=== PATIENT | male | born 1945 | race Caucasian/White ===

== ENCOUNTER → 2018-03-28 14:40 | Outpatient (CLI) | payer OTHER, SELFPAY ==
--- NOTE | 2018-03-28 14:44 | CT_ITS ---
STUDY: CT ABDOMEN AND PELVIS WITHOUT CONTRAST REASON FOR EXAM: Male, 72 years old. Hematuria x1 month RADIATION DOSAGE (If Supplied By Facility): CTDIvol = ( 14.10 ) mGy, DLP = ( 1630.67 ) mGycm TECHNIQUE: Transaxial images were obtained from the dome of the diaphragm to the symphysis pubis without oral contrast, and without intravenous contrast. Sagittal and coronal images were reconstructed. Individualized dose optimization techniques were used for this CT. COMPARISON: None. FINDINGS: The visualized lung bases are unremarkable. The visualized portions of the heart are within normal limits. Normal liver. Normal gallbladder and extrahepatic biliary system. Normal spleen. Normal pancreas. Normal bilateral adrenal glands. Normal right kidney. Normal left kidney. Normal visualized stomach. Normal small intestine. Normal colon. There is non-visualization of the appendix. There is diffuse atherosclerotic calcification of the abdominal aorta, without a demonstrated aneurysm. Normal inferior vena cava. Normal retroperitoneum. There is significant enlargement of the prostate gland with impingement upon the inferior bladder wall. This is likely responsible for the diffuse bladder wall thickening but without IV contrast but cannot exclude an underlying bladder lesion. Normal abdominal wall. There are diffuse degenerative changes of the visualized lumbar spine. CT/CT Abd/Pelvis W/WO Contrast IMPRESSION: Diffuse enlargement of the prostate gland measures at least 5.8 x 5.9 x 5.5 cm. It abuts the inferior bladder and is likely impinging upon the inferior bladder wall and causing diffuse bladder wall thickening. I suspect that this is responsible for what appears to be a filling defect within the inferior bladder wall but without IV contrast I cannot exclude an underlying bladder lesion. Urologic consultation recommended. No obstructive uropathy. No CT evidence of an acute inflammatory process No free intraperitoneal fluid, air, or suspicious adenopathy Electronically Signed: Marco Perry MD at 15:33 EDT , Service support ,
[2018-03-28 15:01] LABS: CREATININE FINGERSTICK 1.3 mg/dL (0.70-1.30)
== END ==
PROVIDERS: Family Provider Internal Medicine; PCP Internal Medicine; Visit Provider Urology
DX: R31.9 Hematuria, unspecified (principal)
CPT/HCPCS: 74178; Q9967

== ENCOUNTER 2018-05-23 15:02 | Observation (INO) | payer OTHER, SELFPAY ==
[2018-05-09 14:16] VITALS: BP 178/91; PULSE 69; RESP 16; TEMP 36.3; O2SAT 97; BMI 24.0
--- NOTE | 2018-05-09 14:24 | SDCEKG_ITS ---
Test Reason : Blood Pressure : / mmHG Vent. Rate : 064 BPM Atrial Rate : 064 BPM P-R Int : 186 ms QRS Dur : 102 ms QT Int : 416 ms P-R-T Axes : 013 008 037 degrees QTc Int : 429 ms Normal sinus rhythm Inferior infarct , age undetermined Abnormal ECG Confirmed by STEFANO ARIAS, SHERLYN ([id number]), videotape editor NOLAN PENALOZA ([id number]) on 05/17/2018 1:11:20 PM Referred By: CAITLIN Confirmed By:SHERLYN AGARWAL MD
[2018-05-09 15:01] LABS: Hematocrit 41.8 % (40-54); Hemoglobin 14.3 g/dl (13.0-16.5); Mean Corp Hgb Conc 34.2 g/gl (32-36); Mean Corpuscular Hgb 29.8 pg (27.0-32.0); Mean Corpuscular Volume 87.1 fL (80-94); Mean Platelet Vol. 10.4 fl (6.2-12.0); Platelet Count 229 K/mm3 (150-450); RBC Distribution Width CV 14.7 % (11.6-14.6); RBC Distribution Width SD 47.1 fl (35.1-43.9); White Blood Count 7.1 K/mm3 (4.4-11.0)
[2018-05-09 15:09] LABS: Scan Indicated on CBC? Y/N NO
[2018-05-09 15:31] LABS: Anion Gap 10 (5-15); BUN 20 mg/dL (7-18); BUN/Creat Ratio 16.3 RATIO (10-20); Calcium,Total 8.8 mg/dL (8.5-10.1); Chloride 108 mmol/L (98-107); Creatinine, Serum 1.23 mg/dL (0.70-1.30); EST Glomerular Filtration Rate 62 mL/min (>60); Est Glom Filt Rate - Afr Amer 75 mL/min (>60); Estimated Creatinine Clearance 62.25 ml/min; Glucose 98 mg/dL (74-106); Potassium 3.8 mmol/L (3.5-5.1); Sodium Level 141 mmol/L (136-145)
[2018-05-22] VITALS (10 sets, daily range): BP systolic 153–187; BP diastolic 79–100; PULSE 70–100; RESP 16–17; TEMP 36.1–37.6; O2SAT 95–100; BMI 24.0
[2018-05-22] MEDS: Cefazolin 2 GM in 0.9% Normal Saline 100 ML IV (13:20)
[2018-05-22] MEDS: Bupivacaine Mpf 0.5% 30 ML VIAL (15:30)
--- NOTE | 2018-05-22 15:53 | OP.PCM_ITS ---
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 The abdomen was shaved prepped and draped in usual sterile fashion made a small incision above the supra umbilicus which was introduced the Veress needle into the peritoneal cavity and if inflated the peritoneal cavity CO2 gas I then placed my camera trocar right arm trocar left arm trocar fourth arm trocar suction trocar and air seal port we then docked the robot I released some attachments of the bowel to a prior hernia repair the patient's left upper quadrant in the left inguinal area, I then filled the bladder with 3 syringe holes of water unit using a Shea syringe made a midline incision in the bladder use the fourth arm to retract bladder inferiorly and then after clamshell in the bladder open then I used a Donell needle to pull the wings the bladder laterally I then identified the very large adenomatous tissue from the prostate protruding the bladder circumferentially dissected between the bladder muscle and the prostate until I had dissected all the way around then using blunt and sharp dissection dissected the adenoma off the anterior into the prostate performing dissection along the adenoma all the way along the inferior capsular margin all the way to the sphincter complex and the urethra once the adenoma was removed on both the left and right side and this is placed in Endo Catch bag some extra tissue that was removed I then used this is suture a V lock stitch of the double-armed suture to then reapproximate the mucosa to the urethra suspending the urethra and attaching the mucosa down to the urethra we then put a catheter 20 [place] catheter into the bladder and then we closed the midline incision in the bladder with 2-0 Vicryl 3-0 Vicryl and then we extracted the prostate adenoma to the umbilicus we closed the umbilicus with a with stitches and closed the balloon trocar site with stitches once all the sutures were closed all the counts were complete we flushed the bladder urine was nice and clear patient is patient was extubated taken back to PACU in good condition. Type of Anesthesia:: General Drains: 20 fr nolan - Admit VTE Documentation VTE Present on Admission: No VTE Mechan Device Prophylaxis: SCD's
[2018-05-22] MEDS: 0.9% Normal Saline 1,000 ML 75 ML IV (18:05)
[2018-05-22] MEDS: Lisinopril 40 MG Tablet PO (20:03)
[2018-05-22] MEDS: Ciprofloxacin 500 MG Tablet PO (20:03)
[2018-05-22] MEDS: Docusate Sodium 100 MG Capsule PO (20:03)
--- NOTE | 2018-05-23 | PROST_PTH ---
PATIENT: LAURA HONG LOC: [facility] U#:[id number] AGE/SX: 72/M ROOM: [facility]324 RE05/23/[address]: Dr. Parth Shaw MD : [id number] BED: 1 DIS: 05/24/2018 SPEC #: [id number] RECD: 05/23/18 12:23 STATUS: CHRISTIAN HAZEL #: [id number] BELINDA: 05/23/18 00:[address]: Parth Shwa DEPT: SURGICAL PATHOLOGY RECD BY: David Moses ENTERED: 05/23/18 12:23 SP TYPE: PROSTATE OTHR DR: Dr. Sharon Romero MD Tissues: Prostate, NOS Procedures: Surgery Specimen Level V HEADER OPERATION: Laparoscopic robotic simple prostatectomy PRE-OP DIAGNOSIS: BPH with obstruction TISSUE SUBMITTED: Prostate tissue MICROSCOPIC DIAGNOSIS Prostate, simple prostatectomy: Benign nodule hyperplasia, glandular and stromal types. Chronic inflammation. No evidence of malignancy. AM:charan 05/24/18 MICROSCOPIC DESCRIPTION Slides are reviewed. GROSS DESCRIPTION Received in fixative is one container labeled with the patient's name and designated prostate tissue. The specimen consists of a simple prostatectomy specimen consisting of prostate and also detached pieces of prostatic tissue weighing in aggregate 57 gm. The prostate appears disrupted and morcellated. The prostate measures 7 cm transversely, 5 cm from apical to basal portion and 4 cm anterior-posteriorly. Detached pieces of prostate measure in aggregate 6 x 5 x 2 cm. Sections reveal multinodular cut surfaces. No obvious mass lesion is identified. Composing Room Machinist sections are submitted in ten cassettes as follows: 1 & 2 ? detached pieces of tissue, 3-6 ? right lobe, 7-10 ? left lobe. / SJ:charan 05/23/18 TC:3 CPT: 03416
[2018-05-23] MEDS: oxyCODONE 5 MG Tablet PO ×4 (06:21→23:07)
[2018-05-23] MEDS: 0.9% Normal Saline 1,000 ML 75 ML IV ×2 (06:21→18:31)
[2018-05-23] MEDS: Multivitamins,Therapeutic Tablet 1 TABLET PO (07:39)
[2018-05-23 07:40] VITALS: BP 167/101; PULSE 102; RESP 18; TEMP 37.7; O2SAT 98
[2018-05-23] MEDS: Docusate Sodium 100 MG Capsule PO ×2 (09:48→21:36)
[2018-05-23] MEDS: Ciprofloxacin 500 MG Tablet PO ×2 (09:48→21:36)
[2018-05-23] MEDS: Lisinopril 40 MG Tablet PO (09:48)
[2018-05-23] MEDS: Pantoprazole Sodium 20 MG Tablet PO (09:48)
[2018-05-23 16:05] VITALS: BP 179/104; PULSE 84; RESP 18; TEMP 37.2; O2SAT 98
[2018-05-23] MEDS: Ibuprofen 600 MG Tablet PO (18:32)
[2018-05-23 21:35] VITALS: BP 149/86; PULSE 69; RESP 16; TEMP 36.8; O2SAT 97
[2018-05-23] MEDS: 0.9% NaCl Peripheral Flush Adult/Peds IV (21:41)
[2018-05-24 04:00] VITALS: BP 182/92; PULSE 63; RESP 18; TEMP 36.7; O2SAT 94
[2018-05-24] MEDS: 0.9% Normal Saline 1,000 ML 75 ML IV (06:54)
[2018-05-24] MEDS: oxyCODONE 5 MG Tablet PO (06:56)
--- NOTE | 2018-05-24 07:17 | DCINST_ITS ---
Discharge Diet: Light diet - advance as tolerated Discharge Activity: May Shower Call your doctor if your incision/area has: Continuous Slow Oozing, Sudden Increased Bleeding, Increased Pain/ Swelling, Increased Redness, Foul Smelling Discharge, Swelling at the incision site Suture Line Care: Avoid Pulling/Pushing, Avoid Pinching/Bending Catheter: Sebastian to leg bag, Sebastian to large bag Drain: [place] Allergies/Adverse Reactions: Allergies No Known Allergies Allergy (Verified 05/09/18 13:57) Medications to take at Discharge Aspirin [Aspirin EC] 81 mg PO DAILY 05/09/18 Doxazosin Mesylate [Cardura Xl] 4 mg PO QHS 05/09/18 Finasteride [Proscar] 5 mg PO QHS 05/09/18 Lisinopril [Zestril] 40 mg PO DAILY 05/09/18 Multivitamin [Multiple Vitamins] 1 each PO DAILY 05/09/18 Omeprazole [Prilosec] 20 mg PO DAILY 05/09/18 Ciprofloxacin [Cipro] 500 mg PO BID #20 tab 05/22/18 Docusate Sodium [Colace] 100 mg PO BID #20 cap 05/22/18 Hydrocodone/Acetaminophen [[place] 5-325 Tablet] 1 ea PO Q4H PRN PRN 5 Days #14 tab 05/22/18 The following prescriptions were given: Hydrocodone/Acetaminophen [[place] 5-325 Tablet] 1 ea PO Q4H PRN PRN 5 Days #14 tab PRN Reason: Pain Ciprofloxacin [Cipro] 500 mg PO BID #20 tab Docusate Sodium [Colace] 100 mg PO BID #20 cap Primary Care Physician: Sharon Romero MD [Primary Care Provider] - Test Results: Test results from this visit will be discussed in further detail at your follow- up appointment, if applicable. Please Follow Up With: Parth Shaw MD When: please call to make an appointment- next
--- NOTE | 2018-05-24 07:17 | PCM.DC.SUM ---
Discharge Date and Diagnosis Date of Admission: 05/22/18 Date of Discharge: 05/24/18 Hospital Course and Treatment Operations: - - Robotic simple prostatectomy Procedures: None Summary of Care Provided: The patient is a 72 year old male who underwent a robotic prostatectomy did well after surgery wanted to stay 1 more night in the hospital was finally discharged on postoperative day #2 in good condition passing gas belly was nice and soft Sebastian in place urine is nice and clear light alex color no clots. Patient will go home with a catheter and is instructed to follow-up next week for catheter removal he will keep pushing fluids and was given a prescription for stool softeners antibiotics and pain medicine. Discharge Diet: Light diet - advance as tolerated Discharge Activity: May Shower Call your doctor if your incision/area has: Continuous Slow Oozing, Sudden Increased Bleeding, Increased Pain/ Swelling, Increased Redness, Foul Smelling Discharge, Swelling at the incision site Suture Line Care: Avoid Pulling/Pushing, Avoid Pinching/Bending Catheter: Sebastian to leg bag, Sebastian to large bag Drain: [place] Home Medications: Medications to take at Discharge Aspirin [Aspirin EC] 81 mg PO DAILY 05/09/18 Doxazosin Mesylate [Cardura Xl] 4 mg PO QHS 05/09/18 Finasteride [Proscar] 5 mg PO QHS 05/09/18 Lisinopril [Zestril] 40 mg PO DAILY 05/09/18 Multivitamin [Multiple Vitamins] 1 each PO DAILY 05/09/18 Omeprazole [Prilosec] 20 mg PO DAILY 05/09/18 Ciprofloxacin [Cipro] 500 mg PO BID #20 tab 05/22/18 Docusate Sodium [Colace] 100 mg PO BID #20 cap 05/22/18 Hydrocodone/Acetaminophen [[place] 5-325 Tablet] 1 ea PO Q4H PRN PRN 5 Days #14 tab 05/22/18 Following Prescrptions Were Given to Patient: Hydrocodone/Acetaminophen [[place] 5-325 Tablet] 1 ea PO Q4H PRN PRN 5 Days #14 tab PRN Reason: Pain Ciprofloxacin [Cipro] 500 mg PO BID #20 tab Docusate Sodium [Colace] 100 mg PO BID #20 cap Primary Care Physician: Sharon Romero MD [Primary Care Provider] - Please Follow Up With: Parth Shaw MD When: please call to make an appointment- next Medical Necessity - Tobacco Use Smoking Status: Former smoker Meaningful Use Info Meaningful Use Diagnoses (Choose all that apply): None applicable
--- NOTE | 2018-05-24 07:21 | DS.PCM_ITS ---
Discharge Date and Diagnosis Date of Admission: 05/22/18 Date of Discharge: 05/24/18 Hospital Course and Treatment Operations: - - Robotic simple prostatectomy Procedures: None Summary of Care Provided: The patient is a 72 year old male who underwent a robotic prostatectomy did well after surgery wanted to stay 1 more night in the hospital was finally discharged on postoperative day #2 in good condition passing gas belly was nice and soft Sebastian in place urine is nice and clear light alex color no clots. Patient will go home with a catheter and is instructed to follow-up next week for catheter removal he will keep pushing fluids and was given a prescription for stool softeners antibiotics and pain medicine. Discharge Diet: Light diet - advance as tolerated Discharge Activity: May Shower Call your doctor if your incision/area has: Continuous Slow Oozing, Sudden Increased Bleeding, Increased Pain/ Swelling, Increased Redness, Foul Smelling Discharge, Swelling at the incision site Suture Line Care: Avoid Pulling/Pushing, Avoid Pinching/Bending Catheter: Sebastian to leg bag, Sebastian to large bag Drain: [place] Home Medications: Medications to take at Discharge Aspirin [Aspirin EC] 81 mg PO DAILY 05/09/18 Doxazosin Mesylate [Cardura Xl] 4 mg PO QHS 05/09/18 Finasteride [Proscar] 5 mg PO QHS 05/09/18 Lisinopril [Zestril] 40 mg PO DAILY 05/09/18 Multivitamin [Multiple Vitamins] 1 each PO DAILY 05/09/18 Omeprazole [Prilosec] 20 mg PO DAILY 05/09/18 Ciprofloxacin [Cipro] 500 mg PO BID #20 tab 05/22/18 Docusate Sodium [Colace] 100 mg PO BID #20 cap 05/22/18 Hydrocodone/Acetaminophen [[place] 5-325 Tablet] 1 ea PO Q4H PRN PRN 5 Days #14 tab 05/22/18 Following Prescrptions Were Given to Patient: Hydrocodone/Acetaminophen [[place] 5-325 Tablet] 1 ea PO Q4H PRN PRN 5 Days #14 tab PRN Reason: Pain Ciprofloxacin [Cipro] 500 mg PO BID #20 tab Docusate Sodium [Colace] 100 mg PO BID #20 cap Primary Care Physician: Sharon Romero MD [Primary Care Provider] - Please Follow Up With: aPrth Shaw MD When: please call to make an appointment- next Medical Necessity - Tobacco Use Smoking Status: Former smoker Meaningful Use Info Meaningful Use Diagnoses (Choose all that apply): None applicable
[2018-05-24 08:51] VITALS: BP 185/92; PULSE 87; RESP 16; TEMP 37.3; O2SAT 97
[2018-05-24] MEDS: Multivitamins,Therapeutic Tablet 1 TABLET PO (10:26)
[2018-05-24] MEDS: Docusate Sodium 100 MG Capsule PO (10:26)
[2018-05-24] MEDS: Pantoprazole Sodium 20 MG Tablet PO (10:26)
[2018-05-24] MEDS: Ciprofloxacin 500 MG Tablet PO (10:26)
[2018-05-24] MEDS: Lisinopril 40 MG Tablet PO (10:30)
[2018-05-24 12:19] VITALS: BP 187/96; PULSE 86; RESP 16; TEMP 37.1; O2SAT 98
== END 2018-05-24 12:45 | disposition home or self-care (01) ==
LOC: SDC 15:11 → MS3 05-24 06:25
PROVIDERS: Admitting Provider Urology; Family Provider Internal Medicine; PCP Internal Medicine; Visit Provider Urology
PROC: 0VT04ZZ Resection of Prostate, Percutaneous Endoscopic Approach (ICD-10-PCS; CPT 55867; principal; 2018-05-22 12:35)
DX: N40.1 Benign prostatic hyperplasia with lower urinary tract symptoms (principal); N13.8 Other obstructive and reflux uropathy; D29.1 Benign neoplasm of prostate; Z87.891 Personal history of nicotine dependence; Z79.899 Other long term (current) drug therapy; Z79.82 Long term (current) use of aspirin; I10 Essential (primary) hypertension; L40.9 Psoriasis, unspecified; K21.9 Gastro-esophageal reflux disease without esophagitis; R94.31 Abnormal electrocardiogram [ECG] [EKG]
CPT/HCPCS: 00860; 51990; 55866; S2900; 80048; 85027; 86850; 86900; 86920; 86922; 88307; 88309; 93005; 96360; 96361; 99218; J7030; J7120; A4216; G0378; G0379; J2405

== ENCOUNTER → 2020-03-02 14:39 | Outpatient (CLI) | payer MEDICARE, OTHER, SELFPAY ==
[2020-03-02 16:05] LABS: PSA,Total- Diagnostic 0.85 ng/mL (0.0-4.0)
== END ==
PROVIDERS: PCP Internal Medicine; Referring Provider Urology; Visit Provider Urology
DX: R97.20 Elevated prostate specific antigen [PSA] (principal)
CPT/HCPCS: 36415; 84153

== ENCOUNTER → 2020-04-01 17:39 | Outpatient (CLI) | payer MEDICARE, OTHER, SELFPAY | PROVIDERS: PCP Internal Medicine; Referring Provider Internal Medicine; Visit Provider Urology | DX: Z11.59 Encounter for screening for other viral diseases (principal) | CPT/HCPCS: 87635; 94799; U0003 ==

== ENCOUNTER → 2020-04-05 14:28 | Outpatient (CLI) | payer MEDICARE, OTHER, SELFPAY ==
[2018-05-22 11:10] VITALS: BMI 24.0
--- NOTE | 2020-04-05 14:40 | EKG12_ITS ---
Test Reason : Blood Pressure : / mmHG Vent. Rate : 069 BPM Atrial Rate : 069 BPM P-R Int : 176 ms QRS Dur : 104 ms QT Int : 394 ms P-R-T Axes : 017 018 042 degrees QTc Int : 422 ms Normal sinus rhythm with sinus arrhythmia Normal ECG Confirmed by STEFANO ARIAS, SHERLYN ([id number]), online editor GIULIANA HEALY ([id number]) on 04/06/2020 8:44:51 AM Referred By: Parth Shaw Confirmed By:SHERLYN AGARWAL MD
[2020-04-05 15:45] LABS: Hematocrit 43.8 % (40-54); Hemoglobin 14.9 g/dL (13.0-16.5); Mean Corpuscular Hgb 29.8 pg (27.0-32.0); Mean Corpuscular Volume 87.6 fL (80-94); Mean Platelet Vol. 10.4 fl (6.2-12.0); Platelet Count 255 K/mm3 (150-450); RBC Distribution Width CV 14.6 % (11.6-14.6); RBC Distribution Width SD 46.9 fl (35.1-43.9); White Blood Count 7.9 K/mm3 (4.4-11.0)
[2020-04-05 16:06] LABS: Anion Gap 7 (5-15); BUN 22 mg/dL (7-18); BUN/Creat Ratio 16.5 RATIO (10-20); Calcium,Total 8.9 mg/dL (8.5-10.1); Chloride 109 mmol/L (98-107); Creatinine, Serum 1.33 mg/dL (0.70-1.30); EST Glomerular Filtration Rate 56 mL/min (>60); Est Glom Filt Rate - Afr Amer 68 mL/min (>60); Glucose 123 mg/dL (74-106); Potassium 3.7 mmol/L (3.5-5.1); Sodium Level 140 mmol/L (136-145)
== END ==
PROVIDERS: PCP Internal Medicine; Referring Provider Urology; Visit Provider Urology
DX: I10 Essential (primary) hypertension (principal)
CPT/HCPCS: 36415; 80048; 85027; 93005

== ENCOUNTER 2022-05-03 10:26 | Inpatient (IN) | payer MEDICARE, OTHER, SELFPAY ==
[2022-05-03] VITALS (24 sets, daily range): BP systolic 170–222; BP diastolic 63–163; PULSE 64–151; RESP 16–27; TEMP 36.6–36.9; O2SAT 96–99; BMI 23.3; BMI 22.7
--- NOTE | 2022-05-03 10:37 | EKG12_ITS ---
Test Reason : AFIB Blood Pressure : / mmHG Vent. Rate : 151 BPM Atrial Rate : 141 BPM P-R Int : 000 ms QRS Dur : 104 ms QT Int : 298 ms P-R-T Axes : 000 011 015 degrees QTc Int : 472 ms Atrial fibrillation with premature ventricular or aberrantly conducted complexes Abnormal ECG Confirmed by HERMELINDA ARIAS, RAVIN ([id number]), food expeditor GIULIANA HEALY ([id number]) on 05/05/2022 2:01:52 PM Referred By: VALERIY Confirmed By:SWATI SHEN MD
--- NOTE | 2022-05-03 10:37 | CT_ITS ---
We are attempting to reach an attending provider to discuss findings. An addendum with communication details will be sent when the communication is complete. STUDY: CT BRAIN WITHOUT CONTRAST REASON FOR EXAM: Male, 76 years old. Neuro deficit, acute, stroke suspected RADIATION DOSAGE (If Supplied By Facility): CTDIvol = ( 44.99 ) mGy, DLP = ( 796.11 ) mGycm TECHNIQUE: Transaxial CT imaging of the brain was performed without administration of intravenous contrast material. Individualized dose optimization techniques were used for this CT. COMPARISON: No relevant priors. FINDINGS: Normal soft tissue structures. Normal calvarium. There is mild cortical and central atrophy. There is no evidence of focal attenuation abnormality. There is mild cerebellar atrophy. There is no intracranial hemorrhage. There are no findings of an acute ischemic infarction. Normal visualized paranasal sinuses. CT/STROKE Brain/Head without Cont IMPRESSION: No evidence of acute ischemic infarction. Mild cortical and central atrophy. Verbal results provided Dr. Iniguez. Electronically Signed: Luis Manuel Singleton MD, MARIANA at 11:41 EDT ,
--- NOTE | 2022-05-03 10:38 | CT_ITS ---
STUDY: CTA HEAD AND NECK WITH CONTRAST REASON FOR EXAM: Male, 76 years old. confusion RADIATION DOSAGE (If Supplied By Facility): CTDIvol = ( 23.11 ) mGy, DLP = ( 739.03 ) mGycm TECHNIQUE: CT angiography was performed with a multi-detector CT scanner. Data acquisition was obtained from the skull base through the vertex following intravenous administration of IV 100mL Isovue-370. MIP images were reconstructed from the axial data set. Post-processing of the angiographic images was performed, with multiplanar reformation and 3D reconstruction. Individualized dose optimization techniques were used for this CT. COMPARISON: No relevant priors. FINDINGS: Normal bilateral petrous carotid arteries. Bilaterally the distal cavernous carotid arteries at the right and left genu demonstrating moderate stenosis in the range of 40-59%. Normal right A1 segments of the anterior cerebral artery. Normal left A1 segments of the anterior cerebral artery. Normal intact anterior communicating artery (ACOM). Normal bilateral A2 segments of the anterior cerebral arteries. Normal right M1 and M2 segments of the middle cerebral arteries, with a normal M1 bifurcation. Normal left M1 and M2 segments of the middle cerebral arteries, with a normal M1 bifurcation. Normal right posterior communicating artery (PCOM). Normal left posterior communicating artery (PCOM) which appears dominant.. Normal bilateral vertebral arteries. Normal basilar artery with a normal basilar bifurcation. The visualized bilateral superior cerebellar (SCA) arteries are normal. Normal bilateral P1, P2 and visualized P3 segments of the posterior cerebral arteries. There is no demonstrated aneurysm of the [place]. There is no demonstrated abnormality of the visualized brain. AORTIC ARCH: Normal visualized aortic arch. Normal origins of the brachiocephalic, left common carotid, and left subclavian arteries. RIGHT CAROTID ARTERIES: Normal right common carotid artery (CCA). Normal right common carotid bulb. (139%) stenosis at the origin of the right internal carotid artery. Normal visualized cervical portion of the right internal carotid artery. Normal origin of the right external carotid artery (ECA). LEFT CAROTID ARTERIES: Normal left common carotid artery (CCA). Normal left common carotid bulb. Mild stenosis at the origin of the left internal carotid artery in the range of 1-39%. Normal visualized cervical portion of the left internal carotid artery. Normal origin of the left external carotid artery (ECA). VERTEBRAL ARTERIES: Vertebral arteries are normal bilaterally with the distal left vertebral being dominant. CT/CTA Head AND Neck W/ Contrast IMPRESSION: Mild (1-39%) stenosis of the origin of the right and left internal carotid arteries. 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 Normal variant prominent distal left vertebral artery. Findings discussed with Dr. Iniguez. Electronically Signed: Luis Manuel Singleton MD, MARIANA at 11:58 EDT ,
--- NOTE | 2022-05-03 10:40 | EDS_ITS ---
HPI History of Present Illness Chief Complaint: Confusion Detail of Chief Complaint: Decreased mental status Informant: patient and friend Onset/Context/Timing Onset: Today and Hours Current Severity: Mild Maximum Severity: Mild Associated Symptoms Associated Symptoms: Negative for Headache, Nausea, Vomiting or Chest Pain Narrative Narrative: 76-year-old male history of hypertension. Brought in today by coworkers because he was acting abnormally at work. Primarily confused. He did not know the day, month or year. He said normally he is very bright. Typically very alert. He denies any recent illness. He denies any fall or head trauma. He denies any recent illness. 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), lumbosacral Diaphragmatic hernia without mention of obstruction or gangrene Elevated prostate specific antigen (PSA) Erectile dysfunction Esophageal reflux Essential (primary) hypertension Hypertension Inverse psoriasis Unilateral inguinal hernia without obstruction or gangrene Home Medications aspirin 81 mg tablet,delayed release 81 mg PO DAILY heart health 05/09/18 [History Last Taken 05/07/18] doxazosin 4 mg tablet,extended release 24 hr (Cardura XL) 4 mg PO QHS prostate 05/09/18 [History Last Taken Unknown] finasteride 5 mg tablet 5 mg PO QHS prostate 05/09/18 [History Last Taken Unknown] lisinopril 40 mg tablet (Zestril) 40 mg PO DAILY bp 05/09/18 [History Last Taken 05/22/18 08:00] multivitamin (Multiple Vitamins tablet) 1 ea PO DAILY supplement 05/09/18 [History Last Taken 05/07/18] omeprazole 20 mg capsule,delayed release 20 mg PO DAILY gerd 05/09/18 [History Last Taken 05/22/18 08:00] ciprofloxacin HCl 500 mg tablet 500 mg PO BID #20 tabs 05/22/18 [Rx Last Taken Unknown] docusate sodium 100 mg capsule 100 mg PO BID #20 caps 05/22/18 [Rx Last Taken Unknown] hydrocodone-acetaminophen 5-325mg 5mg-325mg 1 ea PO Q4H PRN PRN Pain 5 days #14 tabs 05/22/18 [Rx Last Taken Unknown] Allergy/AdvReac Type Severity Reaction Status Date / Time amlodipine AdvReac Intermediate Rash Verified 05/03/22 11:18 chlorthalidone AdvReac Intermediate Diarrhea Verified 05/03/22 11:18 hydrochlorothiazide AdvReac Unknown intolerance Verified 05/03/22 11:18 Social History (Updated 05/03/22 @ 11:20 by Krista Knapp) Smoking Status: Former smoker alcohol intake: current ROS ROS ED ROS Narrative Denies recent illness. Review of Systems ROS Unobtainable: Denies due to encephalopathy Constitutional Constitutional ED: Denies chills or fever(s) Eyes Eyes: Denies blurry vision ENT ENT ED: Denies ear pain Cardiovascular Cardiovascular: Denies chest pain Respiratory/Chest Respiratory/Chest: Denies cough Gastrointestinal Gastrointestinal: Denies abdominal pain Genitourinary Genitourinary ED: Denies dysuria Musculoskeletal Musculoskeletal: Denies arthralgias Integumentary Denies abscess Neurologic Neurologic: Denies headache(s) Psychiatric Psychiatric: Denies anxiety Endocrine Endocrinology: Denies polydipsia Hematologic/Lymphatic Hematologic/Lymphatic: Denies easy bleeding Allergic/Immunologic Allergic/Immunologic ED: Denies mouth swelling EXAM Physical Exam Narrative Exam Narrative: 76-year-old male heart rates 151 appears to be A. fib on the monitor. His initial blood pressure was 197/163. He is awake alert. He is confused. There is a friend at bedside. H EENT exam unremarkable. Pupils round reactive light. No facial droop. Normal speech. No signs of trauma. Nontender. Neck nontender no lymphadenopathy. Lungs clear to auscultation. Heart tachycardic appears to be A. fib with RVR in the moderate about 150. Chest were nontender. Abdomen soft nontender. Moving all 4 extremities. Nontender no edema. No deformity. 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 Dorsi plantarflexion intact. Neurologically is awake. He answers questions and follows commands. He has normal speech. No facial droop. He is confused he could not name the day, month, year or president night states. When I gave him a choice between 3 months he did state it was April. He is speaking normally. There is no slurring of his speech. There is no receptive or expressive aphasia. NIH score is 1, for confusion. Const Vital Signs: 05/03/22 10:27 05/03/22 10:31 05/03/22 10:45 Temperature 98.1 F 98.1 F 98.1 F Temperature Source Temporal Temporal Temporal Pulse Rate 151 H 140 H 139 H Respiratory Rate 19 H 20 H 18 Blood Pressure 197/63 H 197/163 H 213/135 H Blood Pressure Mean 107 174 161 Pulse Ox 98 98 98 Oxygen Delivery Method Room Air Room Air Room Air 05/03/22 10:46 05/03/22 11:07 05/03/22 11:27 Temperature Temperature Source Pulse Rate 95 99 Respiratory Rate 20 H 22 H Blood Pressure 222/122 H 191/110 H Blood Pressure Mean 155 137 Pulse Ox 99 99 97 Oxygen Delivery Method Room Air Room Air Room Air 05/03/22 11:37 05/03/22 12:06 Temperature 98.4 F Temperature Source Oral Pulse Rate 92 77 Respiratory Rate 16 18 Blood Pressure 206/102 H 200/123 H Blood Pressure Mean 136 148 Pulse Ox 98 97 Oxygen Delivery Method Room Air Room Air Positive well nourished and well developed; Negative for obese, cachectic, contractures or unkempt General Appearance ED: well developed; Negative for unkempt, cachectic, contractures or NAD Nutritional Appearance: Negative for cachectic or obese HEENT Reports moist mucous membranes atraumatic; Negative for trauma Nose: Negative for other Eyes PERRL and EOMs intact bilaterally General Eye ED: Negative for pale conjunctiva or scleral icterus Neck no lymphadenopathy, supple and no JVD General: Negative for tenderness Thyroid: Negative for other Chest Wall inspection of chest normal and palpation of chest normal Chest: Negative for other Resp normal respiratory effort and clear to auscultation bilaterally Effort and Inspection: Negative for retractions Auscultation: Negative for rales, rhonchi or wheezes Cardio no murmurs Cardio Narrative: A. fib RVR rate about 150. Rate: Negative for regular rate Rhythm: abnormal rhythm; Negative for regular rhythm GI normal to inspection, nondistended, normoactive bowel sounds, soft to palpation, non-tender, non-distended and no masses Inspection: Negative for abdominal distention Auscultation: normoactive bowel sounds Palpation: Negative for tender Back/Spine no CVA tenderness General Back: Negative for CVA tenderness Cervical Spine: Negative for cervical spine tenderness Thoracic Spine / Upper Back: Negative for thoracic spinal tenderness Lumbar Spine / Lower Back: Negative for lumbar spinal tenderness Extremity normal to inspection General Extremety ED: Negative for deformity, edema or tenderness General Extremity: Negative for deformity or edema Neuro oriented x3, CN's II-XII intact bilaterally and no sensory deficits noted [place] Coma Scale: document GCS findings Spontaneous Obeys Commands Confused 14 Sensorium / Orientation: alert, oriented to person, oriented to place, orientation impaired and confused; Negative for oriented to time, lethargic or stuporous Speech: speech normal Motor Exam: strength 5/5 throughout Psych mental status grossly normal Appearance: Negative for unkempt Attitude: No agitated Mood & Affect: Negative for depressed, anxious or tearful Skin no wounds General Skin Exam: Negative for jaundice Lesions: no lesions Rashes: no rashes Trauma: Negative for abrasion NIHSS NIHSS Initial: 1a Level of Consciousness: 0 1b LOC Questions (Score 2 if aphasic/stupor): 1 1c LOC Commands (Only score 1st attempt): 0 2 Best Gaze (If aphasic, use reflexive mvmts.): 0 3 Visual: 0 4 Facial Palsy: 0 5 Motor Arm Right (UN = amputation/fusion): 0 5 Motor Arm Left: 0 6 Motor Leg Right: 0 6 Motor Leg Left: 0 7 Limb ataxia (Only + if out of proportion): 0 8 Sensory (Aphasia/stupor=0 or 1, coma=2): 0 9 Best Language: 0 10 Dysarthria (mute, coma=2, intubated=UN): 0 11 Extinction and Inattention (only scored if +): 0 Total Score: 1 MDM MDM MDM Narrative Medical decision making narrative: 76-year-old male with history of hypertension which what appears to be new onset A. fib RVR. He is also hypertensive. He is definitely confused to specific day, month, year and president. He will be put through a stroke protocol. There is really no last known well time it was probably yesterday. Because he came to work was acting abnormally at work. He is got no motor or sensory loss. He is awake and alert is just confused. He will be started on IV Cardizem for his A. fib RVR. Repeat exam patient is doing well at 12:10 PM. He is awake and alert. We went over his test results. I spoke to the hospitalist will be admitted. The Cardizem did not control his heart rate is now in the 90s he remains in A. fib. He is no longer in rapid ventricular rate. He was initially given also a dose of labetalol and now a second dose to try to improve his blood pressure which is still elevated. Lab Data Attestation: I reviewed the patient's lab results. Lab results narrative: CBC unremarkable white count of 6. H&H is 16 and 50. Platelets 238. PT, INR and PTT normal. Electrolytes unremarkable. Gap of 8. Creatinine 1.31. EtOH negative. Urinalysis negative. Labs: Laboratory Results - last 24 hr 05/03/22 05/03/22 05/03/22 10:16 10:30 10:30 WBC 6.5 RBC 5.62 Hgb 16.3 Hct 50.1 MCV 89.1 MCH 29.0 MCHC 32.5 RDW Std Deviation 47.2 H RDW Coeff of Henok 14.5 Plt Count 238 MPV 10.6 Immature Gran % (Auto) 0.200 Neut % (Auto) 70.2 H Lymph % (Auto) 20.3 [place] % (Auto) 6.8 Eos % (Auto) 1.4 Baso % (Auto) 1.1 H Absolute Neuts (auto) 4.5 Absolute Lymphs (auto) 1.31 Nucleated RBC % 0 PT 13.1 INR 1.0 APTT 27.3 Sodium Potassium Chloride Carbon Dioxide Anion Gap BUN Creatinine Estim Creat Clear Calc Est GFR (MDRD) Af Amer Est GFR (MDRD) Non-Af BUN/Creatinine Ratio Glucose Calcium Troponin I High Sens TSH Urine Color Urine Clarity Urine pH Ur Specific Anza Urine Protein Urine Glucose (UA) Urine Ketones Urine Occult Blood Urine Nitrite Urine Bilirubin Urine Urobilinogen Ur Leukocyte Esterase Urine RBC Urine WBC Ur Squamous Epith Cells Urine Bacteria Urine Mucus Ethyl Alcohol < 3.0 05/03/22 05/03/22 05/03/22 10:30 10:30 11:20 WBC RBC Hgb Hct MCV MCH MCHC RDW Std Deviation RDW Coeff of Henok Plt Count MPV Immature Gran % (Auto) Neut % (Auto) Lymph % (Auto) [place] % (Auto) Eos % (Auto) Baso % (Auto) Absolute Neuts (auto) Absolute Lymphs (auto) Nucleated RBC % PT INR APTT Sodium 139 Potassium 3.6 Chloride 106 Carbon Dioxide 25.0 Anion Gap 8 BUN 19 H Creatinine 1.31 H Estim Creat Clear Calc 55.06 Est GFR (MDRD) Af Amer 69 Est GFR (MDRD) Non-Af 57 L BUN/Creatinine Ratio 14.5 Glucose 110 H Calcium 9.7 Troponin I High Sens 10 TSH 3.96 H Cancelled Urine Color Straw Urine Clarity Clear Urine pH 7.0 Ur Specific [place] 1.005 Urine Protein Negative Urine Glucose (UA) Normal Urine Ketones Negative Urine Occult Blood Negative Urine Nitrite Negative Urine Bilirubin Negative Urine Urobilinogen Normal Ur Leukocyte Esterase 25 H Urine RBC 0 SEEN Urine WBC 0-5 SEEN Ur Squamous Epith Cells 0 SEEN Urine Bacteria 0 SEEN Urine Mucus 0 SEEN Ethyl Alcohol Radiography Diagnostic Testing: Clinical Impression(s) from Imaging Studies Brain CT 05/03/22 10:37 IMPRESSION: No evidence of acute ischemic infarction. Mild cortical and central atrophy. Verbal results provided Dr. Iniguez. Electronically Signed: Luis Manuel Singleton MD, JD at 11:41 EDT , Head/Neck CTA 05/03/22 10:38 IMPRESSION: Mild (1-39%) stenosis of the origin of the right and left internal carotid arteries. 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 Normal variant prominent distal left vertebral artery. Findings discussed with Dr. Iniguez. Electronically Signed: Luis Manuel Singleton MD, JD at 11:58 EDT , Chest X-Ray 05/03/22 11:10 IMPRESSION: 1. Mild left lower lobe fibrosis or atelectasis. 2. Borderline cardiomegaly. Electronically Signed: Luis Manuel Singleton MD, JD at 11:47 EDT , Rhythm Strip Rhythm Strip: A-fib Rate: 151 Ectopy: PVC(s) EKG Initial EKG: Attestation: I personally reviewed and interpreted this EKG as follows: Interpretation: No Acute Injury Pattern and Atrial Fibrillation Comments: Atrial fibrillation with rapid ventricular rate of 151. He does have occasional PVCs. No acute signs of [place] or ischemia. Critical Care Time Critical Care Time: Yes Critical care time (excluding procedures): 30-74 minutes, Including time spent:, Discussing w/Patient &/or Family/Equipment Service Associate, Discussing w/Consultants, Arranging Admission or Transfer, Performing Direct Patient Care at Bedside and - (34 minutes) Discharge Plan Dx/Rx/DC Orders Clinical Impression: Atrial fibrillation with rapid ventricular response, Acute confusion, Chronic hypertension Disposition Disposition: Acute Care Hospital [facility]
--- NOTE | 2022-05-03 10:44 | ED.RN ---
Addendum entered by Kasandra Hernandez 05/03/22 11:52: PER OFFICE STAFF PT WAS ACTING CONFUSED THIS AM. THEY ALERTED HIS FRIEND/ POTATO PEELER WHOM BROUGHT HIM TO THE ED. LNW 05/02/2022 1430. Original Note: PER PT FRIEND THAT BROUGHT HIM TO THE ED, HE LAST SAW THE PATIENT NORMAL YESTERDAY AT 1430. HE REPORTS HE SAW HIM IN PASSING THIS AM, AND EVERYTHING SEEMED FINE. FRIEND WAS ALERTED BY OTHER COWORKERS THAT HE WAS NOT ACTING RIGHT AND BROUGHT HIM TO THE EMERGENCY DEPARTMENT. PT REPORTS HIS LIVES ALONE, DENIES WANTING TO NOTIFY FAMILY. DR. DE LEON AT BEDSIDE TO EVALUATE PT. REPORTS NO STROKE TEAM.
[2022-05-03] MEDS: dilTIAZem 25 MG/5 ML Vial IV BOLUS (10:48)
[2022-05-03 10:51] LABS: Absolute Lymphocyte Count 1.31 X10^3/uL (0.83-4.51); Absolute Neutrophil Count 4.5 X10^3/uL (2.0-7.7); Basophil# 0.07 X10^3/uL; Basophil% 1.1 % (0-1); Eosinophil# 0.09 X10^3/uL; Eosinophils% 1.4 % (0-5); Hematocrit 50.1 % (40-54); Hemoglobin 16.3 g/dL (13.0-16.5); Lymphocyte # 1.31 X10^3/ul (0.83-4.51); Lymphocyte % 20.3 % (19-41); Mean Corp Hgb Conc 32.5 g/dL (32-36); Mean Corpuscular Volume 89.1 fL (80-94); Mean Platelet Vol. 10.6 fl (6.2-12.0); Monocyte# 0.44 X10^3/uL; Monocyte% 6.8 % (0-10); NRBC Flagged by Analyzer 0 % (0-5); Neutrophil # 4.53 X10^3/uL (2.7-7.7); Neutrophil % 70.2 % (47-70); Platelet Count 238 K/mm3 (150-450); RBC Distribution Width CV 14.5 % (11.6-14.6); RBC Distribution Width SD 47.2 fl (35.1-43.9); Red Blood Count 5.62 M/mm3 (4.6-6.2); White Blood Count 6.5 K/mm3 (4.4-11.0)
[2022-05-03 11:00] LABS: Prothrombin Time (Protime)PT. 13.1 SECONDS (11.7-14.9)
[2022-05-03 11:01] LABS: Partial Thromboplast Time 27.3 Seconds (24.1-36.2)
--- NOTE | 2022-05-03 11:10 | RAD_ITS ---
STUDY: X-RAY CHEST REASON FOR EXAM: Male, 76 years old. Neuro deficit, acute, stroke suspected TECHNIQUE: AP or PA COMPARISON: Unavailable. Specifically prior chest x-ray dated 06/16/2010 is unavailable. FINDINGS: Mild left lower lobe fibrosis or less likely atelectasis. Borderline cardiomegaly. Normal mediastinum and wicho. Normal visualized pulmonary arteries. Normal visualized aortic arch and descending thoracic aorta. Normal visualized thoracic spine. Normal visualized ribs, clavicles, and shoulders. There is no demonstrated abnormality of the visualized soft tissue structures of the upper abdomen. RAD/Chest 1 View IMPRESSION: 1. Mild left lower lobe fibrosis or atelectasis. 2. Borderline cardiomegaly. Electronically Signed: Luis Manuel Singleton MD, MARIANA at 11:47 EDT ,
[2022-05-03 11:12] LABS: Anion Gap 8 (5-15); BUN 19 mg/dL (7-18); BUN/Creat Ratio 14.5 RATIO (10-20); Calcium,Total 9.7 mg/dL (8.5-10.1); Chloride 106 mmol/L (98-107); Creatinine, Serum 1.31 mg/dL (0.70-1.30); EST Glomerular Filtration Rate 57 mL/min (>60); Est Glom Filt Rate - Afr Amer 69 mL/min (>60); Estimated Creatinine Clearance 55.06 ml/min; Glucose 110 mg/dL (74-106); Potassium 3.6 mmol/L (3.5-5.1); Sodium Level 139 mmol/L (136-145); Thyroid Stim Hormone (TSH) 3.96 uIU/mL (0.358-3.74); Troponin-I HS 10 pg/mL (3.0-78.0)
[2022-05-03 11:26] LABS: Alcohol, Blood (Medical)-Serum < 3.0 mg/dL
[2022-05-03 11:26] LABS: Bacteria 0 SEEN /hpf (None Seen); Mucous, Urine 0 SEEN /hpf (<or=2+); Red Blood Cells-Urine 0 SEEN /hpf (0-5); Squamous Epithelial Cells - UA 0 SEEN /hpf (0-5)
[2022-05-03 11:31] LABS: Color, Urine Straw (Yellow); Glucose, Dipstick Normal (Normal); Ketone-Dipstick Negative (Negative); Leukocyte Esterase-Dipstick 25 /ul (Negative); Nitrite-Dipstick Negative (Negative); Occult Blood-Urine Negative /ul (Negative); Protein-Dipstick Negative (Negative); Specific Gravity, Urine 1.005 (1.002-1.030); Urine Bilirubin Dipstick Negative (Negative); Urine Clarity Clear (Clear); Urine Urobilinogen Normal (Normal)
--- NOTE | 2022-05-03 11:35 | EKG12_ITS ---
Test Reason : REPEAT Blood Pressure : / mmHG Vent. Rate : 095 BPM Atrial Rate : 192 BPM P-R Int : 000 ms QRS Dur : 102 ms QT Int : 366 ms P-R-T Axes : 000 000 015 degrees QTc Int : 459 ms Atrial fibrillation Abnormal ECG Confirmed by HERMELINDA ARIAS, RAVIN ([id number]), mapping editor GIULIANA HEALY ([id number]) on 05/05/2022 2:02:03 PM Referred By: VALERIY Confirmed By:SWATI SHEN MD
[2022-05-03 11:38] LABS: White Blood Cells 0-5 SEEN /hpf (0-5)
[2022-05-03] MEDS: Labetalol (Prefilled) 20 MG/4 ML 10 MG IV ×2 (11:41→12:15)
--- NOTE | 2022-05-03 12:11 | PCM.HP.STD ---
HPI - General General Date of Admission: 05/03/22 Date of Service: 05/03/22 Chief Complaint: Acute onset of confusion - 1 day HPI Narrative LAURA HONG, is a 76 M who presents with acute onset of confusion. Patient underlying history of hypertension. He works as a research program manager in [employer] He was reportedly found confused this morning. He lives alone. No acute prior events noted. Patient is a poor historian. Patient's initial vitals show blood pressure 197/63, heart rate 151, respiratory 19, temperature 98.1 F, oxygen saturation 90% on room air. EKG showed A. fib with RVR. His admitting blood work was unremarkable. He has CKD stage III with creatinine above his baseline of 1.31. Patient received a dose of Cardizem, to slow down his heart rate. He is received multiple doses of labetalol for elevated blood pressure. CT of the brain showed no evidence of acute ischemic infarct, mild cortical and central atrophy seen. CTA of the head and neck trivial disease in the right and left carotid arteries. Chest x-ray showed mild left lower lobe atelectasis. 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), lumbosacral Diaphragmatic hernia without mention of obstruction or gangrene Elevated prostate specific antigen (PSA) Erectile dysfunction Esophageal reflux Essential (primary) hypertension Hypertension Inverse psoriasis Unilateral inguinal hernia without obstruction or gangrene Home Medications aspirin 81 mg tablet,delayed release 81 mg PO DAILY heart health 05/09/18 [History Last Taken 05/07/18] doxazosin 4 mg tablet,extended release 24 hr (Cardura XL) 4 mg PO QHS prostate 05/09/18 [History Last Taken Unknown] finasteride 5 mg tablet 5 mg PO QHS prostate 05/09/18 [History Last Taken Unknown] lisinopril 40 mg tablet (Zestril) 40 mg PO DAILY bp 05/09/18 [History Last Taken 05/22/18 08:00] multivitamin (Multiple Vitamins tablet) 1 ea PO DAILY supplement 05/09/18 [History Last Taken 05/07/18] omeprazole 20 mg capsule,delayed release 20 mg PO DAILY gerd 05/09/18 [History Last Taken 05/22/18 08:00] docusate sodium 100 mg capsule 100 mg PO BID #20 caps 05/22/18 [Rx Last Taken Unknown] hydrocodone-acetaminophen 5-325mg 5mg-325mg 1 ea PO Q4H PRN PRN Pain 5 days #14 tabs 05/22/18 [Rx Last Taken Unknown] carvedilol 6.25 mg tablet 6.25 mg PO BID 05/03/22 [History Last Taken Unknown] clobetasol 0.05 % scalp solution 1 applic topical DAILY 05/03/22 [History Last Taken Unknown] Allergy/AdvReac Type Severity Reaction Status Date / Time amlodipine AdvReac Intermediate Rash Verified 05/03/22 11:18 chlorthalidone AdvReac Intermediate Diarrhea Verified 05/03/22 11:18 hydrochlorothiazide AdvReac Unknown intolerance Verified 05/03/22 11:18 Family History unable to obtain unable to obtain Surgical History unable to obtain unable to obtain Social History (Updated 05/03/22 @ 14:[address] Maddison Gambino MD) household members: none financial difficulty paying for basics: very hard service: Yes current occupational exposures/hazards: Yes pets and animals: Yes leisure activities: sports history of recent travel: Yes Smoking Status: Former smoker alcohol intake: current ROS Review of Systems ROS Unobtainable: due to encephalopathy Vital Signs Vital Signs Vital Signs: 05/03/22 10:27 05/03/22 10:31 05/03/22 10:45 Temperature 98.1 F 98.1 F 98.1 F Temperature Source Temporal Temporal Temporal Pulse Rate 151 H 140 H 139 H Respiratory Rate 19 H 20 H 18 Blood Pressure 197/63 H 197/163 H 213/135 H Blood Pressure Mean 107 174 161 Pulse Ox 98 98 98 Oxygen Delivery Method Room Air Room Air Room Air 05/03/22 10:46 05/03/22 11:07 05/03/22 11:27 Temperature Temperature Source Pulse Rate 95 99 Respiratory Rate 20 H 22 H Blood Pressure 222/122 H 191/110 H Blood Pressure Mean 155 137 Pulse Ox 99 99 97 Oxygen Delivery Method Room Air Room Air Room Air 05/03/22 11:37 05/03/22 12:06 Temperature 98.4 F Temperature Source Oral Pulse Rate 92 77 Respiratory Rate 16 18 Blood Pressure 206/102 H 200/123 H Blood Pressure Mean 136 148 Pulse Ox 98 97 Oxygen Delivery Method Room Air Room Air Weight Weight: 80.1 kg Body Mass Index (BMI) 23.3 Physical Exam Narrative Physical exam: General: Alert, Oriented to person, place but not to time, cooperative, in apparent distress HEENT: Atraumatic Oral: Moist Mucosa Neck: Supple Lungs: Clear to auscultation Cardiovascular: HS I+II, regular, no murmurs Abdomen: Bowel Sounds Present, Soft, Non Tender Extremities: No edema Skin: No rashes, No breakdown Neurological: Grossly intact Psych/Mental Status: Appropriate Results Lab / Micro Data Result Diagrams: 05/03/22 10:30 05/03/22 10:30 Labs: Laboratory Results - last 24 hr 05/03/22 10:16: Ethyl Alcohol < 3.0 05/03/22 10:30: WBC 6.5, RBC 5.62, Hgb 16.3, Hct 50.1, MCV 89.1, MCH 29.0, MCHC 32.5, RDW Std Deviation 47.2 H, RDW Coeff of Henok 14.5, Plt Count 238, MPV 10.6, Immature Gran % (Auto) 0.200, Neut % (Auto) 70.2 H, Lymph % (Auto) 20.3, [place] % (Auto) 6.8, Eos % (Auto) 1.4, Baso % (Auto) 1.1 H, Absolute Neuts (auto) 4.5, Absolute Lymphs (auto) 1.31, Nucleated RBC % 0 05/03/22 10:30: PT 13.1, INR 1.0, APTT 27.3 05/03/22 10:30: Sodium 139, Potassium 3.6, Chloride 106, Carbon Dioxide 25.0, Anion Gap 8, BUN 19 H, Creatinine 1.31 H, Estim Creat Clear Calc 55.06, Est GFR (MDRD) Af Amer 69, Est GFR (MDRD) Non-Af 57 L, BUN/Creatinine Ratio 14.5, Glucose 110 H, Calcium 9.7, Troponin I High Sens 10, TSH 3.96 H 05/03/22 10:30: TSH Cancelled 05/03/22 11:20: Urine Color Straw, Urine Clarity Clear, Urine pH 7.0, Ur Specific [place] 1.005, Urine Protein Negative, Urine Glucose (UA) Normal, Urine Ketones Negative, Urine Occult Blood Negative, Urine Nitrite Negative, Urine Bilirubin Negative, Urine Urobilinogen Normal, Ur Leukocyte Esterase 25 H, Urine RBC 0 SEEN, Urine WBC 0-5 SEEN, Ur Squamous Epith Cells 0 SEEN, Urine Bacteria 0 SEEN, Urine Mucus 0 SEEN Rhythm Strip Rhythm Strip: A-fib Rate: 151 Ectopy: PVC(s) Radiology Impression Brain CT 05/03/22 10:37 IMPRESSION: No evidence of acute ischemic infarction. Mild cortical and central atrophy. Verbal results provided Dr. Iniguez. Electronically Signed: Luis Manuel Singleton MD, JD at 11:41 EDT , Head/Neck CTA 05/03/22 10:38 IMPRESSION: Mild (1-39%) stenosis of the origin of the right and left internal carotid arteries. 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 Normal variant prominent distal left vertebral artery. Findings discussed with Dr. Iniguez. Electronically Signed: Luis Manuel Singleton MD, JD at 11:58 EDT , Chest X-Ray 05/03/22 11:10 IMPRESSION: 1. Mild left lower lobe fibrosis or atelectasis. 2. Borderline cardiomegaly. Electronically Signed: Luis Manuel Singleton MD, JD at 11:47 EDT , Assessment & Plan Assessment/Plan (1) Atrial fibrillation with rapid ventricular response: (2) Acute confusion: PLAN: Plan 1. Acute encephalopathy, patient also include acute stroke versus hypertensive encephalopathy Will admit to PCU for acute stroke work-up Initial CT of the brain as well as CTA of the head and neck have been unremarkable MRI brain, 2D echo, telemetry, lipid profile, HbA1c PT/OT/ST to evaluate and treat 2. Hypertensive emergency in the context of acute encephalopathy Patient with past medical history of hypertension Rule out stroke first before aggressive blood pressure control 3. Atrial fibrillation with RVR, newly diagnosed Continue on metoprolol for now 4. BPH, continue finasteride and doxazosin 5. GERD, continue PPI 6. CKD stage III, creatinine appears to be stable 7. DVT prophylaxis? Lovenox SC Charges/Coding Visit Charges Inpatient E&M: 06439 Init Hosp L3
[2022-05-03 12:45] LABS: Amphetamine Urine VISTA NEGATIVE (<1000 ng/mL); Barbiturate Urine VISTA NEGATIVE (< 200 ng/mL); Benzodiazepine Urine VISTA NEGATIVE (< 200 ng/mL); Cocaine Urine VISTA NEGATIVE (< 300 ng/mL); Ecstacy Urine VISTA NEGATIVE (< 500 ng/mL); Methadone Urine VISTA NEGATIVE (< 300 ng/mL); PCP Urine VISTA NEGATIVE (< 25 ng/mL); THC Urine VISTA NEGATIVE (< 50 ng/mL); Vista UDS pH Range 6
--- NOTE | 2022-05-03 13:14 | MRI_ITS ---
STUDY: MRI BRAIN WITHOUT CONTRAST REASON FOR EXAM: Male, 76 years old. NEURO DEFICIT, confusion TECHNIQUE: Standardized multiplanar fat and water weighted pulse sequences were obtained. COMPARISON: None CT head 05/03/2022.. FINDINGS: There is mild cortical and central atrophy. There is mild chronic microvascular ischemic change in the periventricular white matter. There is no evidence of acute or chronic intracranial hemorrhage. Cerebellum normal. Fusion/echoplanar imaging demonstrates no evidence of acute ischemia nor of acute infarct. Normal bilateral basal ganglia. Normal thalami. There is no extra-axial fluid accumulation. Normal flow voids within the major intracranial circulation suggesting patency by spin echo criteria. Normal sella turcica, pituitary gland, infundibular stalk, optic chiasm and hypothalamus. Normal tectal plate and pineal gland. Normal midbrain, tyler and medulla. Normal cerebellum. Normal basal cisterns. Normal bilateral temporal bones. Normal bilateral internal auditory canals. No demonstrated orbital abnormality, within the constraints of a routine brain study. There is moderate circumferential mucosal thickening in the right maxillary sinus. There is mild bilateral ethmoidal mucosal thickening. Normal calvarium and skull base. Normal visualized soft tissue structures. Normal visualized upper cervical spine. Findings are in accord with CT of the brain performed earlier the same day. MRI/Brain without Contrast IMPRESSION: Mild cortical and central atrophy. Moderate right maxillary sinus mucosal thickening. Mild bilateral ethmoidal mucosal thickening. Electronically Signed: Luis Manuel Singleton MD, MARIANA at 15:16 EDT ,
--- NOTE | 2022-05-03 13:14 | ECHOD_ITS ---
Reason For Study: TIA/CVA Procedure This was a 2D Doppler, Color Flow transthoracic echocardiogram. Exam performed portable in patient room. Left Ventricle Normal LV size. The estimated ejection fraction is 65 %. No evidence for diastolic dysfunction. No regional wall motion abnormalities noted. Right Ventricle Normal RV size. Normal systolic function. Atria Normal left atrium. Normal right atrium. No doppler evidence for ASD. Mitral Valve There is no mitral valve stenosis. Trivial mitral valve insufficiency. Tricuspid Valve There is no tricuspid stenosis. Unable to estimate RV systolic pressure due to inadequate jet, pulmonary artery pressure probably normal. Aortic Valve Trisinus/trileaflet aortic valve. Aortic sclerosis, no stenosis. There is no aortic stenosis. No aortic valve insufficiency. Pulmonic Valve There is no pulmonic valvular stenosis. Trivial pulmonic valve insufficiency. Great Vessels Normal aortic root. Pericardium/Pleural No pericardial effusion. Medication Performed a rapid injection of agitated mix of 9 cc saline and 1cc air to assess for atrial septal defect. MMode/2D Measurements & Calculations LVIDd: 3.8 cm IVSd: 1.8 cm Ao root diam: 3.7 cm LVIDs: 2.9 cm LVPWd: 1.5 cm RVDd: 3.4 cm FS: 25.6 % LAV(MOD-sp4): 57.9 ml LVAd ap4: 24.8 cm2 SV(MOD-sp4): 35.9 ml LVLd ap4: 8.2 cm EDV(MOD-sp4): 63.3 ml EDV(sp4-el): 63.8 ml LVAs ap4: 14.2 cm2 LVLs ap4: 6.9 cm ESV(MOD-sp4): 27.4 ml ESV(sp4-el): 24.8 ml EF(MOD-sp4): 56.7 % EF(sp4-el): 61.1 % SV(sp4-el): 39.0 ml LA A4 area: 18.9 cm2 LA dimension(2D): 4.4 cm RA A4 area: 19.7 cm2 Doppler Measurements & Calculations MV E max miguel angel: 92.8 cm/sec Ao V2 max: 96.3 cm/sec LV V1 max: 93.4 cm/sec Ao max P.8 mmHg LV V1 max P.5 mmHg Ao V2 mean: 63.6 cm/sec LV V1 mean P.9 mmHg Ao mean P.9 mmHg LV V1 mean: 65.0 cm/sec Ao V2 VTI: 17.2 cm LV V1 VTI: 17.2 cm PA V2 max: 78.0 cm/sec ECHO/Echo Complete Interpretation Summary The estimated ejection fraction is 65 %. No evidence for diastolic dysfunction. Trivial mitral valve insufficiency. Ordering Physician: Maddison Gambino Referring Physician: Sharon Romero M.D. Performed By: Maine Shepherd RCS
[2022-05-03] MEDS: Metoprolol Tartrate 50 MG Tablet PO (14:06)
[2022-05-03 15:24] LABS: Hemoglobin A1c 5.4 % (3.8-5.6)
[2022-05-03] MEDS: 0.9% Saline Lock 10 ML Syringe IV (17:15)
[2022-05-03] MEDS: Lisinopril 40 MG Tablet PO (17:15)
[2022-05-03] MEDS: hydrALAZINE 20 MG/ML Vial 10 MG IV ×2 (17:15→22:27)
[2022-05-03 18:47] LABS: Free T3 2.9 pg/mL (2.18-3.98); T4 Free Direct 1.04 ng/dL (0.76-1.46)
[2022-05-03] MEDS: Famotidine 20 MG Tablet PO (21:24)
[2022-05-03] MEDS: Atorvastatin Calcium 40 MG Tablet PO (21:25)
[2022-05-03] MEDS: Doxazosin 4 MG Tablet PO (21:34)
[2022-05-04] VITALS (11 sets, daily range): BP systolic 120–140; BP diastolic 76–98; PULSE 66–97; RESP 16–18; TEMP 36.6–37.1; O2SAT 96–98; BMI 22.7
[2022-05-04 06:53] LABS: Cholesterol 202 mg/dL (200); High Density Lipoprotein 77 mg/dL; Triglycerides 55 mg/dL; Very Low Density Lipoprotein 11 mg/dL (5-40)
[2022-05-04 07:46] LABS: Absolute Neutrophil Count 6.5 X10^3/uL (2.0-7.7); Basophil# 0.08 X10^3/uL; Eosinophil# 0.03 X10^3/uL; Eosinophils% 0.4 % (0-5); Hematocrit 45.7 % (40-54); Hemoglobin 15.5 g/dL (13.0-16.5); Lymphocyte % 14.4 % (19-41); Mean Corp Hgb Conc 33.9 g/dL (32-36); Mean Corpuscular Hgb 29.8 pg (27.0-32.0); Mean Corpuscular Volume 87.9 fL (80-94); Mean Platelet Vol. 10.3 fl (6.2-12.0); Monocyte# 0.53 X10^3/uL; Monocyte% 6.4 % (0-10); NRBC Flagged by Analyzer 0 % (0-5); Neutrophil # 6.45 X10^3/uL (2.7-7.7); Neutrophil % 77.6 % (47-70); Platelet Count 229 K/mm3 (150-450); RBC Distribution Width CV 14.4 % (11.6-14.6); RBC Distribution Width SD 46.7 fl (35.1-43.9); White Blood Count 8.3 K/mm3 (4.4-11.0)
[2022-05-04 07:51] LABS: ALB/GLOB Ratio 1.1 RATIO (0.9-2.4); AST(SGOT) 14 U/L (15-37); Alanine Aminotransfer ALT/SGPT 22 U/L (16-61); Albumin, Serum 3.5 g/dL (3.2-5.0); Alkaline Phosphatase 77 U/L (45-117); Anion Gap 11 (5-15); BUN 21 mg/dL (7-18); BUN/Creat Ratio 19.6 RATIO (10-20); Calcium,Total 9.2 mg/dL (8.5-10.1); Chloride 107 mmol/L (98-107); Creatinine, Serum 1.07 mg/dL (0.70-1.30); EST Glomerular Filtration Rate 72 mL/min (>60); Est Glom Filt Rate - Afr Amer 87 mL/min (>60); Estimated Creatinine Clearance 65.98 ml/min; Globulin 3.1 g/dL (2.2-4.2); Glucose 107 mg/dL (74-106); Potassium 3.3 mmol/L (3.5-5.1); Protein, Total 6.6 g/dL (6.4-8.2); Sodium Level 139 mmol/L (136-145)
[2022-05-04] MEDS: Lisinopril 40 MG Tablet PO (09:21)
[2022-05-04] MEDS: Aspirin 81 MG TAB.CHEW PO (09:21)
[2022-05-04] MEDS: Metoprolol Tartrate 50 MG Tablet PO (09:21)
[2022-05-04] MEDS: Pantoprazole Sodium 20 MG Tablet PO (09:21)
[2022-05-04] MEDS: Enoxaparin 40 MG/0.4 ML Syringe SC (09:21)
[2022-05-04] MEDS: Famotidine 20 MG Tablet PO (09:21)
--- NOTE | 2022-05-04 10:20 | CASEMGMT ---
SHANNAN CALLAHAN CHIEF TECHNICIAN CM to room to meet with patient for initial transition planning/care coordination assessment. SHANNAN CALLAHAN introduced self and role at [facility]. Pt voices understanding and consents to assessment at this time. Pt resting in bed in no distress at this time. Friend, Jennifer, @ bedside. Pt agreeable to her being present during assessment. Pt is A/O at this time and answers all questions appropriately. Care providers, pharmacy, and demographics verified/updated at this time. PCP: Dr Romero Specialists:FARAZ--has 1st appt scheduled next Sun Preferred Pharmacy: [facility] Retail Insurance: MCR, MMO Prescription Benefit: Yes Living Will/HPOA: States does not have LW or HCPOA . Interested in more information but states does not want to talk with SW at this time to complete paperwork. Pt aware Social Service rac card with number to call if chooses in the future to utilize [facility] social work for advanced directive completion is in the [facility] binder. Pt voices understanding. LNOK: Pt has 3 children but states is not involved with any of them and would not want them making medical decisions for him. Pt made aware, without HPOA designating someone else to be his HPOA, since his children are his LNOK, they would legally be his medical decision makers in the event he was unable to make his own decisions. He voices understanding and states plans to complete HPOA at a later time. Pt states he also has one sibling. He states would like his friend (who is at bedside), Jennifer, to be listed as person to notify for now. SHANNAN CALLAHAN entered info into [employer]). Living Arrangements: Lives alone in 2-story home w/5-10 steps to enter. Denies difficulty w/stairs. Independent w/ADL's and IADL's. Transportation: Pt states drives self and states no transportation concerns at this time. DME: Denies using any DME and denies needs. HHC/SNF: No history of either and no needs identified. Pt wishes to return home and states has no concerns with going home at time of discharge. CM to follow for any discharge planning/needs. Pt and friend voice no concerns/needs at this time. Advised them to ask for CM if any questions/concerns/needs arise. They voice understanding. PLAN: Home w/discharge plans in place. Colton SIERRA RN, CM
[2022-05-04 10:21] LABS: Bedside Glucose 110 mg/dL (74-106)
[2022-05-04 11:13] LABS: Magnesium 2.2 mg/dL (1.6-2.6)
[2022-05-04] MEDS: Potassium Chloride Oral Tablet 20 MEQ 60 MEQ PO (11:28)
--- NOTE | 2022-05-04 11:37 | TELEMED_ITS ---
[facility] Telemed has confirmed receipt of a request for visit. This document confirms receipt of the order initiating the consult. To find the results of the consultation, please view the patient's reports for the scanned Telemed Consult.
[2022-05-04] MEDS: APIXABAN 5 MG TABLET PO (12:21)
--- NOTE | 2022-05-04 13:05 | CASEMGMT ---
Addendum entered by Ria Stinson 05/04/22 14:29: Pt to be sent home on Eliquis at discharge and med e-scribed to [facility] previously. Call to [facility] and per tech, pt's co-pay is $533. Pt updated on all and provided with Eliquis 30 day free trial card w/ instructions. Pt states has f/u with towing pilot and is aware to discuss cost of Eliquis with them if it's still high next month. Pt voices no further questions/concerns/needs. Jeronimo CAMPBELL CM Original Note: Per therapy, pt needs no further therapy at discharge and pt states no concerns with going home at discharge. Pt is awaiting neuro c/s for d/c. Jeronimo CAMPBELL CM
--- NOTE | 2022-05-04 13:14 | DS.PCM_ITS ---
Providers Date of Admission: 05/03/22 Date of Discharge: 05/04/22 Primary Care Physician: Dr. Sharon Romero MD Reason For Visit: ENCEPHALOPATHY Diagnosis Discharge Diagnosis (1) Atrial fibrillation with rapid ventricular response: Status: Acute Code(s): I48.91 - Unspecified atrial fibrillation (2) Acute confusion: Status: Acute Code(s): R41.0 - Disorientation, unspecified Plan 1. Acute encephalopathy vs transient global amnesia 2. Hypertensive emergency in the context of acute encephalopathy 3. Atrial fibrillation with RVR 4. Hyperlipidemia 5. BPH 6. GERD 7. CKD stage III Medications at Discharge Home Medications aspirin 81 mg tablet,delayed release 81 mg PO DAILY heart health 05/09/18 doxazosin 4 mg tablet,extended release 24 hr (Cardura XL) 4 mg PO QHS prostate 05/09/18 lisinopril 40 mg tablet (Zestril) 40 mg PO DAILY bp 05/09/18 omeprazole 20 mg capsule,delayed release 20 mg PO DAILY gerd 05/09/18 clobetasol 0.05 % scalp solution 1 applic topical DAILY 05/03/22 apixaban 5 mg tablet (Eliquis) 5 mg PO BID 30 days #60 tabs 05/04/22 atorvastatin 40 mg tablet 40 mg PO QHS 30 days #30 tabs 05/04/22 metoprolol tartrate 50 mg tablet 50 mg PO BID 30 days #60 tabs 05/04/22 Hospital Course Operations None Procedures 2-D Echocardiogram Summary of Care Provided Minutes Spent on Discharge: 45 Hospital Course: 76-year-old male with past medical history of hypertension, BPH, recently diagnosed with atrial fibrillation by his primary care doctor, not on any beta- manuela or anticoagulation because patient complains of feeling unwell on Coreg. Patient was is in his usual state of health until the morning of the admission when he was brought in very confused. Patient was ported as asked in the same questions over and over again and repeating things. He is usually alert oriented x3. He lives alone. He works as a credit office manager plant. His blood pressure on admission was elevated. He was as high as 213/135. He was also found to be in A. fib with RVR. He received a dose of Cardizem. His heart rate remained controlled. He was continued on metoprolol [address] of the head was unremarkable for acute bleed. CTA of the head and neck did not show LVO. Patient was admitted to the progressive care unit, MRI of the brain was negative for acute stroke. Showed minimal chronic small vessel changes. 2D echo showed EF of 65%, no diastolic dysfunction. After an acute stroke was ruled out, patient's blood pressure was aggressively managed. By the next morning, patient was back to normal. Patient denied any memory of the previous day. He stated that he remembers going to work and starting his day. He cannot remember events after 09:30am Teleneurology was consulted. They felt patient had hypertensive encephalopathy versus transient global amnesia. He was started on Eliquis, continued on his previous aspirin. His total cholesterol was elevated. He was started on statins. He has an outpatient appointment with cardiology the next week. He will follow-up with his primary care doctor also. Physical Exam Narrative Physical exam: General: Alert, Oriented to person, place but not to time, cooperative, in apparent distress HEENT: Atraumatic Oral: Moist Mucosa Neck: Supple Lungs: Clear to auscultation Cardiovascular: HS I+II, regular, no murmurs Abdomen: Bowel Sounds Present, Soft, Non Tender Extremities: No edema Skin: No rashes, No breakdown Neurological: Grossly intact Psych/Mental Status: Appropriate Weight / BMI Weight Weight: 78.199 kg Body Mass Index (BMI) 22.7 ABG / Lab / Microbiology Data Result Diagrams: 05/04/22 05:42 05/04/22 05:42 Laboratory: Laboratory Results - last 24 hr 05/03/22 10:16: Free T4 1.04, Free T3 pg/dL 2.9 05/03/22 10:27: POC Glucose 110 H 05/03/22 10:30: Hemoglobin A1c 5.4 05/04/22 05:42: Triglycerides 55, Cholesterol 202 H, LDL Cholesterol 114, VLDL Cholesterol 11, HDL Cholesterol 77 05/04/22 05:42: WBC 8.3, RBC 5.20, Hgb 15.5, Hct 45.7, MCV 87.9, MCH 29.8, MCHC 33.9, RDW Std Deviation 46.7 H, RDW Coeff of Henok 14.4, Plt Count 229, MPV 10.3, Immature Gran % (Auto) 0.200, Neut % (Auto) 77.6 H, Lymph % (Auto) 14.4 L, [place] % (Auto) 6.4, Eos % (Auto) 0.4, Baso % (Auto) 1.0, Absolute Neuts (auto) 6.5, Absolute Lymphs (auto) 1.20, Nucleated RBC % 0 05/04/22 05:42: Sodium 139, Potassium 3.3 L, Chloride 107, Carbon Dioxide 21.0, Anion Gap 11, BUN 21 H, Creatinine 1.07, Estim Creat Clear Calc 65.98, Est GFR (MDRD) Af Amer 87, Est GFR (MDRD) Non-Af 72, BUN/Creatinine Ratio 19.6, Glucose 107 H, Calcium 9.2, Total Bilirubin 0.50, AST 14 L, ALT 22, Alkaline Phosphatase 77, Total Protein 6.6, Albumin 3.5, Globulin 3.1, Albumin/Globulin Ratio 1.1 05/04/22 05:42: Magnesium 2.2 Radiography Diagnostic Testing: Radiology Impression Brain CT 05/03/22 10:37 IMPRESSION: No evidence of acute ischemic infarction. Mild cortical and central atrophy. Verbal results provided Dr. Iniguez. Electronically Signed: Luis Manuel Singleton MD, JD at 11:41 EDT , ADDENDUM: 05/03/22 1546 IMPRESSION: No evidence of acute ischemic infarction. Mild cortical and central atrophy. Verbal results provided Dr. Iniguez. N.B. : The above Results were Read Back by Luis Manuel Singleton MD, JD to Brett Iniguez MD, and understanding confirmed on 05/03/2022 15:39:24 (ET). Electronically Signed: Luis Manuel Singleton MD, JD at 11:41 EDT , Brain MRI 05/03/22 13:14 IMPRESSION: Mild cortical and central atrophy. Moderate right maxillary sinus mucosal thickening. Mild bilateral ethmoidal mucosal thickening. Electronically Signed: Luis Manuel Singleton MD, JD at 15:16 EDT Reading Location ID and State: [facility] / [place] Tel , Service support , D/C Instructions Discharge Diet: Low fat / Low cholesterol and 2000 mg Sodium Diet Meaningful Use Info Meaningful Use Diagnoses (Choose all that apply): None applicable Discharge Plan Admission Admit Date/Time: 05/03/22 12:03 Primary Reason for Your Visit: Acute encephalopathy Attending Provider: Maddison Gambino Primary Care Provider: Sharon Romero Instructions Additional Instructions / Restrictions: Follow-up with cardiology as scheduled Take note of changes to your medications Follow-up with your primary care doctor within 1 week Keep a log of your blood pressure readings and show to your doctor at the follow-up Discharge Orders/Prescriptions Prescriptions: New Eliquis 5 mg Tablet 5 mg PO BID 30 Days Qty: 60 0RF atorvastatin 40 mg Tablet 40 mg PO QHS 30 Days Qty: 30 0RF metoprolol tartrate 50 mg tablet 50 mg PO BID 30 Days Qty: 60 0RF Continued aspirin 81 MG tablet,delayed release (DR/EC) 81 mg PO DAILY omeprazole 20 MG capsule 20 mg PO DAILY lisinopril [Zestril] 40 MG tablet 40 mg PO DAILY Cardura XL 4 MG tablet extended release 24hr 4 mg PO QHS clobetasol 0.05 % Solution 1 applic TOPICAL DAILY Discontinued carvedilol 6.25 mg tablet 6.25 mg PO BID Label Comments: take 1 tablet by mouth twice a day Referrals / Follow Up: Sharon Romero MD [Primary Care Provider] - Within 1 Week Disposition Disposition (needs filled in before D/C Order can be placed): Home, Self Care Charges/Coding Visit Charges Inpatient E&M: 23944 Disch Hosp
--- NOTE | 2022-05-04 14:12 | CASEMGMT ---
SW did not complete a PHQ 9 with patient as he did not have a Stroke or TIA. Jada Blanchard STRAW BALER LORNA
== END 2022-05-04 16:06 | disposition home or self-care (01) | DRG 78 ==
LOC: ED 12:28 → PCU 12:42
PROVIDERS: Admitting Provider Internal Medicine; Emergency Provider Emergency Medicine; PCP Internal Medicine; Visit Provider Internal Medicine
DX: I67.4 Hypertensive encephalopathy (principal); I16.1 Hypertensive emergency; G45.4 Transient global amnesia; I48.91 Unspecified atrial fibrillation; I12.9 Hypertensive chronic kidney disease with stage 1 through stage 4 chronic kidney disease, or unspecified chronic kidney disease; K21.9 Gastro-esophageal reflux disease without esophagitis; N18.32 Chronic kidney disease, stage 3b; M51.37 Other intervertebral disc degeneration, lumbosacral region; L40.9 Psoriasis, unspecified; N40.0 Benign prostatic hyperplasia without lower urinary tract symptoms; Z79.899 Other long term (current) drug therapy; Z79.82 Long term (current) use of aspirin; Z87.891 Personal history of nicotine dependence; I49.3 Ventricular premature depolarization
CPT/HCPCS: 36415; 70450; 70496; 70498; 70551; 71045; 80048; 80053; 80061; 80307; 81001; 82077; 82962; 83036; 83735; 84439; 84443; 84481; 84484; 85025; 85610; 85730; 92523; 92526; 93005; 93306; 94762; 97162; 97166; 99285; Q9967; A4216

== ENCOUNTER 2022-05-29 10:45 | Day surgery (SDC) | payer MEDICARE, OTHER, SELFPAY ==
[2022-05-26 07:54] VITALS: BMI 22.9
[2022-05-29 11:15] LABS: Anion Gap 6 (5-15); BUN 22 mg/dL (7-18); BUN/Creat Ratio 17.5 RATIO (10-20); Calcium,Total 8.9 mg/dL (8.5-10.1); Chloride 109 mmol/L (98-107); Creatinine, Serum 1.26 mg/dL (0.70-1.30); EST Glomerular Filtration Rate 59 mL/min (>60); Est Glom Filt Rate - Afr Amer 72 mL/min (>60); Estimated Creatinine Clearance 56.55 ml/min; Glucose 97 mg/dL (74-106); Potassium 4.2 mmol/L (3.5-5.1); Sodium Level 141 mmol/L (136-145)
--- NOTE | 2022-05-29 12:40 | PCM.OP.BLANK ---
Problems Associated Problem List Diagnoses (1) Atrial fibrillation: Operative Report Date of Procedure: 05/29/22 DC cardioversion. 76-year-old male with a history of persistent atrial fibrillation. The patient was brought to the cardiac catheterization lab in the postabsorptive nonsedated state. The patient was seen by Dr. Bello of the critical care division. Informed consent was obtained. Anterior-posterior pads were applied. Patient was administered 60 mg of intravenous propofol. 200 J of synchronized DC cardioversion energy were applied with prompt reversal to sinus rhythm. Patient tolerated the procedure well. Conclusion: Successful DC cardioversion from atrial fibrillation to sinus rhythm. Continue as per office protocol.
--- NOTE | 2022-05-29 14:08 | PRO.PCM_ITS ---
Procedure Report Date of Procedure: 05/29/22 CONSCIOUS SEDATION REPORT BRIEF HISTORY OF PRESENT ILLNESS: The patient is a 76-year-old male who presented to [facility] [place] for an elective outpatient cardioversion due to underlying atrial fibrillation. The patient reports no PO intake since midnight, but is currently therapeutic on anticoagulation. The patient does not have a history of EDUARDO, asthma or COPD. The patient denies any recent constitutional symptoms such as fevers, chills, nausea or vomiting. The patient denies previous applicable anesthetic complications. Patient's last known ejection fraction was 60%. Patient did take anticoagulation on the day of the procedure. PHYSICAL EXAMINATION: VITAL SIGNS: Reviewed and were acceptable. GENERAL: The patient is a male, in no apparent distress, speaking in full sentences. HEENT: Normocephalic, atraumatic. Mucous membranes are moist and pink. Good mouth opening noted. Trachea is midline. Good neck mobility. MP II CHEST: S1, S2 irregularly irregular. No murmurs, rubs or gallops were noted. LUNGS: Clear to auscultation bilaterally without appreciable wheezes, rales or rhonchi. ABDOMEN: Soft, nontender, nondistended. Positive bowel sounds. EXTREMITIES: There is no clubbing, cyanosis or edema. ASA Class: II DESCRIPTION OF PROCEDURE: After confirmation of informed consent, the patient's anesthesia plan was reviewed in detail. Propofol was chosen. Risks and benefits were reviewed and the patient agreed to proceed. At 12:32 PM, the patient was given 40 mg of propofol. The patient required a total of 60 mg of propofol throughout the procedure to achieve appropriate sedation. The patient achieved an appropriate level of sedation and received 1 attempt synchronized cardioversion, at [address] Mcclain at the bedside. This was successful in achieving normal sinus rhythm. The patient was monitored until 12:47 PM, at which time the patient reached their baseline mental status and function. The patient tolerated the procedure well. COMPLICATIONS: None ESTIMATED BLOOD LOSS: None RECOMMENDATIONS: Okay to recover in usual fashion. Procedures Pulmonary 9xxxx: [id number] Con Sedation
== END 2022-05-29 13:35 | disposition home or self-care (01) ==
PROVIDERS: Internal Medicine Cardiovascular Disease; PCP Internal Medicine; Referring Provider Internal Medicine Cardiovascular Disease; Visit Provider Internal Medicine Cardiovascular Disease
DX: I48.91 Unspecified atrial fibrillation (principal); N18.30 Chronic kidney disease, stage 3 unspecified; I12.9 Hypertensive chronic kidney disease with stage 1 through stage 4 chronic kidney disease, or unspecified chronic kidney disease; M51.37 Other intervertebral disc degeneration, lumbosacral region; K21.9 Gastro-esophageal reflux disease without esophagitis; E78.5 Hyperlipidemia, unspecified; L40.9 Psoriasis, unspecified; Z79.01 Long term (current) use of anticoagulants; Z79.899 Other long term (current) drug therapy; Z87.891 Personal history of nicotine dependence
CPT/HCPCS: 36415; 80048; 92960; 93005; J7040

== ENCOUNTER 2022-06-01 06:13 | Emergency (ER) | payer MEDICARE, OTHER, SELFPAY ==
[2022-06-01 06:14] VITALS: BP 220/121; PULSE 62; RESP 16; TEMP 35.8; O2SAT 97; BMI 23.6
--- NOTE | 2022-06-01 06:23 | EDS_ITS ---
HPI History of Present Illness Chief Complaint: Nosebleed Informant: patient Onset/Context/Timing Onset: Hours (1-1.5) Context: Sudden Onset (w/ blowing his nose this AM) Timing: Continuous Quality: oozing Location: right naris Current Severity: Gone Maximum Severity: Severe Worsened by: nothing Relieved by: holding pressure Associated Symptoms Associated Symptoms: none Narrative Narrative: Spontaneous right-sided nosebleed that started with blowing his nose. Not swallowing any significant blood, all coming out the front. No injury. Recently started on Eliquis because of atrial fibrillation, subsequently had an ablation. Still on the Eliquis. Denies any lightheadedness, chest discomfort, nausea or vomiting, or other acute symptoms. Has had minor nosebleeds in the past, typically when the weather gets cool, but being on Eliquis is new. 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), lumbosacral Diaphragmatic hernia without mention of obstruction or gangrene Elevated prostate specific antigen (PSA) Erectile dysfunction Esophageal reflux Essential (primary) hypertension Hyperlipidemia Hypertension Inverse psoriasis Home Medications doxazosin 4 mg tablet,extended release 24 hr (Cardura XL) 4 mg PO QHS prostate 05/09/18 [History Last Taken Unknown] lisinopril 40 mg tablet (Zestril) 40 mg PO DAILY bp 05/09/18 [History Last Taken 05/22/18 08:00] omeprazole 20 mg capsule,delayed release 20 mg PO DAILY gerd 05/09/18 [History Last Taken 05/22/18 08:00] clobetasol 0.05 % scalp solution 1 applic topical DAILY 05/03/22 [History Last Taken Unknown] metoprolol tartrate 100 mg tablet 100 mg PO BID 3 months #180 tabs 05/10/22 [Rx Last Taken Unknown] potassium chloride 10 mEq capsule,extended release 10 meq PO DAILY #30 caps 05/26/22 [Rx Last Taken Unknown] apixaban 5 mg tablet (Eliquis) 5 mg PO BID 30 days #60 tabs 05/31/22 [Rx Last Taken Unknown] atorvastatin 40 mg tablet 40 mg PO QHS 30 days #30 tabs 05/31/22 [Rx Last Taken Unknown] Allergy/AdvReac Type Severity Reaction Status Date / Time amlodipine AdvReac Intermediate Rash Verified 06/01/22 06:18 chlorthalidone AdvReac Intermediate Diarrhea Verified 06/01/22 06:18 hydrochlorothiazide AdvReac Unknown intolerance Verified 06/01/22 06:18 Surgical History Benign localized prostatic hyperplasia with lower urinary tract symptoms (LUTS) History of cardioversion (05/29/22) Unilateral inguinal hernia without obstruction or gangrene Social History household members: none current occupational exposures/hazards: Yes pets and animals: Yes leisure activities: sports history of recent travel: Yes Smoking Status: Former smoker how long ago did patient quit smokin years ago alcohol intake: current alcohol intake frequency: 0-2 drinks per day Alcohol type: beer substance use type: does not use caffeine: Yes Type: coffee Number of servings: 2 and tea Number of servings: 3 ROS ROS ED Constitutional Constitutional ED: Denies chills or fever(s) Eyes Eyes: Denies change in vision or diplopia ENT ENT ED: Reports epistaxis; Denies bleeding gums, facial pain or sore throat Cardiovascular Cardiovascular: Denies chest pain or palpitations Respiratory/Chest Respiratory/Chest: Denies cough or dyspnea Gastrointestinal Gastrointestinal: Denies abdominal pain, nausea or vomiting Integumentary Denies abscess or rash Neurologic Neurologic: Denies headache(s), paresthesias or weakness Hematologic/Lymphatic Hematologic/Lymphatic: Reports easy bleeding and easy bruising Allergic/Immunologic Allergic/Immunologic ED: Denies mouth swelling or tongue swelling EXAM Physical Exam Const Vital Signs: 06/01/22 06:14 06/01/22 07:19 Temperature 96.4 F L Temperature Source Temporal Pulse Rate 62 Respiratory Rate 16 Blood Pressure 220/121 H 219/111 H Blood Pressure Mean 154 147 Pulse Ox 97 Positive well nourished and well developed General Appearance ED: well developed and NAD HEENT Reports moist mucous membranes HEENT Narrative: Nose clamp on nose with no active bleeding. Upon removal, there is a large clot present in the right naris no active bleeding, patient gagging on the clot in the back of his throat. Posterior oropharynx without any evidence of active bleeding. Left naris is clear. Eyes PERRL and EOMs intact bilaterally Neck no lymphadenopathy and supple Chest Wall inspection of chest normal and palpation of chest normal Resp normal respiratory effort and clear to auscultation bilaterally Neuro oriented x3, CN's II-XII intact bilaterally and no sensory deficits noted Sensorium / Orientation: alert Motor Exam: strength 5/5 throughout Psych mental status grossly normal Skin no rashes or lesions noted and no wounds MDM MDM MDM Narrative Medical decision making narrative: Patient's blood pressure is very high, 220/121. Therefore an IV was placed, he was given hydralazine in addition to oral clonidine, while I also performed epistaxis care. After observation his blood pressure did come down a little into the 190 range. He feels fine. I think he is okay to go home take his blood pressure medication as prescribed and follow-up with his doctor regarding this, he is comfortable with that plan. Procedures Other Procedures Procedure(s): Epistaxis care: Patient was able to blow his nose and evacuate the right nostril of all blood and clots, which caused mild dripping of active bleeding. After this, I immediately instilled [address] Alegria mixture via aerosolizer and syringe, as well as a cotton ball nasal pledget with same mixture applied. After 15 minutes, I reevaluated his nose. No active bleeding. Very small area at the medial septum/Kesselbach plexus likely responsible for the bleeding without active, this was cauterized with silver nitrate. After another period of observation there was no further bleeding. Discharge Plan Triage Chief Complaint: Nosebleed ED Provider: Wilfrido Aguiar Dx/Rx/DC Orders Clinical Impression: Acute anterior epistaxis, Accelerated hypertension, Anticoagulated Instructions: Controlling High Blood Pressure, ED Epistaxis (Adult) Prescriptions: No Action metoprolol tartrate 100 mg tablet 100 mg PO BID 90 Days Qty: 180 3RF omeprazole 20 MG capsule 20 mg PO DAILY lisinopril [Zestril] 40 MG tablet 40 mg PO DAILY Cardura XL 4 MG tablet extended release 24hr 4 mg PO QHS clobetasol 0.05 % Solution 1 applic TOPICAL DAILY potassium chloride 10 mEq capsule, extended release 10 meq PO DAILY Qty: 30 4RF atorvastatin 40 mg tablet 40 mg PO QHS 30 Days Qty: 30 11RF Eliquis 5 mg tablet 5 mg PO BID 30 Days Qty: 60 11RF Primary Care Provider: Sharon Romero Referrals: Sharon Romero MD [Primary Care Provider] - 3-5 Days Activity Restrictions/Additional Instructions: For at home treatment of nosebleeds: Get any bmjz-los-teurdyu nasal decongestant spray containing oxymetazoline or phenylephrine. For moderate-severe nosebleed: 1 - gather supplies: nasal decongestant spray (above), cotton ball, box of tissues, garbage can, old towel that you can wrap around your chest/neck (to catch blood) 2 - soak a cotton ball in the nasal spray 3 - blow your nose, get all blood and clots out, keep chin down to prevent blood from going back into throat and forming clots 4 - after blowing the last time, quickly spray 2 sprays of the nasal spray into the affected side and sniff it back, immediately followed by twisting the soaked cotton ball into the front of your nose and then hold pressure with your fingers. 5 - if bleeding controlled, leave cotton ball in place for at least 20 min before checking to see if the bleeding is controlled by removing the cotton ball. If not able to control bleeding, always welcome to return to the ER for help. Disposition Disposition: Home, Self Care
[2022-06-01] MEDS: hydrALAZINE 20 MG/ML Vial 10 MG IV (06:29)
[2022-06-01] MEDS: cloNIDine HCl 0.1 MG Tablet 0.2 MG PO (07:00)
[2022-06-01 07:19] VITALS: BP 219/111
[2022-06-01] MEDS: Mixture 30 ML Bottle TOPICAL (07:39)
[2022-06-01] MEDS: Silver Nitrate (BKC) 1 EACH TOPICAL (07:39)
[2022-06-01 07:40] VITALS: BP 194/89
[2022-06-01 08:01] VITALS: BP 179/89
== END 2022-06-01 08:02 | disposition home or self-care (01) ==
PROVIDERS: Emergency Provider Emergency Medicine; PCP Internal Medicine; Visit Provider Emergency Medicine
DX: R04.0 Epistaxis (principal); N18.30 Chronic kidney disease, stage 3 unspecified; M51.37 Other intervertebral disc degeneration, lumbosacral region; K21.9 Gastro-esophageal reflux disease without esophagitis; I12.9 Hypertensive chronic kidney disease with stage 1 through stage 4 chronic kidney disease, or unspecified chronic kidney disease; L40.9 Psoriasis, unspecified; E78.5 Hyperlipidemia, unspecified; Q89.1 Congenital malformations of adrenal gland; Z79.01 Long term (current) use of anticoagulants; Z79.899 Other long term (current) drug therapy; Z87.891 Personal history of nicotine dependence
CPT/HCPCS: 30901; 96374; 99284; A4216

== ENCOUNTER → 2022-06-02 | Outpatient (CLI) | payer MEDICARE, OTHER, SELFPAY ==
--- NOTE | 2022-06-02 10:29 | STRESSREP_ITS ---
Stress Test Report Date: 06/02/2022 Procedure: Pharmacologic stress nuclear imaging study Indications: Atrial fibrillation Consent: Per the patient Procedure: The patient underwent pharmacologic (Regadenoson 0.4mg ) evaluation with a peak heart rate of 93 beats per minute (64%predicted maximal heart rate) and a peak blood pressure of 190/100 mmHg. The baseline ECG demonstrated normal sinus rhythm. The peak pharmacologic ECG demonstrated normal sinus rhythm. Occasional PVCs noted pretest and posttest. No complaints of chest discomfort. The examination was discontinued secondary to completion of protocol. Impression: 1. Pharmacologic (Regadenoson) evaluation 2. Peak pharmacologic ECG with no ischemic changes. 3. Occasional PVCs noted. Myocardial perfusion imaging study: Technique: The patient was injected with 11.8 millicuries of technetium 99m Cardiolite and subsequently rest SPECT Cardiolite nuclear imaging was obtained in the horizontal long, vertical long, and short axis views. The patient underwent pharmacologic (Regadenoson) evaluation. The patient was injected with 34.4 millicuries of technetium 99m Cardiolite and subsequently stress SPECT Cardiolite nuclear imaging was obtained in the horizontal long, vertical long, and short axis views. A gated Cardiolite study at peak stress was obtained. Interpretation: Rest and stress SPECT Cardiolite nuclear imaging status post realignment, normalization, and attenuation correction demonstrate homogenous tracer distribution. There is end systolic thickening and brightening. The gated Cardiolite study demonstrates myocardial thickening and inward wall motion. The reported LVEF is 61%. Impression: 1. Rest and stress SPECT imaging demonstrates no fixed or reversible defect.. 2. The gated Cardiolite study reports an LVEF of 61%. This note was generated with [employer] software. It may contain incorrect words, spelling, and punctuation that were not noted in checking the note before signing.
== END | disposition home or self-care (01) ==
PROVIDERS: PCP Internal Medicine; Referring Provider Internal Medicine Cardiovascular Disease; Visit Provider Internal Medicine Cardiovascular Disease
DX: I48.91 Unspecified atrial fibrillation (principal); R94.31 Abnormal electrocardiogram [ECG] [EKG]
CPT/HCPCS: 78452; 93017; A9500; A4216; J2785

== ENCOUNTER 2022-08-30 11:44 | Outpatient (RCR) | payer MEDICARE, OTHER, SELFPAY ==
[2022-08-09 11:45] LABS: INR Fingerstick 0.9; Prothrombin Time Fingerstick 11.9 SEC (11.7-14.9)
[2022-08-16 11:42] LABS: International Normalized Ratio 1.6; Prothrombin Time (Protime)PT. 18.9 SECONDS (11.7-14.9)
[2022-08-16 11:51] LABS: Anion Gap 7 (5-15); BUN 23 mg/dL (7-18); Calcium,Total 9.3 mg/dL (8.5-10.1); Chloride 101 mmol/L (98-107); Creatinine, Serum 1.15 mg/dL (0.70-1.30); EST Glomerular Filtration Rate 66 mL/min (>60); Est Glom Filt Rate - Afr Amer 80 mL/min (>60); Glucose 91 mg/dL (74-106); Potassium 4.1 mmol/L (3.5-5.1); Sodium Level 137 mmol/L (136-145)
[2022-08-30 11:55] LABS: INR Fingerstick 1.2
== END 2022-08-30 18:00 | disposition home or self-care (01) ==
LOC: LAB 11:44
PROVIDERS: PCP Internal Medicine; Referring Provider Internal Medicine Cardiovascular Disease; Visit Provider Internal Medicine Cardiovascular Disease
DX: I48.91 Unspecified atrial fibrillation (principal); N18.30 Chronic kidney disease, stage 3 unspecified
CPT/HCPCS: 36415; 36416; 80048; 85610

== ENCOUNTER 2022-09-20 11:54 | Outpatient (RCR) | payer MEDICARE, OTHER, SELFPAY ==
[2022-09-06 12:01] LABS: INR Fingerstick 1.4; Prothrombin Time Fingerstick 17.3 SEC (11.7-14.9)
[2022-09-20 12:05] LABS: INR Fingerstick 1.9; Prothrombin Time Fingerstick 22.8 SEC (11.7-14.9)
== END 2022-09-20 13:00 | disposition home or self-care (01) ==
LOC: LAB 11:54
PROVIDERS: PCP Internal Medicine; Referring Provider Internal Medicine Cardiovascular Disease; Visit Provider Internal Medicine Cardiovascular Disease
DX: I48.91 Unspecified atrial fibrillation (principal)
CPT/HCPCS: 36416; 85610

== ENCOUNTER 2022-10-11 11:51 | Outpatient (RCR) | payer MEDICARE, OTHER, SELFPAY ==
[2022-10-04 12:01] LABS: INR Fingerstick 1.7; Prothrombin Time Fingerstick 20.6 SEC (11.7-14.9)
[2022-10-11 12:01] LABS: INR Fingerstick 2.1; Prothrombin Time Fingerstick 24.5 SEC (11.7-14.9)
== END 2022-10-11 18:00 | disposition home or self-care (01) ==
LOC: LAB 11:51
PROVIDERS: PCP Internal Medicine; Referring Provider Internal Medicine Cardiovascular Disease; Visit Provider Internal Medicine Cardiovascular Disease
DX: I48.91 Unspecified atrial fibrillation (principal)
CPT/HCPCS: 36416; 85610

== ENCOUNTER 2022-11-22 11:41 | Outpatient (RCR) | payer MEDICARE, OTHER, SELFPAY ==
[2022-11-02 06:36] LABS: INR Fingerstick 1.8; Prothrombin Time Fingerstick 21.6 SEC (11.7-14.9)
[2022-11-15 11:51] LABS: INR Fingerstick 1.8; Prothrombin Time Fingerstick 21.6 SEC (11.7-14.9)
[2022-11-22 12:19] LABS: International Normalized Ratio 2.3; Prothrombin Time (Protime)PT. 24.6 SECONDS (11.7-14.9)
[2022-11-22 13:11] LABS: Anion Gap 6 (5-15); BUN 22 mg/dL (7-18); BUN/Creat Ratio 17.7 RATIO (10-20); Calcium,Total 9.4 mg/dL (8.5-10.1); Chloride 104 mmol/L (98-107); Creatinine, Serum 1.24 mg/dL (0.70-1.30); EST Glomerular Filtration Rate 60 mL/min (>60); Est Glom Filt Rate - Afr Amer 73 mL/min (>60); Glucose 120 mg/dL (74-106); Potassium 3.8 mmol/L (3.5-5.1); Sodium Level 136 mmol/L (136-145)
== END 2022-12-01 23:02 | disposition home or self-care (01) ==
LOC: LAB 11:41
PROVIDERS: PCP Internal Medicine; Referring Provider Internal Medicine Cardiovascular Disease; Visit Provider Internal Medicine Cardiovascular Disease
DX: I48.91 Unspecified atrial fibrillation (principal); M18.30 Unilateral post-traumatic osteoarthritis of first carpometacarpal joint, unspecified hand
CPT/HCPCS: 36415; 36416; 80048; 85610

== ENCOUNTER 2022-12-27 11:44 | Outpatient (RCR) | payer MEDICARE, OTHER, SELFPAY ==
[2022-12-06 12:00] LABS: INR Fingerstick 2.1
[2022-12-27 11:55] LABS: INR Fingerstick 2.1; Prothrombin Time Fingerstick 23.2 SEC (11.7-14.9)
== END 2022-12-31 01:28 | disposition home or self-care (01) ==
LOC: LAB 11:44
PROVIDERS: PCP Internal Medicine; Referring Provider Internal Medicine Cardiovascular Disease; Visit Provider Internal Medicine Cardiovascular Disease
DX: I48.91 Unspecified atrial fibrillation (principal)
CPT/HCPCS: 36416; 85610

== ENCOUNTER 2023-01-17 11:49 | Outpatient (RCR) | payer MEDICARE, OTHER, SELFPAY ==
[2023-01-17 12:05] LABS: INR Fingerstick 2.1; Prothrombin Time Fingerstick 22.7 SEC (11.7-14.9)
== END 2023-01-31 18:00 | disposition home or self-care (01) ==
LOC: LAB 11:49
PROVIDERS: PCP Internal Medicine; Referring Provider Internal Medicine Cardiovascular Disease; Visit Provider Internal Medicine Cardiovascular Disease
DX: I48.91 Unspecified atrial fibrillation (principal); N18.30 Chronic kidney disease, stage 3 unspecified
CPT/HCPCS: 36416; 85610

== ENCOUNTER 2023-02-14 11:38 | Outpatient (RCR) | payer MEDICARE, OTHER, SELFPAY ==
[2023-02-14 11:49] LABS: INR Fingerstick 2.1
== END 2023-02-14 18:00 | disposition home or self-care (01) ==
LOC: LAB 11:38
PROVIDERS: PCP Internal Medicine; Referring Provider Internal Medicine Cardiovascular Disease; Visit Provider Internal Medicine Cardiovascular Disease
DX: I48.91 Unspecified atrial fibrillation (principal)
CPT/HCPCS: 36416; 85610

== ENCOUNTER 2023-03-14 12:00 | Outpatient (RCR) | payer MEDICARE, OTHER, SELFPAY ==
[2023-03-14 12:19] LABS: INR Fingerstick 2.1; Prothrombin Time Fingerstick 23.1 SEC (11.7-14.9)
== END 2023-04-02 18:00 | disposition home or self-care (01) ==
LOC: LAB 12:00
PROVIDERS: PCP Internal Medicine; Referring Provider Internal Medicine Cardiovascular Disease; Visit Provider Internal Medicine Cardiovascular Disease
DX: I48.91 Unspecified atrial fibrillation (principal); M18.30 Unilateral post-traumatic osteoarthritis of first carpometacarpal joint, unspecified hand
CPT/HCPCS: 36416; 85610

== ENCOUNTER 2023-04-11 12:37 | Outpatient (RCR) | payer MEDICARE, OTHER, SELFPAY ==
[2023-04-11 13:43] LABS: International Normalized Ratio 2.1; Prothrombin Time (Protime)PT. 23.6 SECONDS (11.7-14.9)
[2023-04-11 13:55] LABS: Anion Gap 7 (5-15); BUN 22 mg/dL (7-18); BUN/Creat Ratio 17.1 RATIO (10-20); Calcium,Total 8.8 mg/dL (8.5-10.1); Chloride 105 mmol/L (98-107); Creatinine, Serum 1.29 mg/dL (0.70-1.30); EST Glomerular Filtration Rate 58 mL/min (>60); Est Glom Filt Rate - Afr Amer 70 mL/min (>60); Glucose 126 mg/dL (74-106); Potassium 3.6 mmol/L (3.5-5.1); Sodium Level 136 mmol/L (136-145)
[2023-04-11 14:05] LABS: Erythrocyte Sedimentation Rate 11 mm/hr (0-20)
== END 2023-04-11 18:00 | disposition home or self-care (01) ==
LOC: LAB 12:37
PROVIDERS: PCP Internal Medicine; Referring Provider Internal Medicine Cardiovascular Disease; Visit Provider Internal Medicine Cardiovascular Disease
DX: I48.91 Unspecified atrial fibrillation (principal); N18.30 Chronic kidney disease, stage 3 unspecified
CPT/HCPCS: 36415; 80048; 85610; 85652; 86140

== ENCOUNTER 2023-05-09 11:49 | Outpatient (RCR) | payer MEDICARE, OTHER, SELFPAY | END 2023-05-09 18:00 | disposition home or self-care (01) | LOC: LAB 11:49 | PROVIDERS: PCP Internal Medicine; Referring Provider Internal Medicine Cardiovascular Disease; Visit Provider Internal Medicine Cardiovascular Disease | DX: I48.91 Unspecified atrial fibrillation (principal) ==

== ENCOUNTER 2023-06-06 11:44 | Outpatient (RCR) | payer MEDICARE, OTHER, SELFPAY ==
[2023-06-06 11:52] LABS: INR Fingerstick 2.2; Prothrombin Time Fingerstick 23.7 SEC (11.7-14.9)
== END 2023-06-06 18:00 | disposition home or self-care (01) ==
LOC: LAB 11:44
PROVIDERS: PCP Internal Medicine; Referring Provider Internal Medicine Cardiovascular Disease; Visit Provider Internal Medicine Cardiovascular Disease
DX: I48.91 Unspecified atrial fibrillation (principal)
CPT/HCPCS: 36416; 85610

== ENCOUNTER 2023-08-01 11:52 | Outpatient (RCR) | payer MEDICARE, OTHER, SELFPAY ==
[2023-07-04 11:58] LABS: INR Fingerstick 1.8; Prothrombin Time Fingerstick 20.3 SEC (11.7-14.9)
[2023-08-01 11:58] LABS: INR Fingerstick 2.5; Prothrombin Time Fingerstick 27.2 SEC (11.7-14.9)
== END 2023-08-02 18:00 | disposition home or self-care (01) ==
LOC: LAB 11:52
PROVIDERS: PCP Internal Medicine; Referring Provider Internal Medicine Cardiovascular Disease; Visit Provider Internal Medicine Cardiovascular Disease
DX: I48.91 Unspecified atrial fibrillation (principal)
CPT/HCPCS: 36416; 85610

== ENCOUNTER 2023-08-29 11:43 | Outpatient (RCR) | payer MEDICARE, OTHER, SELFPAY ==
[2023-08-29 11:50] LABS: INR Fingerstick 2.8; Prothrombin Time Fingerstick 30.3 SEC (11.7-14.9)
== END 2023-09-02 18:00 | disposition home or self-care (01) ==
LOC: LAB 11:43
PROVIDERS: PCP Internal Medicine; Referring Provider Internal Medicine Cardiovascular Disease; Visit Provider Internal Medicine Cardiovascular Disease
DX: I48.0 Paroxysmal atrial fibrillation; Z79.01 Long term (current) use of anticoagulants
CPT/HCPCS: 36416; 85610

== ENCOUNTER 2023-09-26 11:53 | Outpatient (RCR) | payer MEDICARE, OTHER, SELFPAY ==
[2023-09-26 12:09] LABS: INR Fingerstick 2.3; Prothrombin Time Fingerstick 25.1 SEC (11.7-14.9)
== END 2023-09-26 18:00 | disposition home or self-care (01) ==
LOC: LAB 11:53
PROVIDERS: PCP Internal Medicine; Referring Provider Internal Medicine Cardiovascular Disease; Visit Provider Internal Medicine Cardiovascular Disease
DX: I48.0 Paroxysmal atrial fibrillation; Z79.01 Long term (current) use of anticoagulants
CPT/HCPCS: 36416; 85610

== ENCOUNTER 2023-10-24 11:55 | Outpatient (RCR) | payer MEDICARE, OTHER, SELFPAY ==
[2023-10-25 16:03] LABS: INR Fingerstick 2.2; Prothrombin Time Fingerstick 22.7 SEC (11.7-14.9)
== END 2023-11-01 18:00 | disposition home or self-care (01) ==
LOC: LAB 11:55
PROVIDERS: PCP Internal Medicine; Referring Provider Internal Medicine Cardiovascular Disease; Visit Provider Internal Medicine Cardiovascular Disease
DX: I48.0 Paroxysmal atrial fibrillation (principal); Z79.01 Long term (current) use of anticoagulants
CPT/HCPCS: 36416; 85610

== ENCOUNTER 2023-11-21 12:00 | Outpatient (RCR) | payer MEDICARE, OTHER, SELFPAY ==
[2023-11-23 13:23] LABS: INR Fingerstick 2.3; Prothrombin Time Fingerstick 23.8 SEC (11.7-14.9)
== END 2023-12-02 01:31 | disposition home or self-care (01) ==
LOC: LAB 12:00
PROVIDERS: PCP Internal Medicine; Referring Provider Internal Medicine Cardiovascular Disease; Visit Provider Internal Medicine Cardiovascular Disease
DX: I48.0 Paroxysmal atrial fibrillation (principal); Z79.01 Long term (current) use of anticoagulants
CPT/HCPCS: 36416; 85610

== ENCOUNTER 2023-12-19 11:51 | Outpatient (RCR) | payer MEDICARE, OTHER, SELFPAY ==
[2023-12-19 12:05] LABS: INR Fingerstick 2.1
== END 2024-01-01 22:37 | disposition home or self-care (01) ==
LOC: LAB 11:51
PROVIDERS: PCP Internal Medicine; Referring Provider Internal Medicine Cardiovascular Disease; Visit Provider Internal Medicine Cardiovascular Disease
DX: I48.0 Paroxysmal atrial fibrillation (principal); Z79.01 Long term (current) use of anticoagulants
CPT/HCPCS: 36416; 85610

== ENCOUNTER 2024-01-16 11:43 | Outpatient (RCR) | payer MEDICARE, OTHER, SELFPAY ==
[2024-01-16 12:06] LABS: INR Fingerstick 2.2; Prothrombin Time Fingerstick 22.5 SEC (11.7-14.9)
== END 2024-01-16 18:00 | disposition home or self-care (01) ==
LOC: LAB 11:43
PROVIDERS: PCP Internal Medicine; Referring Provider Internal Medicine Cardiovascular Disease; Visit Provider Internal Medicine Cardiovascular Disease
DX: Z79.01 Long term (current) use of anticoagulants; I48.91 Unspecified atrial fibrillation
CPT/HCPCS: 36416; 85610

== ENCOUNTER 2024-02-13 11:52 | Outpatient (RCR) | payer MEDICARE, OTHER, SELFPAY ==
[2024-02-13 12:02] LABS: INR Fingerstick 2.4; Prothrombin Time Fingerstick 24.3 SEC (11.7-14.9)
== END 2024-02-13 18:00 | disposition home or self-care (01) ==
LOC: LAB 11:52
PROVIDERS: PCP Internal Medicine; Referring Provider Internal Medicine Cardiovascular Disease; Visit Provider Internal Medicine Cardiovascular Disease
DX: I48.0 Paroxysmal atrial fibrillation (principal); Z79.01 Long term (current) use of anticoagulants
CPT/HCPCS: 36416; 85610

== ENCOUNTER 2024-03-12 11:47 | Outpatient (RCR) | payer MEDICARE, OTHER, SELFPAY ==
[2024-03-12 12:35] LABS: International Normalized Ratio 2.6; Prothrombin Time (Protime)PT. 27.8 SECONDS (11.7-14.9)
== END 2024-04-02 18:00 | disposition home or self-care (01) ==
LOC: LAB 11:47
PROVIDERS: PCP Internal Medicine; Referring Provider Internal Medicine Cardiovascular Disease; Visit Provider Internal Medicine Cardiovascular Disease
DX: I48.0 Paroxysmal atrial fibrillation (principal); Z79.01 Long term (current) use of anticoagulants
CPT/HCPCS: 36415; 85610

== ENCOUNTER 2024-04-09 11:51 | Outpatient (RCR) | payer MEDICARE, OTHER, SELFPAY ==
[2024-04-09 12:12] LABS: INR Fingerstick 2.4
== END 2024-04-09 18:00 | disposition home or self-care (01) ==
LOC: LAB 11:51
PROVIDERS: PCP Internal Medicine; Referring Provider Internal Medicine Cardiovascular Disease; Visit Provider Internal Medicine Cardiovascular Disease
DX: I48.0 Paroxysmal atrial fibrillation (principal); Z79.01 Long term (current) use of anticoagulants
CPT/HCPCS: 36416; 85610

== ENCOUNTER 2024-05-07 11:38 | Outpatient (RCR) | payer MEDICARE, OTHER, SELFPAY ==
[2024-05-07 11:56] LABS: INR Fingerstick 2.4; Prothrombin Time Fingerstick 25.1 SEC (11.7-14.9)
== END 2024-05-07 18:00 | disposition home or self-care (01) ==
LOC: LAB 11:38
PROVIDERS: PCP Internal Medicine; Referring Provider Internal Medicine Cardiovascular Disease; Visit Provider Internal Medicine Cardiovascular Disease
DX: I48.0 Paroxysmal atrial fibrillation (principal); Z79.01 Long term (current) use of anticoagulants
CPT/HCPCS: 36416; 85610

== ENCOUNTER 2024-07-02 11:42 | Outpatient (RCR) | payer MEDICARE, OTHER, SELFPAY ==
[2024-06-04 12:05] LABS: INR Fingerstick 2.5; Prothrombin Time Fingerstick 25.2 SEC (11.7-14.9)
[2024-07-02 12:23] LABS: International Normalized Ratio 2.9; Prothrombin Time (Protime)PT. 30.1 SECONDS (11.7-14.9)
== END 2024-07-02 18:00 | disposition home or self-care (01) ==
LOC: LAB 11:42
PROVIDERS: PCP Internal Medicine; Referring Provider Internal Medicine Cardiovascular Disease; Visit Provider Internal Medicine Cardiovascular Disease
DX: I48.0 Paroxysmal atrial fibrillation (principal); Z79.01 Long term (current) use of anticoagulants
CPT/HCPCS: 36415; 36416; 85610

== ENCOUNTER 2024-07-30 11:41 | Outpatient (RCR) | payer MEDICARE, OTHER, SELFPAY ==
[2024-07-30 16:55] LABS: INR Fingerstick 2.6; Prothrombin Time Fingerstick 27.8 SEC (11.7-14.9)
== END 2024-08-02 18:00 | disposition home or self-care (01) ==
LOC: LAB 11:41
PROVIDERS: PCP Internal Medicine; Referring Provider Internal Medicine Cardiovascular Disease; Visit Provider Internal Medicine Cardiovascular Disease
DX: I48.0 Paroxysmal atrial fibrillation (principal); Z79.01 Long term (current) use of anticoagulants
CPT/HCPCS: 36416; 85610

== ENCOUNTER 2024-08-28 11:36 | Outpatient (RCR) | payer MEDICARE, OTHER, SELFPAY ==
[2024-08-28 11:44] LABS: INR Fingerstick 3.2; Prothrombin Time Fingerstick 33.1 SEC (11.7-14.9)
== END 2024-08-28 18:00 | disposition home or self-care (01) ==
LOC: LAB 11:36
PROVIDERS: PCP Internal Medicine; Referring Provider Internal Medicine Cardiovascular Disease; Visit Provider Internal Medicine Cardiovascular Disease
DX: I48.0 Paroxysmal atrial fibrillation (principal); Z79.01 Long term (current) use of anticoagulants
CPT/HCPCS: 36416; 85610

== ENCOUNTER 2024-10-03 11:45 | Outpatient (RCR) | payer MEDICARE, OTHER, SELFPAY ==
[2024-09-10 12:05] LABS: INR Fingerstick 3.1; Prothrombin Time Fingerstick 31.3 SEC (11.7-14.9)
[2024-10-01 11:59] LABS: INR Fingerstick 5.7; Prothrombin Time Fingerstick 53.9 SEC (11.7-14.9)
[2024-10-01 12:04] LABS: INR Fingerstick 6.1; Prothrombin Time Fingerstick 56.9 SEC (11.7-14.9)
[2024-10-03 11:52] LABS: INR Fingerstick 1.9; Prothrombin Time Fingerstick 21.3 SEC (11.7-14.9)
== END 2024-10-03 18:00 | disposition home or self-care (01) ==
LOC: LAB 11:45
PROVIDERS: PCP Internal Medicine; Referring Provider Internal Medicine Cardiovascular Disease; Visit Provider Internal Medicine Cardiovascular Disease
DX: I48.0 Paroxysmal atrial fibrillation (principal); Z79.01 Long term (current) use of anticoagulants; I48.91 Unspecified atrial fibrillation
CPT/HCPCS: 36416; 85610

== ENCOUNTER 2024-10-31 11:46 | Outpatient (RCR) | payer MEDICARE, OTHER, SELFPAY ==
[2024-10-17 11:49] LABS: INR Fingerstick 2.8
[2024-11-06 10:10] LABS: INR Fingerstick 2.9
== END 2024-10-31 18:00 | disposition home or self-care (01) ==
LOC: LAB 11:46
PROVIDERS: PCP Internal Medicine; Referring Provider Internal Medicine Cardiovascular Disease; Visit Provider Internal Medicine Cardiovascular Disease
DX: I48.0 Paroxysmal atrial fibrillation (principal); Z79.01 Long term (current) use of anticoagulants; I48.91 Unspecified atrial fibrillation
CPT/HCPCS: 36416; 85610

== ENCOUNTER 2024-12-24 11:46 | Outpatient (RCR) | payer MEDICARE, OTHER, SELFPAY ==
[2024-12-10 12:07] LABS: INR Fingerstick 1.8
[2024-12-24 12:07] LABS: INR Fingerstick 1.8; Prothrombin Time Fingerstick 19.7 SEC (11.7-14.9)
== END 2024-12-31 18:00 | disposition home or self-care (01) ==
LOC: LAB 11:46
PROVIDERS: PCP Internal Medicine; Referring Provider Internal Medicine Cardiovascular Disease; Visit Provider Internal Medicine Cardiovascular Disease
DX: I48.0 Paroxysmal atrial fibrillation (principal); Z79.01 Long term (current) use of anticoagulants
CPT/HCPCS: 36416; 85610

== ENCOUNTER → 2024-12-30 | Outpatient (CLI) | payer MEDICARE, OTHER, SELFPAY | END | disposition home or self-care (01) | LOC: PSN 13:46 | PROVIDERS: PCP Internal Medicine; Referring Provider Nurse Practitioner Gerontology; Visit Provider Nurse Practitioner Gerontology | DX: I48.0 Paroxysmal atrial fibrillation (principal) | CPT/HCPCS: 93225; 93226 ==

== ENCOUNTER 2025-01-07 11:46 | Outpatient (RCR) | payer MEDICARE, OTHER, SELFPAY ==
[2025-01-07 12:06] LABS: INR Fingerstick 2.4; Prothrombin Time Fingerstick 25.6 SEC (11.7-14.9)
== END 2025-01-07 18:00 | disposition home or self-care (01) ==
LOC: LAB 11:46
PROVIDERS: PCP Internal Medicine; Referring Provider Internal Medicine Cardiovascular Disease; Visit Provider Internal Medicine Cardiovascular Disease
DX: I48.0 Paroxysmal atrial fibrillation (principal); Z79.01 Long term (current) use of anticoagulants
CPT/HCPCS: 36416; 85610

== ENCOUNTER → 2025-01-13 | Outpatient (CLI) | payer MEDICARE, OTHER, SELFPAY ==
--- NOTE | 2025-01-13 13:51 | ECHOD_ITS ---
Reason For Study Reason For Study: PAF Procedure This was a 2D Doppler, Color Flow transthoracic echocardiogram. Called heart group office about BP. Exam performed in department. Left Ventricle Moderate concentric left ventricular hypertrophy. Normal LV size. The LV systolic function is normal. EF is 65 %. Stage 1 diastolic dysfunction. Right Ventricle Normal right ventricle. Atria There is severe biatrial dilatation. Mitral Valve Moderate to severe posteriorly directed eccentric mitral valve regurgitation. Tricuspid Valve Mild tricuspid valve insufficiency. Right ventricular systolic pressure estimated to be 39 mmHg. Aortic Valve Trisinus/trileaflet aortic valve. Pulmonic Valve The pulmonic valve is not well visualized. Trivial pulmonic valve insufficiency. Great Vessels Normal sized aortic root. Pericardium/Pleural No pericardial effusion. MMode/2D Measurements & Calculations LVIDd: 4.2 cm IVSd: 1.5 cm Ao root diam: 3.8 cm LVIDs: 2.7 cm LVPWd: 1.4 cm RVDd: 4.0 cm FS: 35.5 % LAV(MOD-bp): 70.8 ml LVAd ap4: 30.5 cm2 LVAd ap2: 28.8 cm2 LAV(MOD-bp) Indexed: 35.6 ml/m2 LVLd ap4: 8.4 cm LVLd ap2: 8.4 cm LAV(MOD-sp2): 62.7 ml EDV(MOD-sp4): 91.6 ml EDV(MOD-sp2): 82.7 ml LAV(MOD-sp4): 67.2 ml EDV(sp4-el): 93.8 ml EDV(sp2-el): 84.2 ml LVAs ap4: 18.7 cm2 LVAs ap2: 17.6 cm2 LVLs ap4: 7.6 cm LVLs ap2: 7.5 cm ESV(MOD-sp4): 38.0 ml ESV(MOD-sp2): 35.5 ml ESV(sp4-el): 39.0 ml ESV(sp2-el): 35.4 ml EF(MOD-sp4): 58.5 % EF(MOD-sp2): 57.0 % EF(sp4-el): 58.4 % SV(MOD-sp4): 53.5 ml SV(MOD-sp2): 47.1 ml SV(sp4-el): 54.8 ml SI(MOD-sp4): 26.9 ml/m2 SI(MOD-sp2): 23.7 ml/m2 LA A4 area: 21.0 cm2 LA dimension(2D): 5.0 cm RA A4 area: 21.0 cm2 TAPSE: 1.3 cm Doppler Measurements & Calculations MV E max pedro: 84.0 cm/sec Lat Peak E' Pedro: 13.6 cm/sec Med Peak E' Pedro: 10.0 cm/sec E/E' lat: 6.2 E/E' med: 8.4 Ao V2 max: 94.3 cm/sec LV V1 max: 79.9 cm/sec PA V2 max: 53.7 cm/sec Ao max P.6 mmHg LV V1 max P.6 mmHg Ao V2 mean: 65.1 cm/sec LV V1 mean P.2 mmHg Ao mean P.9 mmHg LV V1 mean: 50.8 cm/sec Ao V2 VTI: 17.5 cm LV V1 VTI: 14.7 cm AV (velocity ratio): 0.84 TR max pedro: 292.5 cm/sec TR max P.2 mmHg ECHO/Echo Complete Interpretation Summary Moderate concentric left ventricular hypertrophy. The LV systolic function is normal. EF is 65 %. Stage 1 diastolic dysfunction. There is severe biatrial dilatation. Moderate to severe posteriorly directed eccentric mitral valve regurgitation. P atient's blood pressure 186/108 mmHg during the study. Mild tricuspid valve insufficiency. Right ventricular systolic pressure estimated to be 39 mmHg. Ordering Physician: Krista Barker Referring Physician: Sharon Romero M.D. Performed By: Kimi Barton RDCS
== END | disposition home or self-care (01) ==
PROVIDERS: PCP Internal Medicine; Referring Provider Nurse Practitioner Gerontology; Visit Provider Nurse Practitioner Gerontology
DX: I48.0 Paroxysmal atrial fibrillation (principal)
CPT/HCPCS: 93306

== ENCOUNTER 2025-02-04 11:44 | Outpatient (RCR) | payer MEDICARE, OTHER, SELFPAY ==
[2025-02-04 11:54] LABS: INR Fingerstick 2.2; Prothrombin Time Fingerstick 23.9 SEC (11.7-14.9)
== END 2025-02-04 18:00 | disposition home or self-care (01) ==
LOC: LAB 11:44
PROVIDERS: PCP Internal Medicine; Referring Provider Internal Medicine Cardiovascular Disease; Visit Provider Internal Medicine Cardiovascular Disease
DX: I48.0 Paroxysmal atrial fibrillation (principal); Z79.01 Long term (current) use of anticoagulants
CPT/HCPCS: 36416; 85610

== ENCOUNTER 2025-03-05 07:36 | Emergency (ER) | payer MEDICARE, OTHER, SELFPAY ==
[2025-03-05 07:37] VITALS: BP 181/107; BP 203/116; PULSE 49; PULSE 92; RESP 13; RESP 14; TEMP 36.1; O2SAT 98; BMI 19.9
[2025-03-05 08:42] LABS: Hematocrit 45.8 % (40-54); Hemoglobin 15.8 g/dL (13.0-16.5); Immature Granulocytes Count 0.020 X10^3/uL (0.0-0.0); Mean Corp Hgb Conc 34.5 g/dL (32-36); Mean Corpuscular Volume 78.6 fL (80-94); Mean Platelet Vol. 10.7 fl (6.2-12.0); NRBC Flagged by Analyzer 0 % (0-5); POSITIVE MORPHOLOGY YES; Platelet Count 222 K/mm3 (150-450); RBC Distribution Width CV 20.3 % (11.6-14.6); RBC Distribution Width SD 55.4 fl (35.1-43.9); Red Blood Count 5.83 M/mm3 (4.6-6.2); White Blood Count 7.1 K/mm3 (4.4-11.0)
[2025-03-05 08:47] LABS: Differential Indicated SCAN CRITERIA MET
[2025-03-05 08:59] LABS: Partial Thromboplast Time 32.1 Seconds (24.1-36.2); Prothrombin Time (Protime)PT. 26.3 SECONDS (11.7-14.9)
[2025-03-05 09:18] LABS: Anion Gap 12 (5-15); Anisocytosis 2+; BUN 17 mg/dL (4-19); BUN/Creat Ratio 17.5 RATIO (10-20); Calcium,Total 9.3 mg/dL (7.6-11.0); Carbon Dioxide 19.8 mmol/L (21.0-32.0); Chloride 105 mmol/L (98-108); Differential Comment SCANNED; Estimated Creatinine Clearance 60.46 ml/min (50-250); Glucose 110 mg/dL (70-99); Potassium 3.8 mmol/L (3.3-5.1); Troponin T High Sensitivity 15 ng/L (<=22)
[2025-03-05 09:25] VITALS: BP 178/118; BP 195/133; BP 202/124; PULSE 81; PULSE 84; PULSE 91
[2025-03-05 09:37] VITALS: BP 178/118; PULSE 83; RESP 19; O2SAT 99
[2025-03-05 10:44] LABS: Troponin T High Sens 2 HR 13 ng/L (<=22)
[2025-03-05 11:00] VITALS: BP 172/117; PULSE 77; RESP 15; O2SAT 99
[2025-03-05 11:20] VITALS: BP 172/117; PULSE 77; RESP 15; TEMP 36.6; O2SAT 99
== END 2025-03-05 11:30 | disposition home or self-care (01) ==
PROVIDERS: Emergency Provider Emergency Medicine; PCP Internal Medicine; Visit Provider Emergency Medicine
DX: R42 Dizziness and giddiness (principal); I48.91 Unspecified atrial fibrillation; N18.30 Chronic kidney disease, stage 3 unspecified; Z87.891 Personal history of nicotine dependence; I12.9 Hypertensive chronic kidney disease with stage 1 through stage 4 chronic kidney disease, or unspecified chronic kidney disease; E78.5 Hyperlipidemia, unspecified; Z79.899 Other long term (current) drug therapy
CPT/HCPCS: 70450; 80048; 84484; 85025; 85610; 85730; 93005; 99285; A4216

== ENCOUNTER 2025-04-01 11:41 | Outpatient (RCR) | payer MEDICARE, OTHER, SELFPAY ==
[2025-03-04 13:21] LABS: INR Fingerstick 2.1
[2025-04-01 11:56] LABS: INR Fingerstick 3.1
== END 2025-04-02 21:35 | disposition home or self-care (01) ==
LOC: LAB 11:41
PROVIDERS: PCP Internal Medicine; Referring Provider Internal Medicine Cardiovascular Disease; Visit Provider Internal Medicine Cardiovascular Disease
DX: I48.0 Paroxysmal atrial fibrillation (principal); Z79.01 Long term (current) use of anticoagulants
CPT/HCPCS: 36416; 85610

== ENCOUNTER → 2025-04-03 | Outpatient (CLI) | payer MEDICARE, OTHER, SELFPAY ==
--- NOTE | 2025-04-03 06:53 | MRI_ITS ---
PROCEDURE: MR BRAIN W/WO CONTRAST 04/03/2025 REASON FOR EXAM: Acute right-sided hearing loss TECHNIQUE: BRAIN W/WO CONTRAST Multiplanar and multisequence images were obtained. Dedicated thin slice small [id number] images through the internal auditory canals were performed pre and post-contrast. CONTRAST: Clariscan VOLUME: 15 mL COMPARISON: Brain MRI 05/03/2022. CT head/angiography exams 03/05/2025, 05/03/2022. 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 Mild age-appropriate generalized brain parenchymal volume loss, and minimal scattered foci of leukoaraiosis in the supratentorial white matter. No evidence of intracranial hemorrhage, extra-axial collection, or mass effect. No mass lesion in the region of the internal auditory canals, or CP angle cisterns on either side. There is asymmetric abnormal intrinsic T1 hyperintensity and diminished normal T2 hyperintense fluid signal within the right inner ear structures, particularly along the basal turn of the cochlea, which also demonstrates hyperintensity on FLAIR, and possible subtle high signal on the diffusion-weighted sequence. Findings are suggestive of acute/early labyrinthitis. Unremarkable left inner ear structures. Orbital contents appear normal. Major intracranial vascular flow voids appear preserved. No aberrant vascular anatomy appreciated. Prominent peripheral mucosal thickening in the right maxillary sinus with small amount of fluid. No mastoid effusions. MRI/Brain W/WO Contrast IMPRESSION: Asymmetric signal abnormality within the right inner ear structures as describe d above, not entirely specific but can be seen with acute labyrinthitis, or early labyrinthitis ossificans. Reading Location: [id number]
--- OUTSIDE RECORDS SUMMARY | 2025-04-03 07:14 | XMS RPT_ITS | CCD ---
Author Organization [facility] Care Team Providers Care [employer] Teacher Name Role Phone Laine Baeza MD Primary Care Provider Dr. Laine Baeza Primary Care Provider Krista Knapp Attending Provider Unavailable Dr. Daquan Iniguez Emergency Provider Dr. Maddison Gambino Admit Provider Dr. Maddison Gambino Attending Provider Dr. Maddison Gambino Other Provider Dr. Juan Huertas Attending Provider Dr. Laine Baeza Primary Care Provider Dr. Juan Huertas Attending Provider Dr. Laine Baeza Referring Provider Cisco, Dr. Hernández Attending Provider Dr. Bernard Mcclain Attending Provider Dr. Bernard Mcclain Referring Provider Dr. Bernard Mcclain Other Provider Dr. Lm Bello Attending Provider Dr. Betty Peck Referring Provider Dr. Betty Peck Other Provider Laine Baeza MD Primary Care Provider Dr. Laine Baeza Primary Care Provider Dr. Laine Baeza Referring Provider Cisco, Dr. Hernández Attending Provider Johny, Dr. Wagner Attending Provider Johny, Dr. Wagner Referring Provider Johny, Dr. Wagner Other Provider Dr. Lm Bello Attending Provider Cisco, Dr. Hernández Referring Provider Cisco, Dr. Hernández Other Provider Talampjose, Dr. Laine Ewing Primary Care Provider Nick, Dr. Laine Ewing Referring Provider Cisco, Dr. Hernández Attending Provider Laine Baeza MD Primary Care Provider Nick, Dr. Laine Ewing Primary Care Provider Nick, Dr. Laine Ewing Referring Provider Cisco, Dr. Hernández Attending Provider Talampjose, Dr. Laine Ewing Primary Care Provider Nick, Dr. Laine Ewing Referring Provider Cisco, Dr. Hernández Attending Provider Talantonio, Dr. Laine Ewing Primary Care Provider Nick, Dr. Laine Ewing Referring Provider Candace Sagastume Attending Provider Unavailable Laine Baeza MD Primary Care Provider Derrell DATABASE SPECIALIST.DIRECTOR OF RETAIL, Rosamaria Unavailable Yecenia DATABASE SPECIALIST.HOSPITAL COOK, Noelle Unavailable Nick ARIAS, Dr. Laine Ewing Primary Care Provider Cisco ARIAS, Dr. Hernández Attending Provider Cisco ARIAS, Dr. Hernández Referring Provider LAINE BAEZA Attending Unavailable TALAMPAS, LAINE D Primary Care Unavailable TALAMPAS, LAINE D Primary Care Unavailable DOVE, ROSAMARIA Attending Unavailable TALAMPAS, LAINE D Primary Care Unavailable DOVE, ROSAMARIA Referring Unavailable TALAMPAS, LAINE D Primary Care Unavailable TALAMPAS, LAINE D Referring Unavailable TALAMPAS, LAINE D Primary Care Unavailable Nick ARIAS, Dr. Laine Ewing Primary Care Provider Cisco ARIAS, Dr. Hernández Attending Provider Cisco ARIAS, Dr. Hernández Referring Provider Nick ARIAS, Dr. Laine Ewing Referring Provider Krista Mcneal Attending Provider Krista Mcneal Referring Provider Nick ARIAS, Dr. Laine Ewing Primary Care Provider [phone] Cisco ARIAS, Dr. Hernández Attending Provider Cisco ARIAS, Dr. Hernández Referring Provider Nick ARIAS, Dr. Laine Ewing Primary Care Provider [phone] Cisco ARIAS, Dr. Hernández Attending Provider Cisco ARIAS, Dr. Hernández Referring Provider Dr. Kendall Cormier DO Emergency Provider Nick ARIAS, Dr. Laine Ewing Primary Care Provider Cisco ARIAS, Dr. Hernández Attending Provider Cisco ARIAS, Dr. Hernández Referring Provider Dr. Kendall Cormier DO Attending Provider Cisco, Betty Attending Unavailable Talampas, Laine D Primary Care Unavailable Cisco, Betty Referring Unavailable Talampas, Laine D Primary Care Unavailable Cisco, Betty Attending Unavailable Cisco, Betty Referring Unavailable Talampas, Laine D Primary Care Unavailable Cisco, Betty Referring Unavailable Cisco, Betty Attending Unavailable Cisco, Betty Referring Unavailable Cisco, Betty Attending Unavailable Talampas, Laine D Primary Care Unavailable Cisco, Betty Referring Unavailable Cisco, Betty Attending Unavailable Talampas, Laine D Primary Care Unavailable Talampas, Laine D Primary Care Unavailable Cisco, Betty Attending Unavailable Cisco, Betty Referring Unavailable Cisco, Betty Referring Unavailable Cisco, Betty Attending Unavailable Talampas, Laine D Primary Care Unavailable Talampas, Laine D Primary Care Unavailable Cisco, Betty Attending Unavailable Cisco, Betty Referring Unavailable Cisco, Betty Attending Unavailable Talampas, Laine D Primary Care Unavailable Krista Barker NP Referring Unavailable Cisco, Betty Referring Unavailable Cisco, Betty Attending Unavailable Talampas, Laine D Primary Care Unavailable Mj GALINDO, Krista Attending Unavailable Talampas, Laine D Primary Care Unavailable Mj HARMONIC ANALYST, Krista Referring Unavailable Talampas, Laine D Primary Care Unavailable Kendall Cormier Attending Unavailable Cisco, Betty Attending Unavailable Talampas, Laine D Primary Care Unavailable Talampas, Laine D Referring Unavailable Talampas, Laine D Primary Care Unavailable Mj HARMONIC ANALYST, Krista Attending Unavailable Talampas, Laine D Referring Unavailable Talampas, Laine D Primary Care Unavailable Mj HARMONIC ANALYST, Krista Attending Unavailable Mj HARMONIC ANALYST, Krista Attending Unavailable Talampas, Laine D Primary Care Unavailable Mj GALINDO, Krista Referring Unavailable Cisco, Betty Referring Unavailable Cisco, Betty Attending Unavailable Talampas, Laine D Primary Care Unavailable Talampas, Laine D Primary Care Unavailable Cisco, Betty Attending Unavailable Cisco, Betty Referring Unavailable Talampas, Laine D Primary Care Unavailable Cisco, Betty Attending Unavailable Cisco, Betty Referring Unavailable Allergies Allergy Classification Reported Allergen(s) Allergy Type Date of Onset Reaction(s) Facility (20 sources) amLODIPine; Translations: [AMLODIPINE] Drug Allergy 08-06-20 13 Rash, Other: See Comments [facility] Work Phone: (20 sources) Chlorthalidone; Translations: [CHLORTHALIDONE] Drug Allergy 12-16-19 21 Diarrhea [facility] Work Phone: (20 sources) hydroCHLOROthiazide; Translations: [HYDROCHLOROTHIAZIDE] Drug Allergy 12-22-19 22 Intolerance [facility] Work Phone: (1 source) amLODIPine Drug Allergy 03-23-20 [facility] (1 source) Chlorthalidone Drug Allergy 03-23-20 [facility] (1 source) hydroCHLOROthiazide Drug Allergy 03-23-20 [facility] Medications Current Medications Medication Drug Class(es) Dates Sig (Normalized) Sig (Original) acetaminophen 325 mg / HYDROcodone bitartrate 5 mg oral tablet (1 source) Opioid Agonist Start: 05-22-2018 Hydrocodone-Acet aminophen Active 1 EACH PO EVERY 4 HOURS NEEDED 14 01May 22, 2018 1:24pm [id number] 200 actuat albuterol 0.09 mg/actuat metered dose inhaler (4 sources) beta2-Adrenergic Agonist Start: 09-22-2024 take 1-2 puff(s) by inhalation four times daily as needed for wheezing albuterol HFA (PROVENTIL HFA) 90 mcg/actuation inhaler Indications: Acute cough Inhale 1-2 Puffs as instructed four times a day as needed for wheezing/shortne ss of breath. 1 Each 09/22/2024 Active diazePAM 2 mg oral tablet (3 sources) Benzodiazepine Start: 03-05-2025 take 1 tablet by mouth three times daily as needed Diazepam 2 mg tablet Active 2 mg PO 3 TIMES DAILY NEEDED as needed for Vertigo 10 March 05, 2025 12:00am docusate sodium 100 mg oral capsule (1 source) Start: 05-22-2018 take 100 mg by mouth twice daily Docusate Sodium Active 100 MG PO TWICE A DAY May 22, 2018 12:00am doxazosin 4 mg oral tablet (20 sources) alpha-Adrenergic Manuela Start: 02-04-2025 take 1 tablet by mouth at bedtime Doxazosin (Cardura) 4 mg tablet Active 4 mg PO AT BEDTIME February 04, 2025 12:00am Start: 12-15-2020 End: 12-19-2023 take 1 tablet by mouth once daily doxazosin (CARDURA) 4 mg tablet Indications: Essential hypertension Take 1 tablet by mouth once daily. 90 tablet 3 12/19/2023 Active Start: 05-09-2018 End: 04-04-2023 take 1 tablet by mouth every twenty-four hours at bedtime Doxazosin (Cardura Xl) 4 MG tablet extended release 24hr Discontinued 4 mg PO AT BEDTIME May 09, 2018 12:00am April 04, 2023 3:26pm prostate Comment on above: Take 1 tablet by [facility] once daily. take 1 tablet by [facility] once daily finasteride 5 mg oral tablet (1 source) 5-alpha Reductase Inhibitor Start: 8 take 5 mg by mouth at bedtime Finasteride Active 5 MG PO AT BEDTIME May 09, 2018 12:00am lisinopril 40 mg oral tablet (20 sources) Angiotensin Converting Enzyme Inhibitor Start: 5 take 1 tablet by mouth once daily Lisinopril 40 mg tablet Active 40 mg PO daily February 04, 2025 12:00am Start: 05-09-2018 End: 12-19-2023 take 1 tablet by mouth once daily Lisinopril (Zestril) 40 MG tablet Discontinued 40 mg PO DAILY May 09, 2018 12:00am April 04, 2023 3:27pm bp Comment on above: Take 1 tablet by [facility] once daily. take 1 tablet by [facility] once daily Multivitamin (Multiple Vitamins) 1 EACH tablet (1 source) Start: 8 take 1 tablet by mouth once daily Multivitamin (Multiple Vitamins) 1 EACH tablet Active 1 EACH PO DAILY May 09, 2018 12:00am omeprazole 20 mg delayed release oral capsule (20 sources) Proton Pump Inhibitor Start: 5 take 1 capsule by mouth once daily Omeprazole 20 mg capsule,delayed release(DR/EC) Active 20 mg PO daily December 22, 2024 12:00am Start: 05-09-2018 End: 12-19-2023 take 1 capsule by mouth once daily Omeprazole 20 MG capsule Discontinued 20 mg PO DAILY May 09, 2018 12:00am April 04, 2023 3:27pm gerd Comment on above: Take 1 capsule by [facility] daily before breakfast. 1/2 hr before meal. take 1 capsule by [facility] 30 MINUTES before breakfast predniSONE 10 mg oral tablet (4 sources) Start: 09-22-2024 predniSONE (DELTASONE) 10 mg tablet Indications: Acute cough Take 40 mg x 3 days, 20 mg x 3 days, 10 mg x 3 days. Take with food, once daily with breakfast 21 tablet 09/22/2024 Active warfarin sodium 4 mg oral tablet (20 sources) Vitamin K Antagonist Start: 11-12-2023 warfarin (COUMADIN) 4 mg tablet Take 4 mg by mouth once daily. 8 mg m// 6 all other days 11/12/2023 Active Start: 10-11-2022 End: 10-13-2024 Warfarin 4 mg tablet Discont inued 4 mg PO .COMPLEX 180 3 November 12, 2023 12:04pm October 13, 2024 9:56am 6 mg (1 and 1/2 tablets) every day except on Sunday, take 8 mg (2 tablets); or as directed Please contact the information source for Protocol details. Start: 08-02-2022 End: 10-11-2022 take 1 tablet by mouth once daily in the evening Warfarin 4 mg tablet Discontinued 4 mg PO .COMPLEX 30 August 02, 2022 1:00am October 11, 2022 1:10pm 4 mg orally every evening; Please contact the information source for Protocol details. Completed/Discontinued Medications Medication Drug Class(es) Dates Sig (Normalized) Sig (Original) apixaban 5 mg oral tablet (20 sources) Factor Xa Inhibitor Start: 05-04-2022 End: 07-10-2022 take 1 tablet by mouth twice daily Apixaban (Eliquis) 5 mg tablet Discontinued 5 mg PO TWICE A DAY 180 4 June 06, 2022 2:22pm July 10, 2022 6:14pm aspirin 81 mg delayed release oral tablet (20 sources) Platelet Aggregation Inhibitor, Nonsteroidal Anti-inflammatory Drug Start: 05-09-2018 End: 05-10-2022 take 1 tablet by mouth once daily Aspirin 81 MG tablet,delayed release (DR/EC) Discontinued 81 mg PO DAILY May 09, 2018 12:00am May 10, 2022 1:21pm heart [facility] atorvastatin 40 mg oral tablet (20 sources) HMG-CoA Reductase Inhibitor Start: 05-04-2022 End: 12-19-2023 take 1 tablet by mouth at bedtime Atorvastatin 40 mg tablet Discontinued 40 mg PO AT BEDTIME May 31, 2022 4:17pm November 08, 2022 3:31pm Comment on above: Take 40 mg by mouth daily at bedtime. carvedilol 6.25 mg oral tablet (20 sources) alpha-Adrenergic Manuela, beta-Adrenergic Manuela Start: 02-15-2022 End: 07-05-2022 take 1 tablet by mouth twice daily Carvedilol 6.25 mg tablet Discontinued 6.25 mg PO TWICE A DAY May 03, 2022 12:00am May 04, 2022 1:08pm blood pressure Start: 12-21-2021 End: 02-15-2022 take 1 tablet by mouth twice daily carvedilol (COREG) 3.125 mg tablet Take 1 tablet by mouth twice daily. 180 tablet 0 12/21/2021 02/15/2022 Discontinued Comment on above: Take 1 tablet by [facility] twice daily. chlorthalidone 25 mg oral tablet (20 sources) Thiazide-like Diuretic Start: End: take 1 tablet by mouth once daily Chlorthalidone 25 mg tablet Discontinued 25 mg PO DAILY 02 08August 08, 2022 3:35pm August 09, 2022 11:01am Pt had diarrhea in past, not sure if from med clobetasol propionate 0.5 mg/ml topical solution (20 sources) Corticosteroid Start: End: Clobetasol 0.05 % Solution Discontinued 1 NMA TOPICAL DAILY May 03, 2022 12:00am April 04, 2023 3:26pm Start: 12-15-2020 End: 04-04-2023 Clobetasol Propionate (TEMOV ATE) 0.05 % external solution Indications: Other psoriasis Apply 1 application to affected area once daily as needed. for rash as directed 12/15/2020 Active Comment on above: Apply 1 application to affected area once daily as needed. for rash as directed furosemide 40 mg oral tablet (20 sources) Loop Diuretic Start: 2022 End: 2023 take 1 tablet by mouth once daily Furosemide (Lasix) 40 mg tablet Discontinued 40 mg PO DAILY April 30, 2023 10:39am April 14, 2024 10:01am hydroCHLOROthiazide 25 mg oral tablet (20 sources) Thiazide Diuretic Start: 2021 End: 2022 take 1 tablet by mouth once daily Hydrochlorothiazide 25 mg tablet Discontinued 25 mg PO DAILY 02 03August 08, 2022 1:00am October 06, 2022 9:56am Start: 12-15-2020 End: 12-21-2021 take 1 tablet by mouth once daily hydroCHLOROthiazide (HYDRODIURIL, ESIDRIX) 12.5 mg tablet Take 1 tablet by mouth once daily. 90 tablet 3 12/15/2020 12/21/2021 Discontinued (Adverse Reaction) Comment on above: Take 1 tablet by boris th once daily. metoprolol tartrate 100 mg oral tablet (20 sources) beta-Adrenergic Manuela Start: 05-10-2022 End: 12-19-2023 take 1 tablet by mouth twice daily Metoprolol Tartrate 100 mg tablet Discontinued 100 mg PO TWICE A DAY 180 90 May 10, 2022 2:08pm November 08, 2022 3:31pm Start: 05-04-2022 End: 05-10-2022 take 1 tablet by mouth twice daily Metoprolol Tartrate 50 mg tablet Discontinued 50 mg PO TWICE A DAY 60 30 0 May 04, 2022 12:00am May 10, 2022 2:09pm Comment on above: Take 100 mg by mouth twice daily. 24 hr NIFEdipine 60 mg extended release oral tablet (20 sources) Dihydropyridine Calcium Channel Manuela Start: 11-23-19 End: 12-07-19 take 1 tablet by mouth once daily Nifedipine 60 mg tablet extended release Discontinued 60 mg PO DAILY 30 November 22, 2022 12:00am December 06, 2022 2:45pm potassium chloride 10 meq extended release oral tablet (20 sources) Start: 11-14-19 End: 12-13-19 Potassium Chloride 10 mEq tablet extended release Discontinued 20 meq PO .COMPLEX 180 3 January 30, 2024 3:16pm December 12, 2024 12:59pm 20 mEq orally Pt prefers to take 2 of the 10 meq tablets : pt has many tablets as of 01/30/24; please do not refill until end of March. Thank you.; Start: 11-13-2022 End: 10-16-2023 take 20 mEq by mouth once daily Potassium Chloride Dis continued 20 MEQ PO DAILY 180 November 13, 2022 8:46am October 16, 2023 12:03pm Start: 11-08-2022 End: 11-13-2022 take 1 tablet by mouth once daily Potassium Chloride 20 mEq tablet extended release Discontinued 20 meq PO DAILY 90 November 08, 2022 1:00am November 13, 2022 8:44am Start: 08-30-2022 End: 10-06-2022 take 1 tablet by mouth once daily Potassium Chloride 10 mEq tablet extended release Discontinued 10 meq PO DAILY 90 3 September 18, 2022 2:23pm October 06, 2022 9:57am Start: 05-26-2022 End: 08-30-2022 take 1 capsule by mouth once daily Potassium Chloride 10 mEq capsule, extended release Discontinued 10 meq PO DAILY 30 May 26, 2022 12:00am August 30, 2022 6:26pm Comment on above: Take by mouth. rivaroxaban 20 mg oral tablet (20 sources) Factor Xa Inhibitor Start: 07-24-20 End: 08-02-20 take 1 tablet by mouth once daily at dinner Rivaroxaban (Xarelto) 20 mg tablet Discontinued 20 mg PO DAILY 30 July 24, 2022 1:00am August 02, 2022 11:45am must administer with evening meal spironolactone 25 mg oral tablet (20 sources) Aldosterone Antagonist Start: 10-06-19 End: 11-09-19 take 1 tablet by mouth once daily Spironolactone 25 mg tablet Discontinued 25 mg PO DAILY 30 October 06, 2022 1:00am November 08, 2022 3:32pm Problems Active Problems Problem Classification Problem Date Documented Da te Episodic/Chronic Abdominal hernia (20 sources) Diaphragmatic hernia; Translations: [Diaphragmatic hernia without obstruction or gangrene] Onset: 2 02-05-2012 Episodic Cardiac dysrhythmias (20 sources) Atrial fibrillation; Translations: [Unspecified atrial fibrillation] Onset: 2 Chronic Cardiac dysrhythmias (1 source) Palpitations; Translations: [Palpitations] Onset: 5 Episodic Chronic kidney disease (20 sources) Chronic kidney disease stage 3; Translations: [Stage 3 chronic kidney disease] Chronic Conditions associated with dizziness or vertigo (20 sources) Dizziness; Translations: [Dizziness and giddiness] Onset: 5 Episodic Disorders of lipid metabolism (20 sources) Hyperlipidemia; Translations: [Hyperlipidemia, unspecified] Chronic Esophageal disorders (20 sources) Gastroesophageal reflux disease; Translations: [Gastro-esophageal reflux disease without esophagitis] Onset: 7 12-25-2006 Chronic Essential hypertension (20 sources) Essential hypertension; Translations: [Essential (primary) hypertension] Onset: 3 Chronic Heart valve disorders (4 sources) Mitral valve regurgitation; Translations: [Nonrheumatic mitral (valve) insufficiency] 03-23-2025 Chronic Hyperplasia of prostate (20 sources) Benign prostatic hypertrophy with outflow obstruction; Translations: [Benign prostatic hyperplasia with lower urinary tract symptoms] Onset: 6 06-29-2017 Chronic Immunizations and screening for infectious disease (1 source) Encounter for immunization; Translations: [Encounter for immunization] Onset: 5 Episodic Malaise and fatigue (20 sources) Fatigue; Translations: [Other fatigue] Episodic Occlusion or stenosis of precerebral arteries (1 source) Bilateral stenosis of carotid arteries; Translations: [Occlusion and stenosis of bilateral carotid arteries] Chronic Other aftercare (4 sources) Patient encounter status; Translations: [Other long wall mining machine helper (current) drug therapy] Episodic Other aftercare (20 sources) Drug therapy finding; Translations: [buttermaker helper (current) use of anticoagulants] 06-09-2022 Episodic Other aftercare (20 sources) Long-term current use of anticoagulant; Translations: [FPC (current) use of anticoagulants] 08-08-2022 Episodic Other aftercare (1 source) Other jail (current) drug therapy; Translations: [Encounter for long-term current use of medication] Onset: 5 Episodic Other connective tissue disease (16 sources) Muscle pain; Translations: [Myalgia, unspecified site] 04-04-2023 Episodic Other diseases of kidney and ureters (1 source) Acute renal insufficiency; Translations: [Disorder of kidney and ureter, unspecified] Episodic Other gastrointestinal disorders (1 source) Acute diarrhea; Translations: [Diarrhea, unspecified] Episodic Other inflammatory condition of skin (20 sources) Seborrheic psoriasis; Translations: [Other psoriasis] 12-26-2017 Chronic Other lower respiratory disease (2 sources) Cough; Translations: [Acute cough] 09-22-2024 Episodic Other male genital disorders (20 sources) Male erectile dysfunction, unspecified; Translations: [Impotence of organic origin] Onset: 5 08-17-2015 Chronic Other non-traumatic joint disorders (1 source) Pain of left wrist; Translations: [Pain in left wrist] 03-10-2021 Episodic Other screening for suspected conditions (not mental disorders or infectious disease) (20 sources) Raised prostate specific antigen; Translations: [Elevated prostate specific antigen [PSA]] Onset: 5 09-17-2014 Episodic Other upper respiratory disease (20 sources) Anterior epistaxis; Translations: [Epistaxis] 06-09-2022 Episodic Residual codes; unclassified (20 sources) Acute confusion; Translations: [Disorientation, unspecified] 05-11-2022 Episodic Residual codes; unclassified (5 sources) Disorientation, unspecified; Translations: [Delirium due to conditions classified elsewhere] Episodic Screening and history of mental health and substance abuse codes (2 sources) Encounter for screening for depression; Translations: [Encounter for screening examination for other mental health and behavioral disorders] Onset: 5 Episodic Transient cerebral ischemia (1 source) Transient global amnesia; 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 Unclassified (1 source) Acute cough; Translations: [Acute cough] Onset: 5 Varicose veins of lower extremity (1 source) Varicose veins of lower extremity; Translations: [Asymptomatic varicose veins of left lower extremity] Episodic Past or Other Problems Problem Classification Problem Date Documented Da te Episodic/Chronic Other aftercare (9 sources) buttermaker helper (current) use of anticoagulants; Translations: [Long-term (current) use of anticoagulants] Onset: 07-03-2024 Episodic Other male genital disorders (7 sources) Spermatocele; Translations: [Spermatocele of epididymis, unspecified] Onset: 09-18-2005 Resolved: 10-23-2008 10-23-2008 Episodic Other male genital disorders (7 sources) Disorder of male genital organ; Translations: [Hydrocele, unspecified] Onset: 10-23-2008 Resolved: 09-10-2013 09-10-2013 Episodic Results Test Name Value Interpretation Reference Range Facility International normalized rat io (INR) measurement by fingerstickOrdered By: Betty Peck on 04-01-2025 INR Coag (BldC) [Relative time] 3.1 [facility] Comment on above: Critical Value > 4.0 Whole blood prothrombin time Ordered By: Betty Peck on 04-01-2025 PT Coag (Bld) [Time] 32.5 s High 11.7-14.9 [facility] Cardiology Visit Reporton Cardiology Visit Report [facility] [address] [place] [address] OFFICE VISIT Date of Service: 03/23/25 MR#: [id number] Acct: [id number] Name: BUBBA HONG Rep #: [id number] : 1945 Provider: SCOTT yoder Age/Sex: 79/M [place] [facility] [place] [facility] Status: Signed HPI HPI History of Present Illness Details: This is a 79 year old male who presents to the office today for a cardiovascular follow-up visit. He has a history of paroxysmal atrial fibrillation, hypertension, hyperlipidemia, and chronic kidney disease. From a cardiac standpoint, the patient is doing well. He does acknowledge occasional palpitations. He denies chest pain, pressure or heaviness. He denies SOB, Orthopnea, and PND. He does not have bleeding issues; no blood in urine, stool, or nosebleeds. He denies any decrease in energy level, myalgias, or claudication. He does not have edema, or sudden weight gain. He does acknowledge lightheadedness/dizziness- he is currently being seen by ENT for this. He denies syncopal or near syncopal episodes, and headaches. Intake Vital Signs 12/22/24 08:18 03/23/25 07:27 Height 6 ft 1 in 6 ft Weight: 173 lb BMI 23.4 BP 131/76 H Blood Pressure Location Lt brachial Position Sitting Respiration 18 Pulse 87 Pulse Source Monitor Pulse Oximetry (%) 96 Intake Visit Reasons: 3 M FU Multi Skilled Operator Required: No Is patient in pain?: No Allergies amlodipine Adverse Reaction (Intermediate, Verified 03/23/25 15:10) Rash chlorthalidone Adverse Reaction (Intermediate, Verified 03/23/25 15:10) Diarrhea hydrochlorothiazide Adverse Reaction (Unknown, Verified 03/23/25 15:10) intolerance Medications ???Medication ???Instructions ???Recorded ???Confirmed ???Type furosemide 40 mg tablet 40 mg PO DAILY #90 TABLETS 4 03/23/25 Rx warfarin 4 mg tablet 4 mg PO .COMPLEX #180 tabs 5 03/23/25 Rx potassium chloride 10 mEq 20 meq (2 x 10 mEq) PO DAILY #180 12/12/24 03/23/25 Rx tablet,extended release TABLETS omeprazole 20 mg capsule,delayed 20 mg PO QDAY 12/22/24 03/23/25 Hi story release doxazosin 4 mg tablet (Cardura) 4 mg PO QHS 02/04/25 03/23/25 Hist ory lisinopril 40 mg tablet 40 mg PO QDAY 02/04/25 03/23/25 Hi story diazepam 2 mg tablet 2 mg PO TID PRN PRN Vertigo #10 03/23/25 Rx TABLETS Ejection fraction %: 65 Have you fallen in the past year?: Yes [facility] History CKD (chronic kidney disease), stage III Hyperlipidemia DDD (degenerative disc disease), lumbosacral Congenital anomalies of adrenal gland Abdominal or pelvic swelling, mass, or lump, left lower quadrant Inverse psoriasis Erectile dysfunction Elevated prostate specific antigen (PSA) Esophageal reflux Diaphragmatic hernia without mention of obstruction or gangrene Essential (primary) hypertension Hypertension Surgical History History of cardioversion (05/29/22) Unilateral inguinal hernia without obstruction or gangrene Benign localized prostatic hyperplasia with lower urinary tract symptoms (LUTS) Social History household members: none current occupational exposures/hazards: Yes pets and animals: Yes leisure activities: sports history of recent travel: Yes Smoking Status: Former smoker how long ago did patient quit smokin years ago alcohol intake: current alcohol intake frequency: 0-2 drinks per day Alcohol type: beer substance use type: does not use caffeine: Yes Type: coffee Number of servings: 2 and tea Number of servings: 3 ROS Const Const: Negative for fatigue, weakness, headache(s) or frequent falls Eyes Eyes: Negative for blurry vision ENT ENT: Positive for dizziness (ENT following for right ear); Negative for headache(s) or Nosebleed/epistaxis Cardio Chest Pain: No Palpitations: Yes Edema: None Muscle aches with walking: None Resp Respiratory: Negative for SOB with activity, SOB at rest or SOB orthopnea SOB lying down GI GI: Negative nausea, vomiting, heartburn, bright, red blood in stools or black,tarry stools : Negative for hematuria Neuro Neuro: Positive for dizziness (ENT following for right ear) and lightheadedness; Negative for near syncope, syncope, frequent falls, headache(s), weakness or blurry vision Endo Endo: Negative for fatigue Cardiology Exam Const Appearance: cooperative, comfortable and no acute distress Nutritional Appearance: average body habitus and well nourished Orientation: alert, awake and oriented x3 Head Head: normal to inspection Ears: hearing grossly normal bilaterally Nose: external nose normal Face and Sinus: face symm (more content not included)... [facility] 12 Lead EKGon 03-05-2025 12 Lead EKG [facility] Cardiovascular Services [address] [place] [address] 12 Lead EKG 03/05/25 0755 MR#: [id number] Acct: [id number] Name: BUBBA HONG Rep #: [id number] : 1945 79 From: Bernard Mcclain MD Attending Dr: Status: DEP ER Ordering Dr: Kendall Cormier DO Date: 03/05/25 Location: ED Sex: M C Admitted: Test Reason : DIZZINESS/HTN Blood Pressure : */* mmHG Vent. Rate : 92 BPM Atrial Rate : * BPM P-R Int : * ms QRS Dur : 100 ms QT Int : 380 ms P-R-T Axes : * -15 49 degrees QTcB Int : 469 ms Atrial fibrillation Septal infarct , age undetermined Abnormal ECG Confirmed by JOHNY ARIAS, BERNARD ([id number]), food expeditor ANNY HEALY ([id number]) on 03/09/2025 10:25:16 AM Referred By: Confirmed By: BERNARD MCCLAIN MD 03/09/25 1025 Date Bernard Mcclain MD CC: Dr. Kendall Cormier DO; Dr. Laine Baeza MD Signed [facility] 12 Lead EKG [facility] Cardi[facility] Services [address] [place] [address] 12 Lead EKG 03/05/25 0845 MR#: [id number] Acct: [id number] Name: BUBBA HONG Rep #: [id number] : 1945 79 From: Bernard Mcclain MD Attending Dr: Status: DEP ER Ordering Dr: Kendall Cormier DO Date: 03/05/25 Location: ED Sex: M C Admitted: Test Reason : HIGH HR Blood Pressure : */* mmHG Vent. Rate : 112 BPM Atrial Rate : * BPM P-R Int : * ms QRS Dur : 102 ms QT Int : 312 ms P-R-T Axes : * 3 47 degrees QTcB Int : 425 ms Atrial fibrillation with rapid ventricular response with premature ventricular or aberrantly conducted complexes Abnormal ECG When compared with ECG of 05-Mar-2025 07:55, MANUAL COMPARISON REQUIRED DATA IS UNCONFIRMED Confirmed by JOHNY ARIAS, BERNARD ([id number]), food expeditor KARLA RIVAS ([id number]) on 03/09/2025 1:24:31 PM Referred By: Confirmed By: BERNARD MCCLAIN MD 03/09/25 1324 Date Bernard Mcclain MD CC: Dr. Kendall Cormier DO; Dr. aLine Baeza MD Signed Normal [facility] Absolute lymphocyte countOrd ered By: Kendall Cormier on 03-05-2025 Lymphocytes Auto (Unsp spec) [#/Vol] 1.10 10*3/uL 0.83-4.51 [facility] Absolute neutrophil countOrd ered By: Kendall Cormier on 03-05-2025 Neutrophils (Bld) [#/Vol] 5.4 10*3/uL 2.0-7.7 [facility] Activated partial thrombopla stin time (aPTT) in platelet poor plasma by coagulation aOrdered By: Kendall Cormier on 03-05-2025 aPTT Coag (PPP) [Time] 32.1 s 24.1-36.2 [facility] Anion gap in Serum or Plasma Ordered By: Kendall Cormier on 03-05-2025 Anion gap [Moles/Vol] 12 mmol/L 5-15 [facility] Automated lymphocyte count a s percentage of total leukocytesOrdered By: Kendall Cormier on 03-05-2025 Lymphocytes/100 WBC Auto (Unsp spec) 15.5 % Low 19-41 [facility] BUN/creatinine ratioOrdered By: Kendall Cormier on 03-05-2025 Urea nitrogen/Creatinine [Mass ratio] 17.5 mg/mg 10- [facility] Basic Metabolic Profile (BMP )on 03-05-2025 BUN/CRE 17.5 RATIO Normal - [facility] Comment on above: Performed By: #### L 9200.0000 #### [facility] [address] [place], [address] Calcium [Mass/Vol] 9.3 mg/dL Normal 7.6-11.0 [facility] Comment on above: Performed By: #### L 9200.0000 #### [facility] [address] [place], [address] Chloride [Moles/Vol] 105 mmol/L Normal 98-108 [facility] Comment on above: Performed By: #### L 9200.0000 #### [facility] [address] [place], [address] CO2 [Moles/Vol] 19.8 mmol/L Low 21.0-32.0 [facility] Comment on above: Performed By: #### L 9200.0000 #### [facility] [address] [place], [address] Creatinine [Mass/Vol] 0.95 mg/dL Normal 0.70-1.20 [facility] Comment on above: Performed By: #### L 9200.0000 #### [facility] [address] [place], [address] ECRCL 60.46 ml/min Normal 50-250 [facility] Comment on above: Performed By: #### L 9200.0000 #### [facility] [address] [place], [address] GAP 12 Normal 5-15 [facility] Comment on above: Performed By: #### L 9200.0000 #### [facility] [address] [place], [address] GFR/1.73 sq M.predicted among non-blacks MDRD (S/P/Bld) [Vol rate/Area] 82 mL/min/{1.73_m2} Normal >60 [facility] Comment on above: Result Comment: mL/m in/1.73m2 CKD-EPI Creatinine Equation (2020) Performed By: #### L 9200.0000 #### [facility] [address] [place], [address] Glucose [Mass/Vol] 110 mg/dL High 70-99 [facility] Comment on above: Performed By: #### L 9200.0000 #### [facility] [address] [place], [address] Potassium [Moles/Vol] 3.8 mmol/L Normal 3.3-5.1 [facility] Comment on above: Performed By: #### L 9200.0000 #### [facility] [address] [place], [address] Sodium [Moles/Vol] 138 mmol/L Normal 133-145 [facility] Comment on above: Performed By: #### L 9200.0000 #### [facility] [address] [place], [address] Urea nitrogen [Mass/Vol] 17 mg/dL Normal 4-19 [facility] Comment on above: Performed By: #### L 9200.0000 #### [facility] [address] [place], [address] Basophil percentageOrdered B y: Kendall Cormier on 03-05-2025 Basophils/100 WBC (Bld) 0.7 % 0-1 [facility] Blood manual differential co mment interpretation (narrative result)Ordered By: Kendall Cormier on 03-05-2025 Manual differential comment Arsenio (Bld) [Interp] SCANNED [facility] Brain/Head without Contrasto n 03-05-2025 Brain/Head without Contrast [facility] Imaging Services [address] [place], [place] [address] Brain/Head without Contrast MR#: [id number] Acct: [id number] Name: BUBBA HONG Rep #: [id number] : 1945 M 79 From: Teofilo Johnson MD PCP: Dr. Laine Baeza MD Status: [facility] ER Study: Brain/Head without Contrast Date of Exam: 11/25 Exam# [id number] Ordering Dr: Kendall Cormier DO EXAM: NONCONTRAST CT SCAN OF THE HEAD COMPARISON: May 03, 2022 MRI TECHNIQUE: Serial axial series through the head were obtained without contrast. 2-D coronal and sagittal reformats were then obtained. FINDINGS: Brain: There is no acute large territorial infarct, intracranial hemorrhage, midline shift or mass effect. The sella and pineal gland regions appear unremarkable. There is no evidence of cerebellar tonsillar herniation. Ventricles: There is no acute hydrocephalus. Basilar cisterns are patent. Paranasal sinuses: Mucosal thickening is noted in the right maxillary sinus. Mastoid air cells: Well-aerated. Calvarium: The bony calvarium is intact. Orbits: The bilateral globes are symmetric, without retrobulbar compressive mass lesion or hemorrhage. Miscellaneous: CT/Brain/Head without Contrast IMPRESSION: Mucosal thickening is noted in the right maxillary sinus. No acute intracranial pathology. [facility] CC: Dr. Kendall Cormier DO; Dr. Laine Baeza MD Hair Tinter: Signed Normal [facility] CBC W/Diff, Automatedon Anisocytosis Ql (Bld) 2+ Normal [facility] Comment on above: Performed By: #### L 9200.0000 #### [facility] [address] [place], [address] SMEAR COMMENT SCANNED Normal [facility] Comment on above: Performed By: #### L 9200.0000 #### [facility] [address] [place], [address] Carbon dioxide, total [Moles /volume] in Central venous bloodOrdered By: Kendall Cormier on 03-05-2025 CO2 [Moles/Vol] 19.8 mmol/L Low 21.0-32.0 [facility] Chloride assayOrdered By: Aguilar Cormier on 03-05-2025 Chloride [Moles/Vol] 105 mmol/L 98-108 [facility] Emergency Department Summary on 03-05-2025 Emergency Department Summary [facility] Medical Records Department [address] [facility] [place] [address] Emergency Department Summary 03/05/25 MR#: [id number] Acct: [id number] Name: BUBBA HONG Rep #: [id number] : 1945 79 From: Kendall Cormier DO PCP: Dr. Laine Baeza MD Status:DEP ER Location: ED HPI History of Present Illness Chief Complaint: Ear Problem Informant: patient Onset/Context/Timing Onset: Yesterday and Hours (12) Context: Sudden Onset Timing: Waxes and wanes Quality: Spinning Location: Head Worsened by: Nothing Relieved by: Light Narrative Narrative: Patient presents with dizziness that began last night approximately 12 hours prior to arrival. Patient states it came on rather suddenly. Patient states it has been waxing and waning. Patient describes it as a spinning sensation. Patient states nothing makes it worse. Patient states lights make it better. Patient admits to hearing loss out of his right ear that began yesterday around noon. Patient admits to some tinnitus in his right ear. Patient describes it as a motor running outside of his right ear. Patient also admits to some decreased sensation to his right ear but denies any numbness to his face. [facility] Medical History CKD (chronic kidney disease), stage III Hyperlipidemia DDD (degenerative disc disease), lumbosacral Congenital anomalies of adrenal gland Abdominal or pelvic swelling, mass, or lump, left lower quadrant Inverse psoriasis Erectile dysfunction Elevated prostate specific antigen (PSA) Esophageal reflux Diaphragmatic hernia without mention of obstruction or gangrene Essential (primary) hypertension Hypertension Home Medications ???Medication ???Instructions ???Recorded ???Last Taken ???Type furosemide 40 mg tablet 40 mg PO DAILY #90 TABLETS 4 Unknown Rx warfarin 4 mg tablet 4 mg PO .COMPLEX #180 tabs 5 Unknown Rx potassium chloride 10 mEq 20 meq (2 x 10 mEq) PO DAILY #180 12/12/24 Unknown Rx tablet,extended release TABLETS omeprazole 20 mg capsule,delayed 20 mg PO QDAY 12/22/24 Unknown His tory release doxazosin 4 mg tablet (Cardura) 4 mg PO QHS 02/04/25 Unknown Histo ry lisinopril 40 mg tablet 40 mg PO QDAY 02/04/25 Unknown His tory diazepam 2 mg tablet 2 mg PO TID PRN PRN Vertigo #10 Unknown Rx TABLETS Allergy/AdvReac Type Severity Reaction Status Date / Time amlodipine AdvReac Intermediate Rash Verified 03/05/25 07:37 chlorthalidone AdvReac Intermediate Diarrhea Verified 03/05/25 07:37 hydrochlorothiazide AdvReac Unknown intolerance Verified 03/05/25 07:37 Surgical History History of cardioversion (05/29/22) Unilateral inguinal hernia without obstruction or gangrene Benign localized prostatic hyperplasia with lower urinary tract symptoms (LUTS) Social History household members: none current occupational exposures/hazards: Yes pets and animals: Yes leisure activities: sports history of recent travel: Yes Smoking Status: Former smoker how long ago did patient quit smokin years ago alcohol intake: current alcohol intake frequency: 0-2 drinks per day Alcohol type: beer substance use type: does not use caffeine: Yes Type: coffee Number of servings: 2 and tea Number of servings: 3 ROS ROS ED Constitutional Constitutional ED: Denies chills or fever(s) Eyes Eyes: Denies blurry vision or change in vision ENT ENT ED: Reports abnormal hearing, disequillibrium and tinnitus; Denies rhinorrhea or sore throat Cardiovascular Cardiovascular: Denies chest pain or palpitations Respiratory/Chest Respiratory/Chest: Denies cough or dyspnea Gastrointestinal Gastrointestinal: Reports nausea and vomiting Genitourinary Genitourinary ED: Denies dysuria or hematuria Musculoskeletal Musculoskeletal: Denies back pain or neck pain Integumentary Denies abscess or rash Neurologic Neurologic: Denies headache(s) or weakness Allergic/Immunologic Allergic/Immunologic ED: Denies mouth swelling or urticaria EXAM Physical Exam Const Vital Signs: 03/05/25 07:37 03/05/25 07:37 03/05/25 09:25 Temperature 97 F L Temperature Source Temporal Pulse Rate 49 L 92 Pulse Rate [Lying] 81 Pulse Rate [Sitting (for 1 minute prior to obtaining)] 91 Pulse Rate [Standing (for 1 minute prior to obtaining)] 84 Respiratory Rate 13 14 Blood Pressure 181/107 H 203/116 H Blood Pressure [Lying] 195/133 H Blood Pressure [Sitting (for 1 minute prior to obtaining)] 202/124 H Blood Pressure [Standing (for 1 minute prior to obtaining)] 178/118 H Blood Pressure Mean 131 145 Blood Pressure Mean [Lying] 153 Blood Pressu (more content not included)... Normal [facility] Eosinophil percentageOrdered By: Kendall Cormier on 03-05-2025 Eosinophils/100 WBC (Bld) 0.6 % 0-5 [facility] Erythrocyte distribution wid th ratioOrdered By: Kendall Cormier on 03-05-2025 Erythrocyte distribution width (RBC) [Ratio] 20.3 % High 11.6-14.6 [facility] Erythrocyte distribution wid th standard deviationOrdered By: Kendall Cormier on 03-05-2025 Erythrocyte distribution width (RBC) [Ratio] 55.4 fl High 35.1-43.9 [facility] Glomerular filtration rate ( GFR) estimation/1.73 sq m using serum, plasma, or whole bOrdered By: Kendall Cormier on 03-05-2025 GFR/1.73 sq M.predicted among non-blacks MDRD (S/P/Bld) [Vol rate/Area] 82 mL/min/{1.73_m2} >60 [facility] Comment on above: mL/min/1.73m2 CKD-EP I Creatinine Equation (2020) Hematocrit Auto (Bld) [Volum e fraction]Ordered By: Kendall Cormier on 03-05-2025 Hematocrit (Bld) [Volume fraction] 45.8 % 40-54 [facility] Hemoglobin measurementOrdere d By: Kendall Cormier on 03-05-2025 Hemoglobin (Bld) [Mass/Vol] 15.8 g/dL 13.0-16.5 [facility] Immature granulocytes/100 WB C Auto (Bld)Ordered By: Kendall Cormier on 03-05-2025 Immature granulocytes/100 WBC (Bld) 0.300 % 0.0-0.9 [facility] Comment on above: IG% - Immature Granu locytes (promyelocytes, myelocytes and metamyelocytes) > 1% indicates that a LEFT SHIFT is Present. International normalized rat io (INR) calculationOrdered By: Kendall Cormier on 03-05-2025 INR Coag (Bld) [Relative time] 2.4 {INR} [facility] L499.0042on 03-05-2025 Trop T High Sen 13 ng/L Normal <=22 [facility] Comment on above: Performed By: #### L 9200.0000 #### [facility] [address] [place], [place], [address] [id number] 03-05-2025 Trop T High Sen Normal <=22 [facility] Comment on above: Result Comment: Susu singh via LYNNE: Ordered Performed By: #### L [id number] #### [facility] [address] [place], [place], [address] L501.4021on 03-05-2025 Trop T High Sen 15 ng/L Normal <=22 [facility] Comment on above: Performed By: #### L 9200.0000 #### [facility] [address] [place], [place], [address] Laboratory - Hematology and Cell countsOrdered By: Kendall Cormier on 03-05-2025 Anisocytosis Ql (Bld) 2+ [facility] MCV (mean corpuscular volume ) determinationOrdered By: Kendall Cormier on 03-05-2025 MCV (RBC) [Entitic vol] 78.6 fL Low 80-94 [facility] Mean corpuscular hemoglobin (MCH) determinationOrdered By: Kendall Cormier on 03-05-2025 MCH (RBC) [Entitic mass] 27.1 pg 27.0-32.0 [facility] Mean corpuscular hemoglobin concentration (MCHC) determinationOrdered By: Kendall Cormier on 03-05-2025 MCHC (RBC) [Mass/Vol] 34.5 g/dL 32-36 [facility] Mean platelet volume determi nationOrdered By: Kendall Cormier on 03-05-2025 Platelet mean volume (Bld) [Entitic vol] 10.7 fL 6.2-12.0 [facility] Monocyte percentageOrdered B y: Kendall Cormier on 03-05-2025 Monocytes/100 WBC (Bld) 6.5 % 0-10 [facility] Neutrophil percentageOrdered By: Kendall Cormier on 03-05-2025 Neutrophils/100 WBC (Bld) 76.4 % High 47-70 [facility] Nucleated red blood cell per centageOrdered By: Kendall Cormier on 03-05-2025 Nucleated RBC/100 WBC (Bld) [Ratio] 0 % 0-5 [facility] Partial Thromboplast Timeon 03-05-2025 aPTT Coag (Bld) [Time] 32.1 s Normal 24.1-36.2 [facility] Comment on above: Performed By: #### L 9200.0000 #### [facility] [address] [place], [place] [address] [place], [address] Platelet countOrdered By: Aguilar Cormier on 03-05-2025 Platelets (Bld) [#/Vol] 222 10*3/uL 150-450 [facility] Potassium measurement (mass/ volume)Ordered By: Kendall Cormier on 03-05-2025 Potassium (Unsp spec) [Mass/Vol] 3.8 mmol/L 3.3-5.1 [facility] Prothrombin Time w/INRon INR Coag (PPP) [Relative time] 2.4 {INR} Normal [facility] Comment on above: Performed By: #### L 9200.0000 #### [facility] [address] [place], [place], [address] PT Coag (PPP) [Time] 26.3 s High 11.7-14.9 [facility] Comment on above: Performed By: #### L 9200.0000 #### [facility] [address] [place], [place], [address] Prothrombin timeOrdered By: Kendall Cormier on 03-05-2025 PT Coag (PPP) [Time] 26.3 s High 11.7-14.9 [facility] RBC Auto (Bld) [#/Vol]Ordere d By: Kendall Cormier on 03-05-2025 RBC (Bld) [#/Vol] 5.83 10*6/uL 4.6-6.2 [facility] Serum creatinine measurement (mass/volume)Ordered By: Kendall Cormier on 03-05-2025 Creatinine [Mass/Vol] 0.95 mg/dL 0.70-1.20 [facility] Serum glucose measurement (m ass/volume)Ordered By: Kendall Cormier on 03-05-2025 Glucose [Mass/Vol] 110 mg/dL High 70-99 [facility] Serum or plasma calcium arielle urement (mass/volume)Ordered By: Kendall Cormier on 03-05-2025 Calcium [Mass/Vol] 9.3 mg/dL 7.6-11.0 [facility] Serum or plasma urea nitroge n measurement (mass/volume)Ordered By: Kendall Cormier on 03-05-2025 Urea nitrogen [Mass/Vol] 17 mg/dL 4-19 [facility] Sodium levelOrdered By: Kendall Cormier on 03-05-2025 Sodium [Moles/Vol] 138 mmol/L 133-145 [facility] Troponin T.cardiac [Mass/vol ume] in Serum or Plasma by High sensitivity methodOrdered By: Kendall Cormier on 03-05-2025 Troponin T.cardiac High sensitivity method [Mass/Vol] 13 ng/L <22 [facility] Troponin T.cardiac High sensitivity method [Mass/Vol] 15 ng/L <22 [facility] White blood cell (WBC) count Ordered By: Kendall Cormier on 03-05-2025 WBC (Bld) [#/Vol] 7.1 10*3/uL 4.4-11.0 [facility] International normalized rat io (INR) measurement by fingerstickOrdered By: Betty Peck on 03-04-2025 INR Coag (BldC) [Relative time] 2.1 [facility] Comment on above: Critical Value > 4.0 Protime w/INR Fingerstickon 03-04-2025 INR Coag (PPP) [Relative time] 2.1 {INR} Normal [facility] Comment on above: Result Comment: Crit ical Value > 4.0 Performed By: #### L 9200.0000 #### [facility] [address] [place], [place], [address] Protime Coagsen 23.1 SEC High 11.7-14.9 [facility] Comment on above: Performed By: #### L 9200.0000 #### [facility] [address] [place], [address] Whole blood prothrombin time Ordered By: Betty Peck on 03-04-2025 PT Coag (Bld) [Time] 23.1 s High 11.7-14.9 [facility] International normalized rat io (INR) measurement by fingerstickOrdered By: Betty Peck on 02-04-2025 INR Coag (BldC) [Relative time] 2.2 [facility] Comment on above: Critical Value > 4.0 Protime w/INR Fingerstickon 02-04-2025 INR Coag (PPP) [Relative time] 2.2 {INR} Normal [facility] Comment on above: Result Comment: Crit ical Value > 4.0 Performed By: #### L 9200.0000 #### [facility] [address] [place], [address] Protime Coagsen 23.9 SEC High 11.7-14.9 [facility] Comment on above: Performed By: #### L 9200.0000 #### [facility] [address] [place], [address] Whole blood prothrombin time Ordered By: Betty Peck on 02-04-2025 PT Coag (Bld) [Time] 23.9 s High 11.7-14.9 [facility] Echo Completeon 01-13-2025 Echo Complete [facility] Cardi[facility] Services [address] [place] [address] Echo Complete 01/13/25 1401 MR#: [id number] Acct: [id number] Name: BUBBA HONG Rep #: [id number] : 1945 79 From: Betty Peck MD Attending Dr: Krista Barker HARMONIC ANALYST-C Status: REG C Ordering Dr: Krista Barker HARMONIC ANALYST HARMONIC ANALYST-C Date: 01/13/25 Location: CVS Sex: M C Admitted: Reason For Study Reason For Study: PAF Procedure This was a 2D Doppler, Color Flow transthoracic echocardiogram. Called heart group office about BP. Exam performed in department. Left Ventricle Moderate concentric left ventricular hypertrophy. Normal LV size. The LV systolic function is normal. EF is 65 %. Stage 1 diastolic dysfunction. Right Ventricle Normal right ventricle. Atria There is severe biatrial dilatation. Mitral Valve Moderate to severe posteriorly directed eccentric mitral valve regurgitation. Tricuspid Valve Mild tricuspid valve insufficiency. Right ventricular systolic pressure estimated to be 39 mmHg. Aortic Valve Trisinus/trileaflet aortic valve. Pulmonic Valve The pulmonic valve is not well visualized. Trivial pulmonic valve insufficiency. Great Vessels Normal sized aortic root. Pericardium/Pleural No pericardial effusion. MMode/2D Measurements Calculations LVIDd: 4.2 cm IVSd: 1.5 cm Ao root diam: 3.8 cm LVIDs: 2.7 cm LVPWd: 1.4 cm RVDd: 4.0 cm FS: 35.5 % LAV(MOD-bp): 70.8 ml LVAd ap4: 30.5 cm2 LVAd ap2: 28.8 cm2 LAV(MOD-bp) Indexed: 35.6 ml/m2 LVLd ap4: 8.4 cm LVLd ap2: 8.4 cm LAV(MOD-sp2): 62.7 ml EDV(MOD-sp4): 91.6 ml EDV(MOD-sp2): 82.7 ml LAV(MOD-sp4): 67.2 ml EDV(sp4-el): 93.8 ml EDV(sp2-el): 84.2 ml LVAs ap4: 18.7 cm2 LVAs ap2: 17.6 cm2 LVLs ap4: 7.6 cm LVLs ap2: 7.5 cm ESV(MOD-sp4): 38.0 ml ESV(MOD-sp2): 35.5 ml ESV(sp4-el): 39.0 ml ESV(sp2-el): 35.4 ml EF(MOD-sp4): 58.5 % EF(MOD-sp2): 57.0 % EF(sp4-el): 58.4 % SV(MOD-sp4): 53.5 ml SV(MOD-sp2): 47.1 ml SV(sp4-el): 54.8 ml SI(MOD-sp4): 26.9 ml/m2 SI(MOD-sp2): 23.7 ml/m2 LA A4 area: 21.0 cm2 LA dimension(2D): 5.0 cm RA A4 area: 21.0 cm2 TAPSE: 1.3 cm Doppler Measurements Calculations MV E max miguel angel: 84.0 cm/sec Lat Peak E' Miguel Angel: 13.6 cm/sec Med Peak E' Miguel Angel: 10.0 cm/sec E/E' lat: 6.2 E/E' med: 8.4 Ao V2 max: 94.3 cm/sec LV V1 max: 79.9 cm/sec PA V2 max: 53.7 cm/sec Ao max P.6 mmHg LV V1 max P.6 mmHg Ao V2 mean: 65.1 cm/sec LV V1 mean P.2 mmHg Ao mean P.9 mmHg LV V1 mean: 50.8 cm/sec Ao V2 VTI: 17.5 cm LV V1 VTI: 14.7 cm AV (velocity ratio): 0.84 TR max miguel angel: 292.5 cm/sec TR max P.2 mmHg ECHO/Echo Complete Interpretation Summary Moderate concentric left ventricular hypertrophy. The LV systolic function is normal. EF is 65 %. Stage 1 diastolic dysfunction. There is severe biatrial dilatation. Moderate to severe posteriorly directed eccentric mitral valve regurgitation. Patient's blood pressure 186/108 mmHg during the study. Mild tricuspid valve insufficiency. Right ventricular systolic pressure estimated to be 39 mmHg. Ordering Physician: Krista Barker Referring Physician: Laine Baeza M.D. Performed By: Kimi Barton RDCS 01/13/25 1548 Date Betty Peck MD CC: SCOTT Barker; Dr. Laine Baeza MD Date Dictated: 01/13/25 1401 Date Transcribed: 01/13/251547 Hair Tinter: Signed Normal [facility] Echocardiogram study reportO rdered By: Betty Peck on 01-13-2025 Study report [facility] [address] [place] [address] Echo Complete 01/13/25 1401 MR#: [id number] Acct: [id number] Name: BUBBA HONG #:[id number] : 1945 79 From: Betty Peck MD Attending Dr: SCOTT Arredondo tatus: DILLON BARRAZA Ordering Dr: Krista Barker NP Ghassan e: 01/13/25 Location: [facility] Sex: M C Admitted: Reason For Study Reason For Study: PAF Procedure This was a 2D Doppler, Color Flow transthoracic echocardiogram. Called heart group office about BP. Exam performed in department. Left Ventricle Moderate concentric left ventricular hypertrophy. Normal LV size. The LV systolic function is normal. EF is 65 %. Stage 1 diastolic dysfunction. Right Ventricle Normal right ventricle. Atria There is severe biatrial dilatation. Mitral Valve Moderate to severe posteriorly directed eccentric mitral valve regurgitation. Tricuspid Valve Mild tricuspid valve insufficiency. Right ventricular systolic pressure estimated to be 39 mmHg. Aortic Valve Trisinus/trileaflet aortic valve. Pulmonic Valve The pulmonic valve is not well visualized. Trivial pulmonic valve insufficiency. Great Vessels Normal sized aortic root. Pericardium/Pleural No pericardial effusion. MMode/2D Measurements & Calculations LVIDd: 4.2 cm IVSd: 1.5 cm Ao root diam: 3.8 cm LVIDs: 2.7 cm LVPWd: 1.4 cm RVDd: 4.0 cm FS: 35.5 % __ LAV(MOD-bp): 70.8 ml LVAd ap4: 30.5 cm2 LVAd ap2: 28.8 cm2 LAV(MOD-bp) Indexed: 35.6 ml/m2 LVLd ap4: 8.4 cm LVLd ap2: 8.4 cm LAV(MOD-sp2): 62.7 ml EDV(MOD-sp4): 91.6 ml EDV(MOD-sp2): 82.7 ml LAV(MOD-sp4): 67.2 ml EDV(sp4-el): 93.8 ml EDV(sp2-el): 84.2 ml LVAs ap4: 18.7 cm2 LVAs ap2: 17.6 cm2 LVLs ap4: 7.6 cm LVLs ap2: 7.5 cm ESV(MOD-sp4): 38.0 ml ESV(MOD-sp2): 35.5 ml ESV(sp4-el): 39.0 ml ESV(sp2-el): 35.4 ml EF(MOD-sp4): 58.5 % EF(MOD-sp2): 57.0 % EF(sp4-el): 58.4 % __ SV(MOD-sp4): 53.5 ml SV(MOD-sp2): 47.1 ml SV(sp4-el): 54.8 ml SI(MOD-sp4): 26.9 ml/m2 SI(MOD-sp2): 23.7 ml/m2 __ LA A4 area: 21.0 cm2 LA dimension(2D): 5.0 cm RA A4 area: 21.0 cm2 __ TAPSE: 1.3 cm Doppler Measurements & Calculations MV E max miguel angel: 84.0 cm/sec Lat Peak E' Miguel Angel: 13.6 cm/sec Med Peak E' Miguel Angel: 10.0 cm/sec E/E' lat: 6.2 E/E' med: 8.4 __ Ao V2 max: 94.3 cm/sec LV V1 max: 79.9 cm/sec PA V2 max: 53.7 cm/sec Ao max P.6 mmHg LV V1 max P.6 mmHg Ao V2 mean: 65.1 cm/sec LV V1 mean P.2 mmHg Ao mean P.9 mmHg LV V1 mean: 50.8 cm/sec Ao V2 VTI: 17.5 cm LV V1 VTI: 14.7 cm AV (velocity ratio): 0.84 TR max miguel angel: 292.5 cm/sec TR max P.2 mmHg ECHO/Echo Complete Interpretation Summary Moderate concentric left ventricular hypertrophy. The LV systolic function is normal. EF is 65 %. Stage 1 diastolic dysfunction. There is severe biatrial dilatation. Moderate to severe posteriorly directed eccentric mitral valve regurgitation. Patient's blood pressure 186/108 mmHg during the study. Mild tricuspid valve insufficiency. Right ventricular systolic pressure estimated to be 39 mmHg. Ordering Physician: Krista Barker Referring Physician: Laine Baeza M.D. Performed By: Kimi Barton RDCS 01/13/25 1548 Date _ Betty Peck MD CC: HARMONIC ANALYSTYoni Barker; Dr. Laine Baeza MD ~ Date Dictated: 01/13/25 1401 Date Transcribed: 01/13/25 154 Hair Tinter: Signed [facility] Work Phone: International normalized rat io (INR) measurement by fingerstickOrdered By: Betty Peck on 01-07-2025 INR Coag (BldC) [Relative time] 2.4 [facility] Comment on above: Critical Value > 4.0 Protime w/INR Fingerstickon 01-07-2025 INR Coag (PPP) [Relative time] 2.4 {INR} Normal [facility] Comment on above: Result Comment: Crit ical Value > 4.0 Performed By: #### L 9200.0000 #### [facility] [address] [place], [place], [id number] Protime Coagsen 25.6 SEC High 11.7-14.9 [facility] Comment on above: Performed By: #### L 9200.0000 #### [facility] [address] [place], [place], [id number] Whole blood prothrombin time Ordered By: Betty Peck on 01-07-2025 PT Coag (Bld) [Time] 25.6 s High 11.7-14.9 [facility] CBC panel Auto (Bld)on 12-24 Erythrocyte distribution width (RBC) [Ratio] 16.4 % High 11.5-15.0 [facility] Comment on above: Order Comment: Speci men Type: BLOOD SPECIMEN Ordering Facility: [facility] Address: [address] [place] [address] Performed By: #### 5 8410-2 #### [facility] CLIA [id number] [address] [place] [address] [place] Hematocrit (Bld) [Volume fraction] 42.8 % Normal 39.0-51.0 [facility] Comment on above: Order Comment: Speci men Type: BLOOD SPECIMEN Ordering Facility: [facility] Address: [address] [place] [address] Performed By: #### 5 8410-2 #### [facility] CLIA [id number] [address] [place] [address] [place] Hemoglobin (Bld) [Mass/Vol] 13.4 g/dL Normal 13.0-17.0 [facility] Comment on above: Order Comment: Speci men Type: BLOOD SPECIMEN Ordering Facility: [facility] Address: [address] [place] [address] Performed By: #### 5 8410-2 #### [facility] CLIA [id number] [address] [place] [address] [place] MCH (RBC) [Entitic mass] 25.4 pg Low 26.0-34.0 [facility] Comment on above: Order Comment: Speci men Type: BLOOD SPECIMEN Ordering Facility: [facility] Address: [address] [place] [address] Performed By: #### 5 8410-2 #### [facility] CLIA [id number] [address] [place] [address] [place] MCHC (RBC) [Mass/Vol] 31.3 g/dL Normal 30.5-36.0 [facility] Comment on above: Order Comment: Speci men Type: BLOOD SPECIMEN Ordering Facility: [facility] Address: [address] [place] [address] Performed By: #### 5 8410-2 #### [facility] CLIA [id number] [address] [place] [address] [place] MCV (RBC) [Entitic vol] 81.2 fL Normal 80.0-100.0 [facility] Comment on above: Order Comment: Speci men Type: BLOOD SPECIMEN Ordering Facility: [facility] Address: [address] [place] [address] Performed By: #### 5 8410-2 #### [facility] CLIA [id number] [address] [place] [address] [place] Nucleated RBC (Bld) [#/Vol] 10*3/uL Normal <0.01 [facility] Comment on above: Order Comment: Speci men Type: BLOOD SPECIMEN Ordering Facility: [facility] Address: [address] [place] [address] Performed By: #### 5 8410-2 #### [facility] CLIA [id number] [address] [place] [address] [place] Platelet mean volume (Bld) [Entitic vol] 10.5 fL Normal 9.0-12.7 [facility] Comment on above: Order Comment: Speci men Type: BLOOD SPECIMEN Ordering Facility: [facility] Address: [address] [place] [address] Performed By: #### 5 8410-2 #### [facility] CLIA [id number] [address] [place] [address] [place] Platelets (Bld) [#/Vol] 211 10*3/uL Normal 150-400 [facility] Comment on above: Order Comment: Speci men Type: BLOOD SPECIMEN Ordering Facility: [facility] Address: [address] [place] [address] Performed By: #### 5 8410-2 #### [facility] CLIA [id number] [address] [place] [address] [place] RBC (Bld) [#/Vol] 5.27 10*6/uL Normal 4.20-6.00 [facility] Comment on above: Order Comment: Speci men Type: BLOOD SPECIMEN Ordering Facility: [facility] Address: [address] [place] [address] Performed By: #### 5 8410-2 #### [facility] CLIA [id number] [address] [place] [address] [place] WBC (Bld) [#/Vol] 5.49 10*3/uL Normal 3.70-11.00 [facility] Comment on above: Order Comment: Speci men Type: BLOOD SPECIMEN Ordering Facility: [facility] Address: [address] [place] [address] Performed By: #### 5 8410-2 #### [facility] CLIA [id number] [address] [place] [address] [place] CNOVon 2024 CNOV Office Visit (INTMWS ) -- GELYBUBBA Hopper ([id number]) 1945 M TXT Date Time Provider Department 12/24/24 2:20 PM LAINE BAEZA INTMWS During your visit today, we recorded the following information about you: Pulse Respiration Blood pressure Weight 89/minute 16/minute 133/78 79.2 kg Laine Baeza MD 12/27/2024 12:24 PM Signed This note was created using Sernovariter. Subjective Bubba Hong is a 79 year old male. HISTORY Bubba is a 79-year-old male with a history of atrial fibrillation, presenting for a Medicare wellness visit and fall risk assessment. Bubba reports experiencing palpitations, described as a thumping sensation, primarily when lying in bed at night. These symptoms first appeared several years ago, following a hospitalization for a cardiac issue that required cardioversion. The palpitations recurred after a bout of influenza in late September, prompting a recent cardiology consultation two days ago. Bubba is scheduled for a 24-hour Holter monitor next week, followed by an EKG and additional cardiac evaluations in approximately three weeks. He denies any significant concern about these symptoms, stating, I don't think it's a major health issue. Bubba is currently on a medication regimen that includes lisinopril, omeprazole, doxazosin, potassium, warfarin, and furosemide 40 mg once daily. He reports good adherence to this regimen and denies any side effects, noting that furosemide has been effective in managing his blood pressure without adverse effects. He denies any issues with bowel or bladder function, including nocturia. Bubba reports a good overall health status, describing it as very good. He remains active, walking regularly at work, although he does not engage in brisk walking outside of his occupational activities. He consumes alcohol 2-3 times per week, typically limiting intake to 1-2 drinks per occasion, and denies ever consuming six or more drinks in one sitting. He follows a healthy diet, including fruits, vegetables, whole grains, and fiber daily, and has reduced his overall food intake. He denies any tobacco use. Bubba denies any issues with balance, vision (with glasses), or dental health, noting regular dental visits four times a year. He reports some age-related hearing loss but does not use hearing aids. He denies any concerns with sexual function. He acknowledges experiencing feelings of anger and irritability, particularly in response to work-related stress, but denies being troubled by these emotions or requiring counseling or medication. He does not report feelings of anxiety, loneliness, or isolation, and denies any thoughts of self-harm. Bubba is independent in activities of daily living and does not require assistance with tasks such as grocery shopping or managing finances. He follows safety precautions, including wearing a seatbelt and maintaining good lighting and handrails in his home. Family history is significant for Alzheimer's disease in his mother and presumed hypertension and heart issues in his father. He has one brother, but is unaware of any medical issues. He has an emergency contact, Kisha Pisano, but does not have a designated healthcare power of traffic law attorney. 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 Yuan Diaphragmatic hernia without mention of obstruction or gangrene Esophageal reflux Esophageal reflux 12/25/2006 Inguinal hernia without mention of obstruction or gangrene, unilateral or unspecified, (not specified as recurrent) 09/14/[address] Reyes diagnosed PSA elevation Dr. Parker Current Outpatient Medications Medication Sig albuterol HFA (PROVENTIL HFA) 90 mcg/actuation inhaler Inhale 1-2 Puffs as instructed four times a day as needed for wheezing/shortness of breath. furosemide (LASIX) 40 mg tablet Take 1 tablet by mouth every afternoon. warfarin (COUMADIN) 4 mg tablet Take 4 mg by mouth once daily. 8 mg m// 6 all other days potassium chloride SR (MICRO-K) 10 mEq CR capsule Take by mouth. Clobetasol Propionate (TEMOVATE) 0.05 % external solution Apply 1 application to affected area once daily as needed. for rash as directed doxazosin (CARDURA) 4 mg tablet Take 1 tablet by mouth once daily. lisinopril (ZESTRIL) 40 mg tablet Take 1 tablet by mouth once daily. omeprazole (PRILOSEC) 20 mg capsule take 1 capsule by mouth 30 MINUTES before breakfast predniSONE (DELTASONE) 10 mg tablet Take 40 mg x 3 days, 20 mg x 3 days, 10 mg x 3 days. Take with food, once daily with breakfast (Patient not taking: Repo (more content not included)... Normal [facility] Comprehensive metabolic 2000 panelon 2024 Albumin [Mass/Vol] 3.8 g/dL Low 3.9-4.9 [facility] Comment on above: Order Comment: Speci men Type: BLOOD SPECIMEN Ordering Facility: [facility] Address: [address] [place], [place] [address] Performed By: #### 3 051-0, 3024-7, 60214-0, LIPNF #### [facility] CLIA [id number] [address] [place] [address] [place] ALP [Catalytic activity/Vol] 76 U/L Normal 38-113 [facility] Comment on above: Order Comment: Speci men Type: BLOOD SPECIMEN Ordering Facility: [facility] Address: [address] [place] [address] Performed By: #### 3 051-0, 3024-7, 09246-6, LIPNF #### [facility] CLIA [id number] [address] [place] [address] [place] ALT [Catalytic activity/Vol] 24 U/L Normal 10-54 [facility] Comment on above: Order Comment: Speci men Type: BLOOD SPECIMEN Ordering Facility: [facility] Address: [address] [place] [address] Performed By: #### 3 051-0, 302-7, 63394-3, LIPNF #### [facility] CLIA [id number] [address] [place] [address] [place] Anion gap [Moles/Vol] 18 mmol/L High 8-15 [facility] Comment on above: Order Comment: Speci men Type: BLOOD SPECIMEN Ordering Facility: [facility] Address: [address] [place] [address] Performed By: #### 3 051-0, 3024-7, 55528-3, LIPNF #### [facility] CLIA [id number] [address] [place] [address] [place] AST [Catalytic activity/Vol] 50 U/L High 14-40 [facility] Comment on above: Order Comment: Speci men Type: BLOOD SPECIMEN Ordering Facility: [facility] Address: [address] [place] [address] Result Comment: Resu lts may be falsely increased due to interference from hemolysis. Suggest reorder as clinically indicated. Performed By: #### 3 051-0, 3023-7, 47948-6, LIPNF #### [facility] CLIA [id number] [address] [place] [address] [place] Bilirubin [Mass/Vol] 0.2 mg/dL Normal 0.2-1.3 [facility] Comment on above: Order Comment: Speci men Type: BLOOD SPECIMEN Ordering Facility: [facility] Address: [address] [place] [address] Performed By: #### 3 051-0, 3023-7, 52470-8, LIPNF #### [facility] CLIA [id number] [address] [place] [address] [place] Calcium [Mass/Vol] 9.9 mg/dL Normal 8.5-10.2 [facility] Comment on above: Order Comment: Speci men Type: BLOOD SPECIMEN Ordering Facility: [facility] Address: [address] [place] [address] Performed By: #### 3 051-0, 7, , LIPNF #### [facility] CLIA [id number] [address] [place] [address] [place] Chloride [Moles/Vol] 105 mmol/L Normal 98-107 [facility] Comment on above: Order Comment: Speci men Type: BLOOD SPECIMEN Ordering Facility: [facility] Address: [address] [place] [address] Performed By: #### 3 051-0, 7, 56243-1, LIPNF #### [facility] CLIA [id number] [address] [place] [address] [place] CO2 [Moles/Vol] 14 mmol/L Low 22-30 [facility] Comment on above: Order Comment: Speci men Type: BLOOD SPECIMEN Ordering Facility: [facility] Address: [address] [place] [address] Performed By: #### 3 051-0, 3024-7, 11190-1, LIPNF #### [facility] CLIA [id number] [address] [place] [address] [place] Creatinine [Mass/Vol] 1.17 mg/dL Normal 0.73-1.22 [facility] Comment on above: Order Comment: Zia mcarthur Type: BLOOD SPECIMEN Ordering Facility: [facility] Address: [address] [place] [address] Performed By: #### 3 051-0, 3024-7, 18377-3, LIPNF #### [facility] CLIA [id number] [address] [place] [address] [place] Creatinine and Glomerular filtration rate.predicted panel (S/P/Bld) 64 mL/min/1.73m??? Normal >=60 [facility] Comment on above: Order Comment: Zia mcarthur Type: BLOOD SPECIMEN Ordering Facility: [facility] Address: [address] [place] [address] Result Comment: Nereida mated Glomerular Filtration Rate (eGFR) is calculated using the 2020 CKD-EPI creatinine equation. This equation utilizes serum creatinine, sex, and age as parameters. The creatinine assay has traceable calibration to isotope dilution-mass spectrometry. Refer to KDIGO guidelines for clinical interpretation. In patients with unstable renal function, e.g. those with acute kidney injury, the eGFR may not accurately reflect actual GFR. Performed By: #### 3 051-0, 3024-7, 61778-0, LIPNF #### [facility] CLIA [id number] [address] [place] [address] [place] Glucose [Mass/Vol] 71 mg/dL Low 74-99 [facility] Comment on above: Order Comment: Zia mcarthur Type: BLOOD SPECIMEN Ordering Facility: [facility] Address: [address] [place] [address] Result Comment: The [place] Diabetes [employer] (ADA) provides guidance for cutoff values for fasting glucose and random glucose. The ADA defines fasting as no caloric intake for at least 8 hours. Fasting plasma glucose results between 100 to 125 mg/dL indicate increased risk for diabetes (prediabetes). Fasting plasma glucose results greater than or equal to 126 mg/dL meet the criteria for diagnosis of diabetes. In the absence of unequivocal hyperglycemia, results should be confirmed by repeat testing. In a patient with classic symptoms of hyperglycemia or hyperglycemic crisis, random plasma glucose results greater than or equal to 200 mg/dL meet the criteria for diagnosis of diabetes. Reference: Standards of Medical Care in Diabetes 2016, [place] Diabetes Association. Diabetes Care. 2016.39(Suppl 1). Performed By: #### 3 051-0, 3024-7, 10750-4, LIPNF #### [facility] CLIA [id number] [address] [place] [address] [place] Potassium [Moles/Vol] 5.1 mmol/L Normal 3.7-5.1 [facility] Comment on above: Order Comment: Speci men Type: BLOOD SPECIMEN Ordering Facility: [facility] Address: [address] [place] [address] Performed By: #### 3 051-0, 3024-7, 88888-1, LIPNF #### [facility] CLIA [id number] [address] [place] [address] [place] Protein [Mass/Vol] 6.7 g/dL Normal 6.3-8.0 [facility] Comment on above: Order Comment: Speci men Type: BLOOD SPECIMEN Ordering Facility: [facility] Address: [address] [place] [address] Performed By: #### 3 051-0, 3024-7, 52676-4, LIPNF #### [facility] CLIA [id number] [address] [place] [address] [place] Sodium [Moles/Vol] 137 mmol/L Normal 136-144 [facility] Comment on above: Order Comment: Speci men Type: BLOOD SPECIMEN Ordering Facility: [facility] Address: [address] [place] [address] Performed By: #### 3 051-0, 3024-7, 38967-5, LIPNF #### [facility] IA [id number] [address] [place] [address] [place] Urea nitrogen [Mass/Vol] 23 mg/dL Normal 9-24 [facility] Comment on above: Order Comment: Speci men Type: BLOOD SPECIMEN Ordering Facility: [facility] Address: [address] [place], [place] [address] [address] Performed By: #### 3 051-0, 3024-7, 17927-3, LIPNF #### [facility] [place] [id number] [address] [place] [address] [place] ECG COMPLETEon 2024 ECG COMPLETE Ventricular Rate : 7 2 BPM QRS Duration : 100 ms Q-T Interval : 396 ms QTC Calculation(Bazett) : 433 ms Calculated R Martin : 16 degrees Calculated T Martin : 42 degrees ATRIAL FIBRILLATION WITH PREMATURE VENTRICULAR COMPLEXES ABNORMAL ECG Confirmed by CYNTHIA CESAR M.D. ([id number]) on 12/26/2024 4:40:24 PM NAME : BUBBA HONG PID : [id number] : 1945 Gender : Male Race : ORD : [id number] Procedure Date : 2024 16:15:07 Edit Date : Dec 26 2024 16:40:27 Diagnosis: ATRIAL FIBRILLATION WITH PREMATURE VENTRICULAR COMPLEXES ABNORMAL ECG Confirmed by CYNTHIA CESAR M.D. ([id number]) on 12/26/2024 4:40:24 PM Test Reason : I48.0 Paroxysmal atrial fibrillation (HCC) Location : 185 : [facility] Overread By : CYNTHIA CESAR M.D. Edited By : CYNTHIA CESAR M.D. Referred By : , Acquired by : Mary Armando [facility] International normalized rat io (INR) measurement by fingerstickOrdered By: Betty Peck on 2024 INR Coag (BldC) [Relative time] 1.8 [facility] Comment on above: Critical Value > 4.0 LIPID PANEL, NONFASTINGon Cholesterol [Mass/Vol] 221 mg/dL High <200 [facility] Comment on above: Order Comment: Speci men Type: BLOOD SPECIMEN Ordering Facility: [facility] Address: [address] [place] [address] Result Comment: <200 mg/dL, Desirable 200-239 mg/dL, Borderline high >239 mg/dL, High Performed By: #### 3 051-0, 3024-7, 76234-4, LIPNF #### [facility] CLIA [id number] [address] [place] [address] [place] HDL CHOLESTEROL, NF 65 mg/dL Normal >39 [facility] Comment on above: Order Comment: Speci blue Type: BLOOD SPECIMEN Ordering Facility: [facility] Address: [address] [place] [address] Result Comment: 40-5 9 mg/dL, Acceptable >59 mg/dL, High: Negative risk factor for coronary heart disease <40 mg/dL, Low: Positive risk factor for coronary heart disease Performed By: #### 3 051-0, 3023-7, 90591-1, LIPNF #### [facility] CLIA [id number] [address] [place] [address] [place] LDL CHOLESTEROL CALCULATED, NF 146 mg/dL High <100 [facility] Comment on above: Order Comment: Speci blue Type: BLOOD SPECIMEN Ordering Facility: [facility] Address: [address] [place] [address] Result Comment: <100 mg/dL, Optimal 100-129 mg/dL, Near optimal/above optimal 130-159 mg/dL, Borderline high 160-189 mg/dL, High >189 mg/dL, Very high Secondary prevention optimal LDL Cholesterol levels are recommended to be <70 mg/dL LDL cholesterol is calculated using the Lim-NIH equation. Performed By: #### 3 051-0, 3024-7, 03537-7, LIPNF #### [facility] CLIA [id number] [address] [id number] [address] [place] LDL/HDL RATIO, NF 2.25 mg/dL Normal <2.54 [facility] Comment on above: Order Comment: Zia mcarthur Type: BLOOD SPECIMEN Ordering Facility: [facility] Address: [address] [place] [address] Result Comment: Refe reneace: 1. National Cholesterol Education Program ATP III Guideline At-A-Glance Quick Desk Reference: National Heart, Lung, and Blood [place]. National Institutes of Health. 2001: NIH Publication No. 01-3305. 2. An International Atherosclerosis Society position paper: global recommendations for the management of dyslipidemia: executive summary, Atherosclerosis. 2014: 232(2):410-413. Performed By: #### 3 051-0, 3024-7, 52876-8, LIPNF #### [facility] CLIA [id number] [address] [place] [address] [place] NON HDL CHOL, NF 156 mg/dL High <130 [facility] Comment on above: Order Comment: Zia mcarthur Type: BLOOD SPECIMEN Ordering Facility: [facility] Address: [address] [place] [address] Result Comment: <130 mg/dL, Optimal 130-159 mg/dL, Near optimal/above optimal 160-189 mg/dL, Borderline high 190-219 mg/dL, High >219 mg/dL, Very high Secondary prevention optimal non HDL Cholesterol levels are recommended to be <100 mg/dL Performed By: #### 3 051-0, 302-7, 62435-5, LIPNF #### [facility] CLIA [id number] [address] [place] [address] STATES OF [facility] T CHOL/HDL RATIO NF 3.40 mg/dL Normal <5.10 [facility] Comment on above: Order Comment: Zia mcarthur Type: BLOOD SPECIMEN Ordering Facility: [facility] Address: [address] [place] [address] Performed By: #### 3 051-0, 3024-7, 48518-6, LIPNF #### [facility] CLIA [id number] [address] [place] [address] [place] TRIGLYCERIDES, NF 60 mg/dL Normal <150 [facility] Comment on above: Order Comment: Speci men Type: BLOOD SPECIMEN Ordering Facility: [facility] Address: [address] [place] [address] Result Comment: <150 mg/dL, Normal 150-199 mg/dL, Borderline high 200-499 mg/dL, High >499 mg/dL, Very high Performed By: #### 3 051-0, 3024-7, 29013-9, LIPNF #### [facility] CLIA [id number] [address] [place] [address] [place] VLDL CHOLESTEROL, NF 11 mg/dL Normal <30 [facility] Comment on above: Order Comment: Speci men Type: BLOOD SPECIMEN Ordering Facility: [facility] Address: [address] [place] [address] Performed By: #### 3 051-0, 3024-7, 18292-4, LIPNF #### [facility] CLIA [id number] [address] [place] [address] [place] Magnesium SerPl-mCncon 12-24 Magnesium [Mass/Vol] 2.1 mg/dL Normal 1.7-2.3 [facility] Comment on above: Order Comment: Speci men Type: BLOOD SPECIMEN Ordering Facility: [facility] Address: [address] [place] [address] Performed By: #### 3 016-3, 80209-9 #### [facility] CLIA [id number] [address] [place] [address] [place] Protime w/INR Fingerstickon 2024 INR Coag (PPP) [Relative time] 1.8 {INR} Normal [facility] Comment on above: Result Comment: Crit ical Value > 4.0 Performed By: #### L 9200.0000 #### [facility] [address] [place], [place], [id number] Protime Coagsen 19.7 SEC High 11.7-14.9 [facility] Comment on above: Performed By: #### L 9200.0000 #### [facility] [address] [place], [place], [id number] T3Free SerPl-mCncon 12-25-19 25 Free T3 [Mass/Vol] 3.2 pg/mL Normal 2.3-4.1 [facility] Comment on above: Order Comment: Speci men Type: BLOOD SPECIMEN Ordering Facility: [facility] Address: [address] [place] [address] Performed By: #### 3 051-0, 3024-7, 89580-0, LIPNF #### [facility] CLIA [id number] [address] [place] [address] [place] T4 Free SerPl-mCncon 025 Free T4 [Mass/Vol] 1.1 ng/dL Normal 0.9-1.7 [facility] Comment on above: Order Comment: Speci men Type: BLOOD SPECIMEN Ordering Facility: [facility] Address: [address] [place] [address] Performed By: #### 3 051-0, 3024-7, 64972-3, LIPNF #### [facility] CLIA [id number] [address] [place] [address] [place] TSH SerPl-aCncon 2024 TSH Qn 3.590 m[IU]/L Normal 0.270-4.200 [facility] Comment on above: Order Comment: Speci men Type: BLOOD SPECIMEN Ordering Facility: [facility] Address: [address] [place] [address] Performed By: #### 3 016-3, 35550-7 #### [facility] CLIA [id number] [address] [place] [address] [place] Whole blood prothrombin time Ordered By: Betty Peck on 2024 PT Coag (Bld) [Time] 19.7 s High 11.7-14.9 [facility] Cardiology Visit Reporton Cardiology Visit Report [facility] [address] [place] [address] OFFICE VISIT Date of Service: 12/22/24 MR#: [id number] Acct: [id number] Name: BUBBA HONG Rep #: [id number] : 1945 Provider: SCOTT yoder Age/Sex: 78/M Location[place] [facility] Status: Signed HPI HPI History of Present Illness Details: This is a 78 year old male who presents to the office today for a cardiovascular follow-up visit. He was last seen in our office in 2022. He has a history of paroxysmal atrial fibrillation, hypertension, hyperlipidemia, and chronic kidney disease. From a cardiac standpoint, the patient is doing well. He does have occasional palpitations. He denies chest pain, pressure or heaviness. He denies SOB, Orthopnea, and PND. He does not have blee ding issues; no blood in urine, stool, or nosebleeds. He denies any decrease in energy level, myalgias, or claudication. He does not have edema, or sudden weight gain. He denies lightheadedness, dizziness, syncopal or near syncopal episodes, and headaches. Intake Vital Signs 11/08/22 14:45 12/22/24 08:18 Height 6 ft 1 in 6 ft 1 in Weight: 178 lb BMI 23.5 BP 134/98 H Blood Pressure Location Lt brachial Position Sitting Respiration 18 Pulse 72 Pulse Source Monitor Pulse Oximetry (%) 97 Intake Visit Reasons: OVERDUE Multi Skilled Operator Required: No Is patient in pain?: No Allergies amlodipine Adverse Reaction (Intermediate, Verified 12/22/24 15:06) Rash chlorthalidone Adverse Reaction (Intermediate, Verified 12/22/24 15:06) Diarrhea hydrochlorothiazide Adverse Reaction (Unknown, Verified 12/22/24 15:06) intolerance Medications ???Medication ???Instructions ???Recorded ???Confirmed ???Type furosemide 40 mg tablet 40 mg PO DAILY #90 TABLETS 4 12/22/24 Rx warfarin 4 mg tablet 4 mg PO .COMPLEX #180 tabs 5 12/22/24 Rx potassium chloride 10 mEq 20 meq (2 x 10 mEq) PO DAILY #180 12/12/24 12/22/24 Rx tablet,extended release TABLETS omeprazole 20 mg capsule,delayed 20 mg PO QDAY 12/22/24 12/22/24 Hi story release Ejection fraction %: 65 Have you fallen in the past year?: No Nurse's Note: lisinpril does not know dosage, is on another medication but has no idea what it is, unable to confirm. [facility] Medical History CKD (chronic kidney disease), stage III Hyperlipidemia DDD (degenerative disc disease), lumbosacral Congenital anomalies of adrenal gland Abdominal or pelvic swelling, mass, or lump, left lower quadrant Inverse psoriasis Erectile dysfunction Elevated prostate specific antigen (PSA) Esophageal reflux Diaphragmatic hernia without mention of obstruction or gangrene Essential (primary) hypertension Hypertension Surgical History History of cardioversion (05/29/22) Unilateral inguinal hernia without obstruction or gangrene Benign localized prostatic hyperplasia with lower urinary tract symptoms (LUTS) Social History household members: none current occupational exposures/hazards: Yes pets and animals: Yes leisure activities: sports history of recent travel: Yes Smoking Status: Former smoker how long ago did patient quit smokin years ago alcohol intake: current alcohol intake frequency: 0-2 drinks per day Alcohol type: beer substance use type: does not use caffeine: Yes Type: coffee Number of servings: 2 and tea Number of servings: 3 ROS Const Const: Negative for fatigue, weakness, headache(s) or frequent falls Eyes Eyes: Negative for blurry vision ENT ENT: Negative for headache(s), dizziness or Nosebleed/epistaxis Cardio Chest Pain: No Palpitations: Yes Edema: None Muscle aches with walking: None Resp Respiratory: Negative for SOB with activity, SOB at rest or SOB orthopnea SOB lying down GI GI: Negative nausea, vomiting, heartburn, bright, red blood in stools or black,tarry stools : Negative for hematuria Neuro Neuro: Negative for dizziness, lightheadedness (occasional), near syncope, syncope, frequent falls, headache(s), weakness or blurry vision Endo Endo: Negative for fatigue Cardiology Exam Const Appearance: cooperative, comfortable and no acute distress Nutritional Appearance: average body habitus and well nourished Orientation: alert, awake and oriented x3 Head Head: normal to inspection Ears: hearing grossly normal bilaterally Nose: external nose normal Face and Sinus: face symmetric Eyes General: appearance normal, both eyes and all related structures Neck Neck: normal visual inspection and no JVD Carotids: Negative bruit Chest Chest inspection: normal inspection of the chest A (more content not included)... Normal [facility] Protime w/INR Fingerstickon 12-10-2024 INR Coag (PPP) [Relative time] 1.8 {INR} Normal [facility] Comment on above: Result Comment: Crit ical Value > 4.0 Performed By: #### L 9200.0000 #### [facility] [address] [place], [place], [id number] Protime Coagsen 20.0 SEC High 11.7-14.9 [facility] Comment on above: Performed By: #### L 9200.0000 #### [facility] [address] [place], [place], [id number] INR Coag (BldC) [Relative ti me]Ordered By: Betty Peck on 11-14-2024 INR Coag (Bld) [Relative time] 2.2 {INR} [facility] Comment on above: Critical Value > 4.0 International normalized rat io (INR) measurement by fingerstickOrdered By: Betty Peck on 11-14-2024 INR Coag (BldC) [Relative time] 2.2 [facility] Comment on above: Critical Value > 4.0 PT Coag (Bld) [Time]Ordered By: Betty Peck on 11-14-2024 Bedside Prothrombin Time 23.5 SEC High 11.7-14.9 [facility] Protime w/INR Fingerstickon 03-14-2025 INR Coag (PPP) [Relative time] 2.2 {INR} Normal [facility] Comment on above: Result Comment: Crit ical Value > 4.0 Performed By: #### L 9200.0000 #### [facility] [address] [place], [place], [id number] Protime Coagsen 23.5 SEC High 11.7-14.9 [facility] Comment on above: Performed By: #### L 9200.0000 #### [facility] [address] [place], [place], [id number] ([phone] Whole blood prothrombin time Ordered By: Betty Peck on 11-14-2024 PT Coag (Bld) [Time] 23.5 s High 11.7-14.9 [facility] Protime w/INR Fingerstickon 11-06-2024 INR Coag (PPP) [Relative time] 2.9 {INR} Normal [facility] Comment on above: Result Comment: Crit ical Value > 4.0 Performed By: #### L 9200.0000 #### [facility] [address] [place], [place], [id number] [phone] Protime Coagsen 30.0 SEC High 11.7-14.9 [facility] Comment on above: Performed By: #### L 9200.0000 #### [facility] [address] [place], [place], [id number] INR Coag (BldC) [Relative ti me]Ordered By: Betty Peck on 10-31-2024 INR Coag (Bld) [Relative time] 2.9 {INR} [facility] Comment on above: Critical Value > 4.0 International normalized rat io (INR) measurement by fingerstickOrdered By: Betty Peck on 10-31-2024 INR Coag (BldC) [Relative time] 2.9 [facility] Comment on above: Critical Value > 4.0 PT Coag (Bld) [Time]Ordered By: Betty Peck on 10-31-2024 Bedside Prothrombin Time 30.0 SEC High 11.7-14.9 [facility] Whole blood prothrombin time Ordered By: Betty Peck on 10-31-2024 PT Coag (Bld) [Time] 30.0 s High 11.7-14.9 [facility] Protime w/INR Fingerstickon 10-17-2024 INR Coag (PPP) [Relative time] 2.8 {INR} Normal [facility] Comment on above: Result Comment: Crit ical Value > 4.0 Performed By: #### L 9200.0000 #### [facility] [address] [place], [place], [address] Protime Coagsen 29.0 SEC High 11.7-14.9 [facility] Comment on above: Performed By: #### L 9200.0000 #### [facility] [address] [place], [place], [id number] CNPNon 10-14-2024 [facility] Telephone (INTMWS) -- BUBBA HONG ([id number]) 1945 M TXT Date Time Provider Department 10/14/24 LAINE BAEZA INTWS During your visit today, we recorded the following information about you: Janay Amado, RN 10/14/2024 9:09 AM Signed Patient phoned to give Rosamaria update. Reports he completed prednisone a week ago and he keeps getting better. Reports he is not completely better but also not worse. Reports he has been getting mild dizzy spells for the past couple months and asking what could be causing this. Advised dehydration, low BP, and medications can cause this. Advised to drink fluids when the dizzy spell happens. Advised to lie down for 1 hour with feet elevated to help blood circulate. Advised to sit for 2 minutes before standing as standing too quickly can cause a drop in BP and this can cause dizziness. Patient agreeable. Patient reports he does not have a BP monitor at home, and unable to check his BP. Patient declined to schedule appt for now, stating he has an appt with [facility] this week and plans to discuss this with them. Laine Baeza MD 10/18/2024 12:40 PM Signed Bellow noted. Agree with recommendations. Follow up as needed after sees cardiology. Has December follow up Allergies As of Date: 10/14/2024 Noted Allergy Reaction AMLODIPINE 08/06/2013 2 - Rash 14 - Other: See Comments Comments: Muscle soreness, difficulty voiding CHLORTHALIDONE 12/15/2020 6 - Diarrhea Comments: Tried several times and caused adverse effects each time (sometimes after a few months sometimes right away). HCTZ (HYDROCHLOROTHIAZIDE) 12/21/2021 5 - Intolerance Comments: urinary frequency and bowel frequency too much Date Reviewed: 09/22/2024 Reviewed by: Rosamaria Dove APRN.DIRECTOR OF RETAIL - Fully Assessed Reason for Visit: Patient Update [1234] Prescriptions as of 10/18/2024 - albuterol HFA (PROVENTIL HFA) 90 mcg/actuation inhaler Inhale 1-2 Puffs as instructed four times a day as needed for wheezing/shortness of breath. - predniSONE (DELTASONE) 10 mg tablet Take 40 mg x 3 days, 20 mg x 3 days, 10 mg x 3 days. Take with food, once daily with breakfast - furosemide (LASIX) 40 mg tablet Take 1 tablet by mouth every afternoon. - warfarin (COUMADIN) 4 mg tablet Take 4 mg by mouth once daily. 8 mg // 6 all other days - omeprazole (PRILOSEC) 20 mg capsule take 1 capsule by mouth 30 MINUTES before breakfast - doxazosin (CARDURA) 4 mg tablet Take 1 tablet by mouth once daily. - lisinopril (ZESTRIL) 40 mg tablet Take 1 tablet by mouth once daily. - potassium chloride SR (MICRO-K) 10 mEq CR capsule Take by mouth. - Clobetasol Propionate (TEMOVATE) 0.05 % external solution Apply 1 application to affected area once daily as needed. for rash as directed Problem List As Of Date 10/14/2024 Noted Resolved Benign localized prostatic hyperplasia with low*09/18/2005 SPERMATOCELE [N43.40] 09/18/2005 10/23/2008 ESOPHAGEAL REFLUX [K21.9] 12/25/2006 Hydrocele, unspecified [N43.3] 10/23/2008 09/10/2013 Diaphragmatic hernia without mention of obstruc*02/05/2012 Hypertension [I10] 12/18/2012 Elevated prostate specific antigen (PSA) [R97.2*09/17/2014 Erectile dysfunction [N52.9] 08/17/2015 Inverse psoriasis [L40.8] First detected episode of atrial fibrillation (*07/07/2022 Encounter Status:Closed by LAINE BAEZA on 10/18/24 Normal [facility] INR Coag (BldC) [Relative ti me]Ordered By: Betty Peck on 10-03-2024 INR Coag (Bld) [Relative time] 1.9 {INR} [facility] Comment on above: Critical Value > 4.0 International normalized rat io (INR) measurement by fingerstickOrdered By: Betty Peck on 10-03-2024 INR Coag (BldC) [Relative time] 1.9 [facility] Comment on above: Critical Value > 4.0 PT Coag (Bld) [Time]Ordered By: Betty Peck on 10-03-2024 Bedside Prothrombin Time 21.3 SEC High 11.7-14.9 [facility] Protime w/INR Fingerstickon 10-03-2024 INR Coag (PPP) [Relative time] 1.9 {INR} Normal [facility] Comment on above: Result Comment: Crit ical Value > 4.0 Performed By: #### L 9200.0000 #### [facility] [address] [place], [address] Protime Coagsen 21.3 SEC High 11.7-14.9 [facility] Comment on above: Performed By: #### L 9200.0000 #### [facility] [address] [place], [address] Whole blood prothrombin time Ordered By: Betty Peck on 10-03-2024 PT Coag (Bld) [Time] 21.3 s High 11.7-14.9 [facility] Protime w/INR Fingerstickon 10-01-2024 INR Coag (PPP) [Relative time] 6.1 {INR} Invalid Interpretation Code [facility] Comment on above: Result Comment: Crit ical Value > 4.0 Performed By: #### L 9200.0000 #### [facility] [address] [place], [place], [id number] Protime Coagsen 56.9 SEC High 11.7-14.9 [facility] Comment on above: Performed By: #### L 9200.0000 #### [facility] [address] [place], [place], [id number] INR Coag (PPP) [Relative time] 5.7 {INR} Invalid Interpretation Code [facility] Comment on above: Result Comment: Crit ical Value > 4.0 Performed By: #### L 9200.0000 #### [facility] [address] [place], [address] Protime Coagsen 53.9 SEC High 11.7-14.9 [facility] Comment on above: Performed By: #### L 9200.0000 #### [facility] [address] [place], [address] CNOVon 09-22-2024 CNOV Office Visit (INTMWS ) -- BUBBA HONG ([id number]) 1945 M TXT Date Time Provider Department 09/22/24 11:20 AM ROSAMARIA DOVE INTMWS During your visit today, we recorded the following information about you: Temperature Pulse Respiration Blood pressure 97.1 degrees 64/minute 16/minute 161/97 Weight 79 kg Suki DoveDELROY cope.DIRECTOR OF RETAIL 09/22/2024 11:52 AM Signed SUBJECTIVE Bubba Hong is a 78 year old male who presents with 8 days of symptoms that are improving. Did have cough and fever for 4 days, now now fever. Did not check for Covid 19. Notes wifes' coworker had flu. Symptoms include: Fever (>=100.4F): No or Chills: No Cough: Yes but less Shortness of breath: Yes or Difficulty breathing: No Fatigue: Yes Muscle aches: Yes previously now gone Headache: No New loss of smell or taste: No Sore throat: No Nasal congestion: No or Rhinorrhea: No not much Nausea: No or Vomiting: No Diarrhea: No OTC meds/remedies that patient has tried: no current cold medicine x7 days with pseudoepehdrine. High risk category assessment Age > 60 years old Exposures: Sick contacts? Yes Family or close contacts with confirmed/probable COVID-19 in last 14 days? No He reports that he has quit smoking. He has never used smokeless tobacco. OBJECTIVE PHYSICAL EXAM: BP 161/97 Pulse 64 Temp 36.2 ?C (97.1 ?F) Resp 16 Wt 79 kg (174 lb 2.6 oz) BMI 23.59 kg/m? General appearance: tired/ill appearing, alert, cooperative, pleasant, in no acute distress Head: Normocephalic Eyes: conjunctiva/corneas normal Ears: R TM - clear with good landmarks, nl light reflex, L TM - clear with good landmarks, nl light reflex Nose: clear rhinorrhea, mucosa erythematous and swollen Oropharynx: moist without lesions Neck: supple and small, benign anterior cervical nodes bilaterally Heart: regular rate and rhythm, without murmur Lungs: without rales or wheeze, good air exchange, no grunting/flaring/retractin g, + cough ASSESSMENT/PLAN (R05.1) Acute cough (primary encounter diagnosis) ASSESSMENT/PLAN: 1. Acute cough - ICD9: 786.2, ICD10: R05.1 He notes a cough for 8 days, feeling improved but continues with fatigue. Notes his 's coworker had influenza. He did not seek care when this initially presented with fever and cough. Currently with cough which is less but still present, difficult to lie down due to cough, shortness of breath on exertion. Will complete chest x-ray today to exclude pneumonia. - XR CHEST 2V FRONTAL/LAT - ALBUTEROL SULFATE HFA 90 MCG/ACTUATION AEROSOL INHALER - PREDNISONE 10 MG TABLET Rosamaria Dove APRN.DIRECTOR OF RETAIL Medical Decision Making: Problems: Low: Acute, uncomplicated illness or injury Data: Unique test(s) ordered: 1 Risk: Moderate: Drug management Medical Decision Making Level: 3 - Low Allergies As of Date: 09/22/2024 Noted Allergy Reaction AMLODIPINE 08/06/2013 2 - Rash 14 - Other: See Comments Comments: Muscle soreness, difficulty voiding CHLORTHALIDONE 12/15/2020 6 - Diarrhea Comments: Tried several times and caused adverse effects each time (sometimes after a few months sometimes right away). HCTZ (HYDROCHLOROTHIAZIDE) 12/21/2021 5 - Intolerance Comments: urinary frequency and bowel frequency too much Date Reviewed: 09/22/2024 Reviewed by: Rosamaria Dove APRN.DIRECTOR OF RETAIL - Fully Assessed Reason for Visit: Fatigue [46] Primary Visit Diagnosis:Acute cough [R05.1] Order(s):XR CHEST 2V FRONTAL/LAT [[id number]] Order #: [id number] FUTURE albuterol HFA (PROVENTIL HFA) 90 mcg/actuation inhalerInhale 1-2 Puffs as instructed four times a day as needed for wheezing/shortness of breath.Disp: 1 EachRfl: 0 predniSONE (DELTASONE) 10 mg tabletTake 40 mg x 3 days, 20 mg x 3 days, 10 mg x 3 days. Take with food, once daily with breakfastDisp: 21 tabletRfl: 0 Prescriptions as of 09/22/2024 - albuterol HFA (PROVENTIL HFA) 90 mcg/actuation inhaler Inhale 1-2 Puffs as instructed four times a day as needed for wheezing/shortness of breath. - predniSONE (DELTASONE) 10 mg tablet Take 40 mg x 3 days, 20 mg x 3 days, 10 mg x 3 days. Take with food, once daily with breakfast - furosemide (LASIX) 40 mg tablet Take 1 tablet by mouth every afternoon. - warfarin (COUMADIN) 4 mg tablet Take 4 mg by mouth once daily. 8 mg m// 6 all other days - omeprazole (PRILOSEC) 20 mg capsule take 1 capsule by mouth 30 MINUTES before breakfast - doxazosin (CARDURA) 4 mg tablet Take 1 tablet by mouth once daily. - lisinopril (ZESTRIL) 40 mg tablet Take 1 tablet by mouth once daily. - potassium chloride SR (MICRO-K) 10 mEq CR capsule Take by mouth. - Clobetasol Propionate (TEMOVATE) 0.05 % external solution Apply 1 application to affected area once daily as needed. for rash as directed Problem List As Of Date 09/22/2024 Noted Resolved Benign localized prostatic hyperplasia with (more content not included)... Normal [facility] CNPNon 09-22-2024 CNPN Telephone (INTMWS) -- BUBBA HONG ([id number]) 1945 M TXT Date Time Provider Department 09/22/24 LAINE BAEZA INTWS During your visit today, we recorded the following information about you: Gerber Lion LPN 09/22/2024 8:07 AM Signed Pt called to get apt scheduled. Pt reports he started with a fever x 4 days and hen this resolved. Pt reports chest cold, x 5 days and very tired. Pt luis, chest pain, SOB, headache, stomach problems or intestinal problems. Pt scheduled for apt today 09.22.24 with provider/team. Gerber Lion LPN Allergies As of Date: 09/22/2024 Noted Allergy Reaction AMLODIPINE 08/06/2013 2 - Rash 14 - Other: See Comments Comments: Muscle soreness, difficulty voiding CHLORTHALIDONE 12/15/2020 6 - Diarrhea Comments: Tried several times and caused adverse effects each time (sometimes after a few months sometimes right away). HCTZ (HYDROCHLOROTHIAZIDE) 12/21/2021 5 - Intolerance Comments: urinary frequency and bowel frequency too much Date Reviewed: 12/19/2023 Reviewed by: Laine Baeza MD - Fully Assessed Reason for Visit: Future Appointment [256] Prescriptions as of 09/22/2024 - furosemide (LASIX) 40 mg tablet Take 1 tablet by mouth every afternoon. - warfarin (COUMADIN) 4 mg tablet Take 4 mg by mouth once daily. 8 mg m// 6 all other days - omeprazole (PRILOSEC) 20 mg capsule take 1 capsule by mouth 30 MINUTES before breakfast - doxazosin (CARDURA) 4 mg tablet Take 1 tablet by mouth once daily. - lisinopril (ZESTRIL) 40 mg tablet Take 1 tablet by mouth once daily. - potassium chloride SR (MICRO-K) 10 mEq CR capsule Take by mouth. - Clobetasol Propionate (TEMOVATE) 0.05 % external solution Apply 1 application to affected area once daily as needed. for rash as directed Problem List As Of Date 09/22/2024 Noted Resolved Benign localized prostatic hyperplasia with low*09/18/2005 SPERMATOCELE [N43.40] 09/18/2005 10/23/2008 ESOPHAGEAL REFLUX [K21.9] 12/25/2006 Hydrocele, unspecified [N43.3] 10/23/2008 09/10/2013 Diaphragmatic hernia without mention of obstruc*02/05/2012 Hypertension [I10] 12/18/2012 Elevated prostate specific antigen (PSA) [R97.2*09/17/2014 Erectile dysfunction [N52.9] 08/17/2015 Inverse psoriasis [L40.8] First detected episode of atrial fibrillation (*07/07/2022 Encounter Status:Closed by GERBER LION on 09/22/24 [facility] BUB[facility] ([id number]) 1945 M TXT Date Time Provider Department 09/22/24 ROSAMARIA DOVE INTMWS During your visit today, we recorded the following information about you: Rosamaria Dove APRN.WILLIAM 09/22/2024 3:42 PM Signed Please let him know the chest x-ray showed findings consistent with small pleural effusions bilaterally. Recommend he continue with current treatments unchanged for now. Let us know how he is feeling in a couple of days. If not feeling improved will add a water pill which may help with this. Anny Ortega RN 09/22/2024 4:02 PM Signed Pt called and is notified of providers results and instructions. Pt voices understanding. Anny Ortega RN Allergies As of Date: 09/22/2024 Noted Allergy Reaction AMLODIPINE 08/06/2013 2 - Rash 14 - Other: See Comments Comments: Muscle soreness, difficulty voiding CHLORTHALIDONE 12/15/2020 6 - Diarrhea Comments: Tried several times and caused adverse effects each time (sometimes after a few months sometimes right away). HCTZ (HYDROCHLOROTHIAZIDE) 12/21/2021 5 - Intolerance Comments: urinary frequency and bowel frequency too much Date Reviewed: 09/22/2024 Reviewed by: Rosamaria Dove APRN.DIRECTOR OF RETAIL - Fully Assessed Reason for Visit: Results [95] Prescriptions as of 09/22/2024 - albuterol HFA (PROVENTIL HFA) 90 mcg/actuation inhaler Inhale 1-2 Puffs as instructed four times a day as needed for wheezing/shortness of breath. - predniSONE (DELTASONE) 10 mg tablet Take 40 mg x 3 days, 20 mg x 3 days, 10 mg x 3 days. Take with food, once daily with breakfast - furosemide (LASIX) 40 mg tablet Take 1 tablet by mouth every afternoon. - warfarin (COUMADIN) 4 mg tablet Take 4 mg by mouth once daily. 8 mg // 6 all other days - omeprazole (PRILOSEC) 20 mg capsule take 1 capsule by mouth 30 MINUTES before breakfast - doxazosin (CARDURA) 4 mg tablet Take 1 tablet by mouth once daily. - lisinopril (ZESTRIL) 40 mg tablet Take 1 tablet by mouth once daily. - potassium chloride SR (MICRO-K) 10 mEq CR capsule Take by mouth. - Clobetasol Propionate (TEMOVATE) 0.05 % external solution Apply 1 application to affected area once daily as needed. for rash as directed Problem List As Of Date 09/22/2024 Noted Resolved Benign localized prostatic hyperplasia with low*09/18/2005 SPERMATOCELE [N43.40] 09/18/2005 10/23/2008 ESOPHAGEAL REFLUX [K21.9] 12/25/2006 Hydrocele, unspecified [N43.3] 10/23/2008 09/10/2013 Diaphragmatic hernia without mention of obstruc*02/05/2012 Hypertension [I10] 12/18/2012 Elevated prostate specific antigen (PSA) [R97.2*09/17/2014 Erectile dysfunction [N52.9] 08/17/2015 Inverse psoriasis [L40.8] First detected episode of atrial fibrillation (*07/07/2022 Encounter Status:Closed by ANNY ORTEGA on 09/22/24 Normal [facility] XR CHEST 2V FRONTAL/LATon XR CHEST 2V FRONTAL/LAT * * *Final Report* * * DATE OF EXAM: Sep 22 2024 11:54AM WOX 5291 - XR CHEST 2V FRONTAL/LAT / PROCEDURE REASON: Acute cough * * * * Physician Interpretation * * * * EXAMINATION: CHEST RADIOGRAPH (2 VIEW FRONTAL and LATERAL) CLINICAL HISTORY: Acute cough MQ: XC2_6 EXAM DATE/TIME: 09/22/2024 11:54 AM COMPARISON: Chest x-ray dated 11/28/2012 RESULT: Lines, tubes, and devices: None. Lungs and pleura: No consolidation. Mild blunting of the bilateral posterior lateral costophrenic sulci most compatible with small bilateral pleural effusions. No pneumothorax. Cardiomediastinal silhouette: Normal cardiomediastinal silhouette. Bones and soft tissues: Degenerative changes are present within the thoracic spine. IMPRESSION: Small bilateral pleural effusions Hair Tinter: TYREE Transcribe Date/Time: Sep 22 2024 11:57A Dictated by : SHELBY GILMORE MD This examination was interpreted and the report reviewed and electronically signed by: SHELBY GILMORE MD on Sep 22 2024 11:58AM EST [id number] Normal [facility] XR Chest PA and Lateralon IMPRESSION: Small bilateral pleural effusions Hair Tinter: TYREE Transcribe Date/Time: Sep 22 2024 11:57A Dictated by : SHELBY GILMORE MD This examination was interpreted and the report reviewed and electronically signed by: SHELBY GILMORE MD on Sep 22 2024 11:58AM [facility] DIVISION OF RADIOLOGY * * *Final Report* * * DATE OF EXAM: Sep 22 2024 11:54AM WOX 5291 - XR CHEST 2V FRONTAL/LAT / PROCEDURE REASON: Acute cough * * * * Physician Interpretation * * * * EXAMINATION: CHEST RADIOGRAPH (2 VIEW FRONTAL & LATERAL) CLINICAL HISTORY: Acute cough MQ: XC2_6 EXAM DATE/TIME: 09/22/2024 11:54 AM COMPARISON: Chest x-ray dated 11/28/2012 RESULT: Lines, tubes, and devices: None. Lungs and pleura: No consolidation. Mild blunting of the bilateral posterior lateral costophrenic sulci most compatible with small bilateral pleural effusions. No pneumothorax. Cardiomediastinal silhouette: Normal cardiomediastinal silhouette. Bones and soft tissues: Degenerative changes are present within the thoracic spine. DIVISION OF RADIOLOGY Provider, [facility] - 09/22/2024 * * *Final Report* * * DATE OF EXAM: Sep 22 2024 11:54AM WOX 5291 - XR CHEST 2V FRONTAL/LAT / PROCEDURE REASON: Acute cough * * * * Physician Interpretation * * * * EXAMINATION: CHEST RADIOGRAPH (2 VIEW FRONTAL & LATERAL) CLINICAL HISTORY: Acute cough MQ: XC2_6 EXAM DATE/TIME: 09/22/2024 11:54 AM COMPARISON: Chest x-ray dated 11/28/2012 RESULT: Lines, tubes, and devices: None. Lungs and pleura: No consolidation. Mild blunting of the bilateral posterior lateral costophrenic sulci most compatible with small bilateral pleural effusions. No pneumothorax. Cardiomediastinal silhouette: Normal cardiomediastinal silhouette. Bones and soft tissues: Degenerative changes are present within the thoracic spine. IMPRESSION IMPRESSION: Small bilateral pleural effusions Hair Tinter: TYREE Transcribe Date/Time: Sep 22 2024 11:57A Dictated by : SHELBY GILMORE MD This examination was interpreted and the report reviewed and electronically signed by: SHELBY GILMORE MD on Sep 22 2024 11:58AM EST [facility] Radiology Study observation (narrative) [facility] XR Chest PA and LateralOrder ed By: [facility]cf Provider on 09-22-2024 [facility] Protime w/INR Fingerstickon 09-10-2024 INR Coag (PPP) [Relative time] 3.1 {INR} Normal [facility] Comment on above: Result Comment: Crit ical Value > 4.0 Performed By: #### L [id number] #### [facility] [address] [place], [address] Protime Coagsen 31.3 SEC High 11.7-14.9 [facility] Comment on above: Performed By: #### L [id number] #### [facility] [address] [place], [address] ([phone] INR Coag (BldC) [Relative ti me]Ordered By: Betty Peck on 08-28-2024 INR Coag (Bld) [Relative time] 3.2 {INR} [facility] Comment on above: Critical Value > 4.0 PT Coag (Bld) [Time]Ordered By: Betty Peck on 08-28-2024 Bedside Prothrombin Time 33.1 SEC High 11.7-14.9 [facility] Protime w/INR Fingerstickon 08-28-2024 INR Coag (PPP) [Relative time] 3.2 {INR} Normal [facility] Comment on above: Result Comment: Crit ical Value > 4.0 Performed By: #### L [id number] #### [facility] [address] [place], [address] (457) Protime Coagsen 33.1 SEC High 11.7-14.9 [facility] Comment on above: Performed By: #### L [id number] #### [facility] [address] [place], [place], [id number] Protime w/INR Fingerstickon 07-30-2024 INR Coag (PPP) [Relative time] 2.6 {INR} Normal [facility] Comment on above: Result Comment: Crit ical Value > 4.0 Performed By: #### L [id number] #### [facility] [address] [place] [place], [address] Protime Coagsen 27.8 SEC High 11.7-14.9 [facility] Comment on above: Performed By: #### L 9200.0000 #### [facility] [address] [place], [address] Prothrombin Time w/INRon INR Coag (PPP) [Relative time] 2.9 {INR} Normal [facility] Comment on above: Performed By: #### L [id number] #### [facility] [address] [place], [address] PT Coag (PPP) [Time] 30.1 s High 11.7-14.9 [facility] Comment on above: Performed By: #### L 9200.0000 #### [facility] [address] [place], [address] Protime w/INR Fingerstickon 06-04-2024 INR Coag (PPP) [Relative time] 2.5 {INR} Normal [facility] Comment on above: Result Comment: Crit ical Value > 4.0 Performed By: #### L [id number] #### [facility] [address] [place], [address] Protime Coagsen 25.2 SEC High 11.7-14.9 [facility] Comment on above: Performed By: #### L [id number] #### [facility] [address] [place], [address] Protime w/INR Fingerstickon 05-07-2024 INR Coag (PPP) [Relative time] 2.4 {INR} Normal [facility] Comment on above: Result Comment: Crit ical Value > 4.0 Performed By: #### L [id number] #### [facility] [address] [place], [address] Protime Coagsen 25.1 SEC High 11.7-14.9 [facility] Comment on above: Performed By: #### L 9200.0000 #### [facility] [address] [place], [address] Protime w/INR Fingerstickon 04-09-2024 INR Coag (PPP) [Relative time] 2.4 {INR} Normal [facility] Comment on above: Result Comment: Crit ical Value > 4.0 Performed By: #### L 9200.0000 #### [facility] [address] [place], [place], [id number] ([phone] Protime Coagsen 25.0 SEC High 11.7-14.9 [facility] Comment on above: Performed By: #### L 9200.0000 #### [facility] [address] [place], [place], [address] PSA/PROSTATE SPECIFIC ANTIGE N SCREENINGon 02-06-2024 Prostate specific Ag [Mass/Vol] 0.74 ng/mL Normal <2.60 [facility] Comment on above: Order Comment: Speci men Type: BLOOD SPECIMEN Ordering Facility: [facility] Address: [address] [place] [id number] Result Comment: Tristiana l PSA test methodology used is the Electrochemiluminescence Immunoassay by [employer]. Total PSA values by differing methodologies cannot be interchanged. Performed By: #### P SAS1 #### [facility] CLIA [id number] [address] [place], [place] [address] [place] [address] [place] CBC panel Auto (Bld)on 01-04 Erythrocyte distribution width (RBC) [Ratio] 15.3 % High 11.5 - 15.0 % [facility] Hematocrit (Bld) [Volume fraction] 46.8 % 39.0 - 51.0 % [facility] Hemoglobin (Bld) [Mass/Vol] 15.7 g/dL 13.0 - 17.0 g/dL [facility] Interpretation and review of laboratory results Abnormal [facility] MCH (RBC) [Entitic mass] 28.8 pg 26.0 - 34.0 pg [facility] MCHC (RBC) [Mass/Vol] 33.5 g/dL 30.5 - 36.0 g/dL [facility] MCV (RBC) [Entitic vol] 85.9 fL 80.0 - 100.0 fL [facility] Nucleated RBC (Bld) [#/Vol] NINF [facility] Platelet mean volume (Bld) [Entitic vol] 10.4 fL 9.0 - 12.7 fL [facility] Platelets (Bld) [#/Vol] 234 10*3/uL [facility] RBC (Bld) [#/Vol] 5.45 10*6/uL 4.20 - 6.0 0 m/uL [facility] WBC (Bld) [#/Vol] 5.43 10*3/uL [facility] Comprehensive metabolic 2000 panelon 01-05-2024 Albumin [Mass/Vol] 4.0 g/dL 3.9 - 4.9 g/dL [facility] ALP [Catalytic activity/Vol] 78 U/L 38 - 113 U/L [facility] ALT [Catalytic activity/Vol] 18 U/L 10 - 54 U/L [facility] Anion gap [Moles/Vol] 14 mmol/L 9 - 18 mmol/L [facility] AST [Catalytic activity/Vol] 25 U/L 14 - 40 U/L [facility] Bilirubin [Mass/Vol] 0.3 mg/dL 0.2 - 1 .3 mg/dL [facility] Calcium [Mass/Vol] 9.5 mg/dL 8.5 - 10. 2 mg/dL [facility] Chloride [Moles/Vol] 104 mmol/L 97 - 10 5 mmol/L [facility] CO2 [Moles/Vol] 21 mmol/L Low 22 - 30 mmol/L [facility] Creatinine [Mass/Vol] 1.07 mg/dL 0.73 - 1.22 mg/dL [facility] GFR/1.73 sq M.predicted among non-blacks MDRD (S/P/Bld) [Vol rate/Area] 71 mL/min/{1.73_m2} - PINF [facility] Comment on above: Estimated Glomerular Filtration Rate (eGFR) is calculated using the 2020 CKD-EPI creatinine equation. This equation utilizes serum creatinine, sex, and age as parameters. The creatinine assay has traceable calibration to isotope dilution-mass spectrometry. Refer to KDIGO guidelines for clinical interpretation. In patients with unstable renal function, e.g. those with acute kidney injury, the eGFR may not accurately reflect actual GFR. Glucose [Mass/Vol] 82 mg/dL 74 - 99 mg/dL [facility] Comment on above: The [place] Diabete s Association (ADA) provides guidance for cutoff values for fasting glucose and random glucose. The ADA defines fasting as no caloric intake for at least 8 hours. Fasting plasma glucose results between 100 to 125 mg/dL indicate increased risk for diabetes (prediabetes). Fasting plasma glucose results greater than or equal to 126 mg/dL meet the criteria for diagnosis of diabetes. In the absence of unequivocal hyperglycemia, results should be confirmed by repeat testing. In a patient with classic symptoms of hyperglycemia or hyperglycemic crisis, random plasma glucose results greater than or equal to 200 mg/dL meet the criteria for diagnosis of diabetes. Reference: Standards of Medical Care in Diabetes 2016, [place] Diabetes Association. Diabetes Care. 2016.39(Suppl 1). Potassium [Moles/Vol] 4.1 mmol/L 3.7 - 5.1 mmol/L [facility] Protein [Mass/Vol] 6.9 g/dL 6.3 - 8.0 g/dL [facility] Sodium [Moles/Vol] 139 mmol/L 136 - 144 mmol/L [facility] Urea nitrogen [Mass/Vol] 18 mg/dL 9 - 24 mg/dL [facility] Lipid 1996 panelon 4 Cholesterol [Mass/Vol] 243 mg/dL High NINF - 200 mg/dL [facility] Comment on above: <200 mg/dL, Desirabl e 200-239 mg/dL, Borderline high >239 mg/dL, High Cholesterol in HDL [Mass/Vol] 76 mg/dL 39 - PINF mg/dL [facility] Comment on above: 40-59 mg/dL, Accepta ble >59 mg/dL, High: Negative risk factor for coronary heart disease <40 mg/dL, Low: Positive risk factor for coronary heart disease Cholesterol in LDL [Mass/Vol] 158 mg/dL High NINF - 100 mg/dL [facility] Comment on above: <100 mg/dL, Optimal 100-129 mg/dL, Near optimal/above optimal 130-159 mg/dL, Borderline high 160-189 mg/dL, High >189 mg/dL, Very high Secondary prevention optimal LDL Cholesterol levels are recommended to be < 70 mg/dL Cholesterol in LDL/Cholesterol in HDL [Mass ratio] 2.08 {ratio} NINF - 2.54 [facility] Comment on above: Reference: 1. National Cholesterol Education Program ATP III Guideline At-A-Glance Quick Desk Reference: National Heart, Lung, and Blood [place]. National Institutes of Health. 2001: NIH Publication No. 01-3305. 2. An International Atherosclerosis Society position paper: global recommendations for the management of dyslipidemia: executive summary, Atherosclerosis. 2014: 232(2):410-413. Cholesterol in VLDL [Mass/Vol] 9 mg/dL NINF - 30 mg/dL [facility] Cholesterol non HDL [Mass/Vol] 167 mg/dL High NINF - 130 mg/dL [facility] Comment on above: <130 mg/dL, Optimal 130-159 mg/dL, Near optimal/above optimal 160-189 mg/dL, Borderline high 190-219 mg/dL, High >219 mg/dL, Very high Secondary prevention optimal non HDL Cholesterol levels are recommended to be <100 mg/dL Cholesterol.total/Chol esterol in HDL [Mass ratio] 3.20 {ratio} NINF - 5.10 [facility] Fasting Time 12 hrs [facility] Triglyceride [Mass/Vol] 45 mg/dL NINF - 150 mg/dL [facility] Comment on above: <150 mg/dL, Normal 150-199 mg/dL, Borderline high 200-499 mg/dL, High >499 mg/dL, Very high MAGNESIUMon 01-05-2024 Magnesium [Mass/Vol] 2.2 mg/dL 1.7 - 2 .3 mg/dL [facility] Magnesium [Mass/Vol]on 01-04 Interpretation and review of laboratory results Normal [facility] No Panel Informationon 01-04 Interpretation and review of laboratory results Abnormal [facility] Capillary blood internationa l normalized ratio (INR)Ordered By: Betty Peck on 12-19-2023 INR Coag (BldC) [Relative time] 2.1 [facility] Comment on above: Critical Value > 4.0 Whole blood prothrombin time Ordered By: Betty Peck on 12-19-2023 PT Coag (Bld) [Time] 22.0 s 11.7-14.9 [facility] Capillary blood internationa l normalized ratio (INR)Ordered By: Betty Peck on 11-21-2023 INR Coag (BldC) [Relative time] 2.3 [facility] Comment on above: Critical Value > 4.0 Whole blood prothrombin time Ordered By: Betty Peck on 11-21-2023 PT Coag (Bld) [Time] 23.8 s 11.7-14.9 [facility] Capillary blood internationa l normalized ratio (INR)Ordered By: Betty Peck on 10-24-2023 INR Coag (BldC) [Relative time] 2.2 [facility] Comment on above: Critical Value > 4.0 Whole blood prothrombin time Ordered By: Betty Peck on 10-24-2023 PT Coag (Bld) [Time] 22.7 s 11.7-14.9 [facility] Capillary blood internationa l normalized ratio (INR)Ordered By: Betty Peck on 09-26-2023 INR Coag (BldC) [Relative time] 2.3 [facility] Comment on above: Critical Value > 4.0 Whole blood prothrombin time Ordered By: Betty Peck on 09-26-2023 PT Coag (Bld) [Time] 25.1 s 11.7-14.9 [facility] - CoagulationOrde red By: Betty Peck on 08-29-2023 INR Coag (Bld) [Relative time] 2.8 {INR} [facility] Comment on above: Critical Value > 4.0 Whole blood prothrombin time Ordered By: Betty Peck on 08-29-2023 PT Coag (Bld) [Time] 30.3 s 11.7-14.9 [facility] - CoagulationOrde red By: Betty Peck on 08-01-2023 INR Coag (Bld) [Relative time] 2.5 {INR} [facility] Comment on above: Critical Value > 4.0 Whole blood prothrombin time Ordered By: Betty Peck on 08-01-2023 PT Coag (Bld) [Time] 27.2 s 11.7-14.9 [facility] - CoagulationOrde red By: Betty Peck on 06-06-2023 INR Coag (Bld) [Relative time] 2.2 {INR} [facility] Comment on above: Critical Value > 4.0 Whole blood prothrombin time Ordered By: Betty Peck on 06-06-2023 PT Coag (Bld) [Time] 23.7 s 11.7-14.9 [facility] Basophil percentageOrdered B y: Betty Peck on 04-11-2023 Chloride [Moles/Vol] 105 mmol/L 98-107 [facility] Glucose [Mass/Vol] 126 mg/dL 74-106 [facility] Comment on above: Fasting Glucose resu lt greater than or equal to 126 mg/dL suggests DIABETES MELLITUS per A.D.A. criteria. Potassium [Moles/Vol] 3.6 mmol/L 3.5-5.1 [facility] Sodium [Moles/Vol] 136 mmol/L 136-145 [facility] Erythrocyte sedimentation ra teOrdered By: Betty Peck on 04-11-2023 ESR (Bld) [Velocity] 11 mm/h 0-20 [facility] INR in Blood by Coagulation assayOrdered By: Betty Peck on 04-11-2023 INR Coag (Bld) [Relative time] 2.1 {INR} [facility] - Chemistry and C hemistry - challengeOrdered By: Betty Peck on 04-11-2023 CO2 [Moles/Vol] 24.0 mmol/L 21.0-32.0 [facility] Urea nitrogen/Creatinine [Mass ratio] 17.1 mg/mg 10- [facility] - CoagulationOrde red By: Betty Peck on 04-11-2023 PT Coag (PPP) [Time] 23.6 s 11.7-14.9 [facility] No Panel InformationOrdered By: Betty Peck on 04-11-2023 Estimated GFR (MDRD) Amer 70 mL/min >60 [facility] Comment on above: GFR Calc Estimated GFR (MDRD) Non-Af Amer 58 mL/min >60 [facility] Comment on above: Non- GFR Calc Serum or plasma C reactive p rotein measurement (mass/volume)Ordered By: Betty Peck on 04-11-2023 CRP [Mass/Vol] 4.30 mg/L 0.0-3.0 [facility] Comment on above: C-Reactive Protein ( CRP) provides useful information for thediagnosis, therapy and monitoring of inflammatory processesand associated diseases. For the evaluation of Relative Riskfor Cardiovascular Disease, a High Sensitivity CRP (HSCRP)should be ordered. Serum or plasma calcium arielle urement (mass/volume)Ordered By: Betty Peck on 04-11-2023 Calcium [Mass/Vol] 8.8 mg/dL 8.5-10.1 [facility] Serum or plasma creatinine m easurement (mass/volume)Ordered By: Betty Peck on 04-11-2023 Creatinine [Mass/Vol] 1.29 mg/dL 0.70-1.30 [facility] Comment on above: The validity of the calculated GFR & GFRAA in patients over 70 years has not been determined. Clinical correlation is essential. Serum or plasma urea nitroge n measurement (mass/volume)Ordered By: Betty Peck on 04-11-2023 Urea nitrogen [Mass/Vol] 22 mg/dL 7-18 [facility] Thin prep Papanicolaou smear with manual screeningOrdered By: Betty Peck on 04-11-2023 Thin prep Papanicolaou smear with manual screening 7 5-15 [facility] - CoagulationOrde red By: Betty Peck on 03-14-2023 INR Coag (Bld) [Relative time] 2.1 {INR} [facility] Comment on above: Critical Value > 4.0 Whole blood prothrombin time Ordered By: Betty Peck on 03-14-2023 PT Coag (Bld) [Time] 23.1 s 11.7-14.9 [facility] - CoagulationOrde red By: Betty Peck on 02-14-2023 INR Coag (Bld) [Relative time] 2.1 {INR} [facility] Comment on above: Critical Value > 4.0 Whole blood prothrombin time Ordered By: Betty Peck on 02-14-2023 PT Coag (Bld) [Time] 23.0 s 11.7-14.9 [facility] - CoagulationOrde red By: Dr. Peck on 01-17-2023 INR Coag (Bld) [Relative time] 2.1 {INR} [facility] Comment on above: Critical Value > 4.0 Whole blood prothrombin time Ordered By: Dr. Peck on 01-17-2023 PT Coag (Bld) [Time] 22.7 s 11.7-14.9 [facility] Laboratory - CoagulationOrde red By: Dr. Peck on 12-27-2022 INR Coag (Bld) [Relative time] 2.1 {INR} [facility] Comment on above: Critical Value > 4.0 Whole blood prothrombin time Ordered By: Dr. Peck on 12-27-2022 PT Coag (Bld) [Time] 23.2 s 11.7-14.9 [facility] Basophil percentageOrdered B y: Dr. Peck on 11-22-2022 Chloride [Moles/Vol] 104 mmol/L 98-107 [facility] Glucose [Mass/Vol] 120 mg/dL 74-106 [facility] Comment on above: Fasting Glucose resu lt from 100 to 125 mg/dL suggests IMPAIRED HOMEOSTASIS per A.D.A. criteria. Potassium [Moles/Vol] 3.8 mmol/L 3.5-5.1 [facility] Sodium [Moles/Vol] 136 mmol/L 136-145 [facility] INR in Blood by Coagulation assayOrdered By: Dr. Peck on 11-22-2022 INR Coag (Bld) [Relative time] 2.3 {INR} [facility] Laboratory - Chemistry and C hemistry - challengeOrdered By: Dr. Peck on 11-22-2022 CO2 [Moles/Vol] 26.0 mmol/L 21.0-32.0 [facility] Urea nitrogen/Creatinine [Mass ratio] 17.7 mg/mg 10-20 [facility] Laboratory - CoagulationOrde red By: Dr. Peck on 11-22-2022 PT Coag (PPP) [Time] 24.6 s 11.7-14.9 [facility] No Panel InformationOrdered By: Dr. Peck on 11-22-2022 Estimated GFR (MDRD) Amer 73 mL/min >60 [facility] Comment on above: GFR Calc Estimated GFR (MDRD) Non-Af Amer 60 mL/min >60 [facility] Comment on above: Non- GFR Calc Serum or plasma calcium arielle urement (mass/volume)Ordered By: Dr. Peck on 11-22-2022 Calcium [Mass/Vol] 9.4 mg/dL 8.5-10.1 [facility] Serum or plasma creatinine m easurement (mass/volume)Ordered By: Dr. Peck on 11-22-2022 Creatinine [Mass/Vol] 1.24 mg/dL 0.70-1.30 [facility] Comment on above: The validity of the calculated GFR & GFRAA in patients over 70 years has not been determined. Clinical correlation is essential. Serum or plasma urea nitroge n measurement (mass/volume)Ordered By: Dr. Peck on 11-22-2022 Urea nitrogen [Mass/Vol] 22 mg/dL 03-20 [facility] Thin prep Papanicolaou smear with manual screeningOrdered By: Dr. Peck on 11-22-2022 Thin prep Papanicolaou smear with manual screening 6 01-15 [facility] Whole blood prothrombin time Ordered By: Dr. Peck on 11-15-2022 PT Coag (Bld) [Time] 21.6 s 11.7-14.9 [facility] Laboratory - CoagulationOrde red By: Dr. Peck on 10-11-2022 INR Coag (Bld) [Relative time] 2.1 {INR} [facility] Comment on above: Critical Value > 4.0 Whole blood prothrombin time Ordered By: Dr. Peck on 10-11-2022 PT Coag (Bld) [Time] 24.5 s 11.7-14.9 [facility] Laboratory - CoagulationOrde red By: Dr. Peck on 09-20-2022 INR Coag (Bld) [Relative time] 1.9 {INR} [facility] Comment on above: Critical Value > 4.0 Whole blood prothrombin time Ordered By: Dr. Peck on 09-20-2022 PT Coag (Bld) [Time] 22.8 s 11.7-14.9 [facility] Laboratory - CoagulationOrde red By: Dr. Peck on 08-30-2022 INR Coag (Bld) [Relative time] 1.2 {INR} [facility] Comment on above: Critical Value > 4.0 Whole blood prothrombin time Ordered By: Dr. Peck on 08-30-2022 PT Coag (Bld) [Time] 15.0 s 11.7-14.9 [facility] Basophil percentageOrdered B y: Dr. Peck on 08-16-2022 Chloride [Moles/Vol] 101 mmol/L 98-107 [facility] Glucose [Mass/Vol] 91 mg/dL 74-106 [facility] Potassium [Moles/Vol] 4.1 mmol/L 3.5-5.1 [facility] Sodium [Moles/Vol] 137 mmol/L 136-145 [facility] Laboratory - Chemistry and C hemistry - challengeOrdered By: Dr. Peck on 08-16-2022 CO2 [Moles/Vol] 29.0 mmol/L 21.0-32.0 [facility] Urea nitrogen/Creatinine [Mass ratio] 20.0 mg/mg 10-20 [facility] Laboratory - CoagulationOrde red By: Dr. Peck on 08-16-2022 PT Coag (PPP) [Time] 18.9 s 11.7-14.9 [facility] No Panel InformationOrdered By: Dr. Peck on 08-16-2022 Estimated GFR (MDRD) Amer 80 mL/min >60 [facility] Comment on above: GFR Calc Estimated GFR (MDRD) Non-Af Amer 66 mL/min >60 [facility] Comment on above: Non- GFR Calc Serum or plasma calcium arielle urement (mass/volume)Ordered By: Dr. Peck on 08-16-2022 Calcium [Mass/Vol] 9.3 mg/dL 8.5-10.1 [facility] Serum or plasma creatinine m easurement (mass/volume)Ordered By: Dr. Peck on 08-16-2022 Creatinine [Mass/Vol] 1.15 mg/dL 0.70-1.30 [facility] Comment on above: The validity of the calculated GFR & GFRAA in patients over 70 years has not been determined. Clinical correlation is essential. Serum or plasma urea nitroge n measurement (mass/volume)Ordered By: Dr. Peck on 08-16-2022 Urea nitrogen [Mass/Vol] 23 mg/dL 7-18 [facility] Thin prep Papanicolaou smear with manual screeningOrdered By: Dr. Peck on 08-16-2022 Thin prep Papanicolaou smear with manual screening 7 -15 [facility] Basophil percentageon 2021 Chloride [Moles/Vol] 109 mmol/L 98-107 [facility] Work Phone: Glucose [Mass/Vol] 97 mg/dL 74-106 [facility] Work Phone: Potassium [Moles/Vol] 4.2 mmol/L 3.5-5.1 [facility] Work Phone: Sodium [Moles/Vol] 141 mmol/L 136-145 [facility] Work Phone: Laboratory - Chemistry and C hemistry - challengeon 05-29-2022 CO2 [Moles/Vol] 26.0 mmol/L 21.0-32.0 [facility] Work Phone: Urea nitrogen/Creatinine [Mass ratio] 17.5 mg/mg 10-20 [facility] Work Phone: No Panel Informationon 05-29 Estimated Creatinine Clearance Calc 56.55 ml/min [facility] Work Phone: Estimated GFR (MDRD) Amer 72 mL/min >60 [facility] Work Phone: Comment on above: GFR Calc Estimated GFR (MDRD) Non-Af Amer 59 mL/min >60 [facility] Work Phone: Comment on above: Non- GFR Calc Serum or plasma calcium arielle urement (mass/volume)on 05-29-2022 Calcium [Mass/Vol] 8.9 mg/dL 8.5-10.1 [facility] Work Phone: Serum or plasma creatinine m easurement (mass/volume)on 05-29-2022 Creatinine [Mass/Vol] 1.26 mg/dL 0.70-1.30 [facility] Work Phone: Comment on above: The validity of the calculated GFR & GFRAA in patients over 70 years has not been determined. Clinical correlation is essential. Serum or plasma urea nitroge n measurement (mass/volume)on 05-29-2022 Urea nitrogen [Mass/Vol] 22 mg/dL 7-18 [facility] Work Phone: Thin prep Papanicolaou smear with manual screeningon 05-29-2022 Thin prep Papanicolaou smear with manual screening 6 5-15 [facility] Work Phone: Absolute lymphocyte counton 05-04-2022 Lymphocytes Auto (Unsp spec) [#/Vol] 1.20 10*3/uL 0.83-4.51 [facility] Work Phone: Basophil percentageon 2021 Basophils/100 WBC (Bld) 1.0 % 0-1 [facility] Work Phone: Bilirubin [Mass/Vol] 0.50 mg/dL 0.20-1.00 [facility] Work Phone: Comment on above: For patients on eltr ombopag therapy, use of Dimension [place] TBIL is not recommended. Chloride [Moles/Vol] 107 mmol/L 98-107 [facility] Work Phone: Cholesterol [Mass/Vol] 202 mg/dL <200 [facility] Work Phone: Comment on above: <200 mg/dL Desirable 200-240 mg/dL Borderline >240 mg/dL High Risk Eosinophils/100 WBC (Bld) 0.4 % 0-5 [facility] Work Phone: Glucose [Mass/Vol] 107 mg/dL 74-106 [facility] Work Phone: Comment on above: Fasting Glucose resu lt from 100 to 125 mg/dL suggests IMPAIRED HOMEOSTASIS per A.D.A. criteria. Neutrophils (Bld) [#/Vol] 6.5 10*3/uL 2.0-7.7 [facility] Work Phone: Neutrophils/100 WBC (Bld) 77.6 % 47-70 [facility] Work Phone: [phone] Potassium [Moles/Vol] 3.3 mmol/L 3.5-5.1 [facility] Work Phone: [phone] Protein [Mass/Vol] 6.6 g/dL 6.4-8.2 [facility] Work Phone: [phone] Sodium [Moles/Vol] 139 mmol/L 136-145 [facility] Work Phone: Triglyceride [Mass/Vol] 55 mg/dL <199 [facility] Work Phone: Comment on above: The drugs N-Acetylcy steine and Metamizole may falsely depress this assay.Serum Triglycerides Reference Interval Normal <150 mg/dL Borderline high 150 - 199 mg/dL High 200 - 499 mg/dL Very High > or = 500 mg/dL WBC (Bld) [#/Vol] 8.3 10*3/uL 4.4-11.0 [facility] Work Phone: Blood erythrocytes count (nu mber/volume)on 05-04-2022 RBC (Bld) [#/Vol] 5.20 10*6/uL 4.6-6.2 [facility] Work Phone: Blood hemoglobin measurement (mass/volume)on 05-04-2022 Hemoglobin (Bld) [Mass/Vol] 15.5 g/dL 13.0-16.5 [facility] Work Phone: [phone] Blood lymphocytes/100 leukoc yteson 05-04-2022 Lymphocytes/100 WBC (Bld) 14.4 % 19-41 [facility] Work Phone: Blood monocytes/100 leukocyt eson 05-04-2022 Monocytes/100 WBC (Bld) 6.4 % 0-10 [facility] Work Phone: Blood platelet mean volumeon 05-04-2022 Platelet mean volume (Bld) [Entitic vol] 10.3 fL 6.2-12.0 [facility] Work Phone: [phone] Determination of erythrocyte mean corpuscular volume (MCV)on 05-04-2022 MCV (RBC) [Entitic vol] 87.9 fL 80-94 [facility] Work Phone: Hematocrit Auto (Bld) [Volum e fraction]on 05-04-2022 Hematocrit (Bld) [Volume fraction] 45.7 % 40-54 [facility] Work Phone: [phone] Laboratory - Chemistry and C hemistry - challengeon 05-04-2022 ALP [Catalytic activity/Vol] 77 U/L 45-117 [facility] Work Phone: ALT [Catalytic activity/Vol] 22 U/L 16-61 [facility] Work Phone: CO2 [Moles/Vol] 21.0 mmol/L 21.0-32.0 [facility] Work Phone: [phone] Globulin (S) [Mass/Vol] 3.1 g/dL 2.2-4.2 [facility] Work Phone: Magnesium [Mass/Vol] 2.2 mg/dL 1.6-2.6 [facility] Work Phone: Urea nitrogen/Creatinine [Mass ratio] 19.6 mg/mg 10-20 [facility] Work Phone: Laboratory - Hematology and Cell countson 05-04-2022 Erythrocyte distribution width (RBC) [Entitic vol] 46.7 fL 35.1-43.9 [facility] Work Phone: [phone] Erythrocyte distribution width (RBC) [Ratio] 14.4 % 11.6-14.6 [facility] Work Phone: Immature granulocytes/100 WBC (Bld) 0.200 % 0.0-0.9 [facility] Work Phone: Comment on above: IG% - Immature Granu locytes (promyelocytes, myelocytes and metamyelocytes) > 1% indicates that a LEFT SHIFT is Present. MCH (RBC) [Entitic mass] 29.8 pg 27.0-32.0 [facility] Work Phone: Nucleated RBC/100 WBC (Bld) [Ratio] 0 % 0-5 [facility] Work Phone: MCHC Auto (RBC) [Mass/Vol]on 05-04-2022 MCHC (RBC) [Mass/Vol] 33.9 g/dL 32-36 [facility] Work Phone: No Panel Informationon 05-04 Estimated Creatinine Clearance Calc 65.98 ml/min [facility] Work Phone: Estimated GFR (MDRD) Amer 87 mL/min >60 [facility] Work Phone: Comment on above: GFR Calc Estimated GFR (MDRD) Non-Af Amer 72 mL/min >60 [facility] Work Phone: Comment on above: Non- GFR Calc Platelets bldon 05-04-2022 Platelets (Bld) [#/Vol] 229 10*3/uL 150-450 [facility] Work Phone: Serum or plasma albumin arielle urement (mass/volume)on 05-04-2022 Albumin [Mass/Vol] 3.5 g/dL 3.2-5.0 [facility] Work Phone: Serum or plasma albumin/glob ulin mass ratioon 05-04-2022 Albumin/Globulin [Mass ratio] 1.1 {ratio} 0.9-2.4 [facility] Work Phone: Serum or plasma calcium arielle urement (mass/volume)on 05-04-2022 Calcium [Mass/Vol] 9.2 mg/dL 8.5-10.1 [facility] Work Phone: Serum or plasma cholesterol in HDL measurement (mass/volume)on 05-04-2022 Cholesterol in HDL [Mass/Vol] 77 mg/dL >40 [facility] Work Phone: Comment on above: The drugs N-Acetylcy steine and Metamizole may falsely depress this assay. Reference Range HDL <40 mg/dL Low HDL Cholesterol HDL >or= 60 mg/dL High HDL Cholesterol Serum or plasma cholesterol in VLDL measurement (mass/volume)on 05-04-2022 Cholesterol in VLDL [Mass/Vol] 11 mg/dL 5-40 [facility] Work Phone: Serum or plasma creatinine m easurement (mass/volume)on 05-04-2022 Creatinine [Mass/Vol] 1.07 mg/dL 0.70-1.30 [facility] Work Phone: Comment on above: The validity of the calculated GFR & GFRAA in patients over 70 years has not been determined. Clinical correlation is essential. Serum or plasma low density lipoprotein (LDL) cholesterol measurement (mass/volume)on 05-04-2022 Cholesterol in LDL [Mass/Vol] 114 mg/dL 0-130 [facility] Work Phone: Serum or plasma urea nitroge n measurement (mass/volume)on 05-04-2022 Urea nitrogen [Mass/Vol] 21 mg/dL 7-18 [facility] Work Phone: Thin prep Papanicolaou smear with manual screeningon 05-04-2022 Thin prep Papanicolaou smear with manual screening 14 U/L 15-37 [facility] Work Phone: Thin prep Papanicolaou smear with manual screening 11 5-15 [facility] Work Phone: Absolute lymphocyte counton 05-03-2022 Lymphocytes Auto (Unsp spec) [#/Vol] 1.31 10*3/uL 0.83-4.51 [facility] Work Phone: Basophil percentageon 2021 Basophil percentage 0-5 SEEN /hpf 0-5 [facility] Work Phone: Basophils/100 WBC (Bld) 1.1 % 0-1 [facility] Work Phone: Chloride [Moles/Vol] 106 mmol/L 98-107 [facility] Work Phone: Eosinophils/100 WBC (Bld) 1.4 % 0-5 [facility] Work Phone: [phone] Glucose [Mass/Vol] 110 mg/dL 74-106 [facility] Work Phone: Comment on above: Fasting Glucose resu lt from 100 to 125 mg/dL suggests IMPAIRED HOMEOSTASIS per A.D.A. criteria. Neutrophils (Bld) [#/Vol] 4.5 10*3/uL 2.0-7.7 [facility] Work Phone: Neutrophils/100 WBC (Bld) 70.2 % 47-70 [facility] Work Phone: [phone] Potassium [Moles/Vol] 3.6 mmol/L 3.5-5.1 [facility] Work Phone: [phone] Comment on above: Slight Hemolysis, Re sult may be falsely increased. Sodium [Moles/Vol] 139 mmol/L 136-145 [facility] Work Phone: WBC (Bld) [#/Vol] 6.5 10*3/uL 4.4-11.0 [facility] Work Phone: [phone] Bilirubin Test strip Ql (U)o n 05-03-2022 Bilirubin Ql (U) Negative Negative [facility] Work Phone: Blood erythrocytes count (nu mber/volume)on 05-03-2022 RBC (Bld) [#/Vol] 5.62 10*6/uL 4.6-6.2 [facility] Work Phone: Blood hemoglobin measurement (mass/volume)on 05-03-2022 Hemoglobin (Bld) [Mass/Vol] 16.3 g/dL 13.0-16.5 [facility] Work Phone: Blood lymphocytes/100 leukoc yteson 05-03-2022 Lymphocytes/100 WBC (Bld) 20.3 % 19-41 [facility] Work Phone: [phone] Blood monocytes/100 leukocyt eson 05-03-2022 Monocytes/100 WBC (Bld) 6.8 % 0-10 [facility] Work Phone: Blood platelet mean volumeon 05-03-2022 Platelet mean volume (Bld) [Entitic vol] 10.6 fL 6.2-12.0 [facility] Work Phone: Determination of erythrocyte mean corpuscular volume (MCV)on 05-03-2022 MCV (RBC) [Entitic vol] 89.1 fL 80-94 [facility] Work Phone: Glucose Glucometer (BldC) [M ass/Vol]on 05-03-2022 Glucose [Mass/Vol] 110 mg/dL 74-106 [facility] Work Phone: Comment on above: MANAGEMENT OF PATIEN T CARE PER NURSING PROTOCOL Hematocrit Auto (Bld) [Volum e fraction]on 05-03-2022 Hematocrit (Bld) [Volume fraction] 50.1 % 40-54 [facility] Work Phone: INR in Blood by Coagulation assayon 05-03-2022 INR Coag (Bld) [Relative time] 1.0 {INR} [facility] Work Phone: Ketones Test strip Ql (U)on 05-03-2022 Ketones Ql (U) Negative Negative [facility] Work Phone: Laboratory - Chemistry and C hemistry - challengeon 05-03-2022 CO2 [Moles/Vol] 25.0 mmol/L 21.0-32.0 [facility] Work Phone: Urea nitrogen/Creatinine [Mass ratio] 14.5 mg/mg 10-20 [facility] Work Phone: Free T4 [Mass/Vol] 1.04 ng/dL 0.76-1.46 [facility] Work Phone: Laboratory - Coagulationon 0 05-03-2022 aPTT Coag (Bld) [Time] 27.3 s 24.1-36.2 [facility] Work Phone: [phone] PT Coag (PPP) [Time] 13.1 s 11.7-14.9 [facility] Work Phone: Laboratory - Drug toxicology on 05-03-2022 Amphetamines Ql (U) Negative <1000 ng/mL [facility] Work Phone: [phone] Benzodiazepines Ql (U) Negative < 200 ng/mL [facility] Work Phone: [phone] Cannabinoids Screen Ql (U) Negative < 50 ng/mL [facility] Work Phone: [phone] Cocaine Ql (U) Negative < 300 ng/mL [facility] Work Phone: [phone] Opiates Ql (U) Negative < 300 ng/mL [facility] Work Phone: Laboratory - Hematology and Cell countson 05-03-2022 Erythrocyte distribution width (RBC) [Entitic vol] 47.2 fL 35.1-43.9 [facility] Work Phone: [phone] Erythrocyte distribution width (RBC) [Ratio] 14.5 % 11.6-14.6 [facility] Work Phone: [phone] Immature granulocytes/100 WBC (Bld) 0.200 % 0.0-0.9 [facility] Work Phone: Comment on above: IG% - Immature Granu locytes (promyelocytes, myelocytes and metamyelocytes) > 1% indicates that a LEFT SHIFT is Present. MCH (RBC) [Entitic mass] 29.0 pg 27.0-32.0 [facility] Work Phone: [phone] Nucleated RBC/100 WBC (Bld) [Ratio] 0 % 0-5 [facility] Work Phone: [phone] MCHC Auto (RBC) [Mass/Vol]on 05-03-2022 MCHC (RBC) [Mass/Vol] 32.5 g/dL 32-36 [facility] Work Phone: Mucus LM Ql (Urine sed)on Mucus Ql (Urine sed) 0 SEEN /hpf [facility] Work Phone: Nitrite Test strip Ql (U)on 05-03-2022 Nitrite Ql (U) Negative Negative [facility] Work Phone: No Panel Informationon 05-03 MDMA (Ecstasy) Screen Negative < 500 ng/mL [facility] Work Phone: Urine Barbiturates Screen Negative < 200 ng/mL [facility] Work Phone: Urine Drug Screen Comment [facility] Work Phone: Comment on above: CONFIRMATORY TESTING FOR ALL POSITIVE URINE DRUG SCREENRESULTS WILL ONLY BE SENT OUT UPON PHYSICIAN ORDER. VISTA Urine Drug Screen methods provide only preliminaryanalytical test results. A more specific alternate chemicalmethod must be used in order to obtain a confirmedanalytical result. Gas chromatography/mass spectrometery(GC/MS) is the preferred confirmatory method. Clinicalconsideration and professional judgement should be appliedto any drug of abuse test result, particularly whenpreliminary positive results are used. URINE TCA TESTING MUST BE ORDERED SEPARATELY. USE TESTMNEMONIC: [facility] Urine Methadone Screen Negative < 300 ng/mL [facility] Work Phone: Estimated Creatinine Clearance Calc 55.06 ml/min [facility] Work Phone: Estimated GFR (MDRD) Amer 69 mL/min >60 [facility] Work Phone: Comment on above: GFR Calc Estimated GFR (MDRD) Non-Af Amer 57 mL/min >60 [facility] Work Phone: Comment on above: Non- GFR Calc Thyroid Stimulating Hormone (TSH) 3.96 uIU/mL 0.358-3.74 [facility] Work Phone: Troponin I High Sensitivity 10 pg/mL 3.0-78.0 [facility] Work Phone: Comment on above: Please Note: New Meggan t Units and Gender Specific Reference Ranges. For more information see Policy Stat Procedure [place] High Sensitivity Troponin (TNIH) and attachments. Ethyl Alcohol Level < 3.0 mg/dL [facility] Work Phone: Comment on above: The serum:whole bloo d ethanol ratio is approximately 1.14and varies slightly with hematocrit. Medical Alcohol reference interval and critical value innon-tolerant individuals; 50 - 100 Impairment 100 Intoxication 100 - 250 Severe Poisoning 250 - 400 Deep/possible fatal coma Free Triiodothyronine (T3) pg/dL 2.9 pg/mL 2.18-3.98 [facility] Work Phone: Platelets bldon 05-03-2022 Platelets (Bld) [#/Vol] 238 10*3/uL 150-450 [facility] Work Phone: Protein Test strip Ql (U)on 05-03-2022 Protein Ql (U) Negative Negative [facility] Work Phone: Serum or plasma calcium arielle urement (mass/volume)on 05-03-2022 Calcium [Mass/Vol] 9.7 mg/dL 8.5-10.1 [facility] Work Phone: Serum or plasma creatinine m easurement (mass/volume)on 05-03-2022 Creatinine [Mass/Vol] 1.31 mg/dL 0.70-1.30 [facility] Work Phone: Comment on above: The validity of the calculated GFR & GFRAA in patients over 70 years has not been determined. Clinical correlation is essential. Serum or plasma urea nitroge n measurement (mass/volume)on 05-03-2022 Urea nitrogen [Mass/Vol] 19 mg/dL 7-18 [facility] Work Phone: Squamous epithelial cells de tection in urine sediment by light microscopyon 05-03-2022 Epithelial cells.squamous LM Ql (Urine sed) 0 SEEN /hpf 0-5 [facility] Work Phone: Thin prep Papanicolaou smear with manual screeningon 05-03-2022 Thin prep Papanicolaou smear with manual screening 8 5-15 [facility] Work Phone: Urine blood detectionon 04-05 RBC Ql (U) Negative Negative [facility] Work Phone: RBC Ql (U) 0 SEEN /hpf 0-5 [facility] Work Phone: Urine clarityon 05-03-2022 Clarity (U) Clear Clear [facility] Work Phone: Urine color determinationon 05-03-2022 Color (U) Straw Yellow [facility] Work Phone: [phone] Urine glucose detectionon Glucose Ql (U) Normal mg/dl Normal [facility] Work Phone: Urine leukocyte esterase det ection by dipstickon 05-03-2022 Leukocyte esterase Test strip Ql (U) 25 /ul Negative [facility] Work Phone: Urine pHon 05-03-2022 pH (U) 7.0 [pH] 5.0 - 8.0 [facility] Work Phone: Urine phencyclidine (PCP) de tectionon 05-03-2022 Phencyclidine Ql (U) Negative < 25 ng/mL [facility] Work Phone: Urine sediment bacteria coun t by microscopy (number/high power field)on 05-03-2022 Bacteria LM.HPF (Urine sed) [#/Area] 0 /[HPF] None Seen [facility] Work Phone: Urine specific gravity measu rementon 05-03-2022 Specific gravity (U) [Rel density] 1.005 1.002-1.030 [facility] Work Phone: Urobilinogen Auto test strip Ql (U)on 05-03-2022 Urobilinogen Ql (U) Normal mg/dl Normal [facility] Work Phone: Whole blood hemoglobin A1c/t otal hemoglobin ratio (mass fraction)on 05-03-2022 HbA1c (Bld) [Mass fraction] 5.4 % 3.8-5.6 [facility] Work Phone: Comment on above: Normal < 5.7 % Predi abetic 5.7 - 6.4 % Diabetic >or= 6.5 % Please note range changes. PSA, Diagnosticon 05-04-2021 PSA, Diagnostic 0.80 ng/mL Normal 0.00-2.59 [facility] Comment on above: Performed By: #### P SA #### [facility] Routine Lab [address] [place], [place] [address] XR Wrist - left PA and Later al and Obliqueon 03-10-2021 IMPRESSION: Apparent lunate bone finding as detailed is thought to be artifact rather than fracture. If patient's symptoms continue, repeat radiography can be performed after 7-10 days. Hair Tinter: TYREE Transcribe Date/Time: Mar 10 2021 3:16P Dictated by : BARBARA WHITTAKER MD This examination was interpreted and the report reviewed and electronically signed by: BARBARA WHITTAKER MD on Mar 10 2021 3:27PM [facility] DIVISION OF RADIOLOGY * * *Final Report* * * DATE OF EXAM: Mar 10 2021 3:04PM WOX [id number] - XR WRIST 3V PA/LAT/OBL LT / PROCEDURE REASON: Left wrist pain * * * * Physician Interpretation * * * * HISTORY: Left wrist pain Dorsal left wrist pain with a lump x 1-2 weeks without injury. TECHNIQUE: 3 views COMPARISON: None RESULT: There is a faint oblique lucency over the lunate bone on the oblique view only which is thought to be artifact due to overlapping of a portion of the scaphoid bone. There is narrowing of the radius scaphoid joint which is presumably chronic and nonspecific. No soft tissue calcification. No unusual soft tissue opacities or lucencies. DIVISION OF RADIOLOGY Provider, [facility] - 03/10/2021 * * *Final Report* * * DATE OF EXAM: Mar 10 2021 3:04PM WOX 5270 - XR WRIST 3V PA/LAT/OBL LT / PROCEDURE REASON: Left wrist pain * * * * Physician Interpretation * * * * HISTORY: Left wrist pain Dorsal left wrist pain with a lump x 1-2 weeks without injury. TECHNIQUE: 3 views COMPARISON: None RESULT: There is a faint oblique lucency over the lunate bone on the oblique view only which is thought to be artifact due to overlapping of a portion of the scaphoid bone. There is narrowing of the radius scaphoid joint which is presumably chronic and nonspecific. No soft tissue calcification. No unusual soft tissue opacities or lucencies. IMPRESSION IMPRESSION: Apparent lunate bone finding as detailed is thought to be artifact rather than fracture. If patient's symptoms continue, repeat radiography can be performed after 7-10 days. Hair Tinter: TYREE Transcribe Date/Time: Mar 10 2021 3:16P Dictated by : BARBARA WHITTAKER MD This examination was interpreted and the report reviewed and electronically signed by: BARBARA WHITTAKER MD on Mar 10 2021 3:27PM EST [facility] Radiology Study observation (narrative) [facility] XR Wrist - left PA and Later al and ObliqueOrdered By: [facility] Provider on 03-10-2021 [facility] Vital Signs Date Time Vital Sign Value Performing Clinician Facility 03-23-2025 07:27-0400 Body mass index (BMI) [Ratio] 23.4 kg/m2 Dr. Laine Baeza MD Work Phone: [facility] 03-23-2025 07:27-0400 Body weight 78.[address] Laine Baeza MD Work Phone: [facility] 03-23-2025 07:27-0400 Diastolic blood pressure 76 mm[Hg] Dr. Laine Baeza MD Work Phone: [facility] 03-23-2025 07:27-0400 Heart rate 87 /min Dr. Laine Baeza MD Work Phone: [facility] 03-23-2025 07:27-0400 Respiratory rate 18 /min Dr. Laine Baeza MD Work Phone: [facility] 03-23-2025 07:27-0400 SaO2% (BldA) [Mass fraction] 96 % Dr. Laine Baeza MD Work Phone: [facility] 03-23-2025 07:27-0400 Systolic blood pressure 131 mm[Hg] Dr. Laine Baeza MD Work Phone: 8(102)316-597568 [place] [address] 03-05-2025 11:20-0400 Body temperature 97.9 [degF] Dr. Laine Baeza MD Work Phone: 1(146)739-824668 [place] [address] 03-05-2025 11:20-0400 Diastolic blood pressure 117 mm[Hg] Dr. Laine Baeza MD Work Phone: 9(878)758-865468 [place] [address] 03-05-2025 11:20-0400 Heart rate 77 /min Dr. Laine Baeza MD Work Phone: 6(826)711-466868 [place] [address] 03-05-2025 11:20-0400 Respiratory rate 15 /min Dr. Laine Baeza MD Work Phone: 9(886)631-673168 [place] [address] 03-05-2025 11:20-0400 SaO2% (BldA) [Mass fraction] 99 % Dr. Laine Baeza MD Work Phone: 5(461)226-820968 [place] [address] 03-05-2025 11:20-0400 Systolic blood pressure 172 mm[Hg] Dr. Laine Baeza MD Work Phone: 2(116)425-725968 [place] [address] 03-05-2025 07:37-0400 Body height 182.[address] Laine Baeza MD Work Phone: 6(155)682-122168 [place] [address] 03-05-2025 07:37-0400 Body mass index (BMI) [Ratio] 19.9 kg/m2 Dr. Laine Baeza MD Work Phone: 4(475)994-962068 [place] [address] 03-05-2025 07:37-0400 Body weight 66.[address] Laine Baeza MD Work Phone: 1(175)645-141868 [place] [address] 12-22-2024 08:18-0400 Body mass index (BMI) [Ratio] 23.5 kg/m2 Dr. Laine Baeza MD Work Phone: 5(760)012-762368 [place] [address] 12-22-2024 08:18-0400 Body weight 80.[address] Laine Baeza MD Work Phone: 0(511)932-846068 [place] [address] 12-22-2024 08:18-0400 Diastolic blood pressure 98 mm[Hg] Dr. Laine Baeza MD Work Phone: [facility] 12-22-2024 08:18-0400 Heart rate 72 /min Dr. Laine Baeza MD Work Phone: [facility] 12-22-2024 08:18-0400 Respiratory rate 18 /min Dr. Laine Baeza MD Work Phone: [facility] 12-22-2024 08:18-0400 SaO2% (BldA) [Mass fraction] 97 % Dr. Laine Baeza MD Work Phone: 6(374)025-929863 [place] [address] 12-22-2024 08:18-0400 Systolic blood pressure 134 mm[Hg] Dr. Laine Baeza MD Work Phone: 8(610)759-944163 [place] [address] 09-22-2024 11:21-0500 Diastolic blood pressure 97 mm[Hg] Rosamaria Dove DATABASE SPECIALIST.DIRECTOR OF RETAIL Work Phone: [facility] 09-22-2024 11:21-0500 Heart rate 64 /min Rosamaria Dove DATABASE SPECIALIST.DIRECTOR OF RETAIL Work Phone: [facility] 09-22-2024 11:21-0500 Systolic blood pressure 161 mm[Hg] Rosamaria Dove DATABASE SPECIALIST.DIRECTOR OF RETAIL Work Phone: [facility] 09-22-2024 11:18-0500 Body mass index (BMI) [Ratio] 23.59 kg/m2 Rosamaria Dove DATABASE SPECIALIST.DIRECTOR OF RETAIL Work Phone: [facility] 09-22-2024 11:18-0500 Body temperature 97.11 [degF] Rosamaria Dove DATABASE SPECIALIST.DIRECTOR OF RETAIL Work Phone: [facility] 09-22-2024 11:18-0500 Body weight 79 kg Rosamaria Dove DATABASE SPECIALIST.DIRECTOR OF RETAIL Work Phone: [facility] 09-22-2024 11:18-0500 Respiratory rate 16 /min Rosamaria Dove DATABASE SPECIALIST.DIRECTOR OF RETAIL Work Phone: [facility] 12-19-2023 16:17-0400 Body height 183 cm Laine Baeza MD Work Phone: [facility] 12-19-2023 16:17-0400 Body mass index (BMI) [Ratio] 24.25 kg/m2 Laine Baeza MD Work Phone: [facility] 12-19-2023 16:17-0400 Body weight 81.19 kg Laine Baeza MD Work Phone: [facility] 12-19-2023 16:17-0400 Diastolic blood pressure 80 mm[Hg] Laine Baeza MD Work Phone: [facility] 12-19-2023 16:17-0400 Systolic blood pressure 148 mm[Hg] Laine Baeza MD Work Phone: [facility] 04-04-2023 15:26-0400 Diastolic blood pressure 94 mm[Hg] Dr. Laine Baeza Work Phone: [facility] 04-04-2023 15:26-0400 Heart rate 72 /min Dr. Laine Baeza Work Phone: [facility] 04-04-2023 15:26-0400 Respiratory rate 20 /min Dr. Laine Baeza Work Phone: [facility] 04-04-2023 15:26-0400 Systolic blood pressure 160 mm[Hg] Dr. Laine Baeza Work Phone: [facility] 12-06-2022 14:47-0400 Diastolic blood pressure 70 mm[Hg] Dr. Laine Baeza Work Phone: [facility] 12-06-2022 14:47-0400 Heart rate 68 /min Dr. Laine Baeza Work Phone: [facility] 12-06-2022 14:47-0400 Systolic blood pressure 146 mm[Hg] Dr. Laine Baeza Work Phone: [facility] 11-08-2022 14:45-0500 Body height 185.[address] Laine Baeza Work Phone: 0(954)611-742168 [place] [address] 11-08-2022 14:45-0500 Body mass index (BMI) [Ratio] 23.6 kg/m2 Dr. Laine Baeza Work Phone: 3(238)005-875268 [place] [address] 11-08-2022 14:45-0500 Body weight 81.[address] Laine Baeza Work Phone: 7(382)670-878068 [place] [address] 11-08-2022 14:45-0500 Diastolic blood pressure 110 mm[Hg] Dr. Laine Baeza Work Phone: 6(742)491-354068 [place] [address] 11-08-2022 14:45-0500 Heart rate 64 /min Dr. Laine Baeza Work Phone: 7(832)733-841168 [place] [address] 11-08-2022 14:45-0500 Respiratory rate 18 /min Dr. Laine Baeza Work Phone: 3(131)693-470368 [place] [address] 11-08-2022 14:45-0500 Systolic blood pressure 200 mm[Hg] Dr. Laine Baeza Work Phone: 9(628)544-682568 [place] [address] 08-08-2022 14:07-0500 Body height 185.[address] Laine Baeza Work Phone: 0(343)626-420168 [place] [address] 08-08-2022 14:07-0500 Body mass index (BMI) [Ratio] 21.9 kg/m2 Dr. Laine Baeza Work Phone: 8(968)097-450268 [place] [address] 08-08-2022 14:07-0500 Body weight 75.[address] Laine Baeza Work Phone: 5(058)605-216168 [place] [address] 08-08-2022 14:07-0500 Diastolic blood pressure 70 mm[Hg] Dr. Laine Baeza Work Phone: 7(028)724-200668 [place] [address] 08-08-2022 14:07-0500 Heart rate 60 /min Dr. Laine Baeza Work Phone: 4(192)200-010668 [place] [address] 08-08-2022 14:07-0500 Respiratory rate 20 /min Dr. Laine Baeza Work Phone: [facility] 08-08-2022 14:07-0500 Systolic blood pressure 160 mm[Hg] Dr. Laine Baeza Work Phone: [facility] 07-05-2022 15:25-0400 Diastolic blood pressure 88 mm[Hg] Laine Baeza MD Work Phone: [facility] 07-05-2022 15:25-0400 Systolic blood pressure 170 mm[Hg] Laine Baeza MD Work Phone: [facility] 07-05-2022 14:29-0400 Body weight 79.38 kg Laine Baeza MD Work Phone: [facility] 07-05-2022 14:29-0400 Heart rate 67 /min Laine Baeza MD Work Phone: [facility] 07-05-2022 14:29-0400 SaO2% (BldA) [Mass fraction] 97 % Laine Baeza MD Work Phone: [facility] 06-01-2022 08:01-0400 Diastolic blood pressure 89 mm[Hg] Dr. Laine Baeza Work Phone: [facility] Work Phone: 06-01-2022 08:01-0400 Systolic blood pressure 179 mm[Hg] Dr. Laine Baeza Work Phone: [facility] Work Phone: 06-01-2022 06:14-0400 Body height 185.[address] Laine Baeza Work Phone: [facility] Work Phone: 06-01-2022 06:14-0400 Body mass index (BMI) [Ratio] 23.6 kg/m2 Dr. Laine Baeza Work Phone: [facility] Work Phone: 06-01-2022 06:14-0400 Body temperature 96.4 [degF] Dr. Laine Baeza Work Phone: [facility] Work Phone: 06-01-2022 06:14-0400 Body weight 81.[address] Laine Baeza Work Phone: [facility] Work Phone: 06-01-2022 06:14-0400 Heart rate 62 /min Dr. Laine Baeza Work Phone: [facility] Work Phone: 06-01-2022 06:14-0400 Respiratory rate 16 /min Dr. Laine Baeza Work Phone: [facility] Work Phone: 06-01-2022 06:14-0400 SaO2% (BldA) [Mass fraction] 97 % Dr. Laine Baeza Work Phone: [facility] Work Phone: 05-29-2022 11:19-0400 Body height 185.[address] Laine Baeza Work Phone: [facility] Work Phone: 05-29-2022 11:19-0400 Body weight 78.[address] Laine Baeza Work Phone: [facility] Work Phone: 05-26-2022 07:54-0400 Body mass index (BMI) [Ratio] 22.9 kg/m2 Dr. Laine Baeza Work Phone: [facility] Work Phone: 05-10-2022 13:16-0400 Body mass index (BMI) [Ratio] 22.9 kg/m2 Dr. Laine Baeza Work Phone: [facility] Work Phone: 05-10-2022 13:16-0400 Body weight 78.[address] Laine Baeza Work Phone: [facility] Work Phone: 05-10-2022 13:16-0400 Diastolic blood pressure 90 mm[Hg] Dr. Laine Baeza Work Phone: [facility] Work Phone: 05-10-2022 13:16-0400 Heart rate 83 /min Dr. Laine Baeza Work Phone: [facility] Work Phone: 05-10-2022 13:16-0400 Respiratory rate 18 /min Dr. Laine Baeza Work Phone: [facility] Work Phone: 05-10-2022 13:16-0400 Systolic blood pressure 148 mm[Hg] Dr. Laine Baeza Work Phone: [facility] Work Phone: 05-04-2022 15:53-0400 Body temperature 97.9 [degF] Dr. Laine Baeza Work Phone: [facility] Work Phone: 05-04-2022 15:53-0400 Diastolic blood pressure 76 mm[Hg] Dr. Laine Baeza Work Phone: [facility] Work Phone: 05-04-2022 15:53-0400 Heart rate 78 /min Dr. Laine Baeza Work Phone: [facility] Work Phone: 05-04-2022 15:53-0400 Respiratory rate 16 /min Dr. Laine Baeza Work Phone: [facility] Work Phone: 05-04-2022 15:53-0400 SaO2% (BldA) [Mass fraction] 98 % Dr. Laine Baeza Work Phone: [facility] Work Phone: 05-04-2022 15:53-0400 Systolic blood pressure 127 mm[Hg] Dr. Laine Baeza Work Phone: [facility] Work Phone: 05-04-2022 15:08-0400 Heart rate 66 /min Dr. Laine Baeza Work Phone: [facility] Work Phone: 05-04-2022 14:05-0400 Body temperature 97.9 [degF] Dr. Laine Baeza Work Phone: [facility] Work Phone: 05-04-2022 14:05-0400 Diastolic blood pressure 76 mm[Hg] Dr. Laine Baeza Work Phone: [facility] Work Phone: 05-04-2022 14:05-0400 Respiratory rate 16 /min Dr. Laine Baeza Work Phone: [facility] Work Phone: 05-04-2022 14:05-0400 SaO2% (BldA) [Mass fraction] 98 % Dr. Laine Baeza Work Phone: [facility] Work Phone: 05-04-2022 14:05-0400 Systolic blood pressure 127 mm[Hg] Dr. Laine Baeza Work Phone: [facility] Work Phone: 05-04-2022 00:04-0400 Body mass index (BMI) [Ratio] 22.7 kg/m2 Dr. Laine Baeza Work Phone: [facility] Work Phone: 05-03-2022 13:19-0400 Body height 185.[address] Laine Baeza Work Phone: [facility] Work Phone: 05-03-2022 13:19-0400 Body weight 78.[address] Laine Baeza Work Phone: [facility] Work Phone: 05-03-2022 12:31-0400 Body temperature 97.8 [degF] Dr. Laine Baeza Work Phone: [facility] Work Phone: 05-03-2022 12:31-0400 Diastolic blood pressure 105 mm[Hg] Dr. Laine Baeza Work Phone: [facility] Work Phone: 05-03-2022 12:31-0400 Heart rate 79 /min Dr. Laine Baeza Work Phone: [facility] Work Phone: 05-03-2022 12:31-0400 Respiratory rate 21 /min Dr. Laine Baeza Work Phone: [facility] Work Phone: 05-03-2022 12:31-0400 SaO2% (BldA) [Mass fraction] 96 % Dr. Laine Baeza Work Phone: [facility] Work Phone: 05-03-2022 12:31-0400 Systolic blood pressure 176 mm[Hg] Dr. Laine Baeza Work Phone: [facility] Work Phone: 05-03-2022 10:35-0400 Body height 185.[address] Laine Baeza Work Phone: [facility] Work Phone: 05-03-2022 10:35-0400 Body mass index (BMI) [Ratio] 23.3 kg/m2 Dr. Laine Baeza Work Phone: [facility] Work Phone: 05-03-2022 10:35-0400 Body weight 80.[address] Laine Baeza Work Phone: [facility] Work Phone: 04-12-2022 15:56-0400 Diastolic blood pressure 90 mm[Hg] Laine Baeza MD Work Phone: [facility] 04-12-2022 15:56-0400 Systolic blood pressure 178 mm[Hg] Laine Baeza MD Work Phone: [facility] 04-12-2022 15:19-0400 Body weight 80.29 kg Laine Baeza MD Work Phone: [facility] 04-12-2022 15:19-0400 Heart rate 86 /min Laine Baeza MD Work Phone: [facility] 04-12-2022 15:19-0400 SaO2% (BldA) [Mass fraction] 98 % Laine Baeza MD Work Phone: [facility] 02-15-2022 15:53-0400 Diastolic blood pressure 92 mm[Hg] Laine Baeza MD Work Phone: [facility] 02-15-2022 15:53-0400 Systolic blood pressure 168 mm[Hg] Laine Baeza MD Work Phone: [facility] 02-15-2022 15:37-0400 Body weight 78.02 kg Laine Baeza MD Work Phone: [facility] 02-15-2022 15:37-0400 Heart rate 70 /min Laine Baeza MD Work Phone: [facility] 02-15-2022 15:37-0400 SaO2% (BldA) [Mass fraction] 97 % Laine Baeza MD Work Phone: [facility] 12-21-2021 15:07-0400 Diastolic blood pressure 98 mm[Hg] Laine Baeza MD Work Phone: [facility] 12-21-2021 15:07-0400 Systolic blood pressure 182 mm[Hg] Laine Baeza MD Work Phone: [facility] 12-21-2021 14:26-0400 Body weight 79.38 kg Laine Baeza MD Work Phone: [facility] 12-21-2021 14:26-0400 Heart rate 68 /min Laine Baeza MD Work Phone: [facility] 12-21-2021 14:26-0400 SaO2% (BldA) [Mass fraction] 98 % Laine Baeza MD Work Phone: [facility] Encounters Encounter Date Encounter Type Care Provider Facility Start: 04-01-2025 End: 04-02-[address] Laine Baeza MD Work Phone: -Laboratory Start: 04-01-2025 End: 04-02-[address] Betty Peck MD -Laboratory Work Phone: Start: 03-23-2025 End: 03-23-2025 Patient encounter procedure Krista Barker NP-Nal[facility] -[facility] Work Phone: Start: 03-23-2025 End: 03-23-[address] Laine Baeza MD Work Phone: -[facility] Start: 03-05-2025 End: 03-05-2025 Emergency department patient visit Dr. Laine Baeza MD Work Phone: -Emergency Department Work Phone: Start: 03-04-[address] Betty bridges MD -Laboratory Work Phone: Start: 03-04-2025 ambulatory Laine Baeza [facility] y:[facility] Start: 02-04-2025 End: 02-04-[address] Betty Peck MD -Laboratory Work Phone: Start: 02-04-2025 End: 02-04-[address] Laine Baeza MD Work Phone: -Laboratory Start: 01-13-2025 Non-patient / Non-visit Dr. Betty montiel MD -[facility] Start: 01-13-2025 End: 01-13-[address] Laine Baeza MD Work Phone: [facility] Work Phone: Start: 01-13-2025 End: 01-13-2025 Patient encounter procedure Krista Barker HARMONIC ANALYST-C -Cardiovascular Services Work Phone: Start: 01-13-2025 End: 01-13-2025 ambulatory Krista Barker NP Facility:[facility] Start: 01-07-2025 End: 01-07-[address] Betty Peck MD -Laboratory Work Phone: Start: 01-07-[address] Betty bridges MD -Laboratory Work Phone: Start: 01-07-2025 End: 01-07-[address] Laine Baeza MD Work Phone: [facility] Work Phone: Start: 12-30-2024 ambulatory Betty Peck Facility:[facility] Start: 12-30-2024 Non-patient / Non-visit Dr. Betty montiel MD -[place] [facility] Work Phone: Start: 12-30-2024 End: 12-30-2024 Patient encounter procedure Krista Barker HARMONIC ANALYST-C -Pulmonary Services/Neurology Work Phone: Start: 12-30-2024 End: 12-30-2024 ambulatory Krista Barker NP Facility:[facility] Start: 2024 End: 2024 ambulatory LAINE BAEZA Facility:[facility] Start: 2024 End: 2024 ambulatory LAINE BAEZA Facility:[facility] Start: 2024 Patient encounter procedure LAINE BAEZA [facility] Start: 2024 End: 12-31-2024 ambulatory Betty Cisco Facility:[facility] Start: 2024 End: 12-31-[address] Betty Peck MD -Laboratory Work Phone: Start: 12-22-2024 End: 12-22-2024 Patient encounter procedure Krista CHAVEZ -[facility] Work Phone: Start: 12-22-2024 End: 12-22-2024 ambulatory Laine Baeza [facility] Start: 11-14-2024 End: 11-14-[address] Betty Peck MD -Laboratory Work Phone: Start: 11-14-2024 End: 11-14-[address] Laine Baeza MD Work Phone: [facility] Work Phone: Start: 10-31-2024 End: 10-31-2024 ambulatory Betty Cisco Facility:[facility] Start: 10-31-2024 End: 10-31-[address] Betty Peck MD -Laboratory Work Phone: Start: 10-14-2024 End: 10-18-2024 Telephone encounter Laine Baeza MD Work Phone: [facility] [place] Comment on above: Patient Update Start: 10-03-2024 End: 10-03-2024 ambulatory Betty Cisco Facility:[facility] Start: 10-03-2024 End: 10-03-[address] Betty Pekc MD -Laboratory Work Phone: Start: 09-22-2024 End: 09-22-2024 Telephone encounter Laine Baeza MD Work Phone: [facility] [place] Comment on above: Future Appointment Results Start: 09-22-2024 End: 09-22-2024 Subsequent hospital visit by physician [facility] Work Phone: Radiology Comment on above: Acute cough [R05.1] Start: 09-22-2024 End: 09-22-2024 ambulatory [facility] Facility:[facility] Start: 09-22-2024 End: 09-22-2024 Office outpatient visit 15 minutes [facility] DATABASE SPECIALIST.DIRECTOR OF RETAIL Work Phone: [facility] [place] Comment on above: Acute cough (Primary Dx) Start: 08-28-2024 End: 08-28-[address] Betty Peck MD -Laboratory Work Phone: Start: 08-28-2024 End: 08-28-2024 ambulatory Betty Peck Facility:[facility] Start: 07-30-2024 End: 08-02-2024 ambulatory [facility] Facility:[facility] Start: 07-02-2024 End: 07-02-2024 ambulatory [facility] Facility:[facility] Start: 05-07-2024 End: 05-07-2024 ambulatory [facility] Facility:[facility] Start: 04-09-2024 End: 04-09-2024 ambulatory [facility] Facility:[facility] Start: 02-06-2024 End: 02-06-2024 ambulatory [facility] Facility:[facility] Start: 12-19-2023 End: 12-19-2023 Patient encounter procedure Laine Baeza MD Work Phone: [facility] [place] Comment on above: Medicare annual well ness visit, subsequent (Primary Dx); Gastroesophageal reflux disease without esophagitis; Essential hypertension; Encounter for immunization; Encounter for long-term current use of medication Start: 12-19-2023 End: 01-01-2024 [facility] Work Phone: Start: 12-19-2023 End: 01-01-2024 Discharged Recurring [facility]-Laboratory Work Phone: Start: 11-21-2023 End: 12-02-2023 ambulatory [facility] Work Phone: Start: 11-21-2023 End: 12-02-2023 Discharged Recurring [facility] Work Phone: Start: 11-12-2023 Refill Noelle Keene APRN.HOSPITAL COOK Work Phone: [facility] [place] Comment on above: Refill Request Start: 10-24-2023 End: 11-01-2023 ambulatory [facility] Work Phone: Start: 10-24-2023 End: 11-01-2023 Discharged Recurring [facility] Work Phone: Start: 09-26-2023 End: 09-26-2023 ambulatory [facility] Work Phone: Start: 09-26-2023 End: 09-26-2023 Discharged Recurring [facility] Work Phone: Start: 08-29-2023 End: 09-02-2023 ambulatory [facility] Work Phone: Start: 08-29-2023 End: 09-02-2023 Discharged Recurring [facility] Work Phone: Start: 08-01-2023 End: 08-02-2023 ambulatory [facility] Work Phone: Start: 08-01-2023 End: 08-02-2023 Discharged Recurring [facility] Work Phone: Start: 06-06-2023 End: 06-06-[address] Laine Baeza Work Phone: [facility] Work Phone: Start: 06-06-2023 End: 06-06-[address] Laine Baeza Work Phone: [facility] Work Phone: Start: 05-09-2023 End: 05-09-[address] Laine Baeza Work Phone: [facility] Work Phone: Start: 05-09-2023 End: 05-09-[address] Laine Baeza Work Phone: [facility] Work Phone: Start: 04-11-2023 End: 04-11-[address] Laine Baeza Work Phone: [facility] Work Phone: Start: 04-11-2023 End: 04-11-[address] [facility] Start: 04-04-2023 End: 04-04-[address] Laine Baeza Work Phone: [facility] Work Phone: Start: 03-14-2023 End: 04-02-[address] [facility] Start: 02-14-2023 End: 02-14-[address] Laine Baeza Work Phone: [facility] Work Phone: Start: 02-14-2023 End: 02-14-[address] [facility] Start: 01-17-2023 End: 01-31-[address] Laine Baeza Work Phone: [facility] Work Phone: Start: 01-17-2023 End: 01-31-[address] [facility] Start: 12-27-2022 End: 12-31-[address] Laine Baeza Work Phone: [facility] Work Phone: Start: 12-27-2022 End: 12-31-[address] [facility] Start: 12-06-2022 End: 12-06-[address] Laine Baeza Work Phone: [place] [facility] Start: 12-01-2022 Refill aLine dougherty MD Work Phone: [facility] [place] Comment on above: Refill Request Start: 11-22-2022 End: 11-22-[address] Laine Baeza Work Phone: [facility] Start: 11-22-2022 End: 12-01-[address] Laine Baeza Work Phone: [facility] Work Phone: Start: 11-22-2022 End: 12-01-[address] Laine Baeza Work Phone: [facility] Start: 11-08-2022 End: 11-08-[address] Laine Baeza Work Phone: [facility] Start: 10-11-2022 End: 10-11-[address] Laine Baeza Work Phone: [facility] Work Phone: Start: 10-11-2022 End: 10-11-[address] Laine Baeza Work Phone: [facility] Start: 09-20-2022 End: 09-20-[address] Laine Baeza Work Phone: [facility] Work Phone: Start: 09-20-2022 End: 09-20-[address] Laine Baeza Work Phone: [facility] Start: 08-30-2022 End: 08-30-[address] Laine Baeza Work Phone: [facility] Work Phone: Start: 08-30-2022 End: 08-30-[address] [facility] Start: 08-08-2022 End: 08-08-[address] Laine Baeza Work Phone: [facility] Start: 08-02-2022 End: 08-02-[address] Laine Baeza Work Phone: [facility] Start: 07-14-2022 Telephone encounter Laine alvarez MD Work Phone: [facility] [place] Comment on above: Patient Update Start: 07-05-2022 End: 07-05-2022 Office outpatient visit 40 minutes Laine Baeza MD Work Phone: [facility] [place] Comment on above: Transient global amn esia versus TIA (Primary Dx); First detected episode of atrial fibrillation (HCC); Primary hypertension; Bilateral carotid artery stenosis Start: 06-05-2022 End: 06-05-[address] Laine Baeza Work Phone: [facility] Start: 06-02-2022 Non-patient / Non-visit Dr. Chery Baeza Work Phone: [facility] Start: 06-02-2022 End: 06-02-[address] Laine Baeza Work Phone: [facility] Work Phone: Start: 06-02-2022 End: 06-02-[address] Laine Baeza Work Phone: [facility] Start: 06-01-2022 End: 06-01-2022 Emergency department patient visit Dr. Laine Baeza Work Phone: [facility] Start: 05-29-2022 Non-patient / Non-visit Dr. Chery Baeza Work Phone: [facility] Start: 05-29-2022 Non-patient / Non-visit Dr. Chery Baeza Work Phone: [facility] Start: 05-29-2022 End: 05-29-2022 Admission to same day surgery center Dr. Laine Baeza Work Phone: [facility]Communications Instructor/Special Procedures Start: 05-29-2022 End: 05-29-[address] Laine Baeza Work Phone: [facility] Work Phone: Start: 05-10-2022 End: 05-10-[address] Laine Baeza Work Phone: [facility] Start: 05-04-2022 Telephone encounter Laine alvarez MD Work Phone: Internal Medicine [place] Comment on above: Fax Requested Start: 05-04-2022 Non-patient / Non-visit Dr. Chery Baeza Work Phone: [facility] Inpatient Physicians Start: 05-04-2022 Non-patient / Non-visit Dr. Chery Baeza Work Phone: [facility] Start: 05-03-2022 Telephone encounter Laine alvarez MD Work Phone: [facility] [place] Comment on above: Release Of Medical R ecords Start: 05-03-2022 Non-patient / Non-visit Dr. Chery Baeza Work Phone: [facility] Inpatient Physicians Start: 05-03-2022 End: 05-04-2022 Evaluation and management of inpatient Dr. Laine Baeza Work Phone: [facility]Progressive Care Unit Start: 05-03-2022 Non-patient / Non-visit Dr. Chery Baeza Work Phone: [facility] Start: 05-03-2022 End: 05-03-2022 Non-patient / Non-visit Dr. Laine Baeza Work Phone: [facility] Start: 04-18-2022 Telephone encounter Laine alvarez MD Work Phone: Internal [facility] Comment on above: Results; Consult Start: 04-12-2022 End: 04-12-2022 Office outpatient visit 25 minutes Laine Baeza MD Work Phone: [facility] Comment on above: Atrial fibrillation, new onset (HCC) (Primary Dx); Primary hypertension; Fatigue, unspecified type; Dizziness; Acute diarrhea; Irregular heart beats Start: 02-15-2022 End: 02-15-2022 Office outpatient visit 15 minutes Laine Baeza MD Work Phone: [facility] Comment on above: Primary hypertension (Primary Dx) Start: 12-21-2021 End: 12-21-2021 Patient encounter procedure Laine Baeza MD Work Phone: [facility] Comment on above: Essential hypertensi on (Primary Dx); Gastroesophageal reflux disease without esophagitis; Acute renal insufficiency; Asymptomatic varicose veins of left lower extremity; Encounter for long-term current use of medication Start: 12-21-2021 Telephone encounter Laine alvarez MD Work Phone: [facility] Comment on above: Appointment Start: 12-06-2021 ambulatory Laine dougherty MD Work Phone: Internal Medicine [facility] [place] Start: 12-05-2021 Refill Laine dougherty MD Work Phone: Internal [facility] Comment on above: Refill Request Start: 03-10-2021 End: 03-10-2021 Subsequent hospital visit by physician [facility] Work Phone: Radiology Comment on above: Left wrist pain [M25 .532] Procedures Date Procedure Procedure Detail Performing Clinician Start: 03-05-2025 CT of head without contrast Dr. Laine Bazea MD Work Phone: Start: 03-05-[address] Laine Baeza MD Work Phone: Start: 09-22-2024 Radiologic exam ches t 2 views Rosamaria Farrars DATABASE SPECIALIST.DIRECTOR OF RETAIL Work Phone: Start: 12-19-2023 Adult depression scr eening assessment Xr [place] Work Phone: Start: 06-02-2022 Cardiovascular stres s test using pharmacologic stress agent Dr. Laine Baeza Work Phone: Start: 05-03-2022 MRI of brain without contrast Dr. Laine Baeza Work Phone: Start: 05-03-2022 Plain chest X-ray Dr. Adam Baeza Work Phone: Start: 05-03-2022 CT angiography of he ad and neck Dr. Laine Baeza Work Phone: Start: 05-03-2022 CT of head without contrast Dr. Laine Baeza Work Phone: Start: 04-12-2022 Ecg routine ecg w/le ast 12 lds w/i&r [facility] Provider Start: 12-21-2021 Adult depression scr eening assessment Laine Baeza MD Work Phone: Start: 03-10-2021 Radex wrist complete minimum 3 views Mila Diallo DATABASE SPECIALIST.HOSPITAL COOK Work Phone: Start: 12-15-2020 Adult depression scr eening assessment Laine Baeza MD Work Phone: Start: 02-05-2012 Colonoscopy Laine mirza MD Work Phone: Plan of Treatment Date Care Activity Detail Author Start: 01-04-2027 Diabetes Screening Diabetes Screenin [facility] Start: 05-26-2025 DIABETES SCREEN DIABETES SCREEN [facility] Start: 05-26-2025 Diabetes Screening Diabetes Screenin [facility] Start: 04-12-2025 DIABETES SCREEN DIABETES SCREEN [facility] Start: 03-05-2025 [facility] Start: 03-05-2025 [facility] Start: 2024 End: 2024 Patient encounter procedure 2024 3:00 PM EDT Office Visit Internal Medicine [place] [address] [place] [address] Laine Baeza MD [address] [place], [place] [id number] medicare wellness Internal Medicine [place] Comment on above: medicare wellness Start: 12-18-2024 Annual PCP Team Cashier Or Checker Stock Clerk glen Disease Visit Annual PCP Team Chronic Disease Visit [facility] Start: 12-18-2024 Anxiety Screening Anxiety Screening [facility] Start: 12-18-2024 Depression Screening Depression Scre ening [facility] Start: 09-03-2024 Advance Directive Discussion Advance Directive Discussion [facility] Start: 05-04-2024 Influenza vaccination [facility] Start: 01-25-2024 DIABETES SCREEN DIABETES SCREEN [facility] Start: 12-12-2023 LIPID SCREEN LIPID SCREEN [facility] Start: 09-03-2023 Advance Directive Discussion Advance Directive Discussion [facility] Start: 09-03-2023 Depression Assessment Depression Ass essment [facility] Start: 07-05-2023 ANNUAL PCP TEAM OPERATING ENGINEER GLEN DISEASE VISIT ANNUAL PCP TEAM CHRONIC DISEASE VISIT [facility] Start: 05-04-2023 Covid-19 Vaccine () Covid-19 Vaccine () [facility] Start: 05-04-2023 Influenza vaccination Influenza Vacc ine (#1) [facility] Start: 04-12-2023 ANNUAL PCP TEAM OPERATING ENGINEER GLEN DISEASE VISIT ANNUAL PCP TEAM CHRONIC DISEASE VISIT [facility] Start: 02-15-2023 ANNUAL PCP TEAM OPERATING ENGINEER GLEN DISEASE VISIT ANNUAL PCP TEAM CHRONIC DISEASE VISIT [facility] Start: 12-21-2022 Adult depression scr eening assessment DEPRESSION SCREENING [facility] Start: 12-21-2022 ANNUAL PCP TEAM OPERATING ENGINEER GLEN DISEASE VISIT ANNUAL PCP TEAM CHRONIC DISEASE VISIT [facility] Start: 12-21-2022 COVID-19 VACCINE (#1) COVID-19 VACCI NE (#1) [facility] Comment on above: Postponed from 12/24 (Declined at this time) Postponed from 06/25 (Declined at this time) Start: 12-21-2022 COVID-19 VACCINE (1) COVID-19 VACCIN E (1) [facility] Comment on above: Postponed from 12/24 (Declined at this time) Start: 12-21-2022 SHINGRIX VACCINE (2 of 3) COSTA GRIX VACCINE (2 of 3) [facility] Comment on above: Postponed from 01/16 (Declined at this time) Start: 12-21-2022 Urine microalbumin profile DTA P,TDAP,TD (2 - Td or Tdap) [facility] Comment on above: Postponed from 11/12 (Declined at this time) Start: 09-03-2022 ADVANCE DIRECTIVE DISCUSSION ADVANCE DIRECTIVE DISCUSSION [facility] Start: 09-03-2022 DEPRESSION ASSESSMENT DEPRESSION ASS ESSMENT [facility] Start: 06-01-2022 Control nasal hemorr edwin anterior simple CONTROL OF NOSEBLEED [facility] Work Phone: Start: 05-04-2022 Influenza vaccination C [facility] Start: 05-04-2022 Patient discharge [facility] Work Phone: Start: 05-03-2022 Following clinical p athway protocol [facility] Work Phone: Start: 05-03-2022 Cardiac monitoring [facility] Work Phone: Start: 05-03-2022 Catheterization of vein [facility] Work Phone: Start: 05-03-2022 Continuous pulse oximetry [facility] Work Phone: Start: 05-03-2022 Elevation of head of bed [facility] Work Phone: Start: 05-03-2022 Exercises [facility] Work Phone: Start: 05-03-[address] anned interventions [facility] Work Phone: Start: 05-03-2022 End: 05-03-2022 Notification of physician [facility] Work Phone: Start: 05-03-2022 Oxygen therapy [facility] Work Phone: Start: 05-03-2022 Referral to occupati onal therapist [facility] Work Phone: Start: 05-03-2022 Referral to service [facility] Work Phone: Start: 05-03-2022 Speech therapy assessment [facility] Work Phone: Start: 05-03-2022 [facility] Work Phone: Start: 05-03-2022 Admission procedure [facility] Work Phone: Start: 05-03-2022 Oxygen therapy [facility] Work Phone: Start: 05-03-2022 End: 05-03-2022 [facility] Work Phone: Start: 04-27-2022 End: 06-27-2022 Basic metabolic 2000 panel - Serum or Plasma BASIC METABOLIC PNL Lab Routine Elevated serum creatinine Atrial fibrillation, new onset (HCC) Expected: 04/27/2022, Expires: 06/27/[address] [facility] Work Phone: Comment on above: Expected: 04/27/2022 , Expires: 06/27/2022 Start: 04-27-2022 End: 06-27-2022 THYROID PEROXIDASE ANTIBODY BLOOD THYROID PEROXIDASE ANTIBODY BLOOD Lab Routine Elevated TSH Atrial fibrillation, new onset (HCC) Expected: 04/27/2022, Expires: 06/27/[address] [facility] Work Phone: Comment on above: Expected: 04/27/2022 , Expires: 06/27/2022 Start: 04-27-2022 End: 06-27-2022 Thyrotropin [Units/volume] in Serum or Plasma TSH BLD Lab Routine Elevated TSH Atrial fibrillation, new onset (HCC) Expected: 04/27/2022, Expires: 06/27/[address] [facility] Work Phone: Comment on above: Expected: 04/27/2022 , Expires: 06/27/2022 Start: 04-27-2022 End: 06-27-2022 Thyroxine (T4) free [Mass/volume] in Serum or Plasma T4 FREE/FREE THYROX Lab Routine Elevated TSH Atrial fibrillation, new onset (HCC) Expected: 04/27/2022, Expires: 06/27/[address] [facility] Work Phone: Comment on above: Expected: 04/27/2022 , Expires: 06/27/2022 Start: 04-27-2022 End: 06-27-2022 Triiodothyronine (T3) Free [Mass/volume] in Serum or Plasma T3 FREE BLD Lab Routine Elevated TSH Atrial fibrillation, new onset (HCC) Expected: 04/27/2022, Expires: 06/27/[address] [facility] Work Phone: Comment on above: Expected: 04/27/2022 , Expires: 06/27/2022 Start: 04-12-2022 End: 06-12-2022 CBC W Auto Differential panel - Blood [facility] Work Phone: Comment on above: Expected: 04/12/2022 , Expires: 06/12/2022 Start: 04-12-2022 End: 06-12-2022 Comprehensive metabolic 2000 panel - Serum or Plasma [facility] Work Phone: Comment on above: Expected: 04/12/2022 , Expires: 06/12/2022 Start: 04-12-2022 End: 06-12-2022 Magnesium [Mass/volume] in Serum or Plasma [facility] Work Phone: Comment on above: Expected: 04/12/2022 , Expires: 06/12/2022 Start: 04-12-2022 End: 06-12-2022 Thyrotropin [Units/volume] in Serum or Plasma [facility] Work Phone: Comment on above: Expected: 04/12/2022 , Expires: 06/12/2022 Start: 04-12-2022 End: 06-12-2022 Thyroxine (T4) free [Mass/volume] in Serum or Plasma [facility] Work Phone: Comment on above: Expected: 04/12/2022 , Expires: 06/12/2022 Start: 03-03-2022 End: 05-03-2022 CBC panel - Blood by Automated count CBC Lab Routine Essential hypertension Encounter for long-term current use of medication Expected: 03/03/2022 (Approximate), Expires: 05/03/[address] [facility] Work Phone: Comment on above: Expected: 03/03/2022 (Approximate), Expires: 05/03/2022 Start: 03-03-2022 End: 05-03-2022 Comprehensive metabolic 2000 panel - Serum or Plasma COMP METABOLIC PANEL Lab Routine Essential hypertension Encounter for long-term current use of medication Expected: 03/03/2022 (Approximate), Expires: 05/03/[address] [facility] Work Phone: Comment on above: Expected: 03/03/2022 (Approximate), Expires: 05/03/2022 Start: 03-03-2022 End: 05-03-2022 Magnesium [Mass/volume] in Serum or Plasma MAGNESIUM BLD Lab Routine Encounter for long-term current use of medication Expected: 03/03/2022 (Approximate), Expires: 05/03/[address] [facility] Work Phone: Comment on above: Expected: 03/03/2022 (Approximate), Expires: 05/03/2022 Start: 02-04-2022 Colonoscopy COLONOSCOPY [facility] Start: 02-04-2022 COLORECTAL CANCER SCREENING COLORECTAL CANCER SCREENING [facility] Start: 2021 RSV Vaccine (1 - 1-d ose 75+ series) RSV Vaccine (1 - 1-dose 75+ series) [facility] Start: 12-15-2021 Adult depression scr eening assessment DEPRESSION SCREENING [facility] Start: 12-15-2021 ANNUAL PCP TEAM OPERATING ENGINEER GLEN DISEASE VISIT ANNUAL PCP TEAM CHRONIC DISEASE VISIT [facility] Start: 12-15-2021 SHINGRIX VACCINE (2 of 3) COSTA GRIX VACCINE (2 of 3) [facility] Comment on above: Postponed from 01/16 (Declined at this time) Start: 12-06-2021 End: 02-05-2022 Renal function 2000 panel - Serum or Plasma RENAL FUNCTION PANEL Lab Routine Medication management Expected: 12/06/2021, Expires: 02/05/[address] [facility] Work Phone: Comment on above: Expected: 12/06/2021 , Expires: 02/05/2022 Start: 12-06-2021 End: 02-05-2022 SCHEDULE LAB TESTING SCHEDULE LAB TESTING Lab Routine Expected: 12/06/2021, Expires: 02/05/[address] [facility] Work Phone: Comment on above: Expected: 12/06/2021 , Expires: 02/05/2022 Start: 11-12-2021 Urine microalbumin profile [facility] Start: 09-03-2021 ADVANCE DIRECTIVE DISCUSSION ADVANCE DIRECTIVE DISCUSSION [facility] Start: 09-03-2021 DEPRESSION ASSESSMENT DEPRESSION ASS ESSMENT [facility] Start: 01-17-2012 Shingrix Vaccine (2 of 3) Costa grix Vaccine (2 of 3) [facility] Start: 2006 RSV Vaccine (1 - 1-d ose 60+ series) RSV Vaccine (1 - 1-dose 60+ series) [facility] Start: 12-25-1991 COLOGUARD (FIT-DNA) COLOGUARD (FIT-D NA) [facility] Start: 12-25-[address] COLONOGRAPHY [facility] Start: 12-25-1991 FECAL OCCULT BLOOD FECAL OCCULT BLOO D [facility] Start: 12-25-1991 SIGMOIDOSCOPY SIGMO[facility]COPY [facility] Start: 1964 BP CONTROLLED (<130/80) BP CONTROLLE D (<130/80) [facility] Start: 12-25-1951 COVID-19 VACCINE (1) COVID-19 VACCIN E (1) [facility] End: 04-12-2023 ECG COMPLETE ECG COMPLETE ECG Routine Primary hypertension Fatigue, unspecified type Dizziness Irregular heart beats 1 Occurrences starting 04/12/2022 until 04/12/[address] [facility] Work Phone: Comment on above: 1 Occurrences starti ng 04/12/2022 until 04/12/2023 ECG COMPLETE ECG COMPLETE ECG 04/12/2022 4:02 PM EDT [facility] NM Heart Views W str ess and W radionuclide IV [facility] Work Phone: Patient Education [facility] Work Phone: Patient referral [facility] Work Phone: [facility] Immunizations Immunization Date Immunization Notes Care Provider Fa malina 06-28-2017 influenza virus vacc ine, unspecified formulation Noelle Keene APRN.HOSPITAL COOK Work Phone: [facility] 12-15-2015 pneumococcal polysaccharide vaccine, 23 valent Laine Baeza MD Work Phone: [facility] 12-23-2014 pneumococcal conjuga te vaccine, 13 valent Laine Baeza MD Work Phone: [facility] 11-22-2011 zoster vaccine, live Laine espinosa MD Work Phone: [facility] 11-13-2011 tetanus toxoid, redu jamie diphtheria toxoid, and acellular pertussis vaccine, adsorbed Laine Baeza MD Work Phone: [facility] Payers Date Payer Category Payer Self-pay [id number] 2019 Private Health Insurance MMO MED ICARE SUPPLEMENT [id number] 2019 Unknown MMO MMO MEDICARE SUPPLEMENT [id number] 2019-Present [phone] [place] [address] Indemnity [id number] 2019 Unknown MMO MMO MEDICARE SUPPLEMENT [id number] 2019-Present [phone] [address] [place] [address] Indemnity [id number] 2019 Unknown [id number] 2015 Medicare MEDICARE MEDICAR E A AND B [id number] 2015-Present [phone] [address] [address] [place] [address] Medicare [id number] 2015 Medicare [id number] 2015 Medicare [id number] 2008 Unknown [id number] Medicare MEDICARE A ONLY [id number] Unknown [id number]. 462 Unknown [id number]. 462 Unknown [id number] [id number]. 462 Unknown [id number] [id number]. 462 Unknown [id number] 2.16.840.1.478264.3.579.2. 462 Unknown [id number] [id number]. 462 Unknown [id number] 2.16.840.1.708034.3.579.2. 462 Unknown [id number] 2.16.840.1.100064.3.579.2. 462 Unknown [id number] 2.16.840.1.489206.3.579.2. 462 Unknown [id number] 2.16.840.1.849199.3.579.2. 462 Unknown [id number] 2.16.840.1.756737.3.579.2. 462 Unknown [id number] 2.16.840.1.811054.3.579.2. 462 Unknown [id number] 2.16.840.1.151057.3.579.2. 462 Unknown [id number] 2.16.840.1.394955.3.579.2. 462 Unknown [id number] 2.16.840.1.589773.3.579.2. 462 Unknown [id number] 2.16.840.1.067330.3.579.2. 462 Unknown [id number] 2.16.840.1.694606.3.579.2. 462 Unknown [id number] [id number]. 462 Unknown [id number]. 462 Social History Date Type Detail Facility Start: 09-12-2012 End: 03-05-2025 Tobacco smoking status WVIS Ex-smoker [facility] Work Phone: Start: 03-10-2021 End: 09-22-2024 Alcohol intake Current drinker of alcohol (finding) [facility] Start: 08-08-2020 End: 03-10-2021 Alcohol intake [facility] Start: 1945 Sex Assigned At Not on file C [facility] Start: 02-08-2021 End: 07-05-2022 Exposure to SARS-CoV-2 (event) Not sure [facility] History of tobacco use Current smoker [facility] Start: 09-12-2012 End: 07-05-2022 Tobacco use and exposure Smokeless tobacco non-user [facility] Start: 05-03-2022 End: 04-04-2023 Tobacco smoking status NHIS Unknown if ever smoked [facility] Start: 1945 Sex Assigned At Male [facility] Start: 05-04-2022 Cigarettes [facility] Start: 07-05-2022 Tobacco Comment quit 20 years ago [facility] Start: 08-08-2020 End: 07-05-2022 Tobacco use panel [facility] Adult Depression Screening Assessment 3 [facility] How often to you hav e a drink containing alcohol? 2-3 time sa week [facility] How many standard drinks containing alcohol do you have on a typical day? 1 or 2 [facility] How often do you hav e 6 or more drinks on 1 occasion? Never [facility] Start: 12-01-2024 Sex Male (finding) [facility] Medical Equipment Procedure Code Equipment Code Equipment Origin al Text Equipment Identifier Dates SEALANT,FLOSEAL HEMOSTATIC 5ML FDA Start: 05-22-2018 SEALANT,FLOSEAL HEMOSTATIC 5ML FDA Start: 05-22-2018 SEALANT,FLOSEAL HEMOSTATIC 5ML FDA Start: 05-22-2018 SEALANT,FLOSEAL HEMOSTATIC 5ML FDA Start: 05-22-2018 SEALANT,FLOSEAL HEMOSTATIC 5ML FDA Start: 05-22-2018 SEALANT,FLOSEAL HEMOSTATIC 5ML FDA Start: 05-22-2018 SEALANT,FLOSEAL HEMOSTATIC 5ML FDA Start: 05-22-2018 SEALANT,FLOSEAL HEMOSTATIC 5ML FDA Start: 05-22-2018 SEALANT,FLOSEAL HEMOSTATIC 5ML FDA Start: 05-22-2018 SEALANT,FLOSEAL HEMOSTATIC 5ML FDA Start: 05-22-2018 SEALANT,FLOSEAL HEMOSTATIC 5ML FDA Start: 05-22-2018 SEALANT,FLOSEAL HEMOSTATIC 5ML FDA Start: 05-22-2018 SEALANT,FLOSEAL HEMOSTATIC 5ML FDA Start: 05-22-2018 SEALANT,FLOSEAL HEMOSTATIC 5ML FDA Start: 05-22-2018 SEALANT,FLOSEAL HEMOSTATIC 5ML FDA Start: 05-22-2018 SEALANT,FLOSEAL HEMOSTATIC 5ML FDA Start: 05-22-2018 SEALANT,FLOSEAL HEMOSTATIC 5ML FDA Start: 05-22-2018 SEALANT,FLOSEAL HEMOSTATIC 5ML FDA Start: 05-22-2018 SEALANT,FLOSEAL HEMOSTATIC 5ML FDA Start: 05-22-2018 SEALANT,FLOSEAL HEMOSTATIC 5ML FDA Start: 05-22-2018 SEALANT,FLOSEAL HEMOSTATIC 5ML FDA Start: 05-22-2018 SEALANT,FLOSEAL HEMOSTATIC 5ML FDA Start: 05-22-2018 SEALANT,FLOSEAL HEMOSTATIC 5ML FDA Start: 05-22-2018 SEALANT,FLOSEAL HEMOSTATIC 5ML FDA Start: 05-22-2018 SEALANT,FLOSEAL HEMOSTATIC 5ML FDA Start: 05-22-2018 SEALANT,FLOSEAL HEMOSTATIC 5ML FDA Start: 05-22-2018 SEALANT,FLOSEAL HEMOSTATIC 5ML FDA Start: 05-22-2018 SEALANT,FLOSEAL HEMOSTATIC 5ML FDA Start: 05-22-2018 Goals Date Patient Goal Desired Activity /State Functional Status Date Assessment Result Facility 05-04-2022 [facility]: 04-27-2022 Are you deaf, or do you have serious difficulty hearing No 04/27/2022 4:01 PM Laine Jimenez MD No [facility] 04-27-2022 Are you blind, or do you have serious difficulty seeing, even when wearing glasses No 04/27/2022 4:01 PM Laine Jimenez MD No [facility] 04-27-2022 Do you have serious difficulty walking or climbing stairs No 04/27/2022 4:01 PM Laine Jimenez MD No [facility] 04-27-2022 Do you have difficul ty dressing or bathing No 04/27/2022 4:01 PM Laine Jimenez MD No [facility] 04-27-2022 Because of a physica l, mental, or emotional condition, do you have difficulty doing errands alone such as visiting a physician's office or shopping No 04/27/2022 4:01 PM Laine Jimenez MD No [facility] Mental Status Date Assessment Result Facility 05-04-2022 Cognitive function Voice/Name [facility] Work Phone: 05-03-2022 Cognitive function Voice/Name [facility] Work Phone: 04-27-2022 Because of a physica l, mental, or emotional condition, do you have serious difficulty concentrating, remembering, or making decisions No 04/27/2022 4:01 PM EDT Laine Baeza MD No [facility] Clinical Notes 10-23-2008 to 03-05-2025 Note Date & Type Note Facility 03-05-2025 Radiology Diagnostic study note [facility] Imaging Services [address] [place], [place] [address] Brain/Head without Contrast MR#: [id number] Acct: [id number] Name: BUBBA HONG Rep #: [id number] : [id number] M 79 From: Riley Johnson MD PCP: Dr. Laine Baeza MD Status: RE G ER Study:Brain/Head without Contrast Date of Exa m: 03/05/25 Exam# [id number] Ordering Dr: Kendall Cormier DO EXAM: NONCONTRAST CT SCAN OF THE HEAD COMPARISON: May 03, 2022 MRI TECHNIQUE: Serial axial series through the head were obtained without contrast. 2-D coronaland sagittal reformats were then obtained. FINDINGS: Brain: There is no acute large territorial infarct, intracranial hemorrhage, midline shift or mass effect. The sella and pineal gland regions appear unremarkable. There is no evidence of cerebellar tonsillarherniation. Ventricles: There is no acute hydrocephalus. Basilar cisterns are patent. Paranasal sinuses: Mucosal thickening is noted in the right maxillary sinus. Mastoid air cells: Well-aerated. Calvarium: The bony calvarium is intact. Orbits: The bilateral globes are symmetric, without retrobulbar compressive masslesion or hemorrhage. Miscellaneous: CT/Brain/Head without Contrast IMPRESSION: Mucosal thickening is noted in the right maxillary sinus. No acute intracranial pathology. Reading Location: [facility] CC: Dr. Kendall Cormier, DO; Dr. Laine Baeza MD ~ Hair Tinter: Signed [facility] 2024 Note HNO ID: [id number] Author: LAINE BAEZA MD Service: ? Author Type: Physician Type: Progress Notes Filed: 12/27/2024 12:24 Note Text: This note was created using Sernovariter. Subjective Bubba Hong is a 79 year old male. HISTORY Bubba is a 79-year-old male with a history of atrial fibrillation, presenting for a Medicare wellness visit and fall risk assessment. Bubba reports experiencing palpitations, described as a thumping sensation, primarily when lying in bed at night. These symptoms first appeared several years ago, following a hospitalization for a cardiac issue that required cardioversion. The palpitations recurred after a bout of influenza in late September, prompting a recent cardiology consultation two days ago. Bubba is scheduled for a 24-hour Holter monitor next week, followed by an EKG and additional cardiac evaluations in approximately three weeks. He denies any significant concern about these symptoms, stating, I don't think it's a major health issue. Bubba is currently on a medication regimen that includes lisinopril, omeprazole, doxazosin, potassium, warfarin, and furosemide 40 mg once daily. He reports good adherence to this regimen and denies any side effects, noting that furosemide has been effective in managing his blood pressure without adverse effects. He denies any issues with bowel or bladder function, including nocturia. Bubba reports a good overall health status, describing it as very good. He remains active, walking regularly at work, although he does not engage in brisk walking outside of his occupational activities. He consumes alcohol 2-3 times per week, typically limiting intake to 1-2 drinks per occasion, and denies ever consuming six or more drinks in one sitting. He follows a healthy diet, including fruits, vegetables, whole grains, and fiber daily, and has reduced his overall food intake. He denies any tobacco use. Bubba denies any issues with balance, vision (with glasses), or dental health, noting regular dental visits four times a year. He reports some age-related hearing loss but does not use hearing aids. He denies any concerns with sexual function. He acknowledges experiencing feelings of anger and irritability, particularly in response to work-related stress, but denies being troubled by these emotions or requiring counseling or medication. He does not report feelings of anxiety, loneliness, or isolation, and denies any thoughts of self-harm. Bubba is independent in activities of daily living and does not require assistance with tasks such as grocery shopping or managing finances. He follows safety precautions, including wearing a seatbelt and maintaining good lighting and handrails in his home. Family history is significant for Alzheimer's disease in his mother and presumed hypertension and heart issues in his father. He has one brother, but is unaware of any medical issues. He has an emergency contact, Kisha Pisano, but does not have a designated healthcare power of traffic law attorney. 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 Yuan Diaphragmatic hernia without mention of obstruction or gangrene Esophageal reflux Esophageal reflux 12/25/2006 Inguinal hernia without mention of obstruction or gangrene, unilateral or unspecified, (not specified as recurrent) 09/14/[address] Reyes diagnosed PSA elevation Dr. Parker Current Outpatient Medications Medication Sig albuterol HFA (PROVENTIL HFA) 90 mcg/actuation inhaler Inhale 1-2 Puffs as instructed four times a day as needed for wheezing/shortness of breath. furosemide (LASIX) 40 mg tablet Take 1 tablet by mouth every afternoon. warfarin (COUMADIN) 4 mg tablet Take 4 mg by mouth once daily. 8 mg // 6 all other days potassium chloride SR (MICRO-K) 10 mEq CR capsule Take by mouth. Clobetasol Propionate (TEMOVATE) 0.05 % external solution Apply 1 application to affected area once daily as needed. for rash as directed doxazosin (CARDURA) 4 mg tablet Take 1 tablet by mouth once daily. lisinopril (ZESTRIL) 40 mg tablet Take 1 tablet by mouth once daily. omeprazole (PRILOSEC) 20 mg capsule take 1 capsule by mouth 30 MINUTES before breakfast predniSONE (DELTASONE) 10 mg tablet Take 40 mg x 3 days, 20 mg x 3 days, 10 mg x 3 days. Take with food, once daily with breakfast (Patient not taking: Reported on 2024) No current facility-administered medications for this visit. ALLERGIES Allergen Reactions Amlodipine Rash, Other: See Comments Muscle soreness, difficulty voiding Chlorthalidone Diarrhea Tried several times and caused adverse effects each time (so (more content not included)... [facility] 12-22-2024 Evaluation note Diagnosis Onset Date Resolution Hyperlipidemia acute December 2:32pm Essential (primary) hypertension chronic December 22, 2024 2:32pm [facility] current use of anticoagulant chronic December 22, 2024 2:32pm Paroxysmal atrial fibrillation chronic December 22, 2024 2:32pm [facility] Work Phone: 1(994) 137-974504-21-2025 Evaluation note* Diagnosis Onset Date Resolution Status Admit Date Hyperlipidemia acute December 2:32pm Essential (primary) hypertension chr onic December 22, 2024 2:32pm [facility] current use of anticoagulant chronic December 22, 2024 2:32pm Paroxysmal atrial fibrillation chron ic December 22, 2024 2:32pm Hyperlipidemia acute March 23, 2025 2:50pm Mitral valve regurgitation acute March 23, 2025 2:50pm Essential (primary) hypertension chr onic March 23, 2025 2:50pm 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 Agree with recommendations. Follow up as needed after sees cardiology. Has December follow up [facility]02-15-2025 Miscellaneous Notes* Telephone Encounter - Laine Baeza MD - 10/18/2024 12:37 PM EST Bryan noted. Agree with recommendations. Follow up as needed after sees cardiology. Has December follow up * Telephone Encounter - Janay Amado RN - 10/14/2024 9:00 AM EST Patient phoned to give Rosamaria update. Reports he completed prednisone a week ago and he keeps getting better. Reports he is not completely better but also not worse. Reports he has been getting mild dizzy spells for the past couple months and asking what could be causing this. Advised dehydration, low BP, and medications can cause this. Advised to drink fluids when the dizzy spell happens. Advised to lie down for 1 hour with feet elevated to help blood circulate. Advised to sit for 2 minutes before standing as standing too quickly can cause a drop in BP and this can cause dizziness. Patient agreeable. Patient reports he does not have a BP monitor at home, and unable to check his BP. Patient declined to schedule appt for now, stating he has an appt with [facility] this week and plans to discuss this with them. [facility] Telephone encounter Note * Telephone Encounter - Janay Amado RN - 10/14/2024 9:00 AM EST Patient phoned to give Rosamaria update. Reports he completed prednisone a week ago and he keeps getting better. Reports he is not completely better but also not worse. Reports he has been getting mild dizzy spells for the past couple months and asking what could be causing this. Advised dehydration, low BP, and medications can cause this. Advised to drink fluids when the dizzy spell happens. Advised to lie down for 1 hour with feet elevated to help blood circulate. Advised to sit for 2 minutes before standing as standing too quickly can cause a drop in BP and this can cause dizziness. Patient agreeable. Patient reports he does not have a BP monitor at home, and unable to check his BP. Patient declined to schedule appt for now, stating he has an appt with [facility] this week and plans to discuss this with them. [facility]01-20-2025 Telephone encounter Note* Telephone Encounter - Anny Ortega RN - 09/22/2024 4:02 PM EST Pt called and is notified of providers results and instructions. Pt voices understanding. Anny Ortega RN [facility]01-20-2025 Miscellaneous Notes* Telephone Encounter - Anny Ortega RN - 09/22/2024 4:02 PM EST Pt called and is notified of providers results and instructions. Pt voices understanding. Anny Ortega RN * Telephone Encounter - Rosamaria Dove APRN.CNS - 09/22/2024 3:40 PM EST Please let him know the chest x-ray showed findings consistent with small pleural effusions bilaterally. Recommend he continue with current treatments unchanged for now. Let us know how he is feelingin a couple of days. If not feeling improved will add a water pill which may help with this. [facility] Telephone encounter Note * Telephone Encounter - Rosamaria Dove APRN.CNS - 09/22/2024 3:40 PM EST Please let him know the chest x-ray showed findings consistent with small pleural effusions bilaterally. Recommend he continue with current treatments unchanged for now. Let us know how he is feelingin a couple of days. If not feeling improved will add a water pill which may help with this. [facility]01-20-2025 History of Present illness Narrative* Jenn Rivero, RT(R) - 09/22/2024 11:50 AM EST Radiology Service Progress Note PATIENT NAME: Bubba Hong DATE OF SERVICE: September 22, 2024 TIME: 11:47 AM PATIENT IDENTITY VERIFICATION COMPLETED USING TWO (2) IDENTIFIERS: Name and Date of confirmedby patient verbally. FALL SCREENING: Has the patient had 2 falls in the last year or 1 fall with injury or currently using an Ambulatory Assistive Device (Walker, Cane, Wheelchair, Crutches, etc.)? No PATIENT GENDER DATA: Assigned male at PATIENT RELEVANT IMPLANT DATA REVIEWED: Yes PATIENT PRESENTS WITH AN IMPLANTABLE OR ATTACHED AIRCRAFT METALSMITH: No RADIOLOGY DEPARTMENT: General X-ray: Exam(s) Completed: Chest X-Ray PERIPHERAL IV DATA: Not applicable SIGNED BY: RT Karlene(R) September 22, 2024 11:47 AM documented in [facility] encounterGen[facility]01-[facility]-2025 NoteHNO ID: [id number] Author: JENN RIVERO RT(Eder) Service: ? Author Type: Table Setter Type: Progress Notes Filed: 09/22/2024 11:53 Note Text: Radiology Service Progress Note PATIENT NAME: Bubba Hong DATE OF SERVICE: September 22, 2024 TIME: 11:47 AM PATIENT IDENTITY VERIFICATION COMPLETED USING TWO (2) IDENTIFIERS: Name and Date of confirmed by patient verbally. FALL SCREENING: Has the patient had 2 falls in the last year or 1 fall with injury or currently using an Ambulatory Assistive Device (Walker, Cane, Wheelchair, Crutches, etc.)? No PATIENT GENDER DATA: Assigned male at PATIENT RELEVANT IMPLANT DATA REVIEWED: Yes PATIENT PRESENTS WITH AN IMPLANTABLE OR ATTACHED AIRCRAFT METALSMITH: No RADIOLOGY DEPARTMENT: General X-ray: Exam(s) Completed: Chest X-Ray PERIPHERAL IV DATA: Not applicable SIGNED BY: RT Karlene(R) September 22, 2024 11:47 [facility]01-20-2025 NoteHNO ID: [id number] Author: ROSAMARIA DOVE APRN.DIRECTOR OF RETAIL Service: ? Author Type: Nurse Specialist Type: Progress Notes Filed: 09/22/2024 11:52 Note Text: SUBJECTIVE Bubba Hong is a 78 year old male who presents with 8 days of symptoms that are improving. Did have cough and fever for 4 days, now now fever. Did not check for Covid 19. Notes wifes' coworker had flu. Symptoms include: Fever (>=100.4F): No or Chills: No Cough: Yes but less Shortness of breath: Yes or Difficulty breathing: No Fatigue: Yes Muscle aches: Yes previously now gone Headache: No New loss of smell or taste: No Sore throat: No Nasal congestion: No or Rhinorrhea: No not much Nausea: No or Vomiting: No Diarrhea: No OTC meds/remedies that patient has tried: no current cold medicine x7 days with pseudoepehdrine. High risk category assessment Age > 60 years old Exposures: Sick contacts? Yes Family or close contacts with confirmed/probable COVID-19 in last 14 days? No He reports that he has quit smoking. He has never used smokeless tobacco. OBJECTIVE PHYSICAL EXAM: BP 161/97 Pulse 64 Temp 36.2 ?C (97.1 ?F) Resp 16 Wt 79 kg (174 lb 2.6 oz) BMI 23.59 kg/m? General appearance: tired/ill appearing, alert, cooperative, pleasant, in no acute distress Head: Normocephalic Eyes: conjunctiva/corneas normal Ears: R TM - clear with good landmarks, nl light reflex, L TM - clear with good landmarks, nl light reflex Nose: clear rhinorrhea, mucosa erythematous and swollen Oropharynx: moist without lesions Neck: supple and small, benign anterior cervical nodes bilaterally Heart: regular rate and rhythm, without murmur Lungs: without rales or wheeze, good air exchange, no grunting/flaring/retracting, + cough ASSESSMENT/PLAN (R05.1) Acute cough (primary encounter diagnosis) ASSESSMENT/PLAN: 1. Acute cough - ICD9: 786.2, ICD10: R05.1 He notes a cough for 8 days, feeling improved but continues with fatigue. Notes his 's coworker had influenza. He did not seek care when this initially presented with fever and cough. Currently with cough which is less but still present, difficult to lie down due to cough, shortness of breath on exertion. Will complete chest x-ray today to exclude pneumonia. - XR CHEST 2V FRONTAL/LAT - ALBUTEROL SULFATE HFA 90 MCG/ACTUATION AEROSOL INHALER - PREDNISONE 10 MG TABLET Rosamaria Dove APRN.DIRECTOR OF RETAIL Medical Decision Making: Problems: Low: Acute, uncomplicated illness or injury Data: Unique test(s) ordered: 1 Risk: Moderate: Drug management Medical Decision Making Level: [facility] of Present illness Narrative* Rosamaria Dove APRN.DIRECTOR OF RETAIL - 09/22/2024 11:22 AM EST SUBJECTIVE Bubba Hong is a 78 year old male who presents with 8 days of symptoms that are improving. Did have cough and fever for 4 days, now now fever. Did not check for Covid 19. Notes wifes' coworker had flu. Symptoms include: Fever (>=100.4F): No or Chills: No Cough: Yes but less Shortness of breath: Yes or Difficulty breathing: No Fatigue: Yes Muscle aches: Yes previously now gone Headache: No New loss of smell or taste: No Sore throat: No Nasal congestion: No or Rhinorrhea: No not much Nausea: No or Vomiting: No Diarrhea: No OTC meds/remedies that patient has tried: no current cold medicine x7 days with pseudoepehdrine. High risk category assessment Age > 60 years old Exposures: Sick contacts? Yes Family or close contacts with confirmed/probable COVID-19 in last 14 days? No He reports that he has quit smoking. He has never used smokeless tobacco. OBJECTIVE PHYSICAL EXAM: BP 161/97 Pulse 64 Temp 36.2 C (97.1 F) Resp 16 Wt 79 kg (174 lb 2.6 oz) BMI 23.59 kg/m General appearance: tired/ill appearing, alert, cooperative, pleasant, in no acute distress Head: Normocephalic Eyes: conjunctiva/corneas normal Ears: R TM - clear with good landmarks, nl light reflex, L TM - clear with good landmarks, nl lightreflex Nose: clear rhinorrhea, mucosa erythematous and swollen Oropharynx: moist without lesions Neck: supple and small, benign anterior cervical nodes bilaterally Heart: regular rate and rhythm, without murmur Lungs: without rales or wheeze, good air exchange, no grunting/flaring/retracting, + cough ASSESSMENT/PLAN (R05.1) Acute cough (primary encounter diagnosis) ASSESSMENT/PLAN: 1. Acute cough - ICD9: 786.2, ICD10: R05.1 He notes a cough for 8 days, feeling improved but continues with fatigue. Notes his 's coworker had influenza. He did not seek care when this initially presented with fever and cough. Currently with cough which is less but still present, difficult to lie down due to cough, shortness of breath on exertion. Will complete chest x-ray today to exclude pneumonia. - XR CHEST 2V FRONTAL/LAT - ALBUTEROL SULFATE HFA 90 MCG/ACTUATION AEROSOL INHALER - PREDNISONE 10 MG TABLET Rosmaaria Dove APRN.WILLIAM Medical Decision Making: Problems: Low: Acute, uncomplicated illness or injury Data: Unique test(s) ordered: 1 Risk: Moderate: Drug management Medical Decision Making Level: 3 - Low documented in [facility]Gen[facility]01-[facility]25 Telephone encounter Note * Telephone Encounter - Gerber Lion LPN - 09/22/2024 8:05 AM EST Pt called to get apt scheduled. Pt reports he started with a fever x 4 days and hen this resolved. Pt reports chest cold, x 5 days and very tired. Pt luis, chest pain, SOB, headache, stomach problems or intestinal problems. Pt scheduled for apt today 09.22.24 with provider/team. Gerber Lion LPN [facility]01-20-2025 Miscellaneous Notes* Telephone Encounter - Gerber Lion LPN - 09/22/2024 8:05 AM EST Pt called to get apt scheduled. Pt reports he started with a fever x 4 days and hen this resolved. Pt reports chest cold, x 5 days and very tired. Pt luis, chest pain, SOB, headache, stomach problems or intestinal problems. Pt scheduled for apt today 1.20.25 with provider/team. Greber Lino LPN documented in this encounterGen[facility] Hospital04-17-2024 Instructions* Patient Instructions* Laine Baeza MD - 12/19/2023 4:21 PM EDT Screening schedule The following prevention plan is recommended: BP Controlled (<130/80) Never done RSV Vaccine(1 - 1-dose 60+ series) Never done Shingrix Vaccine(2 of 3) due on 01/17/2012 DTaP,Tdap,Td Vaccine(2 - Td or Tdap) due on 11/12/2021 Advance Directive Discussion due on 09/03/2023 Behavioral Health Screening Never done WHAT YOU CAN DO TO PREVENT FALLS Many falls can be prevented. By making some changes, you can lower your chances of falling. Four things YOU can do to prevent falls for you* and your caregiver 1. Begin a regular exercise program Exercise is one of the most important ways to lower your chances of falling. It makes you stronger and helps you feel better. Exercises that improve balance and coordination (like Gino Chi) are the most helpful. Lack of exercise leads to weakness and increases your chances of falling. Ask your doctor or health care provider about the best type of exercise program for you. 2. Have your health care provider review your medicines Have your doctor or pharmacist review all the medicines you take, even [id number] medicines. As you get older, the way medicines work in your body can change. Some medicines, or combinations of medicines, can make you sleepy or dizzy andcan cause you to fall. 3. Have your vision checked Have your eyes checked by an eye doctor at least once a year. You may be wearing the wrong glasses or have a condition like glaucoma or cataracts that limits your vision. Poor vision can increase your chances of falling. 4. Make your home safer About half of all falls happen at home. To make your home safer: Remove things you can trip over (like papers, books, clothes, and shoes) from stairs and places where you walk. Remove small throw rugs or use double-sided tape to keep the rugs from slipping. Keep items you use often in cabinets you can reach easily without using a step stool. Have grab bars put in next to your toilet and in the tub or shower. Use non-slip mats in the bathtub and on shower floors. Improve the lighting in your home. As you get older, you need brighter lights to see well. Hang light-weight curtains or shades to reduce glare. Have handrails and lights put in on all staircases. Wear shoes both inside and outside the house. Avoid going barefoot or wearing slippers. For more information, contact: Centers for Disease Control and Prevention www.cdc.gov/injury * This information may not apply if you have certain medical conditions. documented in this encounterGenesis Hospital04-17-2024 History of Present illness Narrative* Laine Baeza MD - 12/19/2023 3:44 PM EDT Images from the original note were not included. Bubba Hong is a 77 year old male here for a Medicare wellness visit. Medicare Health Risk Assessment General Health Very good Exercise: Minutes/Day 50 min Exercise: Days/Week 4 days Alcohol: Daily Use 2-3 times a week Alcohol: Drinks/Day 1 or 2 Alcohol: 6 or more drinks Never Feel off balance No Concerns: Teeth/Dentures No Concerns: Sexual function Yes Troubled by feelings None of the above Frequency: Eating healthy diet Several days ADLs requiring help None of the above Safety precautions in home/vehicle Yes Smoke, vape, chews tobacco No Difficulty hearing Yes (Mild; attrributes to age) Difficulty seeing No Current Providers Specialists: I have reviewed specialist-related care of the patient in the medical record. Outside specialists seen: [facility]; ENT--Dr. London Alegria , Urologist--Dr. Shaw. Grocery Stock Clerk--Dr. Peck (as not been back since November last year. Medical/Family history review Reviewed and updated problem list, medical/surgical/family/social history, medications, and allergies. Opioid use review Opioid Medications (last 90 days) No data to display Depression screening Depression Screening PHQ-2 Score SUSANA-2 Total Score 12/19/2023 0 0 Depression screening tool completed and reviewed. Based on score and interview, patient is not at risk for depression. Screening tool discussed with patient, and I recommended no further interventionat this time. Cognitive screening Mini Cog Score: 3 Cognitive screening reviewed and no further action needed (score 3-5) Functional Observation Was the patient's Timed Up & Go test unsteady or ? 12 seconds? No Advance Care Planning Surrogate decision maker and/or advance care plan documented Measurements There were no vitals taken for this visit. Vision Screening: Hearing/vision screening results: Vision Screening Right eye - Without correction: With correction: 20/50 Left eye - Without correction: With correction: 20/40 Both eyes - Without correction: With correction: 20/25 Assessment/Plan Medicare annual wellness visit, subsequent (Z00.00) - Counseled on healthy diet and regular exercise - Fall avoidance information provided - Personalized prevention plan provided Additional Concerns The following concerns were also discussed with the patient: HISTORY Bubba Hong is a 77 year old gentleman here for Medicare Wellness and yearly exam and follow upappointment. Noted that does not have follow up with cardiology. Not sure if to have follow up set up. Gets [facility]R done routinely for [facility] to manage. BP doing better on water pill as far as he is concerned though BP not checked recently. BP146/[address] Schmitt's office last year. This was improved from prior BPs. Feels better physically. No adverse effects. Other meds tried, did not tolerate side effects. RLQ area pain at level of belly button noted when does sit up. Started this past Sunday without anyinjury. Was doing sit ups up to 20 per day on but could not on Sunday. 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 Yuan Diaphragmatic hernia without mention of obstruction or gangrene Esophageal reflux Esophageal reflux 12/25/2006 Inguinal hernia without mention of obstruction or gangrene, unilateral or unspecified, (not specified as recurrent) 09/14/[address] Reyes diagnosed PSA elevation Dr. Parker Current Outpatient Medications Medication Sig furosemide (LASIX) 40 mg tablet Take 1 tablet by mouth every afternoon. warfarin (COUMADIN) 4 mg tablet Take 4 mg by mouth once daily. 8 mg // 6 all other days lisinopril (ZESTRIL) 40 mg tablet take 1 tablet by mouth once daily doxazosin (CARDURA) 4 mg tablet take 1 tablet by mouth once daily omeprazole (PRILOSEC) 20 mg capsule take 1 capsule by mouth 30 MINUTES before breakfast potassium chloride SR (MICRO-K) 10 mEq CR capsule Take by mouth. Clobetasol Propionate (TEMOVATE) 0.05 % external solution Apply 1 application to affected area oncedaily as needed. for rash as directed No current facility-administered medications for this visit. ALLERGIES Allergen Reactions Amlodipine Rash, Other: See Comments Muscle soreness, difficulty voiding Chlorthalidone Diarrhea Tried several times and caused adverse effects each time (sometimes after a few months sometimes right away). Hctz [Hydrochloroth* Intolerance urinary frequency and bowel frequency too much FAMILY HISTORY Problem Relation Age of Onset Hypertension Father Heart Father Alzheimer's Disease Mother Social History Tobacco Use Smoking status: Former Smokeless tobacco: Never Tobacco comments: quit 20 years ago Substance Use Topics Alcohol use: Yes Drug use: No PHYSICAL EXAM BP 148/80 Ht 183 cm (6' 0.05) Wt 81.2 kg (179 lb) BMI 24.25 kg/m Last 5 Encounter Wt Readings: Date: Wt: 12/19/2023 81.2 kg (179 lb) 07/05/2022 79.4 kg (175 lb) 04/12/2022 80.3 kg (177 lb) 02/15/2022 78 kg (172 lb) 12/21/2021 79.4 kg (175 lb) No waist measurement recorded Estimated body mass index is 24.25 kg/m as calculated from the following: Height as of this encounter: 183 cm (6' 0.05). Weight as of this encounter: 81.2 kg (179 lb). Last 5 Encounter BP Readings: Date: BP: 12/19/2023 148/80 07/05/2022 170/88 04/12/2022 178/90 02/15/2022 168/92 12/21/2021 182/98 GENERAL: well appearing, alert, in no acute distress CARDIOVASCULAR: regular rate and rhythm. No murmur, rubs or gallops. PULMONARY: clear to auscultation, no wheezing, rhonchi, or crackles ABDOMEN: soft, non-tender, non-distended, no masses or organomegaly EXTREMITY: no lower extremity edema. No skin discoloration. ASSESSMENT/PLAN: 1. Medicare annual wellness visit, subsequent - ICD9: V70.0, ICD10: Z00.00 (primary diagnosis) - Counseled on healthy diet and regular exercise - Follow up for annual exam in one year 2. Gastroesophageal reflux disease without esophagitis - ICD9: 530.81, ICD10: K21.9 - Continue treatment with Prilosec 20 mg QD - OMEPRAZOLE 20 MG CAPSULE,DELAYED RELEASE 3. Essential hypertension - ICD9: 401.9, ICD10: I10 - Improving control - Continue current medications - Recommend home blood pressure monitoring, to bring results to next visit - Recommend regular aerobic exercise - DOXAZOSIN 4 MG TABLET - LISINOPRIL 40 MG TABLET - LIPID PANEL BASIC - COMPREHENSIVE METABOLIC PANEL - COMPLETE BLOOD COUNT 4. Encounter for immunization - ICD9: V03.89, ICD10: Z23 - RSV PRINTED PHARMACY INSTRUCTIONS - SHINGRIX PRINTED PHARMACY INSTRUCTIONS - TDAP PRINTED PHARMACY INSTRUCTIONS 5. Encounter for long-term current use of medication - ICD9: V58.69, ICD10: Z79.899 - LIPID PANEL BASIC - COMPREHENSIVE METABOLIC PANEL - COMPLETE BLOOD COUNT - MAGNESIUM Laine Baeza MD documented in this encounterGenesis Hospital03-11-2024 Miscellaneous Notes* Telephone Encounter - Laine Baeza MD - 11/12/2023 7:27 PM EDT Will give more refills at follow up appointment The following approved medication requests have been transmitted electronically. Requested Prescriptions Signed Prescriptions Disp Refills lisinopril (ZESTRIL) 40 mg tablet 90 tablet 0 Sig: take 1 tablet by mouth once daily Authorizing Provider: LAINE BAEZA doxazosin (CARDURA) 4 mg tablet 90 tablet 0 Sig: take 1 tablet by mouth once daily Authorizing Provider: LAINE BAEZA omeprazole (PRILOSEC) 20 mg capsule 90 capsule 0 Sig: take 1 capsule by mouth 30 MINUTES before breakfast Authorizing Provider: LAINE BAEZA MD * Telephone Encounter - Alysia Thurston LPN - 11/12/2023 4:31 PM EDT Patient has been identified by name and date of : Yes Patient phones for refill(s): Requested Prescriptions Pending Prescriptions Disp Refills lisinopril (ZESTRIL) 40 mg tablet [Pharmacy Med Name: LISINOPRIL 40 MG TABLET] 90 tablet 3 Sig: take 1 tablet by mouth once daily doxazosin (CARDURA) 4 mg tablet [Pharmacy Med Name: DOXAZOSIN MESYLATE 4 MG TAB] 90 tablet 3 Sig: take 1 tablet by mouth once daily omeprazole (PRILOSEC) 20 mg capsule [Pharmacy Med Name: OMEPRAZOLE DR 20 MG CAPSULE] 90 capsule 3 Sig: take 1 capsule by mouth 30 MINUTES before breakfast Date of last office visit in primary care: 07/05/2022 Date of next office visit in primary care: 12/19/2023 Please advise. Thank you. Alysia Thurston LPN. documented in this encounterGenesis Hospital03-31-2023 Miscellaneous Notes* Telephone Encounter - Anny Ortega RN - 12/01/2022 1:25 PM EDT Patient has been identified by name and date of : Yes, Provider Dr Baeza Date 12/01/22 Time 1326. Patient phones for refill(s): Requested Prescriptions Pending Prescriptions Disp Refills lisinopril (ZESTRIL) 40 mg tablet 90 tablet 3 Sig: Take 1 tablet by mouth once daily. doxazosin (CARDURA) 4 mg tablet 90 tablet 3 Sig: Take 1 tablet by mouth once daily. omeprazole (PRILOSEC) 20 mg capsule 90 capsule 3 Sig: Take 1 capsule by mouth daily before breakfast. 1/2 hr before meal. Date of last office visit in primary care: 07/05/22 Future visit: 12/19/23 Last 2 Encounter Wt Readings: Date: Wt: 07/05/2022 79.4 kg (175 lb) 04/12/2022 80.3 kg (177 lb) Previous labs/tests for medication: Blood Pressure: BUN (mg/dL) Date Value 05/26/2022 21 01/24/2021 19 Sodium (mmol/L) Date Value 05/26/2022 138 01/24/2021 134 Last 1 Encounter BP Readings: Date: BP: 07/05/2022 170/88 Please advise. Thank you. Anny Ortega RN documented in this encounterGenesis Hospital11-15-2022 Miscellaneous Notes* Telephone Encounter - Noelle Keene APRN.CNP - 07/18/2022 12:52 PM EST Agree with having patient contact cardiology to see how they would like to proceed. * Telephone Encounter - Dena Henry RN - 07/14/2022 10:20 AM EST Patient calling and reports at last OV with Dr. Baeza there was discussion about him not being able to afford eliquis. Pt states he thought PCP office was going to get back to him. Reviewed the below information with pt from recent OV note 07/05/22: Per recent OV note: COPIED: 07/05/22 Continue follow up with Dr. Mcclain/[facility]. Will forward this progress note to let him know patient is not taking Eliquis at this time since cannot afford it and is waiting to hear back from his office regarding possible assistance for Eliquisversus change to other anticoagulant that he can afford. Pt reports he will contact [facility] today. Pt also aware for need to make Neurology appt-states he will call back to make this appt at a later time. Dena Henry RN documented in this encounterGenesis Hospital11-02-2022 History of Present illness Narrative* Laine Baeza MD - 07/05/2022 2:47 PM EDT This note was created using Sernovariter. Subjective Bubba Hong is a 76 year old male. Patient presents with: F/U 6 months SUBJECTIVE: Bubba Hong is a 76 year old year old gentleman here today for 6 month follow up appointment for review of medical conditions. 9 weeks ago had confusion at work. Brought to ER. 4:30AM to 10AM has no recollection of getting ready to go to work and get to work; was repeating things quite a bit; after 10 was brought to ER. Admitted for a day. Does not remember the time for 4 to6 hours after getting to ER. Early evening when memory started back again gradually. CTA, MRI, labs from hospital evaluation [facility] reviewed. Sinus issues noted--has chronic sinus issues and runny nose. No sinus pain. Echocardiogram--good EF 65%. trivial MV insufficiency. Stopped Eliquis 5mg daily because of expense. Was given a card and got for $3. Did not fill when was going to be $400. Got a sample for a few days from [facility]. Did not hear from them about replacement med. Quit Eliquis and resumed the low dose aspirin twice daily. A week ago or so noted minorirritation across lower-mid abdomen. Stopped the low dose aspirin 3 to 4 days ago and got better. [place] like sore muscle. No major issues with new meds from [facility]. Will see [facility] August 08. Noted was in a fib and had ECC 05/29. Is aware when in a fib. No episodes since then noted. Now in [facility]. [facility]. Pharmaceutical nuclear stress test done 06/02/22. Had to go to ER for epistaxis after started on Eliquis (about 2 to 3 weeks). Bottom of right foot--some discomfort; not terribly painful; no problem with walking. While sitting; can start coming up the lower leg. Wonders about circulation. Started noticing 1 to 3 months ago. 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 Yuan Diaphragmatic hernia without mention of obstruction or gangrene Esophageal reflux Esophageal reflux 12/25/2006 Inguinal hernia without mention of obstruction or gangrene, unilateral or unspecified, (not specified as recurrent) 09/14/[address] Reyes diagnosed PSA elevation Dr. Parker Current Outpatient Medications Medication Sig atorvastatin (LIPITOR) 40 mg tablet Take 40 mg by mouth daily at bedtime. metoprolol tartrate, short acting, (LOPRESSOR) 100 mg tablet Take 100 mg by mouth twice daily. potassium chloride SR (MICRO-K) 10 mEq CR capsule Take by mouth. omeprazole (PRILOSEC) 20 mg capsule Take 1 capsule by mouth daily before breakfast. 1/2 hr before meal. doxazosin (CARDURA) 4 mg tablet Take 1 tablet by mouth once daily. lisinopril (ZESTRIL, PRINIVIL) 40 mg tablet Take 1 tablet by mouth once daily. Clobetasol Propionate (TEMOVATE) 0.05 % external solution Apply 1 application to affected area oncedaily as needed. for rash as directed No current facility-administered medications for this visit. Review of Systems Objective BP 160/102 Pulse 67 Wt 79.4 kg (175 lb) SpO2 97% BMI 23.96 kg/m Last 5 Encounter Wt Readings: Date: Wt: 07/05/2022 79.4 kg (175 lb) 04/12/2022 80.3 kg (177 lb) 02/15/2022 78 kg (172 lb) 12/21/2021 79.4 kg (175 lb) 03/10/2021 82 kg (180 lb 12.8 oz) No waist measurement recorded Estimated body mass index is 23.96 kg/m as calculated from the following: Height as of 12/15/20: 182 cm (5' 11.65). Weight as of this encounter: 79.4 kg (175 lb). Last 5 Encounter BP Readings: Date: BP: 07/05/2022 160/102 04/12/2022 178/90 02/15/2022 168/92 12/21/2021 182/98 03/10/2021 190/112 07/05/22 1429 07/05/22 1525 BP: 160/102 170/88 Pulse: 67 SpO2: 97% Weight: 79.4 kg (175 lb) Physical Exam Vitals reviewed. Constitutional: Appearance: Normal appearance. Eyes: Conjunctiva/sclera: Conjunctivae normal. Cardiovascular: Rate and Rhythm: Normal rate and regular rhythm. Heart sounds: Normal heart sounds. Pulmonary: Effort: Pulmonary effort is normal. Breath sounds: Normal breath sounds. Skin: General: Skin is warm and dry. Neurological: General: No focal deficit present. Mental Status: He is alert and oriented to person, place, and time. Motor: No weakness. Coordination: Coordination normal. Gait: Gait normal. Psychiatric: Mood and Affect: Mood normal. Behavior: Behavior normal. Thought Content: Thought content normal. Judgment: Judgment normal. Brain without Contrast [facility] Imaging Services [address] [place] [address] Brain without Contrast MR#: [id number] Acct: [id number] Name: BUBBA HONG Rep #: [id number] : 1945 76 From: Luis Manuel Singleton MD PCP: Dr. Laine Baeza MD Status: ADM IN Study: Brain without Contrast Date of Exam: 05/03/22 Exam# [id number] Ordering Dr: Maddison Gambino MD STUDY: MRI BRAIN WITHOUT CONTRAST REASON FOR EXAM: Male, 76 years old. NEURO DEFICIT, confusion TECHNIQUE: Standardized multiplanar fat and water weighted pulse sequences were obtained. COMPARISON: None CT head 05/03/2022.. FINDINGS: There is mild cortical and central atrophy. There is mild chronic microvascular ischemic change in the periventricular white matter. There is no evidence of acute or chronic intracranial hemorrhage. Cerebellum normal. Fusion/echoplanar imaging demonstrates no evidence of acute ischemia nor of acute infarct. Normal bilateral basal ganglia. Normal thalami. There is no extra-axial fluid accumulation. Normal flow voids within the major intracranial circulation suggesting patency by spin echo criteria. Normal sella turcica, pituitary gland, infundibular stalk, optic chiasm and hypothalamus. Normal tectal plate and pineal gland. Normal midbrain, tyler and medulla. Normal cerebellum. Normal basal cisterns. Normal bilateral temporal bones. Normal bilateral internal auditory canals. No demonstrated orbital abnormality, within the constraints of a routine brain study. There is moderate circumferential mucosal thickening in the right maxillary sinus. There is mild bilateral ethmoidal mucosal thickening. Normal calvarium and skull base. Normal visualized soft tissue structures. Normal visualized upper cervical spine. Findings are in accord with CT of the brain performed earlier the same day. MRI/Brain without Contrast IMPRESSION: Mild cortical and central atrophy. Moderate right maxillary sinus mucosal thickening. Mild bilateral ethmoidal mucosal thickening. Electronically Signed: Luis Manuel Singleton MD, MARIANA at 15:16 EDT Reading Location ID and State: [facility] / [place] Tel , Service support , CTA Head AND Neck W/ Contrast [facility] Imaging Services [address] [place] [id number] CTA Head AND Neck W/ Contrast MR#: [id number] Acct: [id number] Name: BUBBA HONG Rep #: [id number] : 1945 76 From: Luis Maneul Singleton MD PCP: Dr. Laine Baeza MD Status: [facility] Study: CTA Head AND Neck W/ Contrast Date of Exam: Exam# [id number] Ordering Dr: Daquan Iniguez MD STUDY: CTA HEAD AND NECK WITH CONTRAST REASON FOR EXAM: Male, 76 years old. confusion RADIATION DOSAGE (If Supplied By Facility): CTDIvol = ( 23.11 ) mGy, DLP = ( 739.03 ) mGycm TECHNIQUE: CT angiography was performed with a multi-detector CT scanner. Data acquisition was obtained from the skull base through the vertex following intravenous administration of IV 100mL Isovue-370. MIP images were reconstructed from the axial data set. Post-processing of the angiographic images was performed, with multiplanar reformation and 3D reconstruction. Individualized dose optimization techniques were used for this CT. COMPARISON: No relevant priors. FINDINGS: Normal bilateral petrous carotid arteries. Bilaterally the distal cavernous carotid arteries at the right and left genu demonstrating moderate stenosis in the range of 40-59%. Normal right A1 segments of the anterior cerebral artery. Normal left A1 segments of the anterior cerebral artery. Normal intact anterior communicating artery (ACOM). Normal bilateral A2 segments of the anterior cerebral arteries. Normal right M1 and M2 segments of the middle cerebral arteries, with a normal M1 bifurcation. Normal left M1 and M2 segments of the middle cerebral arteries, with a normal M1 bifurcation. Normal right posterior communicating artery (PCOM). Normal left posterior communicating artery (PCOM) which appears dominant.. Normal bilateral vertebral arteries. Normal basilar artery with a normal basilar bifurcation. The visualized bilateral superior cerebellar (SCA) arteries are normal. Normal bilateral P1, P2 and visualized P3 segments of the posterior cerebral arteries. There is no demonstrated aneurysm of the cur[place] of [place]. There is no demonstrated abnormality of the visualized brain. AORTIC ARCH: Normal visualized aortic arch. Normal origins of the brachiocephalic, left common carotid, and left subclavian arteries. RIGHT CAROTID ARTERIES: Normal right common carotid artery (CCA). Normal right common carotid bulb. (139%) stenosis at the origin of the right internal carotid artery. Normal visualized cervical portion of the right internal carotid artery. Normal origin of the right external carotid artery (ECA). LEFT CAROTID ARTERIES: Normal left common carotid artery (CCA). Normal left common carotid bulb. Mild stenosis at the origin of the left internal carotid artery in the range of 1-39%. Normal visualized cervical portion of the left internal carotid artery. Normal origin of the left external carotid artery (ECA). VERTEBRAL ARTERIES: Vertebral arteries are normal bilaterally with the distal left vertebral being dominant. CT/CTA Head AND Neck W/ Contrast IMPRESSION: Mild (1-39%) stenosis of the origin of the right and left internal carotid arteries. 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 Normal variant prominent distal left vertebral artery. Findings discussed with Dr. Iniguez. Electronically Signed: Luis Manuel Singleton MD, MARIANA at 11:58 EDT , CC: Dr. Daquan Iniguez MD; Dr. Laine Baeza MD Hair Tinter: Signed Assessment and Plan ASSESSMENT/PLAN: 1. Transient global amnesia versus TIA - ICD9: 437.7, ICD10: G45.4 (primary diagnosis) Will refer to neurology for further evaluation and treatment. Already on statin and meds for BP control - CONSULT TO NEUROLOGY 2. First detected episode of atrial fibrillation (HCC) - ICD9: 427.31, ICD10: I48.91 Continue follow up with Dr. Mcclain/[facility]. Will forward this progress note to let him know patient is not taking Eliquis at this time since cannot afford it and is waiting to hear back from his office regarding possible assistance for Eliquisversus change to other anticoagulant that he can afford. 3. Primary hypertension - ICD9: 401.9, ICD10: I10 - suboptimal control - Patient with history of difficulty controlling his BP and intolerance to several meds. He is tolerating current medications. - Continue current medication(s)--may take a month or two to see full effect of BP med changes, so BP might continue to improve. In the past patient was not really interested in getting BP controlledbut with this recent episode of problem with his memory that resulted in admission to [facility], he is willing to get BP better controlled. - Recommended regular aerobic exercise. - Will forward this note to Dr. Mcclain so he is aware BP was still high today. - Goal of BP <130/80 4. Bilateral carotid artery stenosis - ICD9: 433.10, 433.30, ICD10: I65.23 See above CTA. Continue efforts at BP and lipid control. Further evaluation and treatment as indicated. Laine Baeza MD documented in this encounterGenesis Hospital09-01-2022 Miscellaneous Notes* Telephone Encounter - Alexandra Mera RN - 05/04/2022 11:28 AM EDT Laverne with [facility] calls to request a medication list and most recent OV note be faxed to [phone]. Faxed per request. Patient currently hospitalized for atrial fibrillation with rapid ventricularresponse. Alexandra Mera RN documented in this encounterGenesis Hospital08-31-2022 Evaluation note* Diagnosis Onset Date Resolution Status Acute confusion resolved Atrial fibrillation with rap id ventricular response May 03, 2022 resolved Atrial fibrillation acute Essential (primary) hypertension chronic Atrial fibrillation acute [facility] Work Phone: 1(216) 511-604808-31-2022 Miscellaneous Notes* Telephone Encounter - Candace Bhat LPN - 05/03/2022 12:06 PM EDT Nurse Slaughter from [facility] ED calling to request pt's current medication list. List printed & faxed to her at [phone]. Candace Bhat LPN documented in this encounterGenesis Hospital08-25-2022 Miscellaneous Notes* Telephone Encounter - Shaniqua Sin LPN - 04/27/2022 4:18 PM EDT Patient notified of results and provider's instructions. Patient verbalizes understanding. Records all faxed to [facility]. Shaniqua Sin LPN * Telephone Encounter - Laine Baeza MD - 04/27/2022 3:58 PM EDT Let patient know that will refer to [facility] since can see him sooner. Filed consult order for [facility] * Telephone Encounter - Shaniqua Sin LPN - 04/27/2022 3:33 PM EDT Called [facility]. Their first new pt appt would be probably 2 weeks. Please routine back to pool since will be out of the office tomorrow. * Telephone Encounter - Laine Baeza MD - 04/27/2022 3:12 PM EDT 1) Should be seen in less than 5 months. We can start the work up if going to be long than a nonth. 2) Result note: All labs okay except for TSH elevated but with normal Free T4, and Creatinine up to 1.52 with normal BUN and normal electrolytes. Would recheck thyroid labs in a month or two with anti-TPO antibody tests to see whether has Meli's thyroiditis as cause for possible developing hypothyroidism. Would not try hypothyroidism tillget atrial fibrillation addressed. Needs to make sure to drink enough fluids every day to stay hydrated.Also recheck kidney function in the next month or so. Labs ordered for follow up so can do in a month or so. * Telephone Encounter - Shaniqua Sin LPN - 04/27/2022 2:15 PM EDT Called and all reviewed. 1.He would rather stay in [place] unless his heart issues need addressed sooner than 5 months. He would like pcp's option of this. 2. Please review labs. Another other recommendations regarding lab results. * Telephone Encounter - Laine Baeza MD - 04/26/2022 8:09 PM EDT If patient okay with going outside of [place], would refer to other provider who can get him in sooner than 5 months out. Check with patient since if he is willing, I can ask Dr. Dunham if he can see patient sooner in [place] then follow up in [place] for fture appointment. If patient needs to stay in [place], refer to [facility]. * Telephone Encounter - Gerber Lion LPN - 04/21/2022 8:31 AM EDT Pt calling to check status on message below. Please advise. Gerber Lion LPN * Telephone Encounter - Maureen Gallo LPN - 04/18/2022 8:49 AM EDT Patient is asking about labs results for labs dated 04/12/2022. He was unable to get scheduled with cardio until 5 month out. He is asking if you are ok with this or should he be seen sooner? Please advise. documented in this encounterGenesis Hospital08-10-2022 History of Present illness Narrative* Laine Baeza MD - 04/12/2022 3:41 PM EDT This note was created using Sernovariter. Subjective Bubba Hong is a 76 year old male. No chief complaint on file. SUBJECTIVE: Bubba Hong is a 76 year old year old gentleman here today for follow up appointment for reviewof medical conditions. Tried doubled dose of BP med Coreg for 4 weeks--was miserable so stopped 3 weeks ago. Stool runny. Had to urinate a lot No energy or strength. Was losing weight no matter what he ate. On lower dose, no weight loss. Was dizzy at the lower dose but did not say anything bout that last appointment. Worried did damage to his heart. Could feel chest thumping for 2 weeks after stopping the Coreg. Irregular thumping was noted. No pain noted. Feels much better now. Was only able to walk only 50 feet when was on the med. Not back to normal yet. Weight at home at 5AM every day for years on same scale. Weight is back up. Some weight up in winter. 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 Yuan Diaphragmatic hernia without mention of obstruction or gangrene Esophageal reflux Esophageal reflux 12/25/2006 Inguinal hernia without mention of obstruction or gangrene, unilateral or unspecified, (not specified as recurrent) 09/14/[address] Reyes diagnosed PSA elevation Dr. Parker Current Outpatient Medications Medication Sig omeprazole (PRILOSEC) 20 mg capsule Take 1 capsule by mouth daily before breakfast. 1/2 hr before meal. doxazosin (CARDURA) 4 mg tablet Take 1 tablet by mouth once daily. lisinopril (ZESTRIL, PRINIVIL) 40 mg tablet Take 1 tablet by mouth once daily. carvedilol (COREG) 6.25 mg tablet Take 1 tablet by mouth twice daily. (Patient not taking: Reportedon 04/12/2022) Clobetasol Propionate (TEMOVATE) 0.05 % external solution Apply 1 application to affected area oncedaily as needed. for rash as directed No current facility-administered medications for this visit. Review of Systems Objective BP 182/102 Pulse 86 Wt 80.3 kg (177 lb) SpO2 98% BMI 24.24 kg/m Last 5 Encounter Wt Readings: Date: Wt: 04/12/2022 80.3 kg (177 lb) 02/15/2022 78 kg (172 lb) 12/21/2021 79.4 kg (175 lb) 03/10/2021 82 kg (180 lb 12.8 oz) 12/15/2020 80 kg (176 lb 6.4 oz) No waist measurement recorded Estimated body mass index is 24.24 kg/m as calculated from the following: Height as of 12/15/20: 182 cm (5' 11.65). Weight as of this encounter: 80.3 kg (177 lb). Last 5 Encounter BP Readings: Date: BP: 04/12/2022 178/90 02/15/2022 168/92 12/21/2021 182/98 03/10/2021 190/112 01/19/2021 149/75[BP Dallin average[ 04/12/22 1519 04/12/22 1556 BP: 182/102 178/90 Pulse: 86 SpO2: 98% Weight: 80.3 kg (177 lb) Physical Exam Vitals reviewed. Constitutional: Appearance: Normal appearance. Eyes: Conjunctiva/sclera: Conjunctivae normal. Cardiovascular: Rate and Rhythm: Normal rate. Rhythm irregularly irregular. Heart sounds: Normal heart sounds. Pulmonary: Effort: Pulmonary effort is normal. Breath sounds: Normal breath sounds. Skin: General: Skin is warm and dry. Neurological: General: No focal deficit present. Mental Status: He is alert and oriented to person, place, and time. Psychiatric: Mood and Affect: Mood normal. Behavior: Behavior normal. Thought Content: Thought content normal. Judgment: Judgment normal. ECG_ A fib with ventricular rate 82. Possible inferior infarct 9await cardiology reading) Assessment and Plan ASSESSMENT/PLAN: 1. Atrial fibrillation, new onset (HCC) - ICD9: 427.31, ICD10: I48.91 (primary diagnosis) Newly diagnosed. May have started after stopped Coreg but possibly contributed to fatigue before stopped the med. Referred to [facility] 2. Primary hypertension - ICD9: 401.9, ICD10: I10 - poor control - Continue current medication(s) - Declines starting a new medication because of side effects to Coreg worse when increased dose andresolved mostly with stopping med. Further evaluation and treatment as indicated. - Goal of BP <130/80 - COMP METABOLIC PANEL - MAGNESIUM BLD - CBC + DIFF - TSH BLD - T4 FREE/FREE THYROX - ECG COMPLETE 3. Fatigue, unspecified type - ICD9: 780.79, ICD10: R53.83 Further evaluation and treatment as indicated. A fib probably major cause. Wonder if had viral illness too. - COMP METABOLIC PANEL - MAGNESIUM BLD - CBC + DIFF - TSH BLD - T4 FREE/FREE THYROX - ECG COMPLETE 4. Dizziness - ICD9: 780.4, ICD10: R42 Further evaluation and treatment as indicated. - COMP METABOLIC PANEL - MAGNESIUM BLD - CBC + DIFF - TSH BLD - T4 FREE/FREE THYROX - ECG COMPLETE 5. Acute diarrhea - ICD9: 787.91, ICD10: R19.7 Resolved off Coreg per patient 6. Irregular heart beats - ICD9: 427.9, ICD10: I49.9 A fib - ECG COMPLETE Laine D Talampas, MD documented in this encounterGen[facility]06-15-[facility]22 History of Present illness Narrative* Laine Baeza MD - 02/15/2022 3:45 PM EDT This note was created using Sernovariter. Subjective Bubba Hong is a 76 year old male. Patient presents with: Follow Up SUBJECTIVE: Bubba Hong is a 76 year old year old gentleman here today for follow up appointment for reviewof medical conditions. Tolerated med well. ?whether causes some increased fatigue or issues with making a few minor mistakes at work. Noted that expressed does not really care about controlling his BP but will adjust meds to control BP if that is what I recommend. 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 Yuan Diaphragmatic hernia without mention of obstruction or gangrene Esophageal reflux Esophageal reflux 12/25/2006 Inguinal hernia without mention of obstruction or gangrene, unilateral or unspecified, (not specified as recurrent) 09/14/[address] Reyes diagnosed PSA elevation Dr. Parker Current Outpatient Medications Medication Sig omeprazole (PRILOSEC) 20 mg capsule Take 1 capsule by mouth daily before breakfast. 1/2 hr before meal. carvedilol (COREG) 3.125 mg tablet Take 1 tablet by mouth twice daily. doxazosin (CARDURA) 4 mg tablet Take 1 tablet by mouth once daily. lisinopril (ZESTRIL, PRINIVIL) 40 mg tablet Take 1 tablet by mouth once daily. Clobetasol Propionate (TEMOVATE) 0.05 % external solution Apply 1 application to affected area oncedaily as needed. for rash as directed No current facility-administered medications for this visit. Review of Systems Objective BP 168/102 Pulse 70 Wt 78 kg (172 lb) SpO2 97% BMI 23.55 kg/m Last 5 Encounter Wt Readings: Date: Wt: 02/15/2022 78 kg (172 lb) 12/21/2021 79.4 kg (175 lb) 03/10/2021 82 kg (180 lb 12.8 oz) 12/15/2020 80 kg (176 lb 6.4 oz) 08/22/2019 81.6 kg (180 lb) No waist measurement recorded Estimated body mass index is 23.55 kg/m as calculated from the following: Height as of 12/15/20: 182 cm (5' 11.65). Weight as of this encounter: 78 kg (172 lb). Last 5 Encounter BP Readings: Date: BP: 02/15/2022 168/102 12/21/2021 182/98 03/10/2021 190/112 01/19/2021 149/75[BP Dallin average[ 12/15/2020 160/88 Physical Exam Vitals reviewed. Constitutional: Appearance: Normal appearance. Eyes: Conjunctiva/sclera: Conjunctivae normal. Cardiovascular: Rate and Rhythm: Normal rate and regular rhythm. Heart sounds: Normal heart sounds. Pulmonary: Effort: Pulmonary effort is normal. Breath sounds: Normal breath sounds. Skin: General: Skin is warm and dry. Neurological: General: No focal deficit present. Mental Status: He is alert and oriented to person, place, and time. Psychiatric: Mood and Affect: Mood normal. Behavior: Behavior normal. Thought Content: Thought content normal. Judgment: Judgment normal. Component Latest Ref Rng & Units 12/08/2020 01/24/2021 Protein, Total 6.3 - 8.0 g/dL 5.9 (L) Albumin 3.9 - 4.9 g/dL 3.8 (L) Calcium 8.5 - 10.2 mg/dL 9.2 9.1 Bilirubin, Total 0.2 - 1.3 mg/dL 0.2 Alkaline Phosphatase 38 - 113 U/L 79 AST 14 - 40 U/L 18 Glucose 74 - 99 mg/dL 93 89 BUN 9 - 24 mg/dL 21 19 Creatinine 0.73 - 1.22 mg/dL 1.09 1.20 Sodium 136 - 144 mmol/L 138 134 (L) Potassium 3.7 - 5.1 mmol/L 4.0 3.9 Chloride 97 - 105 mmol/L 105 101 CO2 22 - 30 mmol/L 25 22 Anion Gap 9 - 18 mmol/L 8 (L) 11 ALT 10 - 54 U/L 20 eGFR- >60 >60 eGFR-All Other Races . >60 59 WBC 3.70 - 11.00 k/uL 6.53 6.67 RBC 4.20 - 6.00 m/uL 5.33 4.90 Hemoglobin 13.0 - 17.0 g/dL 15.3 14.4 Hematocrit 39.0 - 51.0 % 47.0 42.4 MCV 80.0 - 100.0 fL 88.2 86.5 MCH 26.0 - 34.0 pG 28.7 29.4 MCHC 30.5 - 36.0 g/dL 32.6 34.0 RDW-CV 11.5 - 15.0 % 14.6 14.3 Platelet Count 150 - 400 k/uL 245 234 MPV 9.0 - 12.7 fL 10.8 11.1 Absolute nRBC <0.01 k/uL <0.01 <0.01 Magnesium 1.7 - 2.3 mg/dL 2.0 Assessment and Plan ASSESSMENT/PLAN: 1. Primary hypertension - ICD9: 401.9, ICD10: I10 - suboptimal control - Recommended regular aerobic exercise. - Recommend home blood pressure monitoring, to bring results in on next visit - Adjusting meds as discussed. - Goal of BP <130/80 MD Laine Aaron MD documented in this encounterGenesis Hospital04-25-2022 Miscellaneous Notes* Telephone Encounter - Dena Henry RN - 12/26/2021 1:26 PM EDT Patient returned call and appt was rescheduled. Dena Henry RN * Telephone Encounter - Laura Tripathi - 12/23/2021 11:13 AM EDT 1st attempt - LVM for patient to call back and r/s bp check Please contact the patient to schedule an appointment. Appointment specifications include: WHY does the patient need to be seen? BP Check WHO should the patient schedule the appointment with? [facility] is acceptable WHAT specific type of appointment is needed? Follow-Up WHEN should the patient be seen? First available appointment WHERE should the patient be seen? In Office * Telephone Encounter - Makenzie Glover Ma - 12/21/2021 3:34 PM EDT As patient was leaving, BP follow-up with Kelsi drake scheduled 02/15 @ 4pm was double booked by someone scheduling same slot at same time, please contact to reschedule. Patient prefers Sunday afternoons documented in this encounterGenesis Hospital04-20-2022 Nurse Note* Makenzie Glover Ma - 12/21/2021 3:37 PM EDT Vision Screening Edited by: Makenzie Glover Ma Right eye Left eye Both eyes With correction 20/25 20/25 20/25 documented in this encounterGenesis Hospital04-20-2022 History of Present illness Narrative* Laine Baeza MD - 12/21/2021 2:48 PM EDT This note was created using Sernovariter. Subjective Bubba Hong is a 75 year old male. HISTORY Bubba Hong is a 75 year old gentleman here for yearly exam and follow up appointment. Overall doing well. Has left leg varicose vein just above medial knee area. On exam, appears small caliber. No pain noted. Had eaten prior to labs done after 2PM last Sunday. Would not have had any water prior to the labs. Just had coffee that AM and iced tea at lunch. Drinks water after gets home around 4 to 6PM. Couple beers at night. 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 Yuan Diaphragmatic hernia without mention of obstruction or gangrene Esophageal reflux Esophageal reflux 12/25/2006 Inguinal hernia without mention of obstruction or gangrene, unilateral or unspecified, (not specified as recurrent) 09/14/[address] Reyes diagnosed PSA elevation Dr. Parker Current Outpatient Medications Medication Sig omeprazole (PRILOSEC) 20 mg capsule Take 1 capsule by mouth daily before breakfast. 1/2 hr before meal. doxazosin (CARDURA) 4 mg tablet Take 1 tablet by mouth once daily. lisinopril (ZESTRIL, PRINIVIL) 40 mg tablet Take 1 tablet by mouth once daily. Clobetasol Propionate (TEMOVATE) 0.05 % external solution Apply 1 application to affected area oncedaily as needed. for rash as directed No current facility-administered medications for this visit. ALLERGIES Allergen Reactions Amlodipine Rash, Other: See Comments Muscle soreness, difficulty voiding Chlorthalidone Diarrhea Tried several times and caused adverse effects each time (sometimes after a few months sometimes right away). Hctz [Hydrochloroth* Intolerance urinary frequency and bowel frequency too much FAMILY HISTORY Problem Relation Age of Onset Hypertension Father Heart Father Alzheimer's Disease Mother Social History Tobacco Use Smoking status: Former Smoker Smokeless tobacco: Never Used Tobacco comment: quit 20 years ago Substance Use Topics Alcohol use: Yes Alcohol/week: 20.0 standard drinks Drug use: No Review of Systems Objective BP 172/92 Pulse 68 Wt 79.4 kg (175 lb) SpO2 98% BMI 23.96 kg/m Last 5 Encounter Wt Readings: Date: Wt: 12/21/2021 79.4 kg (175 lb) 03/10/2021 82 kg (180 lb 12.8 oz) 12/15/2020 80 kg (176 lb 6.4 oz) 08/22/2019 81.6 kg (180 lb) 12/11/2018 82.1 kg (181 lb) No waist measurement recorded Estimated body mass index is 23.96 kg/m as calculated from the following: Height as of 12/15/20: 182 cm (5' 11.65). Weight as of this encounter: 79.4 kg (175 lb). Last 5 Encounter BP Readings: Date: BP: 12/21/2021 172/92 03/10/2021 190/112 01/19/2021 149/75[BP Dallin average[ 12/15/2020 160/88 08/22/2019 132/86 12/21/21 1426 12/21/21 1507 BP: 172/92 182/98 Pulse: 68 SpO2: 98% Weight: 79.4 kg (175 lb) Physical Exam Vitals reviewed. Constitutional: Appearance: Normal appearance. HENT: Head: Normocephalic. Right Ear: Tympanic membrane, ear canal and external ear normal. Left Ear: Tympanic membrane, ear canal and external ear normal. Mouth/Throat: Mouth: Mucous membranes are moist. Pharynx: Oropharynx is clear. Eyes: Extraocular Movements: Extraocular movements intact. Conjunctiva/sclera: Conjunctivae normal. Cardiovascular: Rate and Rhythm: Normal rate and regular rhythm. Pulses: Normal pulses. Heart sounds: Normal heart sounds. Pulmonary: Effort: Pulmonary effort is normal. Breath sounds: Normal breath sounds. Abdominal: General: Abdomen is flat. There is no distension. Palpations: Abdomen is soft. There is no mass. Musculoskeletal: Cervical back: Normal range of motion. Skin: General: Skin is warm and dry. Neurological: General: No focal deficit present. Mental Status: He is alert and oriented to person, place, and time. Psychiatric: Attention and Perception: Attention normal. Mood and Affect: Mood normal. Speech: Speech normal. Behavior: Behavior normal. Thought Content: Thought content normal. Cognition and Memory: Cognition normal. Judgment: Judgment normal. Component Latest Ref Rng & Units 12/08/2020 01/24/2021 05/03/2021 12/14/2021 Protein, Total 6.3 - 8.0 g/dL 5.9 (L) Albumin 3.9 - 4.9 g/dL 3.8 (L) 4.0 Calcium 8.5 - 10.2 mg/dL 9.2 9.1 9.4 Bilirubin, Total 0.2 - 1.3 mg/dL 0.2 Alkaline Phosphatase 38 - 113 U/L 79 AST 14 - 40 U/L 18 Glucose 74 - 99 mg/dL 93 89 107 (H) BUN 9 - 24 mg/dL 21 19 20 Creatinine 0.73 - 1.22 mg/dL 1.09 1.20 1.28 (H) Sodium 136 - 144 mmol/L 138 134 (L) 139 Potassium 3.7 - 5.1 mmol/L 4.0 3.9 3.8 Chloride 97 - 105 mmol/L 105 101 105 CO2 22 - 30 mmol/L 25 22 26 Anion Gap 9 - 18 mmol/L 8 (L) 11 8 (L) ALT 10 - 54 U/L 20 eGFR- >60 >60 eGFR-All Other Races . >60 59 Phosphorus 2.7 - 4.8 mg/dL 3.1 eGFR >=60 mL/min/1.73m 59 (L) WBC 3.70 - 11.00 k/uL 6.53 6.67 RBC 4.20 - 6.00 m/uL 5.33 4.90 Hemoglobin 13.0 - 17.0 g/dL 15.3 14.4 Hematocrit 39.0 - 51.0 % 47.0 42.4 MCV 80.0 - 100.0 fL 88.2 86.5 MCH 26.0 - 34.0 pG 28.7 29.4 MCHC 30.5 - 36.0 g/dL 32.6 34.0 RDW-CV 11.5 - 15.0 % 14.6 14.3 Platelet Count 150 - 400 k/uL 245 234 MPV 9.0 - 12.7 fL 10.8 11.1 Absolute nRBC <0.01 k/uL <0.01 <0.01 Magnesium 1.7 - 2.3 mg/dL 2.0 PSA 0.00 - 2.59 ng/mL 0.80 Assessment and Plan ASSESSMENT/PLAN: 1. Essential hypertension - ICD9: 401.9, ICD10: I10 (primary diagnosis) - suboptimal control - Recommended regular aerobic exercise. - Recommend home blood pressure monitoring, to bring results in on next visit - Continue current medications and add beta manuela carvedilol at low dose. Adjust dose as tolerated as needed, Note that had not tolerated HCTZ and a few other meds tried before. Will follow up in about a month with JR (requests to see Kelsi Drake who he has worked with before). Further evaluation and treatment as indicated. He will call if has any problems tolerating the medication, - Goal of BP <130/80 - COMP METABOLIC PANEL - CBC 2. Gastroesophageal reflux disease without esophagitis - ICD9: 530.81, ICD10: K21.9 - Continue present management. - OMEPRAZOLE 20 MG CAPSULE,DELAYED RELEASE 3. Acute renal insufficiency - ICD9: 593.9, ICD10: N28.9 Monitor. Encouraged on drinking more non-caffeinated fluids since he primarily drinks coffee and iced tea during the morning and work day and no water till get gets home, plus a couple beers at night. Further evaluation and treatment as indicated. 4. 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 Asymptomatic--just noted that gets larger/swells sometimes. Further evaluation and treatment as indicated. 5. Encounter for long-term current use of medication - ICD9: V58.69, ICD10: Z79.899 - COMP METABOLIC PANEL - CBC - MAGNESIUM BLD Patient here for yearly exam and follow up. Above issues addressed with patient. Patient involved in shared decision making for management of medical issues. History and medications reviewed. Epic updated as needed Refills taken care of and meds adjusted as indicated after reviewed history, exam and labs. Health Maintenance reviewed. Updated record and/or ordered tests as recorded. Encouraged on efforts at healthy diet and regular exercise and adequate sleep. Laine Baeza MD Medical Decision Making: Problems: Moderate: 2+ stable chronic illnesses Data: Unique test result(s) reviewed: 3+ Unique test(s) ordered: 3+ Risk: Moderate: Drug management Medical Decision Making Level: 4 - Moderate documented in this encounterGenesis Hospital04-04-2022 Miscellaneous Notes* Telephone Encounter - Delaney Cespedes Ma - 12/05/2021 1:33 PM EDT GURMEET 12/15/20 NOV 12/21/21 Delaney Cespedes Ma * Telephone Encounter - Rosemary Gutierrez - 12/05/2021 1:27 PM EDT Patient has been identified by name and date of : Yes Pending Prescriptions Disp Refills DOXAZOSIN 4 MG TABLET 90 tablet 3 Sig: Take 1 tablet by mouth once daily. DARIA: No LISINOPRIL 40 MG TABLET 90 tablet 3 Sig: Take 1 tablet by mouth once daily. DARIA: No RX INSTRUCTIONS: Patient aware RX will be sent to pharmacy. No need to notify patient. Rosemary Gutierrez documented in this encounterGenesis Hospital07-08-2021 History of Present illness Narrative* Natali Gibbs RT(R) - 03/10/2021 3:00 PM EDT Radiology Service Progress Note PATIENT NAME: Bubba Hong DATE OF SERVICE: March 10, 2021 TIME: 2:58 PM PATIENT IDENTITY VERIFICATION COMPLETED USING TWO (2) IDENTIFIERS: Name and Date of confirmedby patient verbally. FALL SCREENING: Has the patient had 2 falls in the last year or 1 fall with injury or currently using an Ambulatory Assistive Device (Walker, Cane, Wheelchair, Crutches, etc.)? No PATIENT GENDER DATA: Male PATIENT RELEVANT IMPLANT DATA REVIEWED: Yes RADIOLOGY DEPARTMENT: General X-ray: Exam(s) Completed: Upper Extremity X- Ray(s): Wrist, left PERIPHERAL IV DATA: Not applicable SIGNED BY: RT Marshall(R) March 10, 2021 2:58 PM documented in this encounterGenesis Hospital02-20-2009 History of Past illness Narrative* Problem Noted Date Resolved Date Hydrocele, unspecified 10/23/2008 4 Spermatocele 09/18/2005 10/23/2008 documented as of this encounter (statuses as of 12/05/2021) [facility] of [facility] illness Narrative* Problem Noted Date Resolved Date Hydrocele, unspecified 10/23/2008 4 Spermatocele 09/18/2005 10/23/2008 documented as of this encounter (statuses as of 12/09/2021) [facility] of [facility] illness Narrative* Problem Noted Date Resolved Date Hydrocele, unspecified 10/23/2008 4 Spermatocele 09/18/2005 10/23/2008 documented as of this encounter (statuses as of 12/26/2021) [facility] illness Narrative* Problem Noted Date Resolved Date Hydrocele, unspecified 10/23/2008 4 Spermatocele 09/18/2005 10/23/2008 documented as of this encounter (statuses as of 01/17/2022) [facility] Narrative* Problem Noted Date Resolved Date Hydrocele, unspecified 10/23/2008 4 Spermatocele 09/18/2005 10/23/2008 documented as of this encounter (statuses as of 04/10/2022) [facility] Narrative* Problem Noted Date Resolved Date Hydrocele, unspecified 10/23/2008 4 Spermatocele 09/18/2005 10/23/2008 documented as of this encounter (statuses as of 04/12/2022) [facility] Narrative* Problem Noted Date Resolved Date Hydrocele, unspecified 10/23/2008 4 Spermatocele 09/18/2005 10/23/2008 documented as of this encounter (statuses as of 04/27/2022) [facility] Narrative* Problem Noted Date Resolved Date Hydrocele, unspecified 10/23/2008 4 Spermatocele 09/18/2005 10/23/2008 documented as of this encounter (statuses as of 05/03/2022) [facility] Narrative* Problem Noted Date Resolved Date Hydrocele, unspecified 10/23/2008 4 Spermatocele 09/18/2005 10/23/2008 documented as of this encounter (statuses as of 05/04/2022) [facility] Narrative* Problem Noted Date Resolved Date Hydrocele, unspecified 10/23/2008 4 Spermatocele 09/18/2005 10/23/2008 documented as of this encounter (statuses as of 07/07/2022) [facility] Narrative* Problem Noted Date Resolved Date Hydrocele, unspecified 10/23/2008 4 Spermatocele 09/18/2005 10/23/2008 documented as of this encounter (statuses as of 07/18/2022) [facility] N[facility]ative* Problem Noted Date Resolved Date Hydrocele, unspecified 10/23/2008 4 Spermatocele 09/18/2005 10/23/2008 documented as of this encounter (statuses as of 12/01/2022) [facility] Narrative* Problem Noted Date Diagnosed Date Resolved Date Hydrocele, unspecified 10/23/200809/10 Spermatocele 09/18/2005 10/23/2008 documented as of this encounter (statuses as of 11/13/2023) [facility] note* Diagnosis Essential hypertension Unspecified essential hypertension documented in this encounter [facility] note* Diagnosis Medication management Encounter for long-term (current) use of other medications [facility] Diagnosis Essential hypertension- Primary Unspecified essential hypertension Gastroesophageal reflux disease without esophagitis Esophageal reflux Acute renal insufficiency Unspecified disorder of kidney and ureter Asymptomatic varicose veins of left lower extremity Asymptomatic varicose veins Encounter for long-term current use of medication [facility]* Diagnosis Primary hypertension- Primary Unspecified essential hypertension [facility]* Diagnosis Atrial fibrillation, new onset (HCC)- Primary Atrial fibrillation Primary hypertension Unspecified essential hypertension Fatigue, unspecified type Dizziness Dizziness and giddiness Acute diarrhea Diarrhea Irregular heart beats Cardiac dysrhythmia, unspecified [facility]* Diagnosis Elevated TSH- Primary Nonspecific abnormal results of thyroid function study Elevated serum creatinine Other nonspecific findings on examination of blood Atrial fibrillation, new onset (HCC) Atrial fibrillation [facility] Diagnosis Onset Date Resolution Status Acute confusion acute Atrial fibrillation with rapid ventricular response acute [facility] Work Phone: Evaluation note* Diagnosis Transient global amnesia versus TIA- Primary Transient global amnesia First detected episode of atrial fibrillation (HCC) Primary hypertension Unspecified essential hypertension Bilateral carotid artery stenosis Occlusion and stenosis of carotid artery without mention of cerebral infarction [facility] Diagnosis Onset Date Resolution Status Atrial fibrillation acute Essential (primary) hypertension chronic Atrial fibrillation acute Hyperlipidemia acute CKD (chronic kidney disease), stage III chronic Essential (primary) hypertension chronic 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 Paroxysmal atrial fibrillation chronic [facility] Work Phone: evaluation note* Diagnosis Onset Date Resolution Status Hyperlipidemia acute CKD (chronic kidney disease), stage III chronic Essential (primary) hypertension chronic FPC current use of anticoagulant chronic Paroxysmal atrial fibrillation chronic [facility] Work Phone: Evaluation note* Diagnosis Essential hypertension Unspecified essential hypertension Gastroesophageal reflux disease without esophagitis Esophageal reflux documented in this encounter [facility] note* Diagnosis Onset Date Resolution Status Hyperlipidemia acute CKD (chronic kidney disease), stage III chronic Essential (primary) hypertension chronic FPC current use of anticoagulant chronic Paroxysmal atrial fibrillation chronic Hyperlipidemia acute CKD (chronic kidney disease), stage III chronic Essential (primary) hypertension chronic FPC current use of anticoagulant chronic Paroxysmal atrial fibrillation chronic [facility] Work Phone: Evaluation noteNo assessment information available [facility] Work Phone: Evaluation note* Diagnosis Onset Date Resolution Status Essential (primary) hypertension chronic [facility] Work Phone: Evaluation note* Diagnosis Essential hypertension Unspecified essential hypertension Gastroesophageal reflux disease without esophagitis Esophageal reflux documented in this encounter [facility] note* Diagnosis Medicare annual wellness visit, subsequent- Primary Routine general medical examination at a [facility] care facility Gastroesophageal reflux disease without esophagitis Esophageal reflux Essential hypertension Unspecified essential hypertension Encounter for immunization Need for other specified prophylactic vaccination against single bacterial disease Encounter for long-term current use of medication documented in this encounter [facility] note* Diagnosis Left wrist pain Pain in joint, forearm documented in this encounter [facility] note* Diagnosis Acute cough- Primary Acute cough documented in this encounter [facility] note* Diagnosis Acute cough documented in this encounter [facility] Discharge instructions Additional Instructions For at home treatment of nosebleeds: Get any [id number] nasal decongestant spray containing oxymetazoline or phenylephrine. For moderate-severe nosebleed: 1 - gather supplies: nasal decongestant spray (above), cotton ball, box of tissues, garbage can, old towel that you can wrap around your chest/neck (to catch blood) 2 - soak a cotton ball in the nasal spray 3 - blow your nose, get all blood and clots out, keep chin down to prevent blood from going back into throat and forming clots 4 - after blowing the last time, quickly spray 2 sprays of the nasal spray into the affected side and sniff it back, immediately followed by twisting the soaked cotton ball into the front of your nose and then hold pressure with your fingers. 5 - if bleeding controlled, leave cotton ball in place for at least 20 min before checking to see if the bleeding is controlled by removing the cotton ball. If not able to control bleeding, always welcome to return to the ER for help. [facility] Work Phone: Reason for referral (narrative)No reason for referral [facility] Work Phone: Summary Purpose Family History No Family History Records FoundNo Family History Records FoundNo Family History Records Found Advance Directives Advance Directive Response Recorded Date/ Time Living Will No May 03 10:37am Power of Sheet Rock Hanger No May 03 10:37am Advance Directive Response Recorded Date/ Time Living Will No May 03 1:19pm Power of Sheet Rock Hanger No May 03 1:19pm Advance Directive Response Recorded Date/ Time [facility] Advance Directives No May 11:19am Living Will No May 29, 2022 11:19am Power of Sheet Rock Hanger No May 11:19am Advance Directive Response Recorded Date/ Time Advance Directives on File No [facility] 2021 11:19am Advance Directives No May 11:19am Living Will No June 01, 2022 6:16am Power of Sheet Rock Hanger No May 6:16am Advance Directive Response Recorded Date/ Time Advance Directives on File No [facility] 2021 10:19am Advance Directives No May 10:19am Living Will No June 01, 2022 5:16am Power of Sheet Rock Hanger No May 5:16am Advance Directive Response Recorded Date/ Time Advance Directives No May 10:19am Living Will No June 01, 2022 5:16am Power of Sheet Rock Hanger No May 5:16am Advance Directive Response Recorded Date/ Time Advance Directives No May 11:19am Living Will No June 01, 2022 6:16am Power of Sheet Rock Hanger No May 6:16am Advance Directive Response Recorded Date/ Time Living Will No September 03 5:51am Do you have a Healthcare Power of Sheet Rock Hanger? No September 03, 2024 5:51am Living Will No August 03 2:39am Do you have a Healthcare Power of Sheet Rock Hanger? No August 03, 2024 2:39am Living Will No October 03 10:29pm Do you have a Healthcare Power of Sheet Rock Hanger? No October 03, 2024 10:29pm Living Will No November 01, 2024 8:39am Do you have a Healthcare Power of Sheet Rock Hanger? No November 01, 2024 8:39am Advance Directives No May 11:19am Advance Directive Response Recorded Date/ Time Living Will No September 03 5:51am Do you have a Healthcare Power of Sheet Rock Hanger? No September 03, 2024 5:51am Living Will No December 01, 2024 10:51pm Do you have a Healthcare Power of Sheet Rock Hanger? No December 01, 2024 10:51pm Living Will No October 03 10:29pm Do you have a Healthcare Power of Sheet Rock Hanger? No October 03, 2024 10:29pm Living Will No November 01, 2024 8:39am Do you have a Healthcare Power of Sheet Rock Hanger? No November 01, 2024 8:39am Living Will No December 31, 2024 10:13pm Do you have a Healthcare Power of Sheet Rock Hanger? No December 31, 2024 10:13pm Advance Directives No May 11:19am Advance Directive Response Recorded Date/ Time Living Will No December 01, 2024 10:51pm Do you have a Healthcare Power of Sheet Rock Hanger? No December 01, 2024 10:51pm Living Will No October 03 10:29pm Do you have a Healthcare Power of Sheet Rock Hanger? No October 03, 2024 10:29pm Living Will No November 01, 2024 8:39am Do you have a Healthcare Power of Sheet Rock Hanger? No November 01, 2024 8:39am Living Will No December 31, 2024 10:13pm Do you have a Healthcare Power of Sheet Rock Hanger? No December 31, 2024 10:13pm Advance Directives No May 11:19am Advance Directive Response Recorded Date/ Time Living Will No December 01, 2024 10:51pm Do you have a Healthcare Power of Sheet Rock Hanger? No December 01, 2024 10:51pm Living Will No February 01, 2025 7 :21pm Do you have a Healthcare Power of Sheet Rock Hanger? No February 01, 2025 7:21pm Living Will No November 01, 2024 8:39am Do you have a Healthcare Power of Sheet Rock Hanger? No November 01, 2024 8:39am Living Will No December 31, 2024 10:13pm Do you have a Healthcare Power of Sheet Rock Hanger? No December 31, 2024 10:13pm Advance Directives No May 11:19am Advance Directive Response Recorded Date/ Time Living Will No December 01, 2024 10:51pm Do you have a Healthcare Power of Sheet Rock Hanger? No December 01, 2024 10:51pm Living Will No February 01, 2025 7 :21pm Do you have a Healthcare Power of Sheet Rock Hanger? No February 01, 2025 7:21pm Living Will No November 01, 2024 8:39am Do you have a Healthcare Power of Sheet Rock Hanger? No November 01, 2024 8:39am Living Will No December 31, 2024 10:13pm Do you have a Healthcare Power of Sheet Rock Hanger? No December 31, 2024 10:13pm Do you have a Healthcare Power of Sheet Rock Hanger? No March 05, 2025 7:37am Advance Directives No May 11:19am Advance Directive Response Recorded Date/ Time Living Will No December 01, 2024 10:51pm Do you have a Healthcare Power of Sheet Rock Hanger? No December 01, 2024 10:51pm Living Will No Krystle 1st, 2025 7 :21pm Do you have a Healthcare Power of Sheet Rock Hanger? No February 01, 2025 7:21pm Living Will No December 31, 2024 10:13pm Do you have a Healthcare Power of Sheet Rock Hanger? No December 31, 2024 10:13pm Do you have a Healthcare Power of Sheet Rock Hanger? No March 05, 2025 7:37am Advance Directives No May 11:19am Reason for Referral Specialty Diagnoses / Procedures Referred By Contac t Referred To Contact Cardiology Diagnoses Primary hypertension Fatigue, unspecified type Atrial fibrillation, new onset (HCC) Procedures CONSULT TO CARDIOLOGY OFFICE/OUTPATIENT [facility] 60-74 MINUTES Laine Baeza MD [address] [place] [id number] Referral ID Status Reason Start Date Expiration Date Visits Requested Visits Authorized [id number] Pending Review PCP Requested Referral 04/12/2022 04/12/2023 1 1 Specialty Diagnoses / Procedures Referred By Contac t Referred To [facility] Diagnoses Primary hypertension Fatigue, unspecified type Dizziness Irregular heart beats Procedures ECG COMPLETE ECG ROUTINE ECG W/LEAST 12 LDS W/I&R Laine Baeza MD [address] [place] [id number] [facility] [place] [address] [place] [address] Referral ID Status Reason Start Date Expiration Date Visits Requested Visits Authorized [id number] Pending Review Auto-Generat ed Referral 04/12/2022 04/12/2023 1 1 Specialty Diagnoses / Procedures Referred By Contac t Referred To Contact Cardiology Diagnoses Atrial fibrillation, new onset (HCC) Procedures CONSULT TO CARDIOLOGY Laine Baeza MD [address] [place] [id number] Referral ID Status Reason Start Date Expiration Date Visits Requested Visits Authorized [id number] Ref Not Required PCP Requested Referral 04/27/2022 04/27/2023 1 1 Specialty Diagnoses / Procedures Referred By Contac t Referred To Contact Neurology Diagnoses Transient global amnesia Procedures CONSULT TO NEUROLOGY OFFICE/OUTPATIENT [facility] 60-74 MINUTES Laine Baeza MD [address] [place] [id number] Referral ID Status Reason Start Date Expiration Date Visits Requested Visits Authorized [id number] Pending Review PCP Requested Referral 07/07/2022 07/05/2023 1 1 Chief Complaint and Reason for Visit Chief Complaint Amb Documentation ENCEPHALOPATHY Reason for Visit Acute confusion Atrial fibrillation with rapid ventricular response Chief Complaint Amb Documentation ENCEPHALOPATHY ENCEPHALOPATHY Reason for Visit Acute confusion Atrial fibrillation with rapid ventricular response Chief Complaint Amb Documentation ENCEPHALOPATHY ENCEPHALOPATHY ENCEPHALOPATHY NEW ONSET A FIG (TALAMPAS) PERSISTENT A-FIB PERSISTENT A-FIB Reason for Visit Acute confusion Atrial fibrillation with rapid ventricular response Atrial fibrillation Essential (primary) hypertension Atrial fibrillation Chief Complaint Amb Documentation ENCEPHALOPATHY ENCEPHALOPATHY ENCEPHALOPATHY NEW ONSET A FIG (TALAMPAS) PERSISTENT A-FIB PERSISTENT A-FIB PERSISTENT A-FIB nosebleed Reason for Visit Acute confusion Atrial fibrillation with rapid ventricular response Atrial fibrillation Essential (primary) hypertension Atrial fibrillation Chief Complaint Amb Documentation ENCEPHALOPATHY ENCEPHALOPATHY ENCEPHALOPATHY NEW ONSET A FIG (TALAMPAS) PERSISTENT A-FIB PERSISTENT A-FIB PERSISTENT A-FIB nosebleed AFIB Atrial fibrillation 1 WK EKG POST DCCV Reason for Visit Acute confusion Atrial fibrillation with rapid ventricular response Atrial fibrillation Essential (primary) hypertension Atrial fibrillation Chief Complaint NEW ONSET A FIG (DRE AMPAS) PERSISTENT A-FIB PERSISTENT A-FIB PERSISTENT A-FIB nosebleed AFIB Atrial fibrillation 1 WK EKG POST DCCV Discuss Warfarin LLorson 3 M FU S/O INR Reason for Visit Atrial fibrillation Essential (primary) hypertension Atrial fibrillation Hyperlipidemia CKD (chronic kidney disease), stage III Essential (primary) hypertension FPC current use of anticoagulant Paroxysmal atrial fibrillation Chief Complaint Discuss Warfarin LLo rson 3 M FU S/O INR S/O INR Reason for Visit Hyperlipidemia CKD (chronic kidney disease), stage III Essential (primary) hypertension FPC current use of anticoagulant Paroxysmal atrial fibrillation Chief Complaint Discuss Warfarin LLo rson 3 M FU S/O INR S/O INR S/O INR Reason for Visit Hyperlipidemia CKD (chronic kidney disease), stage III Essential (primary) hypertension buttermaker helper current use of anticoagulant Paroxysmal atrial fibrillation Chief Complaint 3 M FU S/O INR S/O INR S/O INR 3 M FU S/O INR 2 WK BP CHECK PER AR Reason for Visit Hyperlipidemia CKD (chronic kidney disease), stage III Essential (primary) hypertension buttermaker helper current use of anticoagulant Paroxysmal atrial fibrillation Hyperlipidemia CKD (chronic kidney disease), stage III Essential (primary) hypertension buttermaker helper current use of anticoagulant Paroxysmal atrial fibrillation Chief Complaint S/O INR S/O INR 3 M FU S/O INR 2 WK BP CHECK PER AR 2 wk BP check S/O INR Reason for Visit Hyperlipidemia CKD (chronic kidney disease), stage III Essential (primary) hypertension buttermaker helper current use of anticoagulant Paroxysmal atrial fibrillation Chief Complaint S/O INR 3 M FU S/O INR 2 WK BP CHECK PER AR 2 wk BP check S/O INR S/O INR Reason for Visit Hyperlipidemia CKD (chronic kidney disease), stage III Essential (primary) hypertension FPC current use of anticoagulant Paroxysmal atrial fibrillation Chief Complaint 3 M FU S/O INR 2 WK BP CHECK PER AR 2 wk BP check S/O INR S/O INR S/O INR Reason for Visit Hyperlipidemia CKD (chronic kidney disease), stage III Essential (primary) hypertension buttermaker helper current use of anticoagulant Paroxysmal atrial fibrillation Chief Complaint S/O INR S/O INR S/O INR BP Check S/O INR Chief Complaint S/O INR S/O INR BP Check S/O INR S/O INR Reason for Visit Essential (primary) hypertension Chief Complaint S/O INR BP Check S/O INR S/O INR S/O INR Reason for Visit Essential (primary) hypertension Chief Complaint S/O INR S/O INR S/O INR S/O INR Chief Complaint Admit Date S/O INR August 28, 2024 11:36am S/O INR October 03, 2024 1 1:45am S/O INR October 31, 2024 11:46am S/O INR November 14, 2024 11: 45am Chief Complaint Admit Date S/O INR October 03, 2024 1 1:45am S/O INR October 31, 2024 11:46am S/O INR November 14, 2024 11: 45am OVERDUE December 22, 2024 2:3 2pm S/O INR 2024 11: 46am A. FIB December 30, 2024 1:4 6pm A. FIB December 30, 2024 1:5 7pm S/O INR January 07, 2025 11:46a m A. FIB January 13, 2025 1:45p m Reason for Visit Admit Date Hyperlipidemia December 22, 2024 2:3 2pm Essential (primary) hypertension December 032024 2:32pm FPC current use of anticoagulant A pril 2024 2:32pm Paroxysmal atrial fibrillation December 2:32pm Chief Complaint Admit Date S/O INR October 31, 2024 11:46am S/O INR November 14, 2024 11: 45am OVERDUE December 22, 2024 2:3 2pm S/O INR 2024 11: 46am A. FIB December 30, 2024 1:4 6pm A. FIB December 30, 2024 1:5 7pm S/O INR January 07, 2025 11:46a m A. FIB January 13, 2025 1:45p m Chief Complaint Admit Date S/O INR November 14, 2024 11: 45am OVERDUE December 22, 2024 2:3 2pm S/O INR 2024 11: 46am A. FIB December 30, 2024 1:4 6pm A. FIB December 30, 2024 1:5 7pm S/O INR January 07, 2025 11:46a m A. FIB January 13, 2025 1:45p m S/O INR February 04, 2025 11:44 am Chief Complaint Admit Date S/O INR November 14, 2024 11: 45am OVERDUE December 22, 2024 2:3 2pm S/O INR 2024 11: 46am A. FIB December 30, 2024 1:4 6pm A. FIB December 30, 2024 1:5 7pm S/O INR January 07, 2025 11:46a m A. FIB January 13, 2025 1:45p m S/O INR February 04, 2025 11:44 am S/O INR March 04, 2025 1:04p m N/V March 05, 2025 7:36a m Chief Complaint Admit Date OVERDUE December 22, 2024 2:3 2pm S/O INR 2024 11: 46am A. FIB December 30, 2024 1:4 6pm A. FIB December 30, 2024 1:5 7pm S/O INR January 07, 2025 11:46a m A. FIB January 13, 2025 1:45p m S/O INR February 04, 2025 11:44 am S/O INR March 04, 2025 1:04p m N/V March 05, 2025 7:36a m 3 M FU March 23, 2025 2:50 pm Reason for Visit Admit Date Hyperlipidemia December 22, 2024 2:3 2pm Essential (primary) hypertension December 032024 2:32pm buttermaker helper current use of anticoagulant A pril 2024 2:32pm Paroxysmal atrial fibrillation December 2:32pm Hyperlipidemia March 23, 2025 2:50 pm Mitral valve regurgitation March 23 2:50pm Essential (primary) hypertension March 232024 2:50pm buttermaker helper current use of anticoagulant J [email or web address] 2:50pm Paroxysmal atrial fibrillation March 2:50pm Chief Complaint Admit Date OVERDUE December 22, 2024 2:3 2pm S/O INR 2024 11: 46am A. FIB December 30, 2024 1:4 6pm A. FIB December 30, 2024 1:5 7pm S/O INR January 07, 2025 11:46a m A. FIB January 13, 2025 1:45p m S/O INR February 04, 2025 11:44 am N/V March 05, 2025 7:36a m 3 M FU March 23, 2025 2:50 pm S/O INR April 01, 2025 11:4 1am Additional Source Comments (unrecognized sect ion and content) No Status Records FoundNo Status Records FoundNo Status Records Found INFORMATION SOURCE (unrecogn ized section and content) DATE CREATED AUTHOR 05/06/2021 [facility] DATE CREATED AUTHOR AUTHOR'S ORGANIZ ATION 01/07/2025 [facility] DATE CREATED AUTHOR AUTHOR'S ORGANIZ ATION [facility]20[facility] Source Comments (unrecognize d section and content) In the event this informatio n is protected by the Federal Confidentiality of Alcohol and Drug Abuse Patient Records regulations: The Federal rules restrict any use of the information to criminally investigate or prosecute any alcohol or drug abuse patient.[facility] the event this information is protected by the Federal Confidentiality of Alcohol and Drug Abuse Patient Records regulations: The Federal rules restrict any use of the information to criminally investigate or prosecute any alcohol or drug abuse patient.[facility] the event this information is protected by the Federal Confidentiality of Alcohol and Drug Abuse Patient Records regulations: The Federal rules restrict any use of the information to criminally investigate or prosecute any alcohol or drug abuse patient.[facility] the event this information is protected by the Federal Confidentiality of Alcohol and Drug Abuse Patient Records regulations: The Federal rules restrict any use of the information to criminally investigate or prosecute any alcohol or drug abuse patient.[facility] the event this information is protected by the Federal Confidentiality of Alcohol and Drug Abuse Patient Records regulations: The Federal rules restrict any use of the information to criminally investigate or prosecute any alcohol or drug abuse patient.[facility] the event this information is protected by the Federal Confidentiality of Alcohol and Drug Abuse Patient Records regulations: The Federal rules restrict any use of the information to criminally investigate or prosecute any alcohol or drug abuse patient.[facility] the event this information is protected by the Federal Confidentiality of Alcohol and Drug Abuse Patient Records regulations: The Federal rules restrict any use of the information to criminally investigate or prosecute any alcohol or drug abuse patient.[facility] the event this information is protected by the Federal Confidentiality of Alcohol and Drug Abuse Patient Records regulations: The Federal rules restrict any use of the information to criminally investigate or prosecute any alcohol or drug abuse patient.[facility] the event this information is protected by the Federal Confidentiality of Alcohol and Drug Abuse Patient Records regulations: The Federal rules restrict any use of the information to criminally investigate or prosecute any alcohol or drug abuse patient.[facility] the event this information is protected by the Federal Confidentiality of Alcohol and Drug Abuse Patient Records regulations: The Federal rules restrict any use of the information to criminally investigate or prosecute any alcohol or drug abuse patient.[facility] the event this information is protected by the Federal Confidentiality of Alcohol and Drug Abuse Patient Records regulations: The Federal rules restrict any use of the information to criminally investigate or prosecute any alcohol or drug abuse patient.[facility] the event this information is protected by the Federal Confidentiality of Alcohol and Drug Abuse Patient Records regulations: The Federal rules restrict any use of the information to criminally investigate or prosecute any alcohol or drug abuse patient.[facility] the event this information is protected by the Federal Confidentiality of Alcohol and Drug Abuse Patient Records regulations: The Federal rules restrict any use of the information to criminally investigate or prosecute any alcohol or drug abuse patient.[facility] the event this information is protected by the Federal Confidentiality of Alcohol and Drug Abuse Patient Records regulations: The Federal rules restrict any use of the information to criminally investigate or prosecute any alcohol or drug abuse patient.[facility] the event this information is protected by the Federal Confidentiality of Alcohol and Drug Abuse Patient Records regulations: The Federal rules restrict any use of the information to criminally investigate or prosecute any alcohol or drug abuse patient.[facility] the event this information is protected by the Federal Confidentiality of Alcohol and Drug Abuse Patient Records regulations: The Federal rules restrict any use of the information to criminally investigate or prosecute any alcohol or drug abuse patient.[facility] the event this information is protected by the Federal Confidentiality of Alcohol and Drug Abuse Patient Records regulations: The Federal rules restrict any use of the information to criminally investigate or prosecute any alcohol or drug abuse patient.[facility] the event this information is protected by the Federal Confidentiality of Alcohol and Drug Abuse Patient Records regulations: The Federal rules restrict any use of the information to criminally investigate or prosecute any alcohol or drug abuse patient.[facility] the event this information is protected by the Federal Confidentiality of Alcohol and Drug Abuse Patient Records regulations: The Federal rules restrict any use of the information to criminally investigate or prosecute any alcohol or drug abuse patient.[facility] the event this information is protected by the Federal Confidentiality of Alcohol and Drug Abuse Patient Records regulations: The Federal rules restrict any use of the information to criminally investigate or prosecute any alcohol or drug abuse patient.[facility] Reason for Visit (unrecogniz ed section and content) Reason Onset Date Comments Refill Request 12/05/2021 Reason Comments Medicare Wellness Exam Reason Comments Appointment Reason Comments Follow Up Reason Comments Results Consult Reason Comments Release Of Medical Records Reason Comments Fax Requested Reason Comments F/U 6 months Reason Comments Patient Update Reason Onset Date Comments Refill Request 12/01/2022 Reason Comments Refill Request Reason Comments Future Appointment Reason Comments Fatigue Reason Comments Results Care Teams (unrecognized sec tion and content) Public School Teacher Relationship Specialty Start Date End Date Laine Baeza MD [facility] [place] [address] PCP - General 06/26/02 Public School Teacher Relationship Specialty Start Date End Date Laine Baeza MD [address] [place] [address] [place] [address] PCP - General 06/26/02 Public School Teacher Relationship Specialty Start Date End Date Laine Baeza MD [address] [place] [address] [place] [address] PCP - General 06/26/02 Public School Teacher Relationship Specialty Start Date End Date Laine Baeza MD [address] [place] [address] [place] [address] PCP - General 06/26/02 Public School Teacher Relationship Specialty Start Date End Date Laine Baeza MD [address] [place] [address] [place] [address] PCP - General 06/26/02 Public School Teacher Relationship Specialty Start Date End Date Laine Baeza MD [address] [place] [address], [place] [address] PCP - General 06/26/02 Public School Teacher Relationship Specialty Start Date End Date Laine Baeza MD [address] [place] [address] [place] [address] PCP - General 06/26/02 Public School Teacher Relationship Specialty Start Date End Date Laine Baeza MD [address] [place] [address] PCP - General 06/26/02 Public School Teacher Relationship Specialty Start Date End Date Laine Baeza MD [address] [place], [place] [address] PCP - General 06/26/02 Team Status: Active Member Role Status Dates Dr. Laine Baeza MD Family Provider Active Dr. Laine Baeza MD Primary Care Provider Active Team Status: Inactive Member Role Status Dates Dr. Laine Baeza MD Primary Care Provider, Referr ing Provider Active Dr. Betty Peck MD Attending Provider Active Team Status: Inactive Member Role Status Dates Dr. Laine Baeza MD Primary Care Provider Active Dr. Betty Peck MD Attending Provider, Referring Pr ovider Active Public School Teacher Relationship Specialty Start Date End Date Laine Baeza MD [address] [place], [place] [address] PCP - General 06/26/02 Team Status: Inactive Member Role Status Dates Dr. Laine Baeza MD Primary Care Provider, Referr ing Provider Active Candace Sagastume Attending Provider Active Public School Teacher Relationship Specialty Start Date End Date Laine Baeza MD [address] [place] [address] PCP - General 06/26/02 Public School Teacher Relationship Specialty Start Date End Date Laine Baeza MD [address] [place], [place] [address] PCP - General 06/26/02 Public School Teacher Relationship Specialty Start Date End Date Laine Baeza MD [address] [place] [address] PCP - General 06/26/02 Public School Teacher Relationship Specialty Start Date End Date Laine Baeza MD [address] [place] [address] PCP - General 06/26/02 Rosamaria Dove, DATABASE SPECIALIST.DIRECTOR OF RETAIL [address] [place] [address] Continuous Washer Operator Internal Medicine 08/11/24 Noelle Keene, DATABASE SPECIALIST.HOSPITAL COOK [address] [place] [address] Continuous Washer Operator Internal Medicine 08/11/24 Public School Teacher Relationship Specialty Start Date End Date Laine Baeza MD [address] [place] [address] PCP - General 06/26/02 Rosamaria Dove, DATABASE SPECIALIST.DIRECTOR OF RETAIL [address] [place] [address] Continuous Washer Operator Internal Medicine 08/11/24 Noelle Keene, DATABASE SPECIALIST.HOSPITAL COOK [address] [place] [address] Continuous Washer Operator Internal Medicine 08/11/24 Public School Teacher Relationship Specialty Start Date End Date Laine Baeza MD [address] [place] [address] PCP - General 06/26/02 Rosamaria Dove, DATABASE SPECIALIST.DIRECTOR OF RETAIL [address] [place] [address] Continuous Washer Operator Internal Medicine 08/11/24 Noelle Keene DATABASE SPECIALIST.HOSPITAL COOK [address] [place] [address] Continuous Washer Operator Internal Medicine 08/11/24 Public School Teacher Relationship Specialty Start Date End Date Laine Baeza MD [address] [place] [address] PCP - General 06/26/02 Rosamaria Dove, DATABASE SPECIALIST.DIRECTOR OF RETAIL [address] [place] [address] Continuous Washer Operator Internal Medicine 08/11/24 Noelle Keene DATABASE SPECIALIST.HOSPITAL COOK [address] [place] [address] [facility] Internal [facility] 08/11/24 Public School Teacher Relationship Specialty Start Date End Date Laine Baeza MD [address] [place] [address] PCP - General 06/26/02 Rosamaria Dove, DATABASE SPECIALIST.DIRECTOR OF RETAIL [address] [place] [address] [facility] Internal Medicine 08/11/24 Noelle Keene DATABASE SPECIALIST.HOSPITAL COOK [address] [place] [address] [facility] Internal Medicine 08/11/24 Team Status: Active Member Role Status Dates Dr. Laine Baeza MD Primary Care Provider Active Team Status: Inactive Member Role Status Dates Dr. Laine aBeza MD Primary Care Provider Active Start: August 28, 2024 End: August 28, 2024 Dr. Betty Peck MD Attending Provider Active Start: August 28, 2024 End: August 28, 2024 Dr. Betty Peck MD Referring Provider Active Start: August 28, 2024 End: August 28, 2024 Team Status: Inactive Member Role Status Dates Dr. Laine Baeza MD Primary Care Provider Active Start: October 03, 2024 End: October 03, 2024 Dr. Betty Peck MD Attending Provider Active Start: October 03, 2024 End: October 03, 2024 Dr. Betty Peck MD Referring Provider Active Start: October 03, 2024 End: October 03, 2024 Team Status: Inactive Member Role Status Dates Dr. Laine Baeza MD Primary Care Provider Active Start: October 31, 2024 End: October 31, 2024 Dr. Betty Peck MD Attending Provider Active Start: October 31, 2024 End: October 31, 2024 Dr. Betty Peck MD Referring Provider Active Start: October 31, 2024 End: October 31, 2024 Team Status: Inactive Member Role Status Dates Dr. Laine Baeza MD Primary Care Provider Active Start: November 14, 2024 End: November 14, 2024 Dr. Betty Peck MD Attending Provider Active Start: November 14, 2024 End: November 14, 2024 Dr. Betty Peck MD Referring Provider Active Start: November 14, 2024 End: November 14, 2024 Team Status: Inactive Member Role Status Dates Dr. Laine Baeza MD Primary Care Provider Active Start: December 22, 2024 End: December 22, 2024 Dr. Laine Baeza MD Referring Provider Active Start: December 22, 2024 End: December 22, 2024 Krista Barekr HARMONIC ANALYST, HARMONIC ANALYST-C Attending Provider Active Start: December 22, 2024 End: December 22, 2024 Team Status: Inactive Member Role Status Dates Dr. Laine Baeza MD Primary Care Provider Active Start: 2024 End: December 31, 2024 Dr. Betty Peck MD Attending Provider Active Start: 2024 End: December 31, 2024 Dr. Betty Peck MD Referring Provider Active Start: 2024 End: December 31, 2024 Team Status: Inactive Member Role Status Dates Dr. Laine Baeza MD Primary Care Provider Active Start: December 30, 2024 End: December 30, 2024 Krista Barker HARMONIC ANALYST, HARMONIC ANALYST-C Attending Provider Active Start: December 30, 2024 End: December 30, 2024 Krista Barker HARMONIC ANALYST, HARMONIC ANALYST-C Referring Provider Active Start: December 30, 2024 End: December 30, 2024 Team Status: Active Member Role Status Dates Dr. Laine Baeza MD Primary Care Provider Active Start: December 30, 2024 Dr. Betty Peck MD Attending Provider Active Start: December 30, 2024 Krista Barker HARMONIC ANALYST, HARMONIC ANALYST-C Referring Provider Active Start: December 30, 2024 Team Status: Active Member Role Status Dates Dr. Laine Baeza MD Primary Care Provider Active Start: January 07, 2025 Dr. Betty Peck MD Attending Provider Active Start: January 07, 2025 Dr. Betty Peck MD Referring Provider Active Start: January 07, 2025 Team Status: Inactive Member Role Status Dates Dr. Laine Baeza MD Primary Care Provider Active Start: January 13, 2025 End: January 13, 2025 Krista Barker HARMONIC ANALYST, HARMONIC ANALYST-C Attending Provider Active Start: January 13, 2025 End: January 13, 2025 Krista Barker HARMONIC ANALYST, HARMONIC ANALYST-C Referring Provider Active Start: January 13, 2025 End: January 13, 2025 Team Status: Active Member Role Status Dates Dr. Laine Baeza MD Primary Care Provider Active Start: January 13, 2025 Dr. Betty Peck MD Attending Provider Active Start: January 13, 2025 Team Status: Inactive Member Role Status Dates Dr. Laine Baeza MD Primary Care Provider Active Start: January 07, 2025 End: January 07, 2025 Dr. Betty Peck MD Attending Provider Active Start: January 07, 2025 End: January 07, 2025 Dr. Betty Peck MD Referring Provider Active Start: January 07, 2025 End: January 07, 2025 Team Status: Active Member Role/Relationship Status Dates Dr. Laine Baeza MD Primary Care Provider Active Team Status: Inactive Member Role/Relationship Status Dates Dr. Laine Baeza MD Primary Care Provider Active Start: November 14, 2024 End: November 14, 2024 Dr. Betty Peck MD Attending Provider Active Start: November 14, 2024 End: November 14, 2024 Dr. Betty Peck MD Referring Provider Active Start: November 14, 2024 End: November 14, 2024 Team Status: Inactive Member Role/Relationship Status Dates Dr. Laine Baeza MD Primary Care Provider Active Start: December 22, 2024 End: December 22, 2024 Dr. Laine Baeza MD Referring Provider Active Start: December 22, 2024 End: December 22, 2024 Krista Barker HARMONIC ANALYST, HARMONIC ANALYST-C Attending Provider Active Start: December 22, 2024 End: December 22, 2024 Team Status: Inactive Member Role/Relationship Status Dates Dr. Laine Baeza MD Primary Care Provider Active Start: 2024 End: December 31, 2024 Dr. Betty Peck MD Attending Provider Active Start: 2024 End: December 31, 2024 Dr. Betty Peck MD Referring Provider Active Start: 2024 End: December 31, 2024 Team Status: Inactive Member Role/Relationship Status Dates Dr. Laine Baeza MD Primary Care Provider Active Start: December 30, 2024 End: December 30, 2024 Krista Barker HARMONIC ANALYST, HARMONIC ANALYST-C Attending Provider Active Start: December 30, 2024 End: December 30, 2024 Krista Barker HARMONIC ANALYST, HARMONIC ANALYST-C Referring Provider Active Start: December 30, 2024 End: December 30, 2024 Team Status: Active Member Role/Relationship Status Dates Dr. Laine Baeza MD Primary Care Provider Active Start: December 30, 2024 Dr. Betty Peck MD Attending Provider Active Start: December 30, 2024 Krista Barker HARMONIC ANALYST, HARMONIC ANALYST-C Referring Provider Active Start: December 30, 2024 Team Status: Inactive Member Role/Relationship Status Dates Dr. Laine Baeza MD Primary Care Provider Active Start: January 07, 2025 End: January 07, 2025 Dr. Betty Peck MD Attending Provider Active Start: January 07, 2025 End: January 07, 2025 Dr. Betty Peck MD Referring Provider Active Start: January 07, 2025 End: January 07, 2025 Team Status: Inactive Member Role/Relationship Status Dates Dr. Laine Baeza MD Primary Care Provider Active Start: January 13, 2025 End: January 13, 2025 Krista Barker HARMONIC ANALYST, HARMONIC ANALYST-C Attending Provider Active Start: January 13, 2025 End: January 13, 2025 Krista Barker HARMONIC ANALYST, HARMONIC ANALYST-C Referring Provider Active Start: January 13, 2025 End: January 13, 2025 Team Status: Active Member Role/Relationship Status Dates Dr. Laine Baeza MD Primary Care Provider Active Start: January 13, 2025 Dr. Betty Peck MD Attending Provider Active Start: January 13, 2025 Team Status: Inactive Member Role/Relationship Status Dates Dr. Laine Baeza MD Primary Care Provider Active Start: February 04, 2025 End: February 04, 2025 Dr. Betty Peck MD Attending Provider Active Start: February 04, 2025 End: February 04, 2025 Dr. Betty Peck MD Referring Provider Active Start: February 04, 2025 End: February 04, 2025 Team Status: Active Member Role/Relationship Status Dates Dr. Laine Baeza MD Primary Care Provider Active Start: March 04, 2025 Dr. Betty Peck MD Attending Provider Active Start: March 04, 2025 Dr. Betty Peck MD Referring Provider Active Start: March 04, 2025 Team Status: Inactive Member Role/Relationship Status Dates Dr. Laine Baeza MD Primary Care Provider Active Start: March 05, 2025 End: March 05, 2025 Dr. Kendall Cormier DO Emergency Provider Active Start: March 05, 2025 End: March 05, 2025 Team Status: Inactive Member Role/Relationship Status Dates Dr. Laine Baeza MD Primary Care Provider Active Start: December 22, 2024 End: December 22, 2024 Dr. Laine Baeza MD Referring Provider Active Start: December 22, 2024 End: December 22, 2024 Krista Barker HARMONIC ANALYST, HARMONIC ANALYST-C Attending Provider Active Start: December 22, 2024 End: December 22, 2024 Team Status: Inactive Member Role/Relationship Status Dates Dr. Laine Baeza MD Primary Care Provider Active Start: 2024 End: December 31, 2024 Dr. Betty Peck MD Attending Provider Active Start: 2024 End: December 31, 2024 Dr. Betty Peck MD Referring Provider Active Start: 2024 End: December 31, 2024 Team Status: Inactive Member Role/Relationship Status Dates Dr. Laine Baeza MD Primary Care Provider Active Start: December 30, 2024 End: December 30, 2024 Krista Barker HARMONIC ANALYST, HARMONIC ANALYST-C Attending Provider Active Start: December 30, 2024 End: December 30, 2024 Krista Barker HARMONIC ANALYST, HARMONIC ANALYST-C Referring Provider Active Start: December 30, 2024 End: December 30, 2024 Team Status: Active Member Role/Relationship Status Dates Dr. Laine Baeza MD Primary Care Provider Active Start: December 30, 2024 Dr. Betty Peck MD Attending Provider Active Start: December 30, 2024 Krista Barker HARMONIC ANALYST, HARMONIC ANALYST-C Referring Provider Active Start: December 30, 2024 Team Status: Inactive Member Role/Relationship Status Dates Dr. Laine Baeza MD Primary Care Provider Active Start: January 07, 2025 End: January 07, 2025 Dr. Betty Peck MD Attending Provider Active Start: January 07, 2025 End: January 07, 2025 Dr. Betty Peck MD Referring Provider Active Start: January 07, 2025 End: January 07, 2025 Team Status: Inactive Member Role/Relationship Status Dates Dr. Laine Baeza MD Primary Care Provider Active Start: January 13, 2025 End: January 13, 2025 Krista Barker HARMONIC ANALYST, HARMONIC ANALYST-C Attending Provider Active Start: January 13, 2025 End: January 13, 2025 Krista Barker HARMONIC ANALYST, HARMONIC ANALYST-C Referring Provider Active Start: January 13, 2025 End: January 13, 2025 Team Status: Active Member Role/Relationship Status Dates Dr. Laine Baeza MD Primary Care Provider Active Start: January 13, 2025 Dr. Betty Peck MD Attending Provider Active Start: January 13, 2025 Team Status: Inactive Member Role/Relationship Status Dates Dr. Laine Baeza MD Primary Care Provider Active Start: February 04, 2025 End: February 04, 2025 Dr. Betty Peck MD Attending Provider Active Start: February 04, 2025 End: February 04, 2025 Dr. Betty Peck MD Referring Provider Active Start: February 04, 2025 End: February 04, 2025 Team Status: Active Member Role/Relationship Status Dates Dr. Laine Baeza MD Primary Care Provider Active Start: March 04, 2025 Dr. Betty Peck MD Attending Provider Active Start: March 04, 2025 Dr. Betty Peck MD Referring Provider Active Start: March 04, 2025 Team Status: Inactive Member Role/Relationship Status Dates Dr. Laine Baeza MD Primary Care Provider Active Start: March 05, 2025 End: March 05, 2025 Dr. Kendall Cormier DO Attending Provider Active Start: March 05, 2025 End: March 05, 2025 Dr. Kendall Cormier DO Emergency Provider Active Start: March 05, 2025 End: March 05, 2025 Team Status: Inactive Member Role/Relationship Status Dates Dr. Laine Baeza MD Primary Care Provider Active Start: March 23, 2025 End: March 23, 2025 Dr. Laine Baeza MD Referring Provider Active Start: March 23, 2025 End: March 23, 2025 Krista Barker NP, HARMONIC ANALYST-C Attending Provider Active Start: March 23, 2025 End: March 23, 2025 Team Status: Inactive Member Role/Relationship Status Dates Dr. Laine Baeza MD Primary Care Provider Active Start: March 05, 2025 End: March 05, 2025 Dr. Kendall Cormier DO Attending Provider Active Start: March 05, 2025 End: March 05, 2025 Dr. Kendall Cormier DO Emergency Provider Active Start: March 05, 2025 End: March 05, 2025 Team Status: Inactive Member Role/Relationship Status Dates Dr. Laine Baeza MD Primary Care Provider Active Start: March 23, 2025 End: March 23, 2025 Dr. Laine Baeza MD Referring Provider Active Start: March 23, 2025 End: March 23, 2025 Krista Barker NP, HARMONIC ANALYST-C Attending Provider Active Start: March 23, 2025 End: March 23, 2025 Team Status: Inactive Member Role/Relationship Status Dates Dr. Laine Baeza MD Primary Care Provider Active Start: April 01, 2025 End: April 02, 2025 Dr. Betty Peck MD Attending Provider Active Start: April 01, 2025 End: April 02, 2025 Dr. Betty Peck MD Referring Provider Active Start: April 01, 2025 End: April 02, 2025 Goals (unrecognized section and content) Goals may be documented in a n alternate sectionGoals may be documented in an alternate sectionGoals may be documented in an alternate sectionGoals may be documented in an alternate sectionGoals may be documented in an alternate sectionGoals may be documented in an alternate sectionGoals may be documented in an alternate sectionGoals may be documented in an alternate sectionGoals may be documented in an alternate sectionGoals may be documented in an alternate sectionGoals may be documented in an alternate sectionGoals may be documented in an alternate sectionGoals may be documented in an alternate sectionGoals may be documented in an alternate sectionGoals may be documented in an alternate sectionGoals may be documented in an alternate sectionGoals may be documented in an alternate sectionGoals may be documented in an alternate sectionGoals may be documented in an alternate sectionGoals may be documented in an alternate sectionGoals may be documented in an alternate sectionGoals may be documented in an alternate sectionGoals may be documented in an alternate sectionGoals may be documented in an alternate section FOR RECORDS PERTAINING TO PATIENTS WHO ARE OR HAVE BEEN ENROLLED IN A CHEMICAL DEPENDENCY/SUBSTANCEABUSE PROGRAM, SOME INFORMATION MAY BE OMITTED. This clinical summary was aggregated from multiple sources. Caution should be exercised in using it in the provision of clinical care. This summary normalizes information from multiple sources, and as a consequence, information in this document may materially change the coding, format and clinical context of patient data. In addition, data may be omitted in some cases. CLINICAL DECISIONS SHOULD BE BASED ON THE PRIMARY CLINICAL RECORDS. [employer] [facility]. provides no warranty or guarantee of the accuracy or completeness of information in this document.
== END | disposition home or self-care (01) ==
LOC: MRI 06:59
PROVIDERS: PCP Internal Medicine; Referring Provider Otolaryngology Otolaryngology/Facial Plastic Surgery; Visit Provider Otolaryngology Otolaryngology/Facial Plastic Surgery
DX: H90.3 Sensorineural hearing loss, bilateral (principal)
CPT/HCPCS: 70553; A9575

== ENCOUNTER 2025-04-29 11:36 | Outpatient (RCR) | payer MEDICARE, OTHER, SELFPAY ==
[2025-04-29 11:42] LABS: INR Fingerstick 2.7
== END 2025-04-29 18:00 | disposition home or self-care (01) ==
LOC: LAB 11:36
PROVIDERS: PCP Internal Medicine; Referring Provider Internal Medicine Cardiovascular Disease; Visit Provider Internal Medicine Cardiovascular Disease
DX: Z79.01 Long term (current) use of anticoagulants; I48.91 Unspecified atrial fibrillation
CPT/HCPCS: 36416; 85610

== ENCOUNTER 2025-05-27 11:36 | Outpatient (RCR) | payer MEDICARE, OTHER, SELFPAY ==
[2025-05-27 11:46] LABS: INR Fingerstick 2.2
== END 2025-06-02 18:00 | disposition home or self-care (01) ==
LOC: LAB 11:36
PROVIDERS: PCP Internal Medicine; Referring Provider Internal Medicine Cardiovascular Disease; Visit Provider Internal Medicine Cardiovascular Disease
DX: I48.0 Paroxysmal atrial fibrillation (principal); Z79.01 Long term (current) use of anticoagulants
CPT/HCPCS: 36416; 85610

== ENCOUNTER 2025-06-24 11:36 | Outpatient (RCR) | payer MEDICARE, OTHER, SELFPAY ==
[2025-06-24 11:55] LABS: INR Fingerstick 2.6
== END 2025-06-24 18:00 | disposition home or self-care (01) ==
LOC: LAB 11:36
PROVIDERS: PCP Internal Medicine; Referring Provider Internal Medicine Cardiovascular Disease; Visit Provider Internal Medicine Cardiovascular Disease
DX: I48.0 Paroxysmal atrial fibrillation (principal); Z79.01 Long term (current) use of anticoagulants
CPT/HCPCS: 36416; 85610

== ENCOUNTER 2025-07-22 11:40 | Outpatient (RCR) | payer MEDICARE, OTHER, SELFPAY ==
[2025-07-22 12:02] LABS: INR Fingerstick 2.8
== END 2025-08-01 18:00 | disposition home or self-care (01) ==
LOC: LAB 11:40
PROVIDERS: PCP Internal Medicine; Referring Provider Internal Medicine Cardiovascular Disease; Visit Provider Internal Medicine Cardiovascular Disease
DX: I48.0 Paroxysmal atrial fibrillation (principal); Z79.01 Long term (current) use of anticoagulants
CPT/HCPCS: 36416; 85610

== ENCOUNTER 2025-08-19 11:33 | Outpatient (RCR) | payer MEDICARE, OTHER, SELFPAY ==
[2025-08-19 11:53] LABS: INR Fingerstick 3.0
== END 2025-08-19 18:00 | disposition home or self-care (01) ==
LOC: LAB 11:33
PROVIDERS: PCP Internal Medicine; Referring Provider Internal Medicine Cardiovascular Disease; Visit Provider Internal Medicine Cardiovascular Disease
DX: I48.0 Paroxysmal atrial fibrillation (principal); Z79.01 Long term (current) use of anticoagulants
CPT/HCPCS: 36416; 85610